=== PATIENT | female | born 1955 | race Caucasian/White ===

== ENCOUNTER 2017-12-22 08:39 | Observation (INO) | payer OTHER, SELFPAY ==
[2017-12-15 14:45] VITALS: BP 132/68; PULSE 57; RESP 16; TEMP 36.6; O2SAT 97; BMI 39.9
--- NOTE | 2017-12-15 14:55 | SDCEKG_ITS ---
Test Reason : Blood Pressure : / mmHG Vent. Rate : 052 BPM Atrial Rate : 052 BPM P-R Int : 160 ms QRS Dur : 070 ms QT Int : 424 ms P-R-T Axes : 047 023 046 degrees QTc Int : 394 ms Sinus bradycardia Low voltage QRS Borderline ECG Confirmed by MARK TAYLOR, MENDOZA ([id number]), science editor MILES ALLEN ([id number]) on 12/16/2017 1:52:14 PM Referred By: Haseeb De Los Santos Confirmed By:MENDOZA FLORES MD
[2017-12-15 15:58] LABS: Hematocrit 38.7 % (37-47); Hemoglobin 12.9 g/dl (12.0-15.0); Mean Corp Hgb Conc 33.3 g/gl (32-36); Mean Corpuscular Hgb 30.9 pg (27.0-32.0); Mean Corpuscular Volume 92.8 fL (81-99); Mean Platelet Vol. 10.2 fl (6.2-12.0); Platelet Count 209 K/mm3 (150-450); RBC Distribution Width CV 12.3 % (11.6-14.6); RBC Distribution Width SD 41.9 fl (35.1-43.9); Red Blood Count 4.17 M/mm3 (4.2-5.4); White Blood Count 7.8 K/mm3 (4.4-11.0)
[2017-12-15 16:08] LABS: Scan Indicated on CBC? Y/N NO
[2017-12-15 16:16] LABS: AST(SGOT) 15 U/L (15-37); Alanine Aminotransfer ALT/SGPT 20 U/L (13-56); Albumin, Serum 3.3 g/dL (3.2-5.0); Alkaline Phosphatase 81 U/L (45-117); Anion Gap 8 (5-15); BUN 17 mg/dL (7-18); BUN/Creat Ratio 15.6 RATIO (10-20); Bilirubin, Direct 0.09 mg/dL (0.00-0.30); Calcium,Total 8.4 mg/dL (8.5-10.1); Chloride 105 mmol/L (98-107); Creatinine, Serum 1.09 mg/dL (0.55-1.02); EST Glomerular Filtration Rate 54 mL/min (>60); Est Glom Filt Rate - Afr Amer 66 mL/min (>60); Estimated Creatinine Clearance 38.93 ml/min; Globulin 3.2 g/dL (2.2-4.2); Glucose 106 mg/dL (74-106); Protein, Total 6.5 g/dL (6.4-8.2); Sodium Level 139 mmol/L (136-145); Thyroid Stim Hormone (TSH) 4.33 uIU/mL (0.358-3.74)
[2017-12-15 16:21] LABS: Prothrombin Time (Protime)PT. 12.6 SECONDS (11.7-14.9)
[2017-12-15 16:22] LABS: Partial Thromboplast Time 29.1 Seconds (24.1-36.2)
[2017-12-15 16:52] LABS: Hemoglobin A1c 6.6 % (4.2-6.3)
[2017-12-22] VITALS (19 sets, daily range): BP systolic 89–129; BP diastolic 53–86; PULSE 57–73; RESP 16–18; TEMP 36.2–36.8; O2SAT 95–100; BMI 39.9
[2017-12-22] MEDS: Celecoxib 200 MG Capsule PO (09:27)
[2017-12-22] MEDS: oxyCODONE HCl Cr 10 MG Tablet PO (09:27)
[2017-12-22] MEDS: Dext 5%-0.45% NS 1,000 ML 100 ML IV (09:30)
[2017-12-22 09:36] LABS: Bedside Glucose 46 mg/dL (70-110)
[2017-12-22 10:06] LABS: Bedside Glucose 82 mg/dL (70-110)
--- NOTE | 2017-12-22 11:09 | RAD_ITS ---
STUDY: X-RAY - RIGHT KNEE REASON FOR EXAM: Female, 62 years old. Total knee replacement. TECHNIQUE: AP and lateral view(s) of the knee. COMPARISON: Comparison is made with prior study dated August 28, 2016. FINDINGS: Normal visualized distal femur. Normal visualized proximal tibia and fibula. Normal proximal tibiofibular articulation. The patient is status post total knee replacement. There is good alignment. Postoperative soft tissue changes. RAD/Knee 1 or 2 Views IMPRESSION: Status post total knee replacement. There is good alignment. Postoperative soft tissue changes. Electronically Signed: Sivakumar Johnson MD at 14:01 EST Tel [phone], Service support ,
--- NOTE | 2017-12-22 11:20 | KNEE_PTH ---
PATIENT: HOPE ENCINAS LOC: [facility]3 U#:[id number] AGE/SX: 62/F ROOM: MS316 RE12/22/[address]: Haseeb De Los Santos DO : 1955 BED: 1 DIS: 12/25/2017 SPEC #: [id number] RECD: 12/23/17 08:35 STATUS: SCOT ANGEL #: [id number] COMFORT: 12/22/17 11:[address]: Haseeb De Los Santos DEPT: SURGICAL PATHOLOGY RECD BY: Kayla Hickman ENTERED: 12/23/17 09:04 SP TYPE: TOTAL KNEE OTHR DR: Truman David Tissues: Knee, NOS Procedures: Decalcification bone/plaque Surgery Specimen Level IV HEADER OPERATION: Right, total knee replacement PRE-OP DIAGNOSIS: Osteoarthritis, right knee TISSUE SUBMITTED: Bone and tissue, right knee MICROSCOPIC DIAGNOSIS Bone and tissue of right knee, total knee resection: Consistent with severe degenerative joint disease. AM:georges 12/28/17 MICROSCOPIC DESCRIPTION Slides are reviewed. GROSS DESCRIPTION Received is one container designated bone and tissue right knee. The specimen consists of multiple fragments of heart-yellow bone measuring in aggregate 9 x 9 x 3 cm. No soft tissue is identified. A number of bony fragments contain articular surfaces consistent with tibial plateau and femoral condyle and displaying prominent osteophyte formation, eburnation, and bone erosion. Flexo Folder Gluer Operator section is submitted in one cassette after decalcification. / SJ:georges 12/23/17 TC:5 CPT: 98365, 18384
[2017-12-22] MEDS: Cefazolin 2 GM in 0.9% Normal Saline 100 ML IV (11:25)
--- NOTE | 2017-12-22 13:00 | PCM.IMDPSTOP ---
Immediate Post-Op Note Date of Procedure: 12/22/17 Primary Surgeon/Physician: Haseeb De Los Santos DO calendering supervisor: Anaya Mcclain Pre-Operative Diagnosis: Right knee osteoarthritis Post-Operative Diagnosis: Same as above Surgery/Procedure Performed:: Right total knee arthroplasty using the [employer] press-fit system Description of Surgical Findings:: See dictation Estimated Blood Loss: 50 Specimen's removed: Bone cuts Type of Anesthesia:: Spinal - Admit VTE Documentation VTE Present on Admission: No VTE Mechan Device Prophylaxis: SCD's, Knee High HUDSON Hose VTE Pharm Prophylaxis ordered?: Yes
--- NOTE | 2017-12-22 13:01 | PCM.OPRPT ---
Report of Operation Date of Procedure: 12/22/17 Pre-Operative Diagnosis: Right knee osteoarthritis Post-Operative Diagnosis: Same as above Surgery/Procedure Performed:: Right total knee arthroplasty using the [employer] press-fit system Description of Surgical Findings:: 62-year-old female with recalcitrant right knee pain that failed nonoperative management to include NSAIDs activity modifications physical therapy and injections. Patient plain from radiographs that showed her to have significant compartment changes across the medial side of the knee. Having failed conservative measures patient elected for total knee arthroplasty due to pain with moving up and down stairs and concerned about patellofemoral changes. Patient was counseled and consented for the aforementioned procedure. She is met in the holding area where the right upper right lower extremity was marked and identified by the with surgeon. Patient was taken the operating room in satisfactory condition a timeout took place to identify patient operative procedure and limb. She received 2 g Ancef and 1 g of TXA. Right lower extremity was elevated Esmarch used for exsanguination and tourniquet was increased to 250 mmHg for roughly 60 minutes. Patient had a standard incision made 2 fingerbreadths above the patella down to the tibial tubercle. Bovie cautery 20 bleeding. The patient underwent a standard medial patellar patellar approach. Patient had a large return effusion. Patient had significant osteoarthritic changes across the medial compartment of knee with eburnated bone on the femur and tibia. Her patellofemoral joint also showed high-grade chondromalacia. Lateral compartment was relatively preserved secondary to the varus nature of her knee. At that point time an anterior fat pad was resection was undertaken. We performed a standard posterior medial release. Intramedullary guide was then introduced just above the PS the PCL. We then performed our standard distal femoral cut using 6? of valgus and an 8 mm distal femoral section. We then trialed to a size 3 femur. 3 cutting guide was then placed under standard cutting was performed. We then turned our attention to the tibia. [place] was set selected accordingly to anticipated CR component procedure. We took 2 mm off the medial side which was the low side. With one additional turn. We then performed a standard tibial cut. Tibial tray measured size 3. The patient had very good bone quality so I elected to use a press-fit system. I placed additional drill holes into the femur into the tibia to allow for better soft tissue growth to the prosthesis. At that point time a 3 femur and a 3 tibial tray with a 9 mm Li replaced. We had no flexion extension gaps that could be appreciated again at 0 30 and 90?. At that point time trial components removed. Remnant menisci removed. Posterior medial and posterior lateral corners were cauterized to control any bleeding. Then turned our attention to the patella. The patella is overall thickness was roughly 21 mm. I took off 9 to leave 12. Patient sized to a size 32. Standard drill holes for a press-fit patella were then placed. We then copiously irrigated the wound using standard technique. We then introduced 50 cc of the Hammad cocktail around the soft tissues for postoperative pain control. At that point time the 3 femur was then press-fit into place using standard technique. We then press-fit a tibial tray and retrial with a 9 femur. I felt that a 9 had a little bit of hyperextension. An 11 Li was then introduced with excellent mechanical alignment in all planes. We then turned our attention to the patella. 32 press-fit patella was then seated using standard technique. The wound scopes irrigated one additional time remove the excess debris. We then placed a 11 mm CS Li using standard technique. The wound showed excellent balanced. Patella tracked accordingly. We then been her began our closure. The parapatellar approach was closed using #1 Vicryl using [id number] technique. Soft tissues reapproximated with 2-0 Vicryl running subicular Monocryl and Dermabond. Silverlon dressing was applied with the knee in 30? knee flexion. Tourniquet was down during final closure. We had no drains or complications. I was scrubbed and available time during our procedure. Implants included again [place] triathlon total knee system press-fit, 3 tibia 3 femur 11 CS Li and 32 patella button. Patient be admitted to floor for 24 hours of IV antibiotics appropriate IV and p.o. pain medication. DVT prophylaxis will include SCDs teds and 325 p.o. twice daily of aspirin. Any issues please contact me. stage builder: Anaya Mcclain Type of Anesthesia:: Spinal Specimen's removed: Bone cuts Estimated Blood Loss (mL): 50 Grafts/Implants Used: Striker triathlon press-fit, 3 femur, 3 tibia, 32 patella, 11 CS - Complications None - Admit VTE Documentation VTE Present on Admission: No VTE Mechan Device Prophylaxis: SCD's, Knee High HUDSON Hose VTE Pharm Prophylaxis ordered?: Yes
--- NOTE | 2017-12-22 13:08 | OP.PCM_ITS ---
Report of Operation Date of Procedure: 12/22/17 Pre-Operative Diagnosis: Right knee osteoarthritis Post-Operative Diagnosis: Same as above Surgery/Procedure Performed:: Right total knee arthroplasty using the [employer] press-fit system Description of Surgical Findings:: 62-year-old female with recalcitrant right knee pain that failed nonoperative management to include NSAIDs activity modifications physical therapy and injections. Patient plain from radiographs that showed her to have significant compartment changes across the medial side of the knee. Having failed conservative measures patient elected for total knee arthroplasty due to pain with moving up and down stairs and concerned about patellofemoral changes. Patient was counseled and consented for the aforementioned procedure. She is met in the holding area where the right upper right lower extremity was marked and identified by the with surgeon. Patient was taken the operating room in satisfactory condition a timeout took place to identify patient operative procedure and limb. She received 2 g Ancef and 1 g of TXA. Right lower extremity was elevated Esmarch used for exsanguination and tourniquet was increased to 250 mmHg for roughly 60 minutes. Patient had a standard incision made 2 fingerbreadths above the patella down to the tibial tubercle. Bovie cautery 20 bleeding. The patient underwent a standard medial patellar patellar approach. Patient had a large return effusion. Patient had significant osteoarthritic changes across the medial compartment of knee with eburnated bone on the femur and tibia. Her patellofemoral joint also showed high-grade chondromalacia. Lateral compartment was relatively preserved secondary to the varus nature of her knee. At that point time an anterior fat pad was resection was undertaken. We performed a standard posterior medial release. Intramedullary guide was then introduced just above the PS the PCL. We then performed our standard distal femoral cut using 6? of valgus and an 8 mm distal femoral section. We then trialed to a size 3 femur. 3 cutting guide was then placed under standard cutting was performed. We then turned our attention to the tibia. [place] was set selected accordingly to anticipated CR component procedure. We took 2 mm off the medial side which was the low side. With one additional turn. We then performed a standard tibial cut. Tibial tray measured size 3. The patient had very good bone quality so I elected to use a press-fit system. I placed additional drill holes into the femur into the tibia to allow for better soft tissue growth to the prosthesis. At that point time a 3 femur and a 3 tibial tray with a 9 mm Li replaced. We had no flexion extension gaps that could be appreciated again at 0 30 and 90?. At that point time trial components removed. Remnant menisci removed. Posterior medial and posterior lateral corners were cauterized to control any bleeding. Then turned our attention to the patella. The patella is overall thickness was roughly 21 mm. I took off 9 to leave 12. Patient sized to a size 32. Standard drill holes for a press-fit patella were then placed. We then copiously irrigated the wound using standard technique. We then introduced 50 cc of the Hammad cocktail around the soft tissues for postoperative pain control. At that point time the 3 femur was then press-fit into place using standard technique. We then press-fit a tibial tray and retrial with a 9 femur. I felt that a 9 had a little bit of hyperextension. An 11 Li was then introduced with excellent mechanical alignment in all planes. We then turned our attention to the patella. 32 press-fit patella was then seated using standard technique. The wound scopes irrigated one additional time remove the excess debris. We then placed a 11 mm CS Li using standard technique. The wound showed excellent balanced. Patella tracked accordingly. We then been her began our closure. The parapatellar approach was closed using #1 Vicryl using [id number] technique. Soft tissues reapproximated with 2- 0 Vicryl running subicular Monocryl and Dermabond. Silverlon dressing was applied with the knee in 30? knee flexion. Tourniquet was down during final closure. We had no drains or complications. I was scrubbed and available time during our procedure. Implants included again [place] triathlon total knee system press-fit, 3 tibia 3 femur 11 CS Li and 32 patella button. Patient be admitted to floor for 24 hours of IV antibiotics appropriate IV and p.o. pain medication. DVT prophylaxis will include SCDs teds and 325 p.o. twice daily of aspirin. Any issues please contact me. medical reviewer: Anaya Mcclain Type of Anesthesia:: Spinal Specimen's removed: Bone cuts Estimated Blood Loss (mL): 50 Grafts/Implants Used: Striker triathlon press-fit, 3 femur, 3 tibia, 32 patella , 11 CS - Complications None - Admit VTE Documentation VTE Present on Admission: No VTE Mechan Device Prophylaxis: SCD's, Knee High HUDSON Hose VTE Pharm Prophylaxis ordered?: Yes
[2017-12-22 13:46] LABS: Bedside Glucose 130 mg/dL (70-110)
--- NOTE | 2017-12-22 15:10 | SUR.PHASEI ---
Addendum entered by Toma Stanford 12/22/17 15:11: Original Note: AWAITING ANESTHESIA TO ADMINISTER BLOCK
[2017-12-22] MEDS: Lactated Ringers 1,000 ML 75 ML IV (17:07)
[2017-12-22] MEDS: Ketorolac 15 MG/ML Vial IV (17:20)
[2017-12-22] MEDS: metFORMIN HCl 1,000 MG Tablet 1000 MG PO (17:21)
[2017-12-22] MEDS: Cefazolin 1 GM/50 ML BAG IV (18:43)
[2017-12-22] MEDS: Atorvastatin Calcium 80 MG Tablet PO (21:00)
[2017-12-22] MEDS: Aspirin 325 MG Tablet PO (21:00)
[2017-12-22] MEDS: Acetaminophen 500 MG Tablet 1000 MG PO (21:00)
[2017-12-22] MEDS: Senna/Docusate Sodium 1 Tablet 2 TABLET PO (21:00)
[2017-12-22 22:20] LABS: Bedside Glucose 148 mg/dL (70-110)
[2017-12-23 03:15] VITALS: BP 110/62; PULSE 58; RESP 16; TEMP 36.7; O2SAT 98
[2017-12-23] MEDS: Cefazolin 1 GM/50 ML BAG IV (03:16)
[2017-12-23] MEDS: Levothyroxine 112 MCG Tablet PO (05:09)
[2017-12-23] MEDS: oxyCODONE 5 MG Tablet PO ×4 (05:09→21:16)
[2017-12-23] MEDS: Acetaminophen 500 MG Tablet 1000 MG PO ×3 (05:09→21:16)
[2017-12-23 06:45] LABS: Bedside Glucose 98 mg/dL (70-110)
[2017-12-23 06:49] LABS: Hematocrit 35.8 % (37-47); Mean Corp Hgb Conc 33.5 g/gl (32-36); Mean Corpuscular Hgb 31.1 pg (27.0-32.0); Mean Corpuscular Volume 92.7 fL (81-99); Mean Platelet Vol. 10.2 fl (6.2-12.0); Platelet Count 182 K/mm3 (150-450); RBC Distribution Width CV 11.8 % (11.6-14.6); RBC Distribution Width SD 39.4 fl (35.1-43.9); Red Blood Count 3.86 M/mm3 (4.2-5.4); White Blood Count 7.8 K/mm3 (4.4-11.0)
[2017-12-23 06:56] LABS: Scan Indicated on CBC? Y/N NO
[2017-12-23 07:17] LABS: Anion Gap 6 (5-15); BUN 18 mg/dL (7-18); BUN/Creat Ratio 15.9 RATIO (10-20); Calcium,Total 8.4 mg/dL (8.5-10.1); Chloride 103 mmol/L (98-107); Creatinine, Serum 1.13 mg/dL (0.55-1.02); EST Glomerular Filtration Rate 52 mL/min (>60); Est Glom Filt Rate - Afr Amer 63 mL/min (>60); Estimated Creatinine Clearance 37.55 ml/min; Glucose 110 mg/dL (74-106); Potassium 5.3 mmol/L (3.5-5.1); Sodium Level 136 mmol/L (136-145)
--- NOTE | 2017-12-23 07:51 | PCM.PN.ORT ---
Subjective: Postop day 1 status post right total knee arthroplasty. No issues overnight. Pain is controlled at this point time. Patient reports only mild thumping. But this is dull at this point. Patient probably still feeling the effects of the periarticular pain cocktail. No other fevers chills nausea vomiting chest pain or shortness of breath at this time. Vital signs remained stable. - Physical Exam General: Alert, Oriented x3, Cooperative, No apparent distress Musculoskeletal: - - Dressing in place. No calf pain negative Homans. SCDs teds in place. Range of motion 0-60. Hardware otherwise well seated well-placed. Vital signs and lab values reviewed and stable. Vital Signs Temp Pulse Resp BP Pulse Ox 98.0 F 58 L 16 110/62 98 12/23/17 03:15 12/23/17 03:15 12/23/17 03:15 12/23/17 03:15 12/23/17 03:15 Oxygen Delivery Method Room Air Weight: 204 lb 2.369 oz Body Mass Index (BMI) 39.9 Finger Stick Blood Glucose 130 Intake and Output for Last 24 Hours 12/21/17 12/22/17 12/23/17 23:59 23:59 23:59 Intake Total 3405 / 3405 468 / 468 Output Total 100 / 100 225 / 225 Balance 3305 / 3305 243 / 243 Laboratory Tests Past 24 Hrs 12/23/17 12/23/17 06:12 06:12 WBC 7.8 RBC 3.86 L Hgb 12.0 Hct 35.8 L MCV 92.7 MCH 31.1 MCHC 33.5 RDW 11.8 RDW Differential 39.4 Plt Count 182 MPV 10.2 Sodium 136 Potassium 5.3 H Chloride 103 Carbon Dioxide 27.0 Anion Gap 6 BUN 18 Creatinine 1.13 H Estim Creat Clear Calc 37.55 Est GFR (MDRD) Af Amer 63 Est GFR (MDRD) Non-Af 52 L BUN/Creatinine Ratio 15.9 Glucose 110 H Calcium 8.4 L POC Glucose 12/23/17 12/22/17 12/22/17 06:37 22:14 13:42 POC Glucose 98 148 H 130 H 12/22/17 12/22/17 09:59 09:13 POC Glucose 82 46 L Assessment/Plan Assessment: Postop day 1 status post right total knee arthroplasty. Doing well. Plan: At this point time the patient would like to be evaluated for skilled nurse facility due to the fact that she would be home alone most of the day and will be unable to drive secondary to a right total knee arthroplasty. I told the patient if she is approved for transitional care placement and I would be fine with me. Otherwise a skilled nurse facility around [facility] is also acceptable. Patient will need to be evaluated by case management and physical therapy. Continue with DVT prophylaxis. Will follow. Any issues please contact me.
[2017-12-23] MEDS: Ramipril 10 MG Capsule PO (08:23)
[2017-12-23] MEDS: Famotidine 20 MG Tablet PO (08:23)
[2017-12-23] MEDS: Aspirin 325 MG Tablet PO ×2 (08:23→18:10)
[2017-12-23] MEDS: metFORMIN HCl 1,000 MG Tablet 1000 MG PO ×2 (08:23→18:10)
[2017-12-23] MEDS: Glimepiride 4 MG Tablet PO (08:23)
[2017-12-23] MEDS: Senna/Docusate Sodium 1 Tablet 2 TABLET PO ×2 (08:23→21:16)
[2017-12-23] MEDS: LINAGLIPTIN 5 MG TABLET PO (08:23)
[2017-12-23 08:32] VITALS: BP 109/47; PULSE 56; RESP 18; TEMP 36.7; O2SAT 100
[2017-12-23 08:58] LABS: Anion Gap 6 (5-15); BUN 17 mg/dL (7-18); BUN/Creat Ratio 14.7 RATIO (10-20); Chloride 104 mmol/L (98-107); Creatinine, Serum 1.16 mg/dL (0.55-1.02); EST Glomerular Filtration Rate 50 mL/min (>60); Est Glom Filt Rate - Afr Amer 61 mL/min (>60); Estimated Creatinine Clearance 36.58 ml/min; Glucose 184 mg/dL (74-106); Sodium Level 137 mmol/L (136-145)
[2017-12-23] MEDS: Ascorbic Acid 500 MG Tablet 1000 MG PO (12:11)
[2017-12-23] MEDS: Multivitamins,Therapeutic Tablet 1 TABLET PO (12:11)
--- NOTE | 2017-12-23 13:45 | CASEMGMT ---
JACKIE STONE Face to Face with patient for initial transition planning/care coordination assessment. JACKIE STONE introduced self and role at [facility]. Patient sitting in chair, alert and oriented. Patient willing to participate in assessment and is able to answer all questions appropriately. Care providers, pharmacy, and demographics verified. Patient wishes to discharge to TCU and states that Dr. De Los Santos recommends. JACKIE STONE updated patient that not sure if TCU will have bed available and if she has a second choice. Patient is unsure at this time. JACKIE STONE discussed with patient that social work would be following up with her in regards for request for TCU at discharge. CAREY Day updated on request for TCU at discharge.
--- NOTE | 2017-12-23 13:57 | CASEMGMT ---
Social Work Note Updated by RN CHASE Mckeon - that pt is requesting placement at TCU and stating that the physician recommended this. Placed call to Alda and left vm inquiring about bed availability. Return phone call from Alda that she would have a bed and called the insurance. They would cover at 80% once the deductible was met, but did not disclose to Alda what the deductible was. Updated the pt to the above information and pt is in agreement and expresses understanding. Pre-cert initiated and pt may transfer to TCU once authorization is received. SW to continue to follow and assist with discharge planning. Plan: TCU pending pre-cert. JUVENAL LucianoW
[2017-12-23 14:21] VITALS: BP 112/57; PULSE 62; RESP 18; TEMP 36.8; O2SAT 100
[2017-12-23] MEDS: Atorvastatin Calcium 80 MG Tablet PO (21:16)
[2017-12-23 21:18] VITALS: BP 113/61; PULSE 69; RESP 19; TEMP 36.9; O2SAT 96
[2017-12-24] MEDS: Levothyroxine 112 MCG Tablet PO (05:42)
[2017-12-24] MEDS: Acetaminophen 500 MG Tablet 1000 MG PO ×3 (05:42→21:58)
[2017-12-24] MEDS: oxyCODONE 5 MG Tablet PO ×4 (05:42→21:56)
[2017-12-24 05:43] VITALS: BP 130/74; PULSE 64; RESP 19; TEMP 36.6; O2SAT 98
[2017-12-24] MEDS: Ondansetron 4 MG/2 ML Vial IV (06:33)
[2017-12-24] MEDS: 0.9% NaCl Peripheral Flush Adult/Peds IV ×2 (06:33→22:03)
[2017-12-24 06:34] LABS: Hematocrit 35.7 % (37-47); Hemoglobin 12.1 g/dl (12.0-15.0); Mean Corp Hgb Conc 33.9 g/gl (32-36); Mean Corpuscular Hgb 31.5 pg (27.0-32.0); Mean Platelet Vol. 10.2 fl (6.2-12.0); Platelet Count 196 K/mm3 (150-450); RBC Distribution Width SD 39.9 fl (35.1-43.9); Red Blood Count 3.84 M/mm3 (4.2-5.4); Scan Indicated on CBC? Y/N NO; White Blood Count 9.5 K/mm3 (4.4-11.0)
[2017-12-24 06:50] LABS: Anion Gap 6 (5-15); BUN 19 mg/dL (7-18); BUN/Creat Ratio 15.7 RATIO (10-20); Calcium,Total 8.6 mg/dL (8.5-10.1); Chloride 104 mmol/L (98-107); Creatinine, Serum 1.21 mg/dL (0.55-1.02); EST Glomerular Filtration Rate 48 mL/min (>60); Est Glom Filt Rate - Afr Amer 58 mL/min (>60); Estimated Creatinine Clearance 35.07 ml/min; Glucose 66 mg/dL (74-106); Potassium 4.6 mmol/L (3.5-5.1); Sodium Level 138 mmol/L (136-145)
--- NOTE | 2017-12-24 08:00 | PCM.PN.ORT ---
Subjective: Postop day 2 status post right total knee arthroplasty. No major issues overnight. Pain is controlled p.o. pain medication. Vital signs remained stable. H&H stable. No fevers chills nausea vomiting chest pain or shortness of breath. - Physical Exam General: Alert, Oriented x3, Cooperative, No apparent distress Musculoskeletal: - - Distally neurovascular intact. No calf pain negative Homans. Minimal knee effusion. Range of motion 0-90. H&H stable. Vital Signs Temp Pulse Resp BP Pulse Ox 97.8 F 64 19 H 130/74 H 98 12/24/17 05:43 12/24/17 05:43 12/24/17 05:43 12/24/17 05:43 12/24/17 05:43 Oxygen Delivery Method Room Air Weight: 204 lb 2.369 oz Body Mass Index (BMI) 39.9 Finger Stick Blood Glucose 130 Intake and Output for Last 24 Hours 12/22/17 12/23/17 12/24/17 23:59 23:59 23:59 Intake Total 3405 / 3405 1328 / 1328 900 / 900 Output Total 100 / 100 225 / 225 Balance 3305 / 3305 1103 / 1103 900 / 900 Laboratory Tests Past 24 Hrs 12/23/17 12/24/17 12/24/17 08:30 06:08 06:08 WBC 9.5 RBC 3.84 L Hgb 12.1 Hct 35.7 L MCV 93.0 MCH 31.5 MCHC 33.9 RDW 12.0 RDW Differential 39.9 Plt Count 196 MPV 10.2 Sodium 137 138 Potassium 5.0 4.6 Chloride 104 104 Carbon Dioxide 27.0 28.0 Anion Gap 6 6 BUN 17 19 H Creatinine 1.16 H 1.21 H Estim Creat Clear Calc 36.58 35.07 Est GFR (MDRD) Af Amer 61 58 L Est GFR (MDRD) Non-Af 50 L 48 L BUN/Creatinine Ratio 14.7 15.7 Glucose 184 H 66 L Calcium 8.0 L 8.6 Assessment/Plan Plan: Postop day 2 status post right total knee arthroplasty doing well. Plan: This point time we to placement to transitional care unit. Discharge medications have been printed. Await formal paperwork for transfer to the TCU. Just contact me when the patient meets criteria and/or approval for transfer. Any major issues please contact me.
[2017-12-24 08:25] VITALS: BP 97/53; PULSE 60; RESP 16; TEMP 36.5; O2SAT 98
[2017-12-24] MEDS: Glimepiride 4 MG Tablet PO (08:33)
[2017-12-24] MEDS: Aspirin 325 MG Tablet PO ×2 (08:33→16:50)
[2017-12-24] MEDS: Ramipril 10 MG Capsule PO (08:34)
[2017-12-24] MEDS: Ascorbic Acid 500 MG Tablet 1000 MG PO (08:34)
[2017-12-24] MEDS: Famotidine 20 MG Tablet PO (08:34)
[2017-12-24] MEDS: metFORMIN HCl 1,000 MG Tablet 1000 MG PO ×2 (08:34→16:50)
[2017-12-24] MEDS: Multivitamins,Therapeutic Tablet 1 TABLET PO (08:34)
[2017-12-24] MEDS: LINAGLIPTIN 5 MG TABLET PO (08:35)
[2017-12-24] MEDS: Senna/Docusate Sodium 1 Tablet 2 TABLET PO ×2 (08:35→21:59)
[2017-12-24 11:44] VITALS: BP 101/53; PULSE 62; RESP 16; TEMP 36.7; O2SAT 100
[2017-12-24 14:52] VITALS: BP 144/50; PULSE 71; RESP 16; TEMP 37; O2SAT 100
[2017-12-24] MEDS: Atorvastatin Calcium 80 MG Tablet PO (21:59)
[2017-12-24 22:01] VITALS: BP 107/67; PULSE 61; RESP 18; TEMP 36.7; O2SAT 99
[2017-12-25 03:00] VITALS: BP 117/67; PULSE 67; RESP 18; TEMP 36.8; O2SAT 96
[2017-12-25] MEDS: oxyCODONE 5 MG Tablet PO ×3 (03:07→17:22)
[2017-12-25] MEDS: Acetaminophen 500 MG Tablet 1000 MG PO ×2 (06:18→14:05)
[2017-12-25] MEDS: Levothyroxine 112 MCG Tablet PO (06:18)
[2017-12-25 06:20] LABS: Hematocrit 33.5 % (37-47); Hemoglobin 11.2 g/dl (12.0-15.0); Mean Corp Hgb Conc 33.4 g/gl (32-36); Mean Corpuscular Hgb 31.5 pg (27.0-32.0); Mean Corpuscular Volume 94.4 fL (81-99); Mean Platelet Vol. 10.4 fl (6.2-12.0); Platelet Count 193 K/mm3 (150-450); RBC Distribution Width CV 12.2 % (11.6-14.6); RBC Distribution Width SD 40.9 fl (35.1-43.9); Red Blood Count 3.55 M/mm3 (4.2-5.4); White Blood Count 9.3 K/mm3 (4.4-11.0)
[2017-12-25 06:23] LABS: Scan Indicated on CBC? Y/N NO
[2017-12-25 06:34] LABS: Anion Gap 6 (5-15); BUN 19 mg/dL (7-18); Calcium,Total 8.7 mg/dL (8.5-10.1); Chloride 103 mmol/L (98-107); Creatinine, Serum 1.12 mg/dL (0.55-1.02); EST Glomerular Filtration Rate 53 mL/min (>60); Est Glom Filt Rate - Afr Amer 64 mL/min (>60); Estimated Creatinine Clearance 37.89 ml/min; Glucose 52 mg/dL (74-106); Potassium 5.1 mmol/L (3.5-5.1); Sodium Level 137 mmol/L (136-145)
--- NOTE | 2017-12-25 06:53 | PCM.DC.TKR ---
Discharge Activity: Return to Normal Activity, May not drive while taking narcotic pain medications., May Shower, Use Walker May shower in (days): 1 May resume sexual activity in: No Restrictions Ice area for (Minutes): 20 Weight Bearing Status: Weight bearing as tolerated Call your doctor if your incision/area has: Continuous Slow Oozing, Sudden Increased Bleeding, Increased Pain/ Swelling, Increased Redness, Foul Smelling Discharge, Swelling at the incision site Call your doctor if you observe: Fever of 101 or Higher, Coldness, Increased Pain, Numbness or Tingling, Change in Color, Inability to urinate, Inability to have a bowel movement, Using more than one pad per hour, Shortness of breath, Dizziness, Fainting spells, Swelling in the ankles, Chest pain, Prolonged hiccoughing, Increased palpitations (irregular heartbeat), Calf discomfort, Uncontrolled pain Suture Line Care: Avoid Pulling/Pushing, Avoid Pinching/Bending Change Dressing in (Days):: 5 Remove Dressing in (days):: 5 Cleanse incision/area with: Soap & Water Allergies/Adverse Reactions: Allergies No Known Allergies Allergy (Verified 12/15/17 14:27) Medications to take at Discharge atorvastatin 80 mg tablet 80 mg PO QHS tab 12/09/17 glimepiride 4 mg tablet 4 mg PO QAM 12/09/17 lansoprazole 30 mg capsule,delayed release 30 mg PO DAILY 12/09/17 levothyroxine 112 mcg tablet 112 mcg PO DAILY tab 12/09/17 metformin 500 mg tablet 1,000 mg PO 4X/DAY 12/09/17 ramipril 10 mg capsule 10 mg PO DAILY cap 12/09/17 sitagliptin 100 mg tablet 100 mg PO DAILY tab 12/09/17 Aspirin E.C. [Ecotrin] 325 mg PO BID #30 tab 12/24/17 Docusate Sodium [Colace] 100 mg PO BID PRN PRN #10 cap 12/24/17 Famotidine [Pepcid] 20 mg PO BID #60 tab 12/24/17 Oxycodone HCl/Acetaminophen [Percocet 5/325] 1 - 2 tab PO Q4H PRN PRN #60 tab 12/24/17 ProMETHAzine [Phenergan] 25 mg PO Q4H PRN PRN #10 tab 12/24/17 The following prescriptions were given: Oxycodone HCl/Acetaminophen [Percocet 5/325] 1 - 2 tab PO Q4H PRN PRN #60 tab PRN Reason: Pain ProMETHAzine [Phenergan] 25 mg PO Q4H PRN PRN #10 tab PRN Reason: Nausea Docusate Sodium [Colace] 100 mg PO BID PRN PRN #10 cap PRN Reason: Constipation Aspirin E.C. [Ecotrin] 325 mg PO BID #30 tab Famotidine [Pepcid] 20 mg PO BID #60 tab Primary Care Physician: Truman David [Primary Care Provider] - Please Follow Up With: Haseeb De Los Santos DO When: call [facility] for appt for 2 weeks Proposed Discharge Date: 12/25/17
[2017-12-25 08:19] VITALS: BP 115/55; PULSE 62; RESP 16; TEMP 36.6; O2SAT 98
[2017-12-25] MEDS: Famotidine 20 MG Tablet PO (08:23)
[2017-12-25] MEDS: Senna/Docusate Sodium 1 Tablet 2 TABLET PO (08:23)
[2017-12-25] MEDS: Glimepiride 4 MG Tablet PO (08:23)
[2017-12-25] MEDS: Aspirin 325 MG Tablet PO ×2 (08:23→16:47)
[2017-12-25] MEDS: Multivitamins,Therapeutic Tablet 1 TABLET PO (08:23)
[2017-12-25] MEDS: LINAGLIPTIN 5 MG TABLET PO (08:24)
[2017-12-25] MEDS: metFORMIN HCl 1,000 MG Tablet 1000 MG PO ×2 (08:24→16:50)
[2017-12-25] MEDS: Ramipril 10 MG Capsule PO (08:24)
[2017-12-25] MEDS: Ascorbic Acid 500 MG Tablet 1000 MG PO (08:24)
--- NOTE | 2017-12-25 10:05 | CASEMGMT ---
Addendum entered by Pilar Ron 12/25/17 10:15: As per Mai, pt was denied care home as insurance states that pt was approved for an outpt elective surgery, and they will not approve an inpt care home stay. ISABEL Caro, PROCESS HELPER Original Note: SW spoke w/Mai in TCU, they do not yet have precert for pt to come to TCU, she will let this SW or CAREY Griffith know once the precert is attained. ISABEL Caro, PROCESS HELPER
[2017-12-25 11:13] VITALS: BP 96/52; PULSE 64; RESP 16; TEMP 36.4; O2SAT 94
--- NOTE | 2017-12-25 12:08 | CASEMGMT ---
Addendum entered by Gladis Wynne 12/25/17 13:27: Return call from Mai in TCU. She states after physician review, pt has been approved for 7 days in TCU. SW met with pt in room and informed her of the determination. Pt is pleased with decision and plans to inform her of d/c plan. Pt aware that d/c is set for today and she will transfer to TCU later today. RN notified and orders faxed to TCU. No further d/c needs. Plan: TCU SCOOBY Smith Original Note: Social Work SW spoke with Mai in TCU. She did speak with the insurance company a second time requesting pt precert for SNF. Additional information provided. Per Mai, pt precert review will be sent to physician review for final decision and will notify Mai of decision later today. CAREY met with pt in room and explained that request for SNF has been sent to physician review. Pt upset that insurance had initially denied TCU stay. CAREY attempted to explain reasoning to pt and insurance process. CAREY will continue to follow for d/c planning and support. SCOOBY Smith
[2017-12-25 14:10] VITALS: BP 134/47; PULSE 51; RESP 16; TEMP 36.7; O2SAT 96
== END 2017-12-25 17:00 | disposition skilled nursing facility (03) ==
LOC: ACINP 16:15 → MS3 16:15
PROVIDERS: Anesthesiology; Admitting Provider Orthopaedic Surgery; Visit Provider Orthopaedic Surgery
PROC: (CPT 27447; principal; 2017-12-22 10:55)
DX: M17.11 Unilateral primary osteoarthritis, right knee (principal); E11.9 Type 2 diabetes mellitus without complications; E78.00 Pure hypercholesterolemia, unspecified; K21.9 Gastro-esophageal reflux disease without esophagitis; Z79.899 Other long term (current) drug therapy; F17.200 Nicotine dependence, unspecified, uncomplicated; E03.9 Hypothyroidism, unspecified; Z79.84 Long term (current) use of oral hypoglycemic drugs; G89.29 Other chronic pain
CPT/HCPCS: 01402; 27447; 36415; 73560; 80048; 80076; 82962; 83036; 84443; 85027; 85610; 85730; 87081; 88305; 88311; 96361; 96365; 96366; 96375; 97110; 97116; 97162; 97166; 97530; 97535; 97802; 99218; J7120; A4216; G0378; G0379; J2405; J7799

== ENCOUNTER 2017-12-25 18:29 | Inpatient (IN) | payer OTHER, SELFPAY ==
[2017-12-25 19:05] VITALS: BP 131/73; PULSE 68; RESP 16; TEMP 36.8; O2SAT 97
--- NOTE | 2017-12-25 20:34 | NURSING ---
Discussed code status with patient. Patient wishes to be full code.
[2017-12-25 20:40] VITALS: BMI 41.4
--- NOTE | 2017-12-25 21:34 | HP.PCM_ITS ---
Problem List (1) Osteoarthritis of right knee Status: Chronic (2) Diabetes mellitus Status: Chronic (3) Hypertension Status: Chronic (4) Hyperlipidemia Status: Chronic (5) Hypothyroidism Status: Chronic (6) GERD (gastroesophageal reflux disease) Status: Chronic (7) Nausea Status: Chronic (8) Insomnia Status: Chronic History of Present Illness Date of Admission: 12/25/17 Chief Complaint: Here for rehabilitation, strengthening, prior to discharge home with spouse. The patient is a 62 year old Female with below past medical history hospitalized for right total knee arthroplasty with Dr. De Los Santos 12/22/2017. 12/25/2017 Admit to TCU for rehabilitation, strengthening, prior to discharge home with spouse. Past Medical History Past Medical History (Chronic Problems): Chronic Problems (Last Updated 12/09/17 @ 09:18 by Glenn Smith) Osteoarthritis of right knee (Chronic) Diabetes mellitus (Chronic) Hypertension (Chronic) Hyperlipidemia (Chronic) Hypothyroidism (Chronic) GERD (gastroesophageal reflux disease) (Chronic) Nausea (Chronic) Insomnia (Chronic) Allergies No Known Allergies Allergy (Verified 12/15/17 14:27) Home Medications: Ambulatory Orders Medication Instructions Recorded atorvastatin 80 mg tablet 80 mg PO QHS tab 12/09/17 glimepiride 4 mg tablet 4 mg PO QAM 12/09/17 lansoprazole 30 mg capsule,delayed 30 mg PO DAILY 12/09/17 release levothyroxine 112 mcg tablet 112 mcg PO DAILY tab 12/09/17 metformin 500 mg tablet 1,000 mg PO 4X/DAY 12/09/17 ramipril 10 mg capsule 10 mg PO DAILY cap 12/09/17 sitagliptin 100 mg tablet 100 mg PO DAILY tab 12/09/17 Docusate Sodium [Colace] 100 mg PO BID PRN PRN #10 cap 12/24/17 Oxycodone HCl/Acetaminophen 1 - 2 tab PO Q4H PRN PRN #60 tab 12/24/17 [Percocet 5/325] ProMETHAzine [Phenergan] 25 mg PO Q4H PRN PRN #10 tab 12/24/17 Aspirin E.C. [Ecotrin] 325 mg PO BID 12/25/17 Famotidine [Pepcid] 20 mg PO BID 12/25/17 Surgical History: total knee arthroplasty - Right. Psychiatric History: No pertinent psych hx STRIP CLEANER History: No pertinent STRIP CLEANER history Lives: Spouse/ Significant Other Smoking Status: Current every day smoker Tobacco Use: Cigarettes Alcohol: Occasional Drugs: None - *Family History Maternal History Items: No pertinent history Paternal History Items: No pertinent history Review of Systems Constitutional: Denies: Chills, Fever, Weight Change HEENT: Denies: Head Aches, Sinus Congestion, Sinus Drainage Cardiovascular: Denies: Chest Pain, Palpitations Respiratory: Denies: Cough, Shortness of breath at rest, Sputum production Gastrointestinal: Reports: Constipation. Denies: Abdominal Pain, Nausea, Vomiting Genitourinary: Denies: Dysuria Musculoskeletal: Denies: Joint Pain, Joint Tenderness Skin: Denies: Rash, Wounds Neurological: Denies: Numbness, Tingling, Focal weakness Psychiatric: Denies: Anxiety, Depression, Homicidal Ideations, Suicidal Ideations Hematologic/ Lymphatic: Denies: Easy Bruising, Easy Bleeding VTE Information - Inpt Only VTE Present on Admission: No VTE Mechan Device Prophylaxis: Knee High HUDSON Hose VTE Pharm Prophylaxis ordered?: Yes - Physical Exam General: Alert, Oriented x3, Cooperative HEENT: Atraumatic, PERRLA, EOMI, Normocephalic Neck: Supple, No JVD, Negative Carotid Bruits Lungs: Clear to auscultation, Normal air movement Cardiovascular: Regular rate, No murmurs Abdomen: Bowel Sounds Present, Soft, Non Tender Extremities: No edema, Capillary Refill Less than 3 Seconds Skin: No rashes, No breakdown, Incision - Right knee clean, dry, intact. Musculoskeletal: No Tenderness to Palpation of Joints or Extremities Neurological: Cranial nerves II-XII grossly intact Psych/Mental Status: Normal Affect, Appropriate Vital Signs Temp Pulse Resp BP Pulse Ox 98.3 F 68 16 131/73 H 97 12/25/17 19:05 12/25/17 19:05 12/25/17 19:05 12/25/17 19:05 12/25/17 19:05 Oxygen Delivery Method Room Air Weight: 96.27 kg Body Mass Index (BMI) 41.4 Finger Stick Blood Glucose 130 Assessment/Plan 62 year old male with below past medical history hospitalized for right total knee arthroplasty 12/22/[address] De Los Santos, admitted to TCU for rehabilitation, strengthening, prior to discharge home with spouse. * Debility - PT/OT. * Pain - Tylenol 1000MG Q8H PRN mild pain, Oxycodone 10MG Q4H PRN severe pain. * Bowel - Miralax 17GM daily, Senna/colace 2 tablets BID, Dulcolax 10MG MO PRN, Golytely 2 Liters PO x 1 dose. * Pneumonia vaccination - Administer Prevnar 13 and/or Pneumovax 23 as necessary. * DVT prophylaxis - Aspirin 325MG BID. * Hyperlipidemia - Atorvastatin 80MG QHS. * GERD - Pantoprazole 40MG daily, Famotidine 20MG BID, reflux severe. * Diabetes Mellitus II - Metformin 1000MG 4x/day, Glimepiride 4MG QAM, Tradjenta 5MG daily. * Hypothyroidism - Levothyroxine 112MCG daily. * Nausea - Phenergan 25MG Q4H PRN. * Hypertension/microalbuminuria - Ramipril 10G daily. * Insomnia - Trazodone 50MG QHS PRN.
[2017-12-25 21:47] VITALS: BMI 41.4
[2017-12-25 22:32] VITALS: RESP 17
--- NOTE | 2017-12-25 22:51 | NURSING ---
Addendum entered by Julienne Sierra 12/26/17 00:26: Patient given yogurt and cookies as well as glucagon IM given. Patient's blood sugar now 71. Patient given apple juice. Will continue to monitor and assess. Original Note: PT ACCUCHECK 30. PT DIAPHORTIC. BACK UP GLUCOSE ORDERED. PEANUT BUTTER , MILK AND KARLA CRACKERS GIVEN. PT ALERT ORIENTED AT THIS TIME. RYAN MEJIA NOTIFIED
[2017-12-25] MEDS: Atorvastatin Calcium 80 MG Tablet PO (23:00)
[2017-12-25 23:01] LABS: Bedside Glucose 30 mg/dL (70-110)
[2017-12-25 23:33] LABS: Glucose 37 mg/dL (74-106)
[2017-12-25 23:41] LABS: Bedside Glucose 35 mg/dL (70-110)
[2017-12-25] MEDS: Glucagon 1 MG/ML Syringe IM (23:42)
[2017-12-26 00:26] LABS: Bedside Glucose 71 mg/dL (70-110)
[2017-12-26 01:06] LABS: Bedside Glucose 141 mg/dL (70-110)
[2017-12-26] MEDS: Polyethylene Glycol 3350 17 GM PACKET PO (05:25)
[2017-12-26] MEDS: Ramipril 10 MG Capsule PO (05:25)
[2017-12-26] MEDS: Famotidine 20 MG Tablet PO ×2 (05:25→17:03)
[2017-12-26] MEDS: Pantoprazole Sodium 40 MG Tablet PO (05:26)
[2017-12-26] MEDS: Senna/Docusate Sodium 1 Tablet 2 TABLET PO ×2 (05:26→17:03)
[2017-12-26] MEDS: LINAGLIPTIN 5 MG TABLET PO (05:28)
[2017-12-26] MEDS: Levothyroxine 112 MCG Tablet PO (05:28)
--- NOTE | 2017-12-26 05:30 | NURSING ---
Patient refusing Magnesium Citrate. States I had a bowel movement last night. I don't go everyday. Patient has no complaints of discomfort.
[2017-12-26 06:55] LABS: Bedside Glucose 155 mg/dL (70-110)
[2017-12-26 07:59] LABS: Absolute Neutrophil Count 5.6 X10^3/uL (2.0-7.7); Basophil# 0.01 X10^3/uL; Basophil% 0.1 % (0-1); Eosinophil# 0.14 X10^3/uL; Eosinophils% 1.8 % (0-5); Hematocrit 36.3 % (37-47); Lymphocyte % 13.1 % (19-41); Mean Corp Hgb Conc 33.1 g/gl (32-36); Mean Corpuscular Hgb 30.6 pg (27.0-32.0); Mean Corpuscular Volume 92.6 fL (81-99); Monocyte# 0.88 X10^3/uL; Monocyte% 11.5 % (0-10); Neutrophil # 5.61 X10^3/uL (2.7-7.7); Neutrophil % 73.4 % (47-70); Platelet Count 225 K/mm3 (150-450); RBC Distribution Width CV 12.5 % (11.6-14.6); RBC Distribution Width SD 42.2 fl (35.1-43.9); Red Blood Count 3.92 M/mm3 (4.2-5.4); White Blood Count 7.7 K/mm3 (4.4-11.0)
[2017-12-26 08:01] LABS: POSITIVE COUNT NO; POSITIVE DIFFERENTIAL NO; POSITIVE MORPHOLOGY NO
[2017-12-26 08:18] LABS: Anion Gap 7 (5-15); BUN 19 mg/dL (7-18); BUN/Creat Ratio 18.8 RATIO (10-20); Calcium,Total 8.9 mg/dL (8.5-10.1); Chloride 102 mmol/L (98-107); Creatinine, Serum 1.01 mg/dL (0.55-1.02); EST Glomerular Filtration Rate 59 mL/min (>60); Est Glom Filt Rate - Afr Amer 72 mL/min (>60); Estimated Creatinine Clearance 42.01 ml/min; Glucose 128 mg/dL (74-106); Potassium 5.3 mmol/L (3.5-5.1); Sodium Level 137 mmol/L (136-145)
[2017-12-26] MEDS: Aspirin E.C. 325 MG Tablet PO ×2 (08:41→17:02)
[2017-12-26] MEDS: metFORMIN HCl 1,000 MG Tablet 1000 MG PO ×2 (08:42→17:04)
[2017-12-26] MEDS: oxyCODONE 5 MG Tablet 10 MG PO ×4 (08:47→21:33)
[2017-12-26 11:21] LABS: Bedside Glucose 124 mg/dL (70-110)
[2017-12-26] MEDS: Sodium Polystyrene Sulfonate 15 GM/60 ML UDC PO (12:15)
--- NOTE | 2017-12-26 12:16 | NURSING ---
Dr. Rogers reviewed labs, N.O. for x1 dose of Kayexalate, recheck BMP tomorrow. Pt updated.
[2017-12-26] MEDS: Tuberculin,Purif.prot.deriv. 50 TU/ML Vial 5 ML ID (12:17)
--- NOTE | 2017-12-26 13:23 | NURSING ---
WALKED WO BR THEN BACK TO CHAIR, HAD EMESIS, FOOD PARTICLES AND LIQUID. COOL WASHCLOTH GIVEN FOR FOREHEAD, JOHN KIT GIVEN.
[2017-12-26 15:03] VITALS: BP 121/74; PULSE 74; RESP 17; TEMP 36.3; O2SAT 94
[2017-12-26 17:05] LABS: Bedside Glucose 123 mg/dL (70-110)
[2017-12-26 20:51] LABS: Bedside Glucose 115 mg/dL (70-110)
[2017-12-26] MEDS: Atorvastatin Calcium 80 MG Tablet PO (21:33)
[2017-12-27 00:16] LABS: Bedside Glucose 117 mg/dL (70-110)
[2017-12-27] MEDS: oxyCODONE 5 MG Tablet 10 MG PO ×4 (01:40→21:12)
[2017-12-27] MEDS: Ramipril 10 MG Capsule PO (06:53)
[2017-12-27] MEDS: Famotidine 20 MG Tablet PO ×2 (06:53→16:16)
[2017-12-27] MEDS: LINAGLIPTIN 5 MG TABLET PO (06:53)
[2017-12-27] MEDS: Levothyroxine 112 MCG Tablet PO (06:53)
[2017-12-27] MEDS: Senna/Docusate Sodium 1 Tablet 2 TABLET PO ×2 (06:53→16:16)
[2017-12-27] MEDS: Pantoprazole Sodium 40 MG Tablet PO (06:53)
[2017-12-27 07:16] LABS: Bedside Glucose 157 mg/dL (70-110)
[2017-12-27] MEDS: metFORMIN HCl 1,000 MG Tablet 1000 MG PO ×2 (07:56→16:16)
[2017-12-27] MEDS: Aspirin E.C. 325 MG Tablet PO ×2 (07:56→16:16)
[2017-12-27 08:22] LABS: Anion Gap 9 (5-15); BUN 18 mg/dL (7-18); BUN/Creat Ratio 16.7 RATIO (10-20); Calcium,Total 8.5 mg/dL (8.5-10.1); Chloride 102 mmol/L (98-107); Creatinine, Serum 1.08 mg/dL (0.55-1.02); EST Glomerular Filtration Rate 55 mL/min (>60); Est Glom Filt Rate - Afr Amer 66 mL/min (>60); Estimated Creatinine Clearance 39.29 ml/min; Glucose 148 mg/dL (74-106); Potassium 4.5 mmol/L (3.5-5.1); Sodium Level 136 mmol/L (136-145)
[2017-12-27 10:00] VITALS: PULSE 74; RESP 16
[2017-12-27 11:56] LABS: Bedside Glucose 122 mg/dL (70-110)
[2017-12-27 15:38] VITALS: BP 81/54; PULSE 72; RESP 18; TEMP 37.6; O2SAT 95
[2017-12-27 17:05] LABS: Bedside Glucose 119 mg/dL (70-110)
[2017-12-27 21:06] LABS: Bedside Glucose 139 mg/dL (70-110)
[2017-12-27] MEDS: Atorvastatin Calcium 80 MG Tablet PO (21:12)
[2017-12-28 00:21] LABS: Bedside Glucose 153 mg/dL (70-110)
[2017-12-28] MEDS: oxyCODONE 5 MG Tablet 10 MG PO ×4 (03:45→19:57)
[2017-12-28] MEDS: Ramipril 10 MG Capsule PO (06:59)
[2017-12-28] MEDS: Levothyroxine 112 MCG Tablet PO (07:00)
[2017-12-28] MEDS: LINAGLIPTIN 5 MG TABLET PO (07:00)
[2017-12-28] MEDS: Senna/Docusate Sodium 1 Tablet 2 TABLET PO (07:00)
[2017-12-28] MEDS: Pantoprazole Sodium 40 MG Tablet PO (07:00)
[2017-12-28] MEDS: Famotidine 20 MG Tablet PO ×2 (07:00→17:24)
[2017-12-28 07:10] LABS: Bedside Glucose 100 mg/dL (70-110)
[2017-12-28] MEDS: metFORMIN HCl 1,000 MG Tablet 1000 MG PO ×2 (09:08→17:24)
[2017-12-28] MEDS: Aspirin E.C. 325 MG Tablet PO ×2 (09:08→17:24)
[2017-12-28 11:41] LABS: Bedside Glucose 167 mg/dL (70-110)
[2017-12-28 15:32] VITALS: BP 87/55; PULSE 75; RESP 20; TEMP 36.8; O2SAT 96
[2017-12-28 17:16] LABS: Bedside Glucose 132 mg/dL (70-110)
[2017-12-28] MEDS: Atorvastatin Calcium 80 MG Tablet PO (19:57)
[2017-12-28 21:21] LABS: Bedside Glucose 151 mg/dL (70-110)
[2017-12-29 00:11] LABS: Bedside Glucose 117 mg/dL (70-110)
[2017-12-29] MEDS: Levothyroxine 112 MCG Tablet PO (06:28)
[2017-12-29] MEDS: LINAGLIPTIN 5 MG TABLET PO (06:28)
[2017-12-29] MEDS: Senna/Docusate Sodium 1 Tablet 2 TABLET PO ×2 (06:28→16:58)
[2017-12-29] MEDS: Pantoprazole Sodium 40 MG Tablet PO (06:29)
[2017-12-29] MEDS: Famotidine 20 MG Tablet PO ×2 (06:29→16:58)
[2017-12-29] MEDS: Ramipril 10 MG Capsule PO (06:29)
[2017-12-29] MEDS: oxyCODONE 5 MG Tablet 10 MG PO ×4 (06:34→20:12)
[2017-12-29 06:46] LABS: Bedside Glucose 99 mg/dL (70-110)
[2017-12-29] MEDS: metFORMIN HCl 1,000 MG Tablet 1000 MG PO ×2 (07:12→16:58)
[2017-12-29] MEDS: Aspirin E.C. 325 MG Tablet PO ×2 (07:12→16:58)
[2017-12-29 12:06] LABS: Bedside Glucose 116 mg/dL (70-110)
--- NOTE | 2017-12-29 12:35 | PCM.PN.RX ---
<Patrick Casper D - Last Filed: 12/29/17 12:35> Progress Note - Pharmacy Subjective: TCU Admission Objective: Allergies No Known Allergies Allergy (Verified 12/15/17 14:27) Home Medications Medication Instructions Recorded atorvastatin 80 mg tablet 80 mg PO QHS tab 12/09/17 glimepiride 4 mg tablet 4 mg PO QAM 12/09/17 lansoprazole 30 mg capsule,delayed 30 mg PO DAILY 12/09/17 release levothyroxine 112 mcg tablet 112 mcg PO DAILY tab 12/09/17 metformin 500 mg tablet 1,000 mg PO 4X/DAY 12/09/17 ramipril 10 mg capsule 10 mg PO DAILY cap 12/09/17 sitagliptin 100 mg tablet 100 mg PO DAILY tab 12/09/17 Docusate Sodium [Colace] 100 mg PO BID PRN PRN #10 cap 12/24/17 Oxycodone HCl/Acetaminophen 1 - 2 tab PO Q4H PRN PRN #60 tab 12/24/17 [Percocet 5/325] ProMETHAzine [Phenergan] 25 mg PO Q4H PRN PRN #10 tab 12/24/17 Aspirin E.C. [Ecotrin] 325 mg PO BID 12/25/17 Famotidine [Pepcid] 20 mg PO BID 12/25/17 Current Medications Generic Name Dose Route Start Last Admin Trade Name Freq PRN Reason Stop Dose Admin Acetaminophen 1,000 mg 12/25/17 23:01 Tylenol PO Q8H PRN PRN MILD PAIN (1-3/10) Aspirin 325 mg 12/26/17 08:00 12/29/17 07:12 Ecotrin PO 325 mg BIDCM JUDY Administration Atorvastatin Calcium 80 mg 12/25/17 22:00 12/28/17 19:57 Lipitor PO 80 mg QHS JUDY Administration Bisacodyl 10 mg 12/25/17 23:02 Dulcolax RECTAL DAILY PRN Constipation Famotidine 20 mg 12/26/17 06:00 12/29/17 06:29 Pepcid PO 20 mg BID JUDY Administration Levothyroxine Sodium 112 mcg 12/26/17 06:00 12/29/17 06:28 Synthroid PO 112 mcg DAILY@0600 JUDY Administration Linagliptin 5 mg 12/26/17 06:00 12/29/17 06:28 Tradjenta PO 5 mg DAILY JUDY Administration Metformin HCl 1,000 mg 12/26/17 08:00 12/29/17 07:12 Glucophage PO 1,000 mg BIDCM JUDY Administration Oxycodone HCl 10 mg 12/25/17 23:02 12/29/17 10:43 Oxyir PO 10 mg Q4H PRN PRN Administration SEVERE PAIN (6-10/10) Pantoprazole Sodium 40 mg 12/26/17 06:00 12/29/17 06:29 Protonix PO 40 mg DAILY JUDY Administration Polyethylene Glycol 17 gm 12/26/17 06:00 12/29/17 06:29 Miralax PO Not Given DAILY JUDY Promethazine HCl 25 mg 12/25/17 20:03 Phenergan PO Q4H PRN PRN NAUSEA Ramipril 10 mg 12/26/17 06:00 12/29/17 06:29 Altace PO 10 mg DAILY JUDY Administration Senna/Docusate Sodium 2 tablet 12/26/17 06:00 12/29/17 06:28 Senokot-S, Radha-Colace PO 2 tablet BID JUDY Administration Trazodone HCl 50 mg 12/25/17 21:08 Desyrel PO QHS PRN PRN INSOMNIA Tuberculin PPD 5 tu 01/02/18 10:00 Tubersol, Aplisol, Ppd ID 01/02/18 10:01 X1 ONE Problem List (Last Updated 12/09/17 @ 09:18 by Glenn Smith) Osteoarthritis of right knee (Chronic) Diabetes mellitus (Chronic) Hypertension (Chronic) Hyperlipidemia (Chronic) Hypothyroidism (Chronic) GERD (gastroesophageal reflux disease) (Chronic) Nausea (Chronic) Insomnia (Chronic) Vital Signs Temp Pulse Resp BP Pulse Ox 98.3 F 75 20 H 87/55 L 96 12/28/17 15:32 12/28/17 15:32 12/28/17 15:32 12/28/17 15:32 12/28/17 15:32 Oxygen Delivery Method Room Air Weight: 96.27 kg Body Mass Index (BMI) 41.4 Finger Stick Blood Glucose 130 Sodium 136 mmol/L (136-145) 12/27/17 06:00 Potassium 4.5 mmol/L (3.5-5.1) 12/27/17 06:00 Chloride 102 mmol/L (98-107) 12/27/17 06:00 Carbon Dioxide 25.0 mmol/L (21.0-32.0) 12/27/17 06:00 Anion Gap 9 (5-15) 12/27/17 06:00 BUN 18 mg/dL (7-18) 12/27/17 06:00 Creatinine 1.08 mg/dL (0.55-1.02) H 12/27/17 06:00 Est GFR (MDRD) Af Amer 66 mL/min (>60) 12/27/17 06:00 Est GFR (MDRD) Non-Af 55 mL/min (>60) L 12/27/17 06:00 BUN/Creatinine Ratio 16.7 RATIO (10-20) 12/27/17 06:00 Glucose 148 mg/dL (74-106) H 12/27/17 06:00 Assessment/Plan: 1) Pain APAP for mild pain, oxycodone for severe pain. Continue to monitor prn medication use, daily pain scores. 2) HTN Ramipril daily. BP avg below normal range, K wnl, BUN/SCr at baseline. Continue to monitor BP, renal function, electrolytes. 3) HLD Atorvastatin at HS. Lipids at goal, hepatic enzymes wnl. Continue to monitor lipids, enzymes. 4) DVT PPx ASA twice daily. Continue to monitor s/s bleeding/clot. 5) Hypothyroidism Levothyroxine daily. Continue to monitor s/s hyper/hypothyroidism. 6) DM2 Metformin twice daily, linagliptin daily. BGT well-controlled < 180 mg/dL. Continue to monitor BGT, s/s hyper/hypoglycemia. * 7) GI Famotidine twice daily, pantoprazole daily, prn promethazine. Continue to monitor prn medication use, s/s GI distress. * Duplicate pantoprazole and famotidine. Please d/c one. Thank you. Psychotropic Medications: 8) Insomnia Trazodone at HS as needed for sleep. Continue to monitor for insomnia. Unnecessary Medications: * 9) Patient on duplicate pantoprazole and famotidine scheduled. Please d/c on medication. Bowel Regimen: 10) Senna/s, PEG, prn bisacodyl. Continue to monitor prn medication use, for constipation/diarrhea. Date of Note:: 12/29/17 - Provider Comments Provider responsibility: Provider responsible to enter orders to implement recommendations <Lasha Rogers Chi - Last Filed: 12/29/17 17:23> Progress Note - Pharmacy Subjective: [] Objective: Allergies No Known Allergies Allergy (Verified 12/15/17 14:27) Home Medications Medication Instructions Recorded atorvastatin 80 mg tablet 80 mg PO QHS tab 12/09/17 glimepiride 4 mg tablet 4 mg PO QAM 12/09/17 lansoprazole 30 mg capsule,delayed 30 mg PO DAILY 12/09/17 release levothyroxine 112 mcg tablet 112 mcg PO DAILY tab 12/09/17 metformin 500 mg tablet 1,000 mg PO 4X/DAY 12/09/17 ramipril 10 mg capsule 10 mg PO DAILY cap 12/09/17 sitagliptin 100 mg tablet 100 mg PO DAILY tab 12/09/17 Docusate Sodium [Colace] 100 mg PO BID PRN PRN #10 cap 12/24/17 Oxycodone HCl/Acetaminophen 1 - 2 tab PO Q4H PRN PRN #60 tab 12/24/17 [Percocet 5/325] ProMETHAzine [Phenergan] 25 mg PO Q4H PRN PRN #10 tab 12/24/17 Aspirin E.C. [Ecotrin] 325 mg PO BID 12/25/17 Famotidine [Pepcid] 20 mg PO BID 12/25/17 Current Medications Generic Name Dose Route Start Last Admin Trade Name Freq PRN Reason Stop Dose Admin Acetaminophen 1,000 mg 12/25/17 23:01 Tylenol PO Q8H PRN PRN MILD PAIN (1-3/10) Aspirin 325 mg 12/26/17 08:00 12/29/17 16:58 Ecotrin PO 325 mg BIDCM JUDY Administration Atorvastatin Calcium 80 mg 12/25/17 22:00 12/28/17 19:57 Lipitor PO 80 mg QHS JUDY Administration Bisacodyl 10 mg 12/25/17 23:02 Dulcolax RECTAL DAILY PRN Constipation Famotidine 20 mg 12/26/17 06:00 12/29/17 16:58 Pepcid PO 20 mg BID JUDY Administration Levothyroxine Sodium 112 mcg 12/26/17 06:00 12/29/17 06:28 Synthroid PO 112 mcg DAILY@0600 JUDY Administration Linagliptin 5 mg 12/26/17 06:00 12/29/17 06:28 Tradjenta PO 5 mg DAILY JUDY Administration Metformin HCl 1,000 mg 12/26/17 08:00 12/29/17 16:58 Glucophage PO 1,000 mg BIDCM JUDY Administration Oxycodone HCl 10 mg 12/25/17 23:02 12/29/17 14:53 Oxyir PO 10 mg Q4H PRN PRN Administration SEVERE PAIN (6-10/10) Pantoprazole Sodium 40 mg 12/26/17 06:00 12/29/17 06:29 Protonix PO 40 mg DAILY JUDY Administration Polyethylene Glycol 17 gm 12/26/17 06:00 12/29/17 06:29 Miralax PO Not Given DAILY JUDY Promethazine HCl 25 mg 12/25/17 20:03 Phenergan PO Q4H PRN PRN NAUSEA Ramipril 10 mg 12/26/17 06:00 12/29/17 06:29 Altace PO 10 mg DAILY JUDY Administration Senna/Docusate Sodium 2 tablet 12/26/17 06:00 12/29/17 16:58 Senokot-S, Radha-Colace PO 2 tablet BID JUDY Administration Trazodone HCl 50 mg 12/25/17 21:08 Desyrel PO QHS PRN PRN INSOMNIA Tuberculin PPD 5 tu 01/02/18 10:00 Tubersol, Aplisol, Ppd ID 01/02/18 10:01 X1 ONE Problem List (Last Updated 12/09/17 @ 09:18 by Glenn Smith) Osteoarthritis of right knee (Chronic) Diabetes mellitus (Chronic) Hypertension (Chronic) Hyperlipidemia (Chronic) Hypothyroidism (Chronic) GERD (gastroesophageal reflux disease) (Chronic) Nausea (Chronic) Insomnia (Chronic) Vital Signs Temp Pulse Resp BP Pulse Ox 98.1 F 73 18 102/61 96 12/29/17 15:09 12/29/17 15:09 12/29/17 15:09 12/29/17 15:09 12/29/17 15:09 Oxygen Delivery Method Room Air Weight: 96.27 kg Body Mass Index (BMI) 41.4 Finger Stick Blood Glucose 130 Sodium 136 mmol/L (136-145) 12/27/17 06:00 Potassium 4.5 mmol/L (3.5-5.1) 12/27/17 06:00 Chloride 102 mmol/L (98-107) 12/27/17 06:00 Carbon Dioxide 25.0 mmol/L (21.0-32.0) 12/27/17 06:00 Anion Gap 9 (5-15) 12/27/17 06:00 BUN 18 mg/dL (7-18) 12/27/17 06:00 Creatinine 1.08 mg/dL (0.55-1.02) H 12/27/17 06:00 Est GFR (MDRD) Af Amer 66 mL/min (>60) 12/27/17 06:00 Est GFR (MDRD) Non-Af 55 mL/min (>60) L 12/27/17 06:00 BUN/Creatinine Ratio 16.7 RATIO (10-20) 12/27/17 06:00 Glucose 148 mg/dL (74-106) H 12/27/17 06:00 Assessment/Plan: Psychotropic Medications: Unnecessary Medications: Bowel Regimen: - Provider Comments Provider responsibility: Provider responsible to enter orders to implement recommendations Provider Comments to Recommendations by Pharmacy: Agree
[2017-12-29 15:09] VITALS: BP 102/61; PULSE 73; RESP 18; TEMP 36.7; O2SAT 96
[2017-12-29 17:06] LABS: Bedside Glucose 139 mg/dL (70-110)
[2017-12-29] MEDS: Atorvastatin Calcium 80 MG Tablet PO (20:08)
[2017-12-29 21:16] LABS: Bedside Glucose 132 mg/dL (70-110)
[2017-12-30] MEDS: LINAGLIPTIN 5 MG TABLET PO (06:42)
[2017-12-30] MEDS: Pantoprazole Sodium 40 MG Tablet PO (06:42)
[2017-12-30] MEDS: oxyCODONE 5 MG Tablet 10 MG PO ×4 (06:42→20:01)
[2017-12-30] MEDS: Levothyroxine 112 MCG Tablet PO (06:42)
[2017-12-30] MEDS: Famotidine 20 MG Tablet PO ×2 (06:42→16:23)
[2017-12-30] MEDS: Senna/Docusate Sodium 1 Tablet 2 TABLET PO ×2 (06:42→16:23)
[2017-12-30] MEDS: Ramipril 10 MG Capsule PO (06:42)
[2017-12-30 07:01] LABS: Bedside Glucose 92 mg/dL (70-110)
[2017-12-30] MEDS: metFORMIN HCl 1,000 MG Tablet 1000 MG PO ×2 (07:53→16:22)
[2017-12-30] MEDS: Aspirin E.C. 325 MG Tablet PO ×2 (07:53→16:22)
--- NOTE | 2017-12-30 10:21 | CASEMGMT ---
Plan of care meeting held. Resident present as well as resident spouse. No discharge date set at this point. Resident plans to continue with further care and treatment on the Transitional Care Unit. Resident does have an insurance update due on 12/30/17, with current last cover day being 12/31/17. Resident aware that there is no guarantee of continued coverage/approval. Resident plans to discharge home with spouse and outpatient physical therapy through [facility] at time of discharge. Support given. Will continue to follow. Shawnee ALMODOVAR, DIRECTOR OF PULMONARY UNIT
[2017-12-30 11:31] LABS: Bedside Glucose 111 mg/dL (70-110)
--- NOTE | 2017-12-30 12:07 | CASEMGMT ---
Insurance Clinical information faxed. Pending continued stay approval at this time. Auth#[id number] Shawnee ALMODOVAR, FLASH DRIER OPERATOR
[2017-12-30 16:00] VITALS: BP 126/84; PULSE 75; RESP 22; TEMP 36.9; O2SAT 98
[2017-12-30 17:20] LABS: Bedside Glucose 150 mg/dL (70-110)
[2017-12-30 19:38] VITALS: PULSE 75; RESP 19; O2SAT 99
[2017-12-30] MEDS: Atorvastatin Calcium 80 MG Tablet PO (20:01)
[2017-12-30 21:05] LABS: Bedside Glucose 127 mg/dL (70-110)
[2017-12-31 00:17] LABS: Bedside Glucose 126 mg/dL (70-110)
[2017-12-31 06:41] LABS: Bedside Glucose 86 mg/dL (70-110)
[2017-12-31] MEDS: Famotidine 20 MG Tablet PO ×2 (06:42→08:28)
[2017-12-31] MEDS: Levothyroxine 112 MCG Tablet PO (06:42)
[2017-12-31] MEDS: Ramipril 10 MG Capsule PO (06:42)
[2017-12-31] MEDS: Pantoprazole Sodium 40 MG Tablet PO (06:42)
[2017-12-31] MEDS: Senna/Docusate Sodium 1 Tablet 2 TABLET PO ×2 (06:42→17:07)
[2017-12-31] MEDS: LINAGLIPTIN 5 MG TABLET PO (06:42)
[2017-12-31] MEDS: oxyCODONE 5 MG Tablet 10 MG PO ×4 (06:43→21:27)
[2017-12-31] MEDS: metFORMIN HCl 1,000 MG Tablet 1000 MG PO ×2 (08:28→17:06)
[2017-12-31] MEDS: Aspirin E.C. 325 MG Tablet PO ×2 (08:28→17:06)
[2017-12-31 11:41] LABS: Bedside Glucose 172 mg/dL (70-110)
[2017-12-31 15:56] VITALS: BP 119/74; PULSE 77; RESP 18; TEMP 36.6; O2SAT 98
[2017-12-31 17:01] LABS: Bedside Glucose 105 mg/dL (70-110)
--- NOTE | 2017-12-31 18:43 | VDLE_ITS ---
Reason For Study: Pain RIGHT LEFT GSV is normal. GSV is normal. CFV is compressible, spontaneous, phasic, CFV is compressible, spontaneous, phasic, competent and demonstrates normal competent, and demonstrates normal augmentation. augmentation. FV is compressible, spontaneous, phasic, FV is compressible, spontaneous, phasic, competent and demonstrates normal competent and demonstrates normal augmentation. augmentation. POP V is compressible, spontaneous, phasic, POP V is compressible, spontaneous, phasic, competent and demonstrates normal competent and demonstrates normal augmentation. augmentation. T/P Trunk is compressible. T/P Trunk is compressible. PTV is compressible. PTV is compressible. RT PerV is compressible. LT PerV is compressible. Chronic vein wall thickening Rt SSV. Chronic vein wall thickening Lt SSV. Procedure Exam performed portable in patient room. A preliminary report was called and/or faxed to Patients RN. Interpretation Summary Deep veins of the lower extremities are bilaterally patent and compressible segmentally. There is no evidence of deep vein thrombosis on either side. Valvular competence appears intact within the proximal deep venous systems bilaterally. The greater saphenous veins appear bilaterally patent and compressible segmentally. Chronic vein wall thickening is noted in the small saphenous veins bilaterally. Ordering Physician: Lasha Rogers Chi Referring Physician: Truman David Performed By: Gerri Gonzalez, KENNEDYCS, RVT
[2017-12-31 21:26] LABS: Bedside Glucose 138 mg/dL (70-110)
[2017-12-31] MEDS: Atorvastatin Calcium 80 MG Tablet PO (21:28)
[2018-01-01 00:05] LABS: Bedside Glucose 124 mg/dL (70-110)
[2018-01-01] MEDS: Pantoprazole Sodium 40 MG Tablet PO (06:42)
[2018-01-01] MEDS: Famotidine 20 MG Tablet PO ×2 (06:42→17:08)
[2018-01-01] MEDS: Ramipril 10 MG Capsule PO (06:42)
[2018-01-01] MEDS: Senna/Docusate Sodium 1 Tablet 2 TABLET PO ×2 (06:42→17:09)
[2018-01-01] MEDS: LINAGLIPTIN 5 MG TABLET PO (06:42)
[2018-01-01] MEDS: Levothyroxine 112 MCG Tablet PO (06:42)
[2018-01-01] MEDS: oxyCODONE 5 MG Tablet 10 MG PO ×3 (06:47→20:17)
[2018-01-01 06:56] LABS: Bedside Glucose 98 mg/dL (70-110)
[2018-01-01] MEDS: metFORMIN HCl 1,000 MG Tablet 1000 MG PO ×2 (07:57→17:08)
[2018-01-01] MEDS: Aspirin E.C. 325 MG Tablet PO ×2 (07:57→17:08)
--- NOTE | 2018-01-01 08:30 | DS.PCM_ITS ---
Discharge Date and Diagnosis Date of Admission: 12/25/17 Date of Discharge: 01/08/18 - Secondary Discharge Diagnosis Chronic Problems (Last Updated 12/09/17 @ 09:18 by Glenn Smith) Osteoarthritis of right knee (Chronic) Diabetes mellitus (Chronic) Hypertension (Chronic) Hyperlipidemia (Chronic) Hypothyroidism (Chronic) GERD (gastroesophageal reflux disease) (Chronic) Nausea (Chronic) Insomnia (Chronic) Hospital Course and Treatment Imaging Results: 12/25/17 20:43 Diet: Calorie Controlled Food consistency:: Regular Liquid Consistency:: Regular/Thin How many daily calories?: 1800 calorie Labs (Last 48 Hours) 12/30/17 12/30/17 12/30/17 11:20 17:08 21:01 POC Glucose 111 H 150 H 127 H 12/31/17 12/31/17 12/31/17 00:10 06:22 11:23 POC Glucose 126 H 86 172 H 12/31/17 12/31/17 01/01/18 16:54 21:16 00:02 POC Glucose 105 138 H 124 H 01/01/18 06:27 POC Glucose 98 Operations: total knee replacement Procedures: None Summary of Care Provided: The patient is a 62 year old Fale with below past medical history hospitalized for right total knee arthroplasty 12/22/[address] De Los Santos, admitted to TCU for rehabilitation, strengthening, prior to discharge home with spouse. [] Discharge home with spouse, will have outpatient physical therapy. Discharge Diet: No Restrictions Discharge Activity: Return to Normal Activity, May Shower, Use Walker Weight Bearing Status: Weight bearing as tolerated Call your doctor if you observe: Fever of 101 or Higher, Inability to urinate, Inability to have a bowel movement, Using more than one pad per hour, Chest pain , Uncontrolled pain Home Medications: Medications to take at Discharge atorvastatin 80 mg tablet 80 mg PO QHS tab 12/09/17 levothyroxine 112 mcg tablet 112 mcg PO DAILY tab 12/09/17 metformin 500 mg tablet 1,000 mg PO 4X/DAY 12/09/17 ramipril 10 mg capsule 10 mg PO DAILY cap 12/09/17 sitagliptin 100 mg tablet 100 mg PO DAILY tab 12/09/17 Acetaminophen [Tylenol] 1,000 mg PO Q8H PRN PRN tablet 01/01/18 Aspirin E.C. [Ecotrin] 325 mg PO BID #22 tab 01/01/18 Famotidine [Pepcid] 20 mg PO BID #60 tab 01/01/18 Lansoprazole 30 mg PO DAILY #30 capsule. 01/01/18 Oxycodone [Oxyir] 10 mg PO Q4H PRN PRN #60 tablet 01/01/18 Polyethylene Glycol 3350 [Miralax] 17 gm PO DAILY #30 packet 01/01/18 ProMETHAzine [Phenergan] 25 mg PO Q4H PRN PRN #30 tab 01/01/18 Senna/Docusate Sodium [Senokot-S] 2 tab PO BID #120 tab 01/01/18 Trazodone HCl [Desyrel] 50 mg PO QHS PRN PRN #30 tab 01/01/18 Following Prescrptions Were Given to Patient: Oxycodone [Oxyir] 10 mg PO Q4H PRN PRN #60 tablet PRN Reason: Severe Pain (-08/04) ProMETHAzine [Phenergan] 25 mg PO Q4H PRN PRN #30 tab PRN Reason: Nausea Lansoprazole 30 mg PO DAILY #30 capsule. Polyethylene Glycol 3350 [Miralax] 17 gm PO DAILY #30 packet Trazodone HCl [Desyrel] 50 mg PO QHS PRN PRN #30 tab PRN Reason: Insomnia Aspirin E.C. [Ecotrin] 325 mg PO BID #22 tab Famotidine [Pepcid] 20 mg PO BID #60 tab Senna/Docusate Sodium [Senokot-S] 2 tab PO BID #120 tab Primary Care Physician: Truman David [Primary Care Provider] - Please follow up with your Primary Care Physician in: 1 week. Please Follow Up With: Haseeb De Los Santos DO When: 2 weeks. Disposition: Home Minutes spent on discharge:: 30 Patient Condition:: Stable Meaningful Use Info Meaningful Use Diagnoses (Choose all that apply): None applicable
--- NOTE | 2018-01-01 09:47 | CASEMGMT ---
Insurance Continued stay approved until 01/08/18. Last cover day being 01/07/18 and anticipated discharge on 01/08/18. Auth#[id number] Shawnee ALMODOVAR, HEAT TREATER APPRENTICE
--- NOTE | 2018-01-01 09:48 | CASEMGMT ---
Social Work Spoke with resident in room. This social insurance adviser communicating to resident that continued stay has been approved by resident insurance until 01/08/18 with anticipated discharge or resident financial liability to begin on 01/08/18. Resident voicing understanding and planning to discharge home with spouse on 01/08/18 with outpatient physical therapy. Support given. Proposed discharge date: 01/08/18 PLAN: Discharge home with spouse and outpatient physical therapy. Shawnee ALMODOVAR, CHIEF CRNA
[2018-01-01 12:01] LABS: Bedside Glucose 122 mg/dL (70-110)
--- NOTE | 2018-01-01 12:24 | NURSING ---
Per [facility] tech, pt negative for DVT
[2018-01-01 16:00] VITALS: BP 94/51; PULSE 68; RESP 17; TEMP 36.8; O2SAT 92
--- NOTE | 2018-01-01 16:20 | CASEMGMT ---
Brief interview for mental status (BIMS) and resident mood interview (PHQ-9) completed on this day. BIMS score 1315. PHQ-9 score 12/22
[2018-01-01 17:26] LABS: Bedside Glucose 165 mg/dL (70-110)
[2018-01-01] MEDS: Atorvastatin Calcium 80 MG Tablet PO (20:17)
[2018-01-01 21:26] LABS: Bedside Glucose 143 mg/dL (70-110)
[2018-01-02] MEDS: Levothyroxine 112 MCG Tablet PO (06:06)
[2018-01-02] MEDS: LINAGLIPTIN 5 MG TABLET PO (06:06)
[2018-01-02] MEDS: Famotidine 20 MG Tablet PO ×2 (06:07→16:39)
[2018-01-02] MEDS: Pantoprazole Sodium 40 MG Tablet PO (06:07)
[2018-01-02] MEDS: Ramipril 10 MG Capsule PO (06:07)
[2018-01-02 06:41] LABS: Bedside Glucose 140 mg/dL (70-110)
[2018-01-02 07:03] LABS: Absolute Lymphocyte Count 2.33 X10^3/ul (0.83-4.51); Absolute Neutrophil Count 6.4 X10^3/uL (2.0-7.7); Basophil# 0.06 X10^3/uL; Basophil% 0.6 % (0-1); Eosinophils% 3.9 % (0-5); Hematocrit 34.3 % (37-47); Hemoglobin 11.4 g/dl (12.0-15.0); Lymphocyte # 2.33 X10^3/ul (4.0); Lymphocyte % 22.8 % (19-41); Mean Corp Hgb Conc 33.2 g/gl (32-36); Mean Corpuscular Hgb 30.6 pg (27.0-32.0); Mean Corpuscular Volume 92.2 fL (81-99); Mean Platelet Vol. 9.5 fl (6.2-12.0); Monocyte# 0.96 X10^3/uL; Monocyte% 9.4 % (0-10); Neutrophil # 6.43 X10^3/uL (2.7-7.7); Platelet Count 358 K/mm3 (150-450); RBC Distribution Width CV 12.1 % (11.6-14.6); Red Blood Count 3.72 M/mm3 (4.2-5.4); White Blood Count 10.2 K/mm3 (4.4-11.0)
[2018-01-02 07:05] LABS: POSITIVE COUNT NO; POSITIVE DIFFERENTIAL NO; POSITIVE MORPHOLOGY NO
[2018-01-02 07:17] LABS: Anion Gap 4 (5-15); BUN 20 mg/dL (7-18); BUN/Creat Ratio 20.1 RATIO (10-20); Calcium,Total 8.4 mg/dL (8.5-10.1); Chloride 102 mmol/L (98-107); EST Glomerular Filtration Rate 60 mL/min (>60); Est Glom Filt Rate - Afr Amer 73 mL/min (>60); Estimated Creatinine Clearance 42.44 ml/min; Glucose 119 mg/dL (74-106); Sodium Level 136 mmol/L (136-145)
[2018-01-02] MEDS: Aspirin E.C. 325 MG Tablet PO ×2 (08:00→16:39)
[2018-01-02] MEDS: metFORMIN HCl 1,000 MG Tablet 1000 MG PO ×2 (08:00→16:39)
[2018-01-02] MEDS: oxyCODONE 5 MG Tablet 10 MG PO ×4 (08:02→20:37)
[2018-01-02 10:00] VITALS: PULSE 68; RESP 16
[2018-01-02] MEDS: Tuberculin,Purif.prot.deriv. 50 TU/ML Vial 5 ML ID (10:19)
[2018-01-02 16:00] VITALS: BP 99/72; PULSE 63; RESP 18; TEMP 36.8; O2SAT 99
[2018-01-02 17:06] LABS: Bedside Glucose 165 mg/dL (70-110)
[2018-01-02] MEDS: Atorvastatin Calcium 80 MG Tablet PO (20:37)
[2018-01-03] MEDS: Famotidine 20 MG Tablet PO ×2 (05:21→17:15)
[2018-01-03] MEDS: Levothyroxine 112 MCG Tablet PO (05:21)
[2018-01-03] MEDS: Ramipril 10 MG Capsule PO (05:21)
[2018-01-03] MEDS: Pantoprazole Sodium 40 MG Tablet PO (05:21)
[2018-01-03] MEDS: LINAGLIPTIN 5 MG TABLET PO (05:21)
[2018-01-03 06:15] LABS: Bedside Glucose 106 mg/dL (70-110)
--- NOTE | 2018-01-03 06:23 | NURSING ---
Pt informed this nurse, a f/u is scheduled with Dr De Los Santos on 01/06/18. Please call Filiberto's office to see if he will come to TCU to see pt.
[2018-01-03] MEDS: oxyCODONE 5 MG Tablet 10 MG PO ×3 (08:34→19:28)
[2018-01-03] MEDS: Aspirin E.C. 325 MG Tablet PO ×2 (08:34→17:15)
[2018-01-03] MEDS: metFORMIN HCl 1,000 MG Tablet 1000 MG PO ×2 (08:34→17:15)
[2018-01-03 16:00] VITALS: BP 95/58; PULSE 70; RESP 20; TEMP 36.6; O2SAT 97
[2018-01-03 17:26] LABS: Bedside Glucose 123 mg/dL (70-110)
[2018-01-03] MEDS: Atorvastatin Calcium 80 MG Tablet PO (19:28)
[2018-01-04] MEDS: LINAGLIPTIN 5 MG TABLET PO (06:37)
[2018-01-04] MEDS: Ramipril 10 MG Capsule PO (06:37)
[2018-01-04] MEDS: Pantoprazole Sodium 40 MG Tablet PO (06:37)
[2018-01-04] MEDS: Famotidine 20 MG Tablet PO ×2 (06:37→17:12)
[2018-01-04] MEDS: Levothyroxine 112 MCG Tablet PO (06:37)
[2018-01-04] MEDS: Senna/Docusate Sodium 1 Tablet 2 TABLET PO ×2 (06:38→17:12)
[2018-01-04 06:51] LABS: Bedside Glucose 118 mg/dL (70-110)
[2018-01-04] MEDS: Aspirin E.C. 325 MG Tablet PO ×2 (08:15→17:12)
[2018-01-04] MEDS: metFORMIN HCl 1,000 MG Tablet 1000 MG PO ×2 (08:15→17:12)
[2018-01-04] MEDS: oxyCODONE 5 MG Tablet 10 MG PO ×2 (10:42→20:52)
[2018-01-04 16:00] VITALS: BP 97/46; PULSE 64; RESP 16; TEMP 36.3; O2SAT 99
[2018-01-04 16:51] LABS: Bedside Glucose 162 mg/dL (70-110)
[2018-01-04] MEDS: Atorvastatin Calcium 80 MG Tablet PO (20:00)
[2018-01-05] MEDS: Pantoprazole Sodium 40 MG Tablet PO (05:52)
[2018-01-05] MEDS: Ramipril 10 MG Capsule PO (05:52)
[2018-01-05] MEDS: Levothyroxine 112 MCG Tablet PO (05:52)
[2018-01-05] MEDS: Famotidine 20 MG Tablet PO ×2 (05:52→17:20)
[2018-01-05] MEDS: LINAGLIPTIN 5 MG TABLET PO (05:52)
[2018-01-05 06:51] LABS: Bedside Glucose 139 mg/dL (70-110)
[2018-01-05] MEDS: oxyCODONE 5 MG Tablet 10 MG PO ×2 (08:30→14:51)
[2018-01-05] MEDS: metFORMIN HCl 1,000 MG Tablet 1000 MG PO ×2 (08:31→17:19)
[2018-01-05] MEDS: Aspirin E.C. 325 MG Tablet PO ×2 (08:31→17:20)
--- NOTE | 2018-01-05 09:16 | PCM.PN.ORT ---
Subjective: 2 weeks status post right total knee arthroplasty. Patient in the transitional care unit this time is scheduled for discharge at the end of the week. No issues at this point. Patient is doing well. Physical therapy say she is doing well also. - Physical Exam General: Alert, Oriented x3, Cooperative, No apparent distress Musculoskeletal: - - Incision clean dry and intact. Range of motion 0-90. Patient able perform straight leg raise. No calf pain negative Homans. Vital Signs Temp Pulse Resp BP Pulse Ox 97.3 F L 64 16 97/46 L 99 01/04/18 16:00 01/04/18 16:00 01/04/18 16:00 01/04/18 16:00 01/04/18 16:00 Oxygen Delivery Method Room Air Weight: 199 lb 15.348 oz Body Mass Index (BMI) 41.4 Finger Stick Blood Glucose 130 Intake and Output for Last 24 Hours 01/03/18 01/04/18 01/05/18 23:59 23:59 23:59 Intake Total 690 / 690 Balance 690 / 690 POC Glucose 01/05/18 01/04/18 06:32 16:44 POC Glucose 139 H 162 H Assessment/Plan Assessment: 2 weeks status post right total knee arthroplasty doing well. Plan: Patient will follow-up with me in 4 weeks. Patient will start outpatient physical therapy at this time. Patient can use aspirin at this point one or twice daily. Patient may shower. Any issues please contact me. And well.
[2018-01-05 15:56] VITALS: BP 135/55; PULSE 61; RESP 17; TEMP 36.1; O2SAT 96
--- NOTE | 2018-01-05 16:29 | CASEMGMT ---
Social Work Spoke with resident and resident spouse in room. Resident reporting to have a walker already set up within the home. This aids social worker communicating that physical therapy is recommending for resident to continue with services through outpatient therapy. Resident is agreeable to recommendation and planning to continue with therapy through [facility]. Resident educated that an order for therapy will be faxed to [facility] and then [facility] will be contacting resident to set up appointment. Resident spouse plans to provide transportation home for resident at time of discharge. Resident voicing no further needs. Support given. Will fax order for outpatient physical therapy when obtained. Proposed discharge date: 01/08/18 PLAN: Discharge home with spouse and outpatient physical therapy. Shawnee ALMODOVAR, ECHOCARDIOGRAPHY RADIOLOGY TECHNOLOGIST
--- NOTE | 2018-01-05 16:47 | CASEMGMT ---
Social Work [facility] to contact resident to set up appointment. Proposed discharge date: 01/08/18 PLAN: Discharge home with spouse and outpatient physical therapy. [place]nee ALMODOVAR, TELEPHONE LINEMAN
[2018-01-05 17:06] LABS: Bedside Glucose 207 mg/dL (70-110)
[2018-01-05] MEDS: Atorvastatin Calcium 80 MG Tablet PO (19:53)
[2018-01-06] MEDS: oxyCODONE 5 MG Tablet 10 MG PO ×4 (02:21→20:00)
[2018-01-06] MEDS: Famotidine 20 MG Tablet PO ×2 (06:12→17:04)
[2018-01-06] MEDS: Pantoprazole Sodium 40 MG Tablet PO (06:12)
[2018-01-06] MEDS: Ramipril 10 MG Capsule PO (06:12)
[2018-01-06] MEDS: Levothyroxine 112 MCG Tablet PO (06:12)
[2018-01-06] MEDS: LINAGLIPTIN 5 MG TABLET PO (06:12)
[2018-01-06 07:01] LABS: Bedside Glucose 135 mg/dL (70-110)
[2018-01-06] MEDS: metFORMIN HCl 1,000 MG Tablet 1000 MG PO ×2 (07:53→17:04)
[2018-01-06] MEDS: Aspirin E.C. 325 MG Tablet PO ×2 (07:53→17:04)
--- NOTE | 2018-01-06 15:39 | CASEMGMT ---
Brief interview for mental status (BIMS) and resident mood interview (PHQ-9) completed on this day. BIMS score 14/15. PHQ-9 score 11/21
[2018-01-06 16:00] VITALS: BP 100/56; PULSE 64; RESP 20; TEMP 36.4; O2SAT 96
[2018-01-06 17:00] LABS: Bedside Glucose 164 mg/dL (70-110)
[2018-01-06] MEDS: Senna/Docusate Sodium 1 Tablet 2 TABLET PO (17:04)
[2018-01-06] MEDS: Atorvastatin Calcium 80 MG Tablet PO (20:01)
[2018-01-07] MEDS: LINAGLIPTIN 5 MG TABLET PO (05:32)
[2018-01-07] MEDS: Senna/Docusate Sodium 1 Tablet 2 TABLET PO ×2 (05:32→17:18)
[2018-01-07] MEDS: Levothyroxine 112 MCG Tablet PO (05:32)
[2018-01-07] MEDS: Pantoprazole Sodium 40 MG Tablet PO (05:32)
[2018-01-07] MEDS: Famotidine 20 MG Tablet PO ×2 (05:32→17:18)
[2018-01-07] MEDS: Ramipril 10 MG Capsule PO (05:32)
[2018-01-07 06:20] LABS: Bedside Glucose 116 mg/dL (70-110)
[2018-01-07] MEDS: metFORMIN HCl 1,000 MG Tablet 1000 MG PO ×2 (08:13→17:17)
[2018-01-07] MEDS: Aspirin E.C. 325 MG Tablet PO ×2 (08:13→17:17)
[2018-01-07] MEDS: oxyCODONE 5 MG Tablet 10 MG PO ×3 (08:15→22:49)
--- NOTE | 2018-01-07 13:53 | MDS.RN ---
Information for the mds was obtained from review of the clinical record, interview of resident, staff, and direct observation of resident's care.
[2018-01-07 15:49] VITALS: BP 106/64; PULSE 59; RESP 18; TEMP 36.4; O2SAT 97
[2018-01-07 17:05] LABS: Bedside Glucose 155 mg/dL (70-110)
[2018-01-07] MEDS: Atorvastatin Calcium 80 MG Tablet PO (19:57)
[2018-01-08] MEDS: LINAGLIPTIN 5 MG TABLET PO (04:52)
[2018-01-08] MEDS: Pantoprazole Sodium 40 MG Tablet PO (04:52)
[2018-01-08] MEDS: Levothyroxine 112 MCG Tablet PO (04:52)
[2018-01-08] MEDS: Famotidine 20 MG Tablet PO (04:52)
[2018-01-08] MEDS: Ramipril 10 MG Capsule PO (04:52)
[2018-01-08] MEDS: Senna/Docusate Sodium 1 Tablet 2 TABLET PO (04:52)
[2018-01-08 05:01] LABS: Bedside Glucose 102 mg/dL (70-110)
[2018-01-08 06:35] VITALS: PULSE 60; O2SAT 98
[2018-01-08] MEDS: Aspirin E.C. 325 MG Tablet PO (10:30)
[2018-01-08] MEDS: metFORMIN HCl 1,000 MG Tablet 1000 MG PO (10:30)
[2018-01-08 10:33] VITALS: BP 112/67; PULSE 64; RESP 18; TEMP 36.4; O2SAT 97
[2018-01-08] MEDS: Acetaminophen 500 MG Tablet 1000 MG PO (10:40)
--- NOTE | 2018-01-08 16:19 | CASEMGMT ---
Insurance Notified resident insurance of resident discharge on 01/08/18 to home with spouse. Auth#[id number] [place] ALMODOVAR, PROOF TESTER
== END 2018-01-08 11:00 | disposition home or self-care (01) | DRG 561 ==
PROVIDERS: Admitting Provider Family Medicine Geriatric Medicine; Visit Provider Family Medicine Geriatric Medicine
DX: Z47.1 Aftercare following joint replacement surgery (principal); E03.9 Hypothyroidism, unspecified; E11.9 Type 2 diabetes mellitus without complications; Z96.651 Presence of right artificial knee joint; I10 Essential (primary) hypertension; E78.5 Hyperlipidemia, unspecified; K21.9 Gastro-esophageal reflux disease without esophagitis; F17.210 Nicotine dependence, cigarettes, uncomplicated; Z79.899 Other long term (current) drug therapy; Z79.4 Long term (current) use of insulin; Z79.82 Long term (current) use of aspirin
CPT/HCPCS: 36415; 80048; 82947; 82962; 85025; 93970; 97110; 97116; 97162; 97166; 97530; 97535; 97802; 99406; 90670; J1610

== ENCOUNTER → 2018-02-03 09:53 | Outpatient (CLI) | payer OTHER, SELFPAY ==
--- NOTE | 2018-02-03 09:56 | RAD_ITS ---
STUDY: X-RAY - RIGHT KNEE REASON FOR EXAM: Female, 62 years old. Status post total knee replacement. TECHNIQUE: 4 view(s) of the knee. COMPARISON: Comparison is made with prior study of December 22, 2017. FINDINGS: Normal visualized distal femur. Normal visualized proximal tibia and fibula. Normal proximal tibiofibular articulation. The patient is status post total knee replacement. There is good alignment. The soft tissue structures are unremarkable. RAD/Knee 4 or More Views IMPRESSION: Status post total knee replacement. There is good alignment. Electronically Signed: Sivakumar Johnson MD at 15:16 EDT Tel [phone], Service support ,
== END ==
PROVIDERS: Visit Provider Orthopaedic Surgery
DX: M17.11 Unilateral primary osteoarthritis, right knee (principal)
CPT/HCPCS: 73564

== ENCOUNTER → 2018-02-13 08:36 | Outpatient (CLI) | payer OTHER, SELFPAY ==
[2018-02-13 10:27] LABS: Hemoglobin A1c 7.3 % (4.2-6.3)
[2018-02-13 10:31] LABS: AST(SGOT) 17 U/L (15-37); Alanine Aminotransfer ALT/SGPT 18 U/L (13-56); Albumin, Serum 3.5 g/dL (3.2-5.0); Alkaline Phosphatase 132 U/L (45-117); Bilirubin, Direct 0.09 mg/dL (0.00-0.30); Cholesterol 192 mg/dL (200); Globulin 3.7 g/dL (2.2-4.2); High Density Lipoprotein 29 mg/dL; Protein, Total 7.2 g/dL (6.4-8.2); Thyroid Stim Hormone (TSH) 6.01 uIU/mL (0.358-3.74); Triglycerides 95 mg/dL; Very Low Density Lipoprotein 19 mg/dL (5-40)
[2018-02-15 09:56] LABS: Vitamin B12 267 pg/mL (211-911); Vitamin D,25 Hydroxy 15.2 ng/mL (29.95-100.01)
== END ==
PROVIDERS: Visit Provider Family Medicine
DX: E78.00 Pure hypercholesterolemia, unspecified (principal); E55.9 Vitamin D deficiency, unspecified; E53.8 Deficiency of other specified B group vitamins; E11.9 Type 2 diabetes mellitus without complications; E03.9 Hypothyroidism, unspecified
CPT/HCPCS: 36415; 80061; 80076; 82306; 82607; 83036; 84443

== ENCOUNTER 2018-02-24 10:30 | Outpatient (RCR) | payer OTHER, SELFPAY ==
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
--- NOTE | 2018-02-24 15:34 | HP.PTDCSUM ---
HP - PT D/C Summary It has been my pleasure to treat HOPE ENCINAS under orders from Lasha Rogers, for the diagnosis of S/P TKR R for a total of 17 visit(s). Discharge Date: Please see the following information for a summary of their discharge status. - Subjective Subjective: PATIENT REPORTS SHE FEELS HER KNEE IS DOING GOOD. PLANNING TO GO BACK TO WORK IN A MONTH. HAS A LOT SHE WANTS TO GET DONE AT HOME BEFORE SHE GOES BACK TO WORK. WANTS TO STOP COMING TO PT. - Pain right knee Pain Intensity (Out of 10): 0 - Objective Objective/Function: ALL GOALS MET. PATIENT IS INDEP WITH A HEP. SHE IS WALKING REALLY WELL WITHOUT AD ON LEVEL SURFACES AND UP AND DOWN STEPS. ABLE TO GO UP AND DOWN STEPS RECIP. WITHOUT UE ASSIST WITH VERY MINIMAL DEVIATION. NOT DEVIATING ON LEVEL SURFACES AND IT IS PRETTY REMARKABLE HOW WELL SHE IS DOING. SHE HAS ALMOST NO RIGHT KNEE SWELLING, GOOD KNEE ROM AND FUNCTIONAL LE STRENGTH. RIGHT KNEE ROM = FULL EXTENSION TO 128 DEG FLEX IN SUPINE WITH A HEEL SLIDE. LEFS HAS IMPROVED FROM 34 TO 69. - Goals Goal 1:: DECREASE C/O RIGHT KNEE PAIN Goal Progress: Progressing Goal 2:: DECREASE RIGHT KNEE EDEMA Goal Progress: Progressing Goal 3:: IMPROVE FUNCTION ROM OF RIGHT LE Goal Progress: Progressing Goal 4:: IMPROVE FUNCTIONAL STRENGTH OF RIGHT LE Goal Progress: Progressing Goal 5:: INDEP HEP Goal Progress: Progressing - Plan Plan: D/C TO HEP AND FOLLOW UP WITH DR. BRAGA. - D/C Information If there are questions or concerns regarding this patient's physical therapy, please feel free to call me at [phone]. Thank you for the referral of this patient. Sincerely, Savanna Vergara
== END 2018-02-24 17:33 | disposition home or self-care (01) ==
LOC: PT 10:30
PROVIDERS: Visit Provider Family Medicine Geriatric Medicine
DX: M17.11 Unilateral primary osteoarthritis, right knee (principal); Z96.651 Presence of right artificial knee joint
CPT/HCPCS: 97110; 97161; 97530

== ENCOUNTER → 2018-06-22 08:49 | Outpatient (CLI) | payer OTHER, SELFPAY | PROVIDERS: Visit Provider Physician Assistant | DX: M25.561 Pain in right knee (principal) | CPT/HCPCS: 73564 ==

== ENCOUNTER → 2018-12-11 09:36 | Outpatient (CLI) | payer OTHER, SELFPAY ==
[2018-12-11 10:28] LABS: Absolute Lymphocyte Count 2.75 X10^3/ul (0.83-4.51); Absolute Neutrophil Count 4.8 X10^3/uL (2.0-7.7); Basophil# 0.04 X10^3/uL; Basophil% 0.5 % (0-1); Color, Urine Yellow (Yellow); Eosinophil# 0.13 X10^3/uL; Eosinophils% 1.5 % (0-5); Glucose, Dipstick Normal (Normal); Hematocrit 38.7 % (37-47); Hemoglobin 13.4 g/dl (12.0-15.0); Ketone-Dipstick Negative (Negative); Leukocyte Esterase-Dipstick Negative /ul (Negative); Lymphocyte # 2.75 X10^3/ul (4.0); Lymphocyte % 32.6 % (19-41); Mean Corp Hgb Conc 34.6 g/gl (32-36); Mean Corpuscular Hgb 32.9 pg (27.0-32.0); Mean Corpuscular Volume 95.1 fL (81-99); Mean Platelet Vol. 10.8 fl (6.2-12.0); Monocyte# 0.71 X10^3/uL; Monocyte% 8.4 % (0-10); Neutrophil % 56.9 % (47-70); Nitrite-Dipstick Negative (Negative); Occult Blood-Urine Negative /ul (Negative); Platelet Count 223 K/mm3 (150-450); Protein-Dipstick Negative (Negative); RBC Distribution Width CV 11.9 % (11.6-14.6); RBC Distribution Width SD 40.5 fl (35.1-43.9); Red Blood Count 4.07 M/mm3 (4.2-5.4); Specific Gravity, Urine 1.015 (1.002-1.030); Urine Bilirubin Dipstick Negative (Negative); Urine Clarity Sl. Cloudy (Clear); Urine Urobilinogen Normal (Normal); White Blood Count 8.4 K/mm3 (4.4-11.0)
[2018-12-11 10:32] LABS: POSITIVE COUNT NO; POSITIVE DIFFERENTIAL NO; POSITIVE MORPHOLOGY NO
[2018-12-11 10:45] LABS: Hemoglobin A1c 8.3 % (4.2-6.3)
[2018-12-11 11:00] LABS: AST(SGOT) 17 U/L (15-37); Alanine Aminotransfer ALT/SGPT 20 U/L (13-56); Albumin, Serum 3.7 g/dL (3.2-5.0); Alkaline Phosphatase 86 U/L (45-117); Anion Gap 5 (5-15); BUN 14 mg/dL (7-18); BUN/Creat Ratio 13.2 RATIO (10-20); Calcium,Total 8.6 mg/dL (8.5-10.1); Chloride 107 mmol/L (98-107); Cholesterol 149 mg/dL (200); Creatinine, Serum 1.06 mg/dL (0.55-1.02); EST Glomerular Filtration Rate 56 mL/min (>60); Est Glom Filt Rate - Afr Amer 67 mL/min (>60); Globulin 3.6 g/dL (2.2-4.2); Glucose 89 mg/dL (74-106); High Density Lipoprotein 30 mg/dL; Potassium 4.4 mmol/L (3.5-5.1); Protein, Total 7.3 g/dL (6.4-8.2); Sodium Level 139 mmol/L (136-145); Thyroid Stim Hormone (TSH) 3.12 uIU/mL (0.358-3.74); Triglycerides 144 mg/dL; Very Low Density Lipoprotein 29 mg/dL (5-40)
[2018-12-13 09:52] LABS: Vitamin B12 294 pg/mL (211-911); Vitamin D,25 Hydroxy 17.3 ng/mL (29.95-100.01)
== END ==
PROVIDERS: Referring Provider Family Medicine; Visit Provider Family Medicine
DX: Z00.00 Encounter for general adult medical examination without abnormal findings (principal); E03.9 Hypothyroidism, unspecified; E55.9 Vitamin D deficiency, unspecified; E53.8 Deficiency of other specified B group vitamins; I10 Essential (primary) hypertension; E78.00 Pure hypercholesterolemia, unspecified; E11.9 Type 2 diabetes mellitus without complications
CPT/HCPCS: 36415; 80053; 80061; 81002; 82306; 82607; 83036; 84443; 85025

== ENCOUNTER → 2019-01-03 07:47 | Outpatient (CLI) | payer OTHER, SELFPAY ==
--- NOTE | 2019-01-03 07:50 | ART_ITS ---
Reason For Study: Asymmetrical BP - Elevated BP Lt arm Procedure A bilateral upper extremity continuous wave Doppler with analog waveform analysis and segmental pressures. Left Segmental Pressures Left brachial= 173mmHg. Left forearm by way of the radial artery = 160mmHg. Left radial= 176mmHg. Left ulnar= 160mmHg. The left subclavian waveforms are triphasic. The left axillary waveforms are triphasic. The left brachial waveforms are triphasic. The left radial waveforms are triphasic. The left ulnar waveforms are triphasic. Right Segmental Pressures Right brachial= 160mmHg. Right forearm pressure by way of the radial artery = 150mmHg. Right radial= 160mmHg. Right ulnar= 170mmHg. The right subclavian waveforms are triphasic. The right axillary waveforms are triphasic. The right brachial waveforms are triphasic. The right radial waveforms are triphasic. The right ulnar waveforms are triphasic. Indices The right wrist-brachial index is .98. The left wrist-brachial index is 1.0. Interpretation Summary Triphasic Doppler waveforms are noted at all levels in the upper extremities bilaterally, including the subclavian, axillary, brachial, radial, and ulnar arteries. Arterial pressures appear to be consistent bilaterally and segmentally. Wrist-brachial indices are bilaterally normal. There is no evidence of an arterial occlusive process in either upper extremity. Ordering Physician: Truman David Referring Physician: Truman David Performed By: Rosetta Levy [facility]
== END ==
LOC: CVS 07:47
PROVIDERS: Referring Provider Family Medicine; Visit Provider Family Medicine
DX: Z01.31 Encounter for examination of blood pressure with abnormal findings (principal)
CPT/HCPCS: 93923

== ENCOUNTER 2019-02-28 02:40 | Emergency (ER) | payer OTHER, SELFPAY ==
[2019-02-28 02:42] VITALS: BP 155/63; PULSE 67; RESP 20; TEMP 36.6; O2SAT 100; BMI 42.3
[2019-02-28 02:46] VITALS: RESP 20
--- NOTE | 2019-02-28 03:14 | RAD_ITS ---
HISTORY: RIGHT PAIN UNDERNEATH BREAST SINCE THURSDAY/RADIATING PAIN TO SIDE AND BACK COMPARISON: None FINDINGS: XR Ribs Unilateral W/ PA Chest Min 3 Views: LINES/DEVICES: None. LUNGS: Radiographically clear. No consolidation, edema or effusion. No pneumothorax. MEDIASTINUM AND CARDIOVASCULAR STRUCTURES: Cardiac silhouette not enlarged. Central airways and mediastinal contour are unremarkable. RIBS AND OSSEOUS STRUCTURES: Unremarkable. No fractures. RAD/Ribs Uni Min 3V w/PA Chest IMPRESSION: Negative chest and ribs series. at 0404 Reported and signed by: Jesse Yoo MD Electronically Signed: Jesse Yoo, at 4:02 EDT Tel , Service support ,
[2019-02-28 03:37] LABS: Absolute Lymphocyte Count 2.73 X10^3/ul (0.83-4.51); Absolute Neutrophil Count 4.3 X10^3/uL (2.0-7.7); Basophil# 0.04 X10^3/uL; Basophil% 0.5 % (0-1); Eosinophil# 0.13 X10^3/uL; Eosinophils% 1.6 % (0-5); Hematocrit 38.9 % (37-47); Hemoglobin 13.6 g/dl (12.0-15.0); Lymphocyte # 2.73 X10^3/ul (4.0); Lymphocyte % 34.1 % (19-41); Mean Corpuscular Volume 91.5 fL (81-99); Monocyte# 0.77 X10^3/uL; Monocyte% 9.6 % (0-10); Neutrophil # 4.32 X10^3/uL (2.7-7.7); Neutrophil % 54.1 % (47-70); Platelet Count 214 K/mm3 (150-450); RBC Distribution Width CV 11.7 % (11.6-14.6); RBC Distribution Width SD 38.8 fl (35.1-43.9); Red Blood Count 4.25 M/mm3 (4.2-5.4)
[2019-02-28 03:39] LABS: POSITIVE COUNT NO; POSITIVE DIFFERENTIAL NO; POSITIVE MORPHOLOGY NO
[2019-02-28 03:43] LABS: D-Dimer Quantitative (DVT/PE) 0.44 FEU/ug/m (0.27-0.49)
[2019-02-28 03:44] LABS: Anion Gap 8 (5-15); BUN 14 mg/dL (7-18); BUN/Creat Ratio 13.5 RATIO (10-20); Calcium,Total 8.5 mg/dL (8.5-10.1); Chloride 105 mmol/L (98-107); Creatinine, Serum 1.04 mg/dL (0.55-1.02); EST Glomerular Filtration Rate 57 mL/min (>60); Est Glom Filt Rate - Afr Amer 69 mL/min (>60); Estimated Creatinine Clearance 40.29 ml/min; Glucose 171 mg/dL (74-106); Sodium Level 140 mmol/L (136-145)
--- NOTE | 2019-02-28 03:53 | ED.DCSUM_ITS ---
- ER Visit Summary Date of Service: 02/28/19 Chief Complaint: Right chest wall pain History of Present Illness: The patient is a 63 F who presents with pain over her right ribs and chest wall for the past 3 days. Patient describes the pain as sharp and spasms. Patient states the pain is worse with movement and taking a deep breath. Patient states nothing seems to help with the pain. Patient denies any trauma or injury. Patient denies any shortness of breath. Patient denies any nausea or vomiting. Patient states her daughter has a history of blood clots and she is concerned that this could be a pulmonary embolism. Physical Examination: Vital signs are stable. Patient is afebrile. Patient is in no acute distress. Oral mucosa is pink and moist. Neck is supple. Trachea is midline. There is no JVD noted. Heart was regular rate and rhythm. Lungs are clear and equal bilaterally. There is reproducible tenderness over the right chest wall over the fifth and sixth rib areas in the anterior axillary line. Abdomen is soft. Bowel sounds are normal. There is no tenderness. There is no guarding noted. Skin is warm dry. Cranial nerves II through XII are intact. There are no focal motor or sensory deficits noted. The remaining physical exam is within normal limits. Test Results: CBC basic metabolic profile and d-dimer were obtained overall essentially within normal limits. X-rays of the right ribs were obtained. There is no acute fracture. There is no pneumothorax noted. Emergency Department Course and Treatment: Patient was advised that this is most likely a muscular strain in her chest wall. Patient was instructed to use ice packs to the area. Patient was instructed to take Tylenol or ibuprofen as needed for the pain. Patient was instructed to follow-up with her primary care physician in 5 to 7 days. Patient understood and was agreeable with plan. All questions were answered. Disposition: Discharge home Impression: Right-sided chest pain This note was generated with [employer] dictation software. It may contain incorrect words, spelling, and punctuation that were not noted in review of the chart prior to signing ED Disposition - Plan for ED Patient: Disposition: Home or Assisted Living Diagnosis: Right-sided chest pain Instructions: ED Strain Chest Wall Referrals: Truman David [Primary Care Provider] - 5-7 Days
[2019-02-28 04:20] VITALS: BP 154/69; PULSE 60; RESP 18; O2SAT 100
== END 2019-02-28 04:25 | disposition home or self-care (01) ==
PROVIDERS: Emergency Provider Emergency Medicine
DX: R07.89 Other chest pain (principal); E66.9 Obesity, unspecified; E11.9 Type 2 diabetes mellitus without complications; E03.9 Hypothyroidism, unspecified; Z79.84 Long term (current) use of oral hypoglycemic drugs; Z79.899 Other long term (current) drug therapy; F17.200 Nicotine dependence, unspecified, uncomplicated
CPT/HCPCS: 71101; 80048; 85025; 85379; 99285; A4216

== ENCOUNTER → 2019-09-24 09:57 | Outpatient (CLI) | payer OTHER, SELFPAY ==
[2019-06-16 09:50] VITALS: BMI 42.3
[2019-09-24 11:15] LABS: Hemoglobin A1c 6.4 % (4.2-6.3)
== END ==
PROVIDERS: Visit Provider Family Medicine
DX: E11.9 Type 2 diabetes mellitus without complications (principal)
CPT/HCPCS: 36415; 83036

== ENCOUNTER 2019-09-28 22:18 | Emergency (ER) | payer OTHER, SELFPAY ==
[2019-06-16 09:50] VITALS: BMI 42.3
[2019-09-28 22:18] VITALS: BP 172/71
[2019-09-28 22:19] VITALS: BP 212/82; PULSE 63; RESP 15; TEMP 36.8; O2SAT 100; BMI 40.4
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
[2019-09-28 23:31] VITALS: BP 172/71
== END 2019-09-28 23:32 | disposition home or self-care (01) ==
LOC: ED 22:58
PROVIDERS: Emergency Provider Emergency Medicine
DX: S29.012A Strain of muscle and tendon of back wall of thorax, initial encounter (principal); S16.1XXA Strain of muscle, fascia and tendon at neck level, initial encounter; S39.012A Strain of muscle, fascia and tendon of lower back, initial encounter; V56.5XXA Driver of pick-up truck or van injured in collision with other nonmotor vehicle in traffic accident, initial encounter; Y93.9 Activity, unspecified; Y92.9 Unspecified place or not applicable; E66.9 Obesity, unspecified; K21.9 Gastro-esophageal reflux disease without esophagitis; E11.9 Type 2 diabetes mellitus without complications; I10 Essential (primary) hypertension; E78.00 Pure hypercholesterolemia, unspecified; E03.9 Hypothyroidism, unspecified; Z98.1 Arthrodesis status; Z79.84 Long term (current) use of oral hypoglycemic drugs; Z79.899 Other long term (current) drug therapy; Z72.0 Tobacco use
CPT/HCPCS: 99282

== ENCOUNTER 2020-02-03 19:33 | Emergency (ER) | payer OTHER, SELFPAY ==
[2020-02-03 19:33] VITALS: BP 165/85; PULSE 70; RESP 16; TEMP 36.3; O2SAT 98; BMI 39.7
--- NOTE | 2020-02-03 19:49 | ED.VIS.GEN ---
History of Present Illness Chief Complaint: Back Informant: Patient Onset: Days Context: Gradual Onset Current Severity: Moderate Maximum Severity: Moderate Narrative: Patient presents with left upper back pain that started a couple days ago. She states she woke up and had some mild tenderness in the left upper back. Pain is progressive the past 3 days. 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 She states has been doing this job for a year and a half never really had back problems before. Pain does not radiate down her arms. Pain is reproducible and worse with movement. She denies chest pain or shortness of breath. - Past Medical History (1) Diabetes mellitus Status: Chronic (2) GERD (gastroesophageal reflux disease) Status: Chronic (3) Hyperlipidemia Status: Chronic (4) Hypertension Status: Chronic (5) Hypothyroidism Status: Chronic Past Medical History - Allergies and Home Meds Allergies/Adverse Reactions: Allergies No Known Allergies Allergy (Verified 02/03/20 19:34) Primary Care Physician: Truman David [Primary Care Provider] - Prior records reviewed: Yes Surgical History: total knee arthroplasty - Right. Lives: Spouse/ Significant Other Smoking Status: Unknown if ever smoked - Family History Maternal Family History: Family History (Last Updated 12/09/17 @ 09:27 by Glenn Smith) Mother Heart disease Cancer Father Hypertension Heart disease Family History: Reports: No pertinent history Paternal Family History: Family History (Last Updated 12/09/17 @ 09:27 by Glenn Smith) Mother Heart disease Cancer Father Hypertension Heart disease Family History: Reports: No pertinent history Review of Systems General: Denies: Chills, Fever Eyes: Denies: Visual changes - bilaterally ENT: Denies: Bilateral ear pain Cardiovascular: Denies: Chest pain Respiratory: Denies: Dyspnea, Cough Gastrointestinal: Denies: Abdominal pain, Nausea, Vomiting, Diarrhea Musculoskeletal: Reports: Back pain. Denies: Swelling, Extremity Pain Skin: Denies: Rash Neurological: Denies: Headache, Weakness, Parasthesia Hematologic: Denies: Easy bruising Allergy: Denies: Uticaria Physical Exam Vital Signs/Narrative: Vital Signs Temp Pulse Resp BP Pulse Ox 02/03/20 19:33 97.3 F L 70 16 165/85 H 98 Inital Vital Signs reviewed: Yes General: Well nourished, Well developed Head: Normocephalic ENT: Moist mucous membranes Neck: Supple, - - Old healed surgical scar over the mid lower cervical spine. No tenderness. Cardiovascular: Regular rate, Regular rhythm Respiratory: No distress, CTA bilaterally Abdomen: Soft, Nontender Back: - - No midline thoracic or lumbar tenderness. Patient has reproducible tenderness in the left upper thoracic paraspinals with palpable spasm. No overlying skin changes. No right-sided tenderness. Extremities: Nontender, No edema Skin: Normal color, No rash Neurological: Alert, Oriented x3, Normal Strength, Normal Sensation Psychological: Normal affect Diagnostic/Tx/Re-eval - Medical Decision Making Patient is already on Mobic. There was no trauma to her back. I do not think x-rays would be beneficial. She is treated with dose of [place] and Valium here. Should be given prescriptions for the same. ED Disposition - Plan for ED Patient: Disposition: Home or Assisted Living Diagnosis: Muscle spasm Instructions: ED Spasm Back No Trauma Prescriptions: Hydrocodone Bitart/Apap 5-325 [[place] 5MG-325MG] 1 tablet PO Q4H PRN PRN 2 Days #10 tablet PRN Reason: Pain Transmission Status: [id number] Diazepam [Valium] 5 mg PO Q8 PRN #10 tablet PRN Reason: Muscle Spasm Transmission Status: Re[id number] Referrals: Truman David [Primary Care Provider] - 1 Week
[2020-02-03] MEDS: diazePAM 5 MG Tablet PO (19:59)
[2020-02-03] MEDS: HYDROcodone Bitartrate/Apap 5/325 Tablet PO (19:59)
== END 2020-02-03 20:41 | disposition home or self-care (01) ==
LOC: ED 20:00
PROVIDERS: Emergency Provider Emergency Medicine
DX: M62.830 Muscle spasm of back (principal); I10 Essential (primary) hypertension; E11.9 Type 2 diabetes mellitus without complications; K21.9 Gastro-esophageal reflux disease without esophagitis; E78.5 Hyperlipidemia, unspecified; E03.9 Hypothyroidism, unspecified; Z79.84 Long term (current) use of oral hypoglycemic drugs; Z79.899 Other long term (current) drug therapy
CPT/HCPCS: 99283

== ENCOUNTER 2020-03-14 07:14 | Emergency (ER) | payer OTHER, SELFPAY ==
[2020-03-14 07:15] VITALS: BP 158/130; PULSE 87; RESP 16; TEMP 36.9; O2SAT 99; BMI 40.3
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
[2020-03-14 09:55] VITALS: BP 135/69; PULSE 72; RESP 16; O2SAT 97
--- NOTE | 2020-03-14 09:55 | ED.RN ---
DISCHARGE INSTRUCTIONS GIVEN TO AND REVIEWED WITH PATIENT, PATIENT DENIES QUESTIONS OR CONCERNS AND VOICES UNDERSTANDING OF DISCHARGE INSTRUCTIONS. PT AMBULATES OUT OF ROOM WITHOUT DIFFICULTY.
== END 2020-03-14 09:57 | disposition home or self-care (01) ==
PROVIDERS: Emergency Provider Emergency Medicine
DX: S16.1XXA Strain of muscle, fascia and tendon at neck level, initial encounter (principal); S60.511A Abrasion of right hand, initial encounter; R07.89 Other chest pain; V89.2XXA Person injured in unspecified motor-vehicle accident, traffic, initial encounter; Y93.9 Activity, unspecified; Y92.9 Unspecified place or not applicable; I10 Essential (primary) hypertension; E11.9 Type 2 diabetes mellitus without complications; Z79.84 Long term (current) use of oral hypoglycemic drugs; Z79.899 Other long term (current) drug therapy; F17.200 Nicotine dependence, unspecified, uncomplicated
CPT/HCPCS: 70450; 71101; 72125; 73130; 99284

== ENCOUNTER → 2020-04-04 09:48 | Outpatient (CLI) | payer OTHER, SELFPAY ==
[2020-03-14 07:15] VITALS: BMI 40.3
[2020-04-04 12:32] LABS: Color, Urine Yellow (Yellow); Glucose, Dipstick Normal (Normal); Ketone-Dipstick Negative (Negative); Leukocyte Esterase-Dipstick Negative /ul (Negative); Nitrite-Dipstick Negative (Negative); Occult Blood-Urine Negative /ul (Negative); Protein-Dipstick Negative (Negative); Urine Bilirubin Dipstick Negative (Negative); Urine Clarity Clear (Clear); Urine Urobilinogen Normal (Normal)
[2020-04-04 12:35] LABS: Absolute Lymphocyte Count 2.35 X10^3/uL (0.83-4.51); Absolute Neutrophil Count 5.3 X10^3/uL (2.0-7.7); Basophil# 0.05 X10^3/uL; Basophil% 0.6 % (0-1); Eosinophil# 0.13 X10^3/uL; Eosinophils% 1.5 % (0-5); Hematocrit 39.7 % (37-47); Lymphocyte # 2.35 X10^3/ul (4.0); Lymphocyte % 26.9 % (19-41); Mean Corp Hgb Conc 32.7 g/dL (32-36); Mean Corpuscular Hgb 31.1 pg (27.0-32.0); Mean Platelet Vol. 10.5 fl (6.2-12.0); Monocyte# 0.84 X10^3/uL; Monocyte% 9.6 % (0-10); NRBC Flagged by Analyzer 0 % (0-5); Neutrophil # 5.33 X10^3/uL (2.7-7.7); Neutrophil % 60.9 % (47-70); Platelet Count 279 K/mm3 (150-450); RBC Distribution Width CV 11.9 % (11.6-14.6); RBC Distribution Width SD 40.9 fl (35.1-43.9); Red Blood Count 4.18 M/mm3 (4.2-5.4); White Blood Count 8.7 K/mm3 (4.4-11.0)
[2020-04-04 12:55] LABS: Vitamin B12 507 pg/mL (211-911)
[2020-04-04 13:06] LABS: ALB/GLOB Ratio 0.8 RATIO (0.9-2.4); AST(SGOT) 10 U/L (15-37); Alanine Aminotransfer ALT/SGPT 15 U/L (13-56); Albumin, Serum 3.4 g/dL (3.2-5.0); Alkaline Phosphatase 101 U/L (45-117); Anion Gap 7 (5-15); BUN 12 mg/dL (7-18); BUN/Creat Ratio 11.9 RATIO (10-20); Chloride 99 mmol/L (98-107); Cholesterol 215 mg/dL (200); Creatinine, Serum 1.01 mg/dL (0.55-1.02); EST Glomerular Filtration Rate 59 mL/min (>60); Est Glom Filt Rate - Afr Amer 71 mL/min (>60); Globulin 4.2 g/dL (2.2-4.2); Glucose 162 mg/dL (74-106); High Density Lipoprotein 27 mg/dL; Potassium 4.5 mmol/L (3.5-5.1); Protein, Total 7.6 g/dL (6.4-8.2); Sodium Level 135 mmol/L (136-145); Thyroid Stim Hormone (TSH) 2.17 uIU/mL (0.358-3.74); Triglycerides 262 mg/dL; Very Low Density Lipoprotein 52 mg/dL (5-40)
== END ==
PROVIDERS: Referring Provider Family Medicine; Visit Provider Family Medicine
DX: Z00.00 Encounter for general adult medical examination without abnormal findings (principal); I10 Essential (primary) hypertension; E78.00 Pure hypercholesterolemia, unspecified; E11.9 Type 2 diabetes mellitus without complications; E55.9 Vitamin D deficiency, unspecified; E53.8 Deficiency of other specified B group vitamins; E03.9 Hypothyroidism, unspecified
CPT/HCPCS: 36415; 80053; 80061; 81002; 82306; 82607; 84443; 85025

== ENCOUNTER 2020-05-31 09:00 | Outpatient (RCR) | payer OTHER, SELFPAY ==
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
--- NOTE | 2020-05-23 08:00 | HP.PTEVAL ---
Patient's Visit Information HOPE ENCINAS is a 65 year old F referred to Physical Therapy by Dr. Truman David MD with a diagnosis of L knee OA. Date of Evaluation: 05/23/20 Physical Therapist: Boone Jean, PT, ATC - Visit Plan Frequency: 2-3x /Week Duration: 4 Weeks Plan: L knee stretching and strengthening, balance and prioprio, core stab ex's, nustep, and HEP - Subjective Pt reports her L knee has been sore for 4 mos. Pt reports she had an MRI which revealed a torn meniscus, severe arthritis, and a ruptured bakers cyst. Pt reports her torn meniscus is not repairable secondary to the extensive OA she has present in her L knee. Pt deniestingling or numbness in L LE. Pt notes sleep difficulty secondary to pain. Pt reports she is unable to stand or ambulate for a long period of time secondary to pain. Pt notes she has to negotiate stairs one step at a time secondary to pain. Pt reports most of the pain is located on the medial aspect of her L knee. Pt had R TKA 3 years ago. L knee pain is 3/10 at rest, 8/10 by the end of the day - Pain L knee OA Pain Intensity (Out of 10): 3 Pain Intensity Range: 8 - Objective Neuro: B LE sensation is WNL to light touch. B achilles reflex= 1/3. Palpation: L knee is very tender to palpation of the medial joint line. Mild swelling noted. No obvious deformity. Girth at joint line: B knees 38.5 cm. ROM: R knee 0-5-120; L knee 0-10-92 degrees. MMT: R knee 5/5 throughout, L knee 4-/5 and painful. Special testing: Pt is positive with most testing secondary to pain. - Goals Goal 1:: Decrease L knee pain x 50% to aid with sleep Goal Time Frame: 4-6 Weeks Goal 2:: Increase L knee strength x 1 grade to aid with stair negotiation Goal Time Frame: 4-6 Weeks Goal 3:: Increase L knee ROM x 15-20 degrees to aid with IADL's Goal Time Frame: 4-6 Weeks Goal 4:: I wiith HEP Goal Time Frame: 4-6 Weeks - Rehabilitation Potential Physical Therapy Diagnosis: L knee pain, weakness, and limited ROM secondary to L knee OA Rehabilitation Potential: Good - Anticipated Interventions Patient/Client Instruction: Educate patient on: Condition, Plan of Care For the Purpose of:: To improve self management Therapeutic Exercise to Include: Strength training, Endurance training, Balance training, Flexibilty training, Gait and locomotor training, Active ROM, Dynamic Lumbar Stabilization For the Purpose of:: To decrease pain, To increase ROM, To improve muscle performance and motor function Cryotherapy (ice pack, ice massage): Yes For the Purpose of:: To decrease pain Thank you for the opportunity to evaluate your patient. For Medicare and Medicare HMO plans, please review the plan of care and approve it. It will need to be FAXED BACK to us at [phone] for Medicare purposes. For Medicare only, by signing this I certify the plan of care. Please let me know if there are questions or concerns regarding this plan of care. Physician Signature: Date:
--- NOTE | 2020-05-25 08:27 | HP.OTDCSUM_ITS ---
It has been my pleasure to treat HOPE ENCINAS under orders from Dr. Truman David MD, for the diagnosis of left wrist/hand pain for a total of 8 visit(s). Please see the following information for a summary of their discharge status. % Improvement: 80 Objective/Function: left progress developer strength at 24# a increase from 15# left lateral pinch 10# a increase 8# left tripod pinch 8# a increase from 6#. pt demo the ability to form coposite fist Patient Goals: Regain Strength, Decrease Pain, Improve Fine Motor Skills, Use Hand/Wrist/Arm Normally Again, Decrease Tingling/Numbness Goal:: pt will demo a increase in left progress developer strength by 15# to increase pts ind with ADls and IADls by d/c. pt will demo a increase in lateral and tripod pinch by 4# to increase pts ind with ADLs and IADLS. pt will demo the ability to lift 50# for work tasks from different level by d/c Goal:: pt will report pain no greater than 2/10 with use of left UE with ADLs and IADLs by d/c Goal:: pt will report a decrease in tingling/numb to less than 2 x a week with use of BUE for ADLs and IADls by d/c Plan: D/C Discharge Comments: Pt was seen for 8 OT visits for left hand pain. therapist ed. pt on use of heat/ice PRN , AROM and PROM ex. pt reports Ind with ADLS and IADLs but continues to struggle with stiffness and weakness of in left hand. Therapy rec'd cont with HEP and if she flet no improvement to return. Pt does feels when she gets back to work she will feel better. pt has met goals in OT and is D/C with HEP. If there are questions or concerns regarding this patient's occupational therapy, please fell free to call me at [phone]. Thank you for the referral of this patient. Sincerely, Bebe Phillips, OTR/L, CHT
--- NOTE | 2020-07-27 10:03 | HP.PT.NRP ---
HOPE ENCINAS was seen in my office for initial evaluation on 05/23/20. The following Plan of Care was established for this patient: Initial Frequency: 2-3x /Week Initial Duration: 4 Weeks Patient/Client Instruction: Educate patient on: Condition, Plan of Care For the Purpose of:: To improve self management Therapeutic Exercise to Include: Strength training, Endurance training, Balance training, Flexibilty training, Gait and locomotor training, Active ROM, Dynamic Lumbar Stabilization For the Purpose of:: To decrease pain, To increase ROM, To improve muscle performance and motor function Cryotherapy (ice pack, ice massage): Yes For the Purpose of:: To decrease pain This patient was last seen in our office . Pertinent comments regarding their Physical therapy will appear below: Pt was treated for 4 PT visits for L knee pain through the date of 05/31/20. Pt has not returned through todays date and is discontinued at this time. At this point I will be discontinuing this patient from physical therapy. I would be happy to see this patient again in the future if found appropriate by the physician. Thank you! Boone Jean, PT, ATC
== END 2020-05-31 19:00 | disposition home or self-care (01) ==
LOC: PT 09:00
PROVIDERS: Referring Provider Family Medicine; Visit Provider Family Medicine
DX: M25.532 Pain in left wrist (principal)
CPT/HCPCS: 97035; 97110; 97140; 97161; 97166; 97530

== ENCOUNTER → 2020-06-20 09:32 | Outpatient (CLI) | payer OTHER, SELFPAY ==
[2020-06-20 09:25] VITALS: BMI 40.3
--- NOTE | 2020-06-20 09:32 | RAD_ITS ---
STUDY: X-RAY - LEFT KNEE REASON FOR EXAM: Female, 65 years old. INCREASING LEFT KNEE PAIN TECHNIQUE: 4 view(s) of the knee. COMPARISON: Previous study of 12/04/2014 FINDINGS: Normal visualized distal femur. Normal visualized proximal tibia and fibula. Normal proximal tibiofibular articulation. There are moderate degenerative changes with joint space narrowing of the medial knee compartment. Normal lateral femorotibial compartment. There is mild degenerative arthrosis of the patellofemoral articulation. There may be a minimal suprapatellar effusion. The soft tissue structures are unremarkable. RAD/Knee 4 or More Views IMPRESSION: Moderate degenerative changes with joint space narrowing of the medial knee compartment. Mild degenerative changes of the patellofemoral compartment. There may be a minimal suprapatellar effusion. Degenerative changes have increased in severity from the previous study. Electronically Signed: Jesse Diaz MD at 17:17 EDT , Service support ,
== END ==
LOC: HPRAD 09:32
PROVIDERS: Referring Provider Orthopaedic Surgery; Visit Provider Orthopaedic Surgery
DX: M25.562 Pain in left knee (principal)
CPT/HCPCS: 73564

== ENCOUNTER → 2020-07-05 07:03 | Outpatient (CLI) | payer OTHER, SELFPAY ==
[2020-06-20 09:25] VITALS: BMI 40.3
--- NOTE | 2020-07-05 07:04 | CT_ITS ---
STUDY: CT SCAN LOWER EXTREMITY LEFT REASON FOR EXAM: Female, 65 years old. GRACIA LEFT KNEE, KNEE PAIN, PREV LT KNEE SURG FOR MENISCAL TEAR AND BAKERS CYST, HX-DB,HTN RADIATION DOSAGE (If Supplied By Facility): CTDIvol = ( 20.10 ) mGy, DLP = ( 1066.98 ) mGycm. Individualized dose optimization techniques were used for this CT.? TECHNIQUE: Multiple axial tomographic images were obtained of the left hip joint, knee joint and ankle joint. Sagittal and coronal reconstruction were obtained as well. COMPARISON: Comparison is made with prior radiograph of the left knee dated 06/20/2020. FINDINGS: The left hip joint is unremarkable. No significant joint space narrowing is seen. No bony abnormality is present. Moderate to severe degree of joint space narrowing involving the medial compartment of the knee joint with degenerative spur formation along the medial femoral condyle and medial tibial plateau. Tiny joint effusion. Mild degree of joint space narrowing involving the patellofemoral joint. Imaging of the ankle joint demonstrates a plantar spur. CT/Extremity Lower without Contra IMPRESSION: Moderate to marked degree of joint space narrowing involving the medial compartment of knee joint with degenerative spur formation involving the medial femoral condyle as well as the medial tibial plateau. Small joint effusion with mild degree of degenerative changes of the patellofemoral joint. Electronically Signed: Sivakumar Johnson, at 9:56 EDT , Service support ,
== END ==
LOC: CT 07:04
PROVIDERS: Referring Provider Orthopaedic Surgery; Visit Provider Orthopaedic Surgery
DX: M17.12 Unilateral primary osteoarthritis, left knee (principal)
CPT/HCPCS: 73700

== ENCOUNTER 2020-07-17 06:52 | Inpatient (IN) | payer OTHER, SELFPAY ==
[2020-06-20 09:25] VITALS: BMI 40.3
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
[2020-07-05 08:25] LABS: Hematocrit 35.8 % (37-47); Hemoglobin 11.6 g/dL (12.0-15.0); Mean Corp Hgb Conc 32.4 g/dL (32-36); Mean Corpuscular Hgb 30.9 pg (27.0-32.0); Mean Corpuscular Volume 95.2 fL (81-99); Mean Platelet Vol. 10.2 fl (6.2-12.0); Platelet Count 282 K/mm3 (150-450); RBC Distribution Width CV 12.1 % (11.6-14.6); RBC Distribution Width SD 41.5 fl (35.1-43.9); Red Blood Count 3.76 M/mm3 (4.2-5.4); White Blood Count 8.7 K/mm3 (4.4-11.0)
[2020-07-05 08:50] LABS: Hemoglobin A1c 7.5 % (3.8-5.6)
[2020-07-05 08:57] LABS: Magnesium 1.8 mg/dL (1.6-2.6); Thyroid Stim Hormone (TSH) 3.11 uIU/mL (0.358-3.74)
[2020-07-05 11:32] LABS: Absolute Lymphocyte Count 2.18 X10^3/uL (0.83-4.51); Absolute Neutrophil Count 5.4 X10^3/uL (2.0-7.7); Basophil# 0.05 X10^3/uL; Basophil% 0.6 % (0-1); Eosinophil# 0.16 X10^3/uL; Eosinophils% 1.8 % (0-5); Hematocrit 35.9 % (37-47); Hemoglobin 11.7 g/dL (12.0-15.0); Lymphocyte # 2.18 X10^3/ul (4.0); Lymphocyte % 25.2 % (19-41); Mean Corp Hgb Conc 32.6 g/dL (32-36); Mean Corpuscular Volume 95.2 fL (81-99); Mean Platelet Vol. 10.1 fl (6.2-12.0); Monocyte# 0.83 X10^3/uL; Monocyte% 9.6 % (0-10); NRBC Flagged by Analyzer 0 % (0-5); Neutrophil # 5.43 X10^3/uL (2.7-7.7); Neutrophil % 62.7 % (47-70); Platelet Count 282 K/mm3 (150-450); RBC Distribution Width SD 41.8 fl (35.1-43.9); Red Blood Count 3.77 M/mm3 (4.2-5.4); White Blood Count 8.7 K/mm3 (4.4-11.0)
[2020-07-05 12:05] LABS: Anion Gap 6 (5-15); BUN 12 mg/dL (7-18); BUN/Creat Ratio 11.1 RATIO (10-20); Calcium,Total 8.6 mg/dL (8.5-10.1); Chloride 104 mmol/L (98-107); Creatinine, Serum 1.08 mg/dL (0.55-1.02); EST Glomerular Filtration Rate 54 mL/min (>60); Est Glom Filt Rate - Afr Amer 66 mL/min (>60); Glucose 193 mg/dL (74-106); Potassium 4.4 mmol/L (3.5-5.1); Sodium Level 138 mmol/L (136-145)
[2020-07-06 15:02] VITALS: BMI 40.3
--- NOTE | 2020-07-10 10:07 | EKG12_ITS ---
Test Reason : PRE OP Blood Pressure : / mmHG Vent. Rate : 062 BPM Atrial Rate : 062 BPM P-R Int : 150 ms QRS Dur : 064 ms QT Int : 380 ms P-R-T Axes : 023 009 034 degrees QTc Int : 385 ms Normal sinus rhythm Normal ECG Confirmed by MARK TAYLOR, MENDOZA ([id number]), senior editor OUSMANE HOFFMAN ([id number]) on 07/11/2020 11:12:57 AM Referred By: ALEX Confirmed By:MENDOZA FLORES MD
[2020-07-17] VITALS (13 sets, daily range): BP systolic 114–157; BP diastolic 58–98; PULSE 59–86; RESP 16–20; TEMP 36.3–36.8; O2SAT 95–100; BMI 39.8
[2020-07-17 07:36] LABS: Prothrombin Time (Protime)PT. 12.5 SECONDS (11.7-14.9)
[2020-07-17 07:37] LABS: Partial Thromboplast Time 27.7 Seconds (24.1-36.2)
[2020-07-17] MEDS: Acetaminophen 500 MG Tablet 1000 MG PO ×3 (07:47→21:10)
[2020-07-17] MEDS: Gabapentin 600 MG Tablet PO (07:47)
[2020-07-17] MEDS: Scopolamine 1mg/72hr Patch 1 PATCH TRANSDERM. (07:48)
[2020-07-17] MEDS: Lactated Ringers 1,000 ML 125 ML IV ×3 (07:49→21:06)
[2020-07-17 08:05] LABS: Bedside Glucose 145 mg/dL (70-110)
[2020-07-17] MEDS: Cefazolin 2 GM in 0.9% Normal Saline 100 ML IV (10:12)
[2020-07-17] MEDS: Bupivacaine 0.5% PF 10 ML VIAL (12:13)
[2020-07-17] MEDS: Epinephrine (1 mg/ml) 1 MG/ML VIAL (12:13)
[2020-07-17] MEDS: 0.9% Normal Saline (Pres. free 10 ML Vial (12:14)
[2020-07-17] MEDS: Betamethasone/Betamethasone 30 MG/5 ML Vial (12:14)
--- NOTE | 2020-07-17 12:16 | OP.PCM_ITS ---
Report of Operation Date of Procedure: 07/17/20 Description of Surgical Findings:: Preoperative diagnosis: Left knee DJD Postoperative diagnosis: Same Procedure: Left total knee arthroplasty CT guided Robotic Assisted Implant: [place] triathlon press fit femoral component size2, press-fit tibial baseplate size 2, press fit asymmetric patella size 29, polyethylene X3 size 9 CS Anesthesia: Spinal with adductor canal block Tourniquet time: 20 minutes at 300 mmHg Complications: None Condition: Stable to PACU Estimated blood loss: 200 cc Indication for procedure: This is a 65-year-old female with long standing degenerative joint disease of the knee who has failed conservative treatment and wished to proceed with elective total knee arthroplasty. Risk benefits and alternatives were reviewed including; risk of bleeding, infection, nerve artery and tissue damage, continued pain, postoperative stiffness, venous thromboembolism, need for postoperative rehabilitation, mechanical feel to the knee, and expected postoperative course. The operative CT and templating was performed with component sizing Procedure: The patient was met in the preoperative holding area. The operative extremity was identified by both patient and physician and was marked. Patient was met by anesthesia. An adductor canal block was placed by anesthesia postoperatively the patient was brought back to the operating room on a wheeled cart and transferred to the operating table in the supine position. Anesthesia was started. A well-padded tourniquet was placed on the operative extremity. The patient was prepped and draped in the usual sterile fashion. A timeout was called to ensure the proper patient procedure and extremity were being contemplated. An Esmarch was used to exsanguinate the extremity. The tourniquet was inflated. A 10 blade scalpel was used to make a midline incision down through the skin and subcutaneous tissue. Skin retractors placed. Bovie was used to perform meticulous hemostasis. full-thickness flaps were elevated medial and lateral along the joint capsule. A deep blade scalpel was used to perform a medial parapatellar arthrotomy. The knee was brought to full extension. A Bovie was used to release the soft tissues off the most proximal aspect of the medial tibial plateau a three-quarter inch curved osteotome was also used for this process. The infrapatellar fat pad was excised. The fat pad was excised partially anterior lateral portion the anterior medial was elevated from the femur. At this point our intra-articular femoral array was placed of a 45 degree angle proximal and posterior to the medial epicondyle. Our tibial array was placed greater than 1 hands breath below the incision at a 20 degree angle stab incisions were used for this case were attached and checked with the robotic software. Tourniquet was let down. At this point registration hatch were taken throughout the knee as well as checkpoints placed in the femur and tibia once the knee was registered then tensioned the medial and lateral ligaments in extension and 90 degrees of flexion. We then used these numbers to adjust our components within parameters to balance the knee in both flexion and extension once this was done on our monitor we then proceeded with using the robotic arm to make our tibial plateau cut and anterior posterior and chamfer cuts on the femur we then trialed and achieved the desired plan with a well- balanced knee. Lug holes were drilled in the femur the tibia preparation was completed with a fin punch and the patella was prepared by first using a caliper to ensure sufficient bone stock and a patellar reamer to remove the desired amount of bone locals were drilled for an asymmetric poly-. We then brought the knee through range of motion with excellent patellar tracking. We thoroughly irrigated the knee with a trial components were removed a posterior capsular injection with her standard cocktail was performed the aqua Mantis was also used to aid in hemostasis. Betadine rinse was allowed to sit and washed out components were press-fit into place. Aricept rinse was then used followed by several more rate liters of irrigation after it was allowed to sit. Joint capsule was closed with #1 Ethibond [id number] followed by Vicryl in the subcutaneous tissues staple in the skin arrays and checkpoints were removed prior to closure all counts were correct stab incisions were closed with a stable standard dressing in the form of Mepilex for the main incision Xeroform 4 x 4 and Tegaderm over pin site holes. Thigh-high HUDSON hose applied over top of dressing. Patient tolerated the procedure well and was directed to PACU in stable condition no intraoperative complications
--- NOTE | 2020-07-17 12:58 | RAD_ITS ---
STUDY: X-RAY - LEFT KNEE REASON FOR EXAM: Female, 65 years old. POST OP KNEE TECHNIQUE: 2 view(s) of the knee. COMPARISON: Comparison is made with prior study dated 06/20/2020. FINDINGS: Normal visualized distal femur. Normal visualized proximal tibia and fibula. Normal proximal tibiofibular articulation. The patient is status post total knee replacement. There is good alignment. Postoperative soft tissue changes. RAD/Knee 1 or 2 Views IMPRESSION: Status post total knee replacement. There is good alignment. Postoperative soft tissue changes. Electronically Signed: Sivakumar Johnson, at 13:34 EDT , Service support ,
[2020-07-17] MEDS: Cefazolin 1 GM/50 ML BAG IV ×2 (13:52→21:05)
[2020-07-17 14:20] LABS: Bedside Glucose 151 mg/dL (70-110)
--- NOTE | 2020-07-17 16:32 | PN_ITS ---
<Aleksander Dumas - Last Filed: 07/17/20 16:32> Reason for Visit: Post op left total knee Subjective: This is a 65 year old female with pmhx of Dmt2, osteoarthritis, HTN, hypothyroidism, obesity, who today underwent a left total knee repair per Dr. Kapoor. She tolerated the procedure well and has just completed physical therapy. She ambulated with the walker. She currently has 6-7/10 pain. She has had no SOB, cough, nausea, vomiting, fevers, chills since waking up. She has no complaints aside from her knee pain. She has no numbness or tingling of the left leg or foot. Vitals/I&O's: Vital Signs Temp Pulse Resp BP Pulse Ox 97.5 F L 75 16 133/87 H 95 07/17/20 15:02 07/17/20 15:02 07/17/20 15:02 07/17/20 15:02 07/17/20 15:02 Oxygen Flow Rate (L/min) 6 Oxygen Delivery Method Room Air Weight: 203 lb 14.841 oz Body Mass Index (BMI) 39.8 Finger Stick Blood Glucose 130 Intake and Output for Last 24 Hours 07/15/20 07/16/20 07/17/20 23:59 23:59 23:59 Intake Total 1485.5 / 1485.5 Balance 1485.5 / 1485.5 General: Alert, Oriented x3, Cooperative HEENT: Atraumatic, PERRLA, EOMI, Normocephalic Neck: Supple, No JVD, Negative Carotid Bruits Lungs: Clear to auscultation, Normal air movement Cardiovascular: Regular rate, No murmurs Abdomen: Bowel Sounds Present, Soft, Non Tender, Obese Extremities: No edema, Capillary Refill Less than 3 Seconds Skin: No rashes, No breakdown Musculoskeletal: No Tenderness to Palpation of Joints or Extremities, - - left knee post op, distal PMS intact. Neurological: Cranial nerves II-XII grossly intact Psych/Mental Status: Normal Affect, Appropriate Laboratory Results 07/17/20 07:20: PT 12.5, INR 1.0, APTT 27.7 07/17/20 07:20: Blood Type O POSITIVE, Antibody Screen NEGATIVE 07/17/20 07:36: POC Glucose 145 H 07/17/20 13:56: POC Glucose 151 H Current Medications Acetaminophen (Tylenol) 1,000 mg PO Q8 [facility] Apixaban (Eliquis) 2.5 mg PO 0700,1900 [facility] Hydromorphone HCl (Dilaudid Inj) 0.5 mg IV Q2H PRN PRN PRN Reason: Pain Score 6-10/10 Lactated Ringer's () 1,000 mls @ 125 mls/hr IV .Q8H [facility] Stop: 07/17/20 17:59 Last Admin: 07/17/20 13:52 Dose: 125 mls/hr Documented by: Lactated Ringer's () 1,000 mls @ 125 mls/hr IV .Q8H [facility] Cefazolin Sodium () 1 gm in 50 mls @ 100 mls/hr IV Q8 [facility] Last Infusion: 07/17/20 14:22 Dose: Infused Documented by: Sodium Chloride () 250 mls @ 15 mls/hr IV .[id number] PRN PRN Reason: Saline Flush Sodium Chloride () 250 mls @ 15 mls/hr IV .[id number] PRN PRN Reason: Additional IVPB Infusion Influenza Virus Vaccine Quadrival (Flucelvax /Fluzone ) 0.5 ml IM .ONCE ONE Stop: 07/18/20 10:01 Insulin Human Lispro (Humalog Akashpen (Bkc)) 1 - 6 unit SC Q4H PRN PRN; Protocol PRN Reason: BG>/= 180, SEE PROTOCOL Ondansetron HCl (Zofran) 4 mg IV Q6H PRN PRN PRN Reason: NAUSEA Oxycodone HCl (Oxyir) 5 - 10 mg PO Q4H PRN PRN PRN Reason: Pain Score 4-10/10 Senna/Docusate Sodium (Senokot-S, Radha-Colace) 2 tablet PO BID [facility] Sodium Chloride () 10 - 40 ml IV UD PRN PRN Reason: SALINE FLUSH STROKE Vital Signs/Narrative: Vital Signs Temp Pulse Resp BP Pulse Ox 07/17/20 15:02 97.5 F L 75 16 133/87 H 95 07/17/20 14:00 97.9 F 83 16 121/78 H 95 07/17/20 13:58 97.9 F 83 16 95 07/17/20 13:45 84 16 114/90 H 100 07/17/20 13:30 82 16 130/67 H 100 07/17/20 13:15 83 16 143/73 H 100 07/17/20 13:00 81 16 129/69 H 98 07/17/20 12:45 86 16 117/81 H 98 07/17/20 12:40 97.4 F L 80 20 H 157/79 H 99 Medical Necessity - Tobacco Use Smoking Status: Current every day smoker Tobacco Use: Cigarettes Assessment/Plan All Active Problems (Last Updated 06/16/19 @ 08:40 by Ramonita Wesley) Conjunctivitis, left eye (Acute) 1. Osteoarthritis s/p Left total knee - Per Dr. Kapoor POD#0. Doing well with minimal issues.Pt has ambulted. Agree AM CBC/BMP. Received periop cefazolin and tranexamic acid. 2. Dmt2 with obesity - last a1c 7.5. Hold orals. SSI + accuchecks ordered. resume PO tomorrow if no issues. 3. HTN - stable resume home meds in AM 4. HLD - statin 5. Hypothyroidism - synthroid DVT ppx; per ortho - eliquis Thank you for the opportunity to participate in the care of this patient. This patient was seen by Aleksander Dumas PA-C under the supervision of Dr. Nelsno <Melissa Nelson - Last Filed: 07/17/20 18:03> Vitals/I&O's: Vital Signs Temp Pulse Resp BP Pulse Ox 97.5 F L 76 16 129/74 H 95 07/17/20 16:36 07/17/20 16:36 07/17/20 16:36 07/17/20 16:36 07/17/20 16:36 Oxygen Flow Rate (L/min) 6 Oxygen Delivery Method Room Air Weight: 203 lb 14.841 oz Body Mass Index (BMI) 39.8 Finger Stick Blood Glucose 130 Intake and Output for Last 24 Hours 07/15/20 07/16/20 07/17/20 23:59 23:59 23:59 Intake Total 1485.5 / 1485.5 Balance 1485.5 / 1485.5 Laboratory Results 07/17/20 07:20: PT 12.5, INR 1.0, APTT 27.7 07/17/20 07:20: Blood Type O POSITIVE, Antibody Screen NEGATIVE 07/17/20 07:36: POC Glucose 145 H 07/17/20 13:56: POC Glucose 151 H Current Medications Acetaminophen (Tylenol) 1,000 mg PO Q8 [facility] Last Admin: 07/17/20 16:34 Dose: 1,000 mg Documented by: Apixaban (Eliquis) 2.5 mg PO 0700,1900 [facility] Atorvastatin Calcium (Lipitor) 80 mg PO QHS [facility] Cyanocobalamin (Vitamin B12) 1,000 mcg IM QMONTH [facility] Dextrose (D50w Syringe) 0 gm IV X1 PRN; Protocol PRN Reason: Hypoglycemia Ergocalciferol (Vitamin D) 50,000 unit PO QWEEK [facility] Glucagon () 1 mg IM .X1 PRN PRN Reason: Hypoglycemia Hydromorphone HCl (Dilaudid Inj) 0.5 mg IV Q2H PRN PRN PRN Reason: Pain Score 6-10/10 Lactated Ringer's () 1,000 mls @ 125 mls/hr IV .Q8H [facility] Stop: 07/17/20 17:59 Last Admin: 07/17/20 13:52 Dose: 125 mls/hr Documented by: Lactated Ringer's () 1,000 mls @ 125 mls/hr IV .Q8H [facility] Cefazolin Sodium () 1 gm in 50 mls @ 100 mls/hr IV Q8 [facility] Last Infusion: 07/17/20 14:22 Dose: Infused Documented by: Sodium Chloride () 250 mls @ 15 mls/hr IV .[id number] PRN PRN Reason: Saline Flush Sodium Chloride () 250 mls @ 15 mls/hr IV .[id number] PRN PRN Reason: Additional IVPB Infusion Influenza Virus Vaccine Quadrival (Flucelvax /Fluzone ) 0.5 ml IM .ONCE ONE Stop: 07/18/20 10:01 Insulin Human Lispro (Humalog Kwikpen (Bkc)) 0 unit SC TIDAC [facility]; Protocol Levothyroxine Sodium (Synthroid) 125 mcg PO DAILY@0600 [facility] Ondansetron HCl (Zofran) 4 mg IV Q6H PRN PRN PRN Reason: NAUSEA Oxycodone HCl (Oxyir) 5 - 10 mg PO Q4H PRN PRN PRN Reason: Pain Score 4-10/10 Pantoprazole Sodium (Protonix) 40 mg PO DAILY [facility] Ramipril (Altace) 15 mg PO DAILY [facility] Senna/Docusate Sodium (Senokot-S, Radha-Colace) 2 tablet PO BID [facility] Sodium Chloride () 10 - 40 ml IV UD PRN PRN Reason: SALINE FLUSH STROKE Vital Signs/Narrative: Vital Signs Temp Pulse Resp BP Pulse Ox 07/17/20 16:36 97.5 F L 76 16 129/74 H 95 07/17/20 15:02 97.5 F L 75 16 133/87 H 95 07/17/20 14:00 97.9 F 83 16 121/78 H 95 07/17/20 13:58 97.9 F 83 16 95 07/17/20 13:45 84 16 114/90 H 100 Assessment/Plan Patient seen by Aleksander Dumas PA-C under my supervision Patient is a 65-year-old with a past medical history of type 2 diabetes mellitus, hypothyroidism, hypertension osteoarthritis was admitted to the orthopedic surgery service for left total knee replacement. She had procedure done today. Hospitalist service was consulted for medical management. Patient seen and examined. She had some pain in her left knee as she had just had physical therapy. Review of systems otherwise negative. O/E: Vital Signs Temp Pulse Resp BP Pulse Ox 07/17/20 16:36 97.5 F L 76 16 129/74 H 95 07/17/20 15:02 97.5 F L 75 16 133/87 H 95 07/17/20 14:00 97.9 F 83 16 121/78 H 95 07/17/20 13:58 97.9 F 83 16 95 07/17/20 13:45 84 16 114/90 H 100 07/17/20 13:30 82 16 130/67 H 100 07/17/20 13:15 83 16 143/73 H 100 07/17/20 13:00 81 16 129/69 H 98 07/17/20 12:45 86 16 117/81 H 98 07/17/20 12:40 97.4 F L 80 20 H 157/79 H 99 07/17/20 07:26 97.5 F L 59 L 16 136/58 H 100 General: Alert, Oriented x3, Cooperative HEENT: Atraumatic, PERRLA, EOMI, Normocephalic Neck: Supple, No JVD, Negative Carotid Bruits Lungs: Clear to auscultation, Normal air movement Cardiovascular: Regular rate, No murmurs Abdomen: Bowel Sounds Present, Soft, Non Tender, Obese Extremities: No edema, Capillary Refill Less than 3 Seconds Skin: No rashes, No breakdown Musculoskeletal: No Tenderness to Palpation of Joints or Extremities, - - left knee dressing in place Neurological: Cranial nerves II-XII grossly intact Psych/Mental Status: Normal Affect, Appropriate Today's postop day 0 for left total knee replacement. PT OT on board. Management as per orthopedic surgery. For her diabetes, last A1c was 7.5. Currently on insulin sliding scale. Accu-Cheks AC at bedtime. To resume oral diabetes medications, namely glimepiride and metformin as well as sitagliptin. On ramipril for hypertension. Continue Synthroid for hypothyroidism. On Eliquis for DVT prophylaxis as per orthopedic surgery. Rest as per Aleksander Dumas PA-C's notes which I reviewed and endorsed. Thank you for the courtesy of the consult. Please do not hesitate to contact hospitalist service if you have any questions. Inpatient E&M: [id number] Subs Hosp L2
[2020-07-17] MEDS: Senna/Docusate Sodium 1 Tablet 2 TABLET PO (21:10)
[2020-07-17] MEDS: Atorvastatin Calcium 80 MG Tablet PO (21:10)
[2020-07-17] MEDS: oxyCODONE 5 MG Tablet PO (22:53)
[2020-07-18 01:04] VITALS: BP 124/94; PULSE 62; RESP 16; TEMP 36.2; O2SAT 98; BMI 39.8
[2020-07-18 05:30] VITALS: BP 112/63; PULSE 63; RESP 18; TEMP 36.6; O2SAT 98; BMI 39.8
[2020-07-18] MEDS: Cefazolin 1 GM/50 ML BAG IV (05:35)
[2020-07-18] MEDS: APIXABAN 2.5 MG TABLET PO ×2 (05:35→18:37)
[2020-07-18] MEDS: Acetaminophen 500 MG Tablet 1000 MG PO ×3 (05:35→20:49)
[2020-07-18] MEDS: Levothyroxine 125 MCG Tablet PO (05:36)
[2020-07-18 06:17] LABS: Hematocrit 29.2 % (37-47); Hemoglobin 9.7 g/dL (12.0-15.0); Mean Corp Hgb Conc 33.2 g/dL (32-36); Mean Corpuscular Volume 93.3 fL (81-99); Mean Platelet Vol. 9.7 fl (6.2-12.0); Platelet Count 277 K/mm3 (150-450); RBC Distribution Width CV 12.1 % (11.6-14.6); Red Blood Count 3.13 M/mm3 (4.2-5.4); White Blood Count 10.1 K/mm3 (4.4-11.0)
[2020-07-18 06:34] LABS: Anion Gap 5 (5-15); BUN 15 mg/dL (7-18); BUN/Creat Ratio 14.2 RATIO (10-20); Calcium,Total 8.4 mg/dL (8.5-10.1); Chloride 102 mmol/L (98-107); Creatinine, Serum 1.06 mg/dL (0.55-1.02); EST Glomerular Filtration Rate 55 mL/min (>60); Est Glom Filt Rate - Afr Amer 67 mL/min (>60); Estimated Creatinine Clearance 38.51 ml/min; Glucose 158 mg/dL (74-106); Potassium 5.5 mmol/L (3.5-5.1); Sodium Level 134 mmol/L (136-145)
[2020-07-18] MEDS: Insulin Lispro 100 UNIT/ML INSULN.PEN SC ×2 (06:46→11:00)
[2020-07-18 06:55] LABS: Bedside Glucose 160 mg/dL (70-110)
[2020-07-18 07:24] VITALS: BP 125/86; PULSE 53; RESP 16; TEMP 36.6; O2SAT 100
[2020-07-18] MEDS: Sodium Polystyrene Sulfonate 15 GM/60 ML UDC PO (09:13)
[2020-07-18] MEDS: oxyCODONE 5 MG Tablet PO ×3 (09:31→20:50)
--- NOTE | 2020-07-18 10:30 | CASEMGMT ---
JACKIE STONE Face to Face with patient for initial transition planning/care coordination assessment. JACKIE STONE introduced self and role at [facility]. Patient sitting in chair, alert and oriented. Patient willing to participate in assessment and is able to answer all questions appropriately. Care providers, pharmacy, and demographics verified. Patient wishes to discharge to TCU. JACKIE STONE updated that insurance determines if patient is appropriate for TCU and may get denied. Patient would like TCU as patient is alone during the day and has large dog that bumps into her often. SW updated regarding requests for TCU. Patient states she has no further needs or concerns at this time. CM to follow for discharge planning needs that may arise. PCP: Frankie Specialists: Antwon Vu Pharmacy: [facility] ([employer] Insurance: [employer] Prescription Benefit: yes Living Will/HPOA: none LNOK: Living Arrangements: Patient lives with in a 2 story home with bed and bath on the main level. 4 step to enter the home, no railing. Patient states she is independent at home. Transportation: DME/HHC: Patient states she has shower chair, cane, and walker at home. Disposition Plan: TCU pending acceptance and precert. Shiloh MARQUEZ, RN, CM
[2020-07-18] MEDS: Senna/Docusate Sodium 1 Tablet 2 TABLET PO ×2 (10:59→20:49)
[2020-07-18] MEDS: Pantoprazole Sodium 40 MG Tablet PO (10:59)
[2020-07-18] MEDS: Ramipril 5 MG Capsule 15 MG PO (10:59)
[2020-07-18 11:02] VITALS: BMI 39.8
[2020-07-18 11:16] LABS: Bedside Glucose 223 mg/dL (70-110)
--- NOTE | 2020-07-18 12:13 | PCM.PN.HOSP ---
Reason for Visit: post of knee Subjective: knee pain is well controlled. Pt is ambulating around the unit with some pain but otherwise tolerating activity well. She is hesitant to go home as she feels that she is not safe to be responsible for her care when she is alone. No LH/dizziness. No CP. No nausea/vomiting. No fever/chills. No SOB/cough. Vitals/I&O's: Vital Signs Temp Pulse Resp BP Pulse Ox 97.8 F 53 L 16 125/86 H 100 07/18/20 07:24 07/18/20 07:24 07/18/20 07:24 07/18/20 07:24 07/18/20 07:24 Oxygen Flow Rate (L/min) 6 Oxygen Delivery Method Room Air Weight: 203 lb 14.841 oz Body Mass Index (BMI) 39.8 Finger Stick Blood Glucose 130 Intake and Output for Last 24 Hours 07/16/20 07/17/20 07/18/20 23:59 23:59 23:59 Intake Total 2785.5 / 2785.5 1050 / 1050 Balance 2785.5 / 2785.5 1050 / 1050 General: Alert, Oriented x3, Cooperative HEENT: Atraumatic, PERRLA, EOMI, Normocephalic Neck: Supple, No JVD, Negative Carotid Bruits Lungs: Clear to auscultation, Normal air movement Cardiovascular: Regular rate, No murmurs Abdomen: Bowel Sounds Present, Soft, Non Tender Extremities: No edema, Capillary Refill Less than 3 Seconds Skin: No rashes, No breakdown Musculoskeletal: No Tenderness to Palpation of Joints or Extremities Neurological: Cranial nerves II-XII grossly intact Psych/Mental Status: Normal Affect, Appropriate, Alert and oriented to time, place, person, mood and affect Laboratory Results 07/17/20 13:56: POC Glucose 151 H 07/18/20 06:06: WBC 10.1, RBC 3.13 L, Hgb 9.7 L, Hct 29.2 L, MCV 93.3, MCH 31.0, MCHC 33.2, RDW Std Deviation 42.0, RDW Coeff of Lisa 12.1, Plt Count 277, MPV 9.7 07/18/20 06:06: Sodium 134 L, Potassium 5.5 H, Chloride 102, Carbon Dioxide 27.0, Anion Gap 5, BUN 15, Creatinine 1.06 H, Estim Creat Clear Calc 38.51, Est GFR (MDRD) Af Amer 67, Est GFR (MDRD) Non-Af 55 L, BUN/Creatinine Ratio 14.2, Glucose 158 H, Calcium 8.4 L 07/18/20 06:39: POC Glucose 160 H 07/18/20 10:57: POC Glucose 223 H Current Medications Acetaminophen (Tylenol) 1,000 mg PO Q8 [facility] Last Admin: 07/18/20 05:35 Dose: 1,000 mg Documented by: Apixaban (Eliquis) 2.5 mg PO 0700,1900 [facility] Last Admin: 07/18/20 05:35 Dose: 2.5 mg Documented by: Atorvastatin Calcium (Lipitor) 80 mg PO QHS [facility] Last Admin: 07/17/20 21:10 Dose: 80 mg Documented by: Cyanocobalamin (Vitamin B12) 1,000 mcg IM QMONTH [facility] Dextrose (D50w Syringe) 0 gm IV X1 PRN; Protocol PRN Reason: Hypoglycemia Ergocalciferol (Vitamin D) 50,000 unit PO Clark@0800 [facility] Glucagon () 1 mg IM .X1 PRN PRN Reason: Hypoglycemia Hydromorphone HCl (Dilaudid Inj) 0.5 mg IV Q2H PRN PRN PRN Reason: Pain Score 6-10/10 Sodium Chloride () 250 mls @ 15 mls/hr IV .[id number] PRN PRN Reason: Saline Flush Sodium Chloride () 250 mls @ 15 mls/hr IV .[id number] PRN PRN Reason: Additional IVPB Infusion Insulin Human Lispro (Humalog Kwikpen (Bkc)) 0 unit SC TIDAC [facility]; Protocol Last Admin: 07/18/20 11:00 Dose: 2 u Documented by: Levothyroxine Sodium (Synthroid) 125 mcg PO DAILY@0600 [facility] Last Admin: 07/18/20 05:36 Dose: 125 mcg Documented by: Ondansetron HCl (Zofran) 4 mg IV Q6H PRN PRN PRN Reason: NAUSEA Oxycodone HCl (Oxyir) 5 - 10 mg PO Q4H PRN PRN PRN Reason: Pain Score 4-10/10 Last Admin: 07/18/20 09:31 Dose: 5 mg Documented by: Pantoprazole Sodium (Protonix) 40 mg PO DAILY [facility] Last Admin: 07/18/20 10:59 Dose: 40 mg Documented by: Ramipril (Altace) 15 mg PO DAILY [facility] Last Admin: 07/18/20 10:59 Dose: 15 mg Documented by: Senna/Docusate Sodium (Senokot-S, Radha-Colace) 2 tablet PO BID [facility] Last Admin: 07/18/20 10:59 Dose: 2 tablet Documented by: Sodium Chloride () 10 - 40 ml IV UD PRN PRN Reason: SALINE FLUSH Medical Necessity - Tobacco Use Smoking Status: Current every day smoker Tobacco Use: Cigarettes Assessment/Plan All Active Problems (Last Updated 06/16/19 @ 08:40 by Ramonita Wesley) Conjunctivitis, left eye (Acute) 1. Osteoarthritis s/p Left total knee - Per Dr. Kapoor POD#0. Doing well with minimal issues.Pt has ambulted. Agree AM CBC/BMP. Received periop cefazolin and tranexamic acid. 2. Dmt2 with obesity - last a1c 7.5. Hold orals. SSI + accuchecks ordered. PO meds resumed 3. HTN - stable. continue home meds. 4. HLD - statin 5. Hypothyroidism - Synthroid 6. Hyperkalemia - kayex x1, check BMP later today. mild bradycardia. DVT ppx; per ortho - eliquis Thank you for the opportunity to participate in the care of this patient. This patient was seen by Aleksander Dumas PA-C under the supervision of Dr. Monsivais
--- NOTE | 2020-07-18 12:19 | PCM.DC.SUM ---
Discharge Date and Diagnosis Date of Admission: 07/18/20 Date of Discharge: 07/19/20 - Secondary Discharge Diagnosis Chronic Problems: Chronic Problems (Last Updated 06/16/19 @ 08:40 by Ramonita Wesley) Osteoarthritis of right knee (Chronic) Diabetes mellitus (Chronic) Hypertension (Chronic) Hyperlipidemia (Chronic) Hypothyroidism (Chronic) GERD (gastroesophageal reflux disease) (Chronic) Nausea (Chronic) Insomnia (Chronic) Hospital Course and Treatment Operations: total hip replacement, total knee replacement Summary of Care Provided: The patient is a 65 year old F the patient has with long-standing history of knee DJD and has failed conservative treatment. Patient wished to undergo elective [robotic assisted] total knee arthroplasty and underwent the aforementioned procedure on the admission date without complications. patient did receive pre-and postoperative antibiotics which were discontinued within 23 hours postoperatively. patient did receive [a spinal anesthesia and a adductor canal block ]and the pain was controlled postoperatively with p.o. and IV pain medication. There was minimal intraoperative blood loss he did [receive 2 g of tranexamic acid ]and his vital signs and labs were stable postoperatively and patient [did not require a blood transfusion]. patient was seen by physical therapy and did progress with his ambulation. Postoperatively was started on both mechanical and chemical DVT prophylaxis for which patient will continue [ Eliquis 2.5 mg twice daily] for 2 additional weeks post hospital discharge. Mepilex AG dressing will stay on for 72 hours postoperatively at which time patient will begin showering on postop day #3 with daily dressing changes. Encouraged patient to achieve full range of motion as soon as possible, Patient will physical therapy and rehabilitation in a transitional care unit and will follow-up in the office in 2 weeks for wound check. There is no intrahospital complications . Of note patient has a large dog at home that is always rubbing on her knees and is a significant trip hazard. She does not feel safe going home with the dog being there also significant concern for infection with a dog rubbing around her incision. Therefore I do recommend patient go to the transitional care unit for period of time to improve strengthening and safety prior to returning home - Physical Exam Vitals/I&O's: Vital Signs Temp Pulse Resp BP Pulse Ox 97.8 F 53 L 16 125/86 H 100 07/18/20 07:24 07/18/20 07:24 07/18/20 07:24 07/18/20 07:24 07/18/20 07:24 Oxygen Flow Rate (L/min) 6 Oxygen Delivery Method Room Air Weight: 203 lb 14.841 oz Body Mass Index (BMI) 39.8 Finger Stick Blood Glucose 130 Intake and Output for Last 24 Hours 07/16/20 07/17/20 07/18/20 23:59 23:59 23:59 Intake Total 2785.5 / 2785.5 1050 / 1050 Balance 2785.5 / 2785.5 1050 / 1050 Laboratory Results 07/17/20 13:56: POC Glucose 151 H 07/18/20 06:06: WBC 10.1, RBC 3.13 L, Hgb 9.7 L, Hct 29.2 L, MCV 93.3, MCH 31.0, MCHC 33.2, RDW Std Deviation 42.0, RDW Coeff of Lisa 12.1, Plt Count 277, MPV 9.7 07/18/20 06:06: Sodium 134 L, Potassium 5.5 H, Chloride 102, Carbon Dioxide 27.0, Anion Gap 5, BUN 15, Creatinine 1.06 H, Estim Creat Clear Calc 38.51, Est GFR (MDRD) Af Amer 67, Est GFR (MDRD) Non-Af 55 L, BUN/Creatinine Ratio 14.2, Glucose 158 H, Calcium 8.4 L 07/18/20 06:39: POC Glucose 160 H 07/18/20 10:57: POC Glucose 223 H Current Medications Acetaminophen (Tylenol) 1,000 mg PO Q8 REPLACED BY [facility] Last Admin: 07/18/20 05:35 Dose: 1,000 mg Documented by: Apixaban (Eliquis) 2.5 mg PO 0700,1900 REPLAC[facility] BY [facility] Last Admin: 07/18/20 05:35 Dose: 2.5 mg Documented by: Atorvastatin Calcium (Lipitor) 80 mg PO QHS REPLACED BY [facility] Last Admin: 07/17/20 21:10 Dose: 80 mg Documented by: Cyanocobalamin (Vitamin B12) 1,000 mcg IM QMONTH REPLACED BY [facility] Dextrose (D50w Syringe) 0 gm IV X1 PRN; Protocol PRN Reason: Hypoglycemia Ergocalciferol (Vitamin D) 50,000 unit PO Clark@0800 [facility]PLACED BY [facility] Glimepiride (Amaryl) 2 mg PO DAILY@0800 REPLACED BY [facility] Glucagon () 1 mg IM .X1 PRN PRN Reason: Hypoglycemia Hydromorphone HCl (Dilaudid Inj) 0.5 mg IV Q2H PRN PRN PRN Reason: Pain Score 6-10/10 Sodium Chloride () 250 mls @ 15 mls/hr IV .[id number] PRN PRN Reason: Saline Flush Sodium Chloride () 250 mls @ 15 mls/hr IV .[id number] PRN PRN Reason: Additional IVPB Infusion Insulin Human Lispro (Humalog Kwikpen (Bkc)) 0 unit SC TIDAC REPLACED BY [facility]; Protocol Last Admin: 07/18/20 11:00 Dose: 2 u Documented by: Levothyroxine Sodium (Synthroid) 125 mcg PO DAILY@0600 REPLACED BY [facility] Last Admin: 07/18/20 05:36 Dose: 125 mcg Documented by: Metformin HCl (Glucophage) 2,000 mg PO DAILY REPLACED BY [facility] Ondansetron HCl (Zofran) 4 mg IV Q6H PRN PRN PRN Reason: NAUSEA Oxycodone HCl (Oxyir) 5 - 10 mg PO Q4H PRN PRN PRN Reason: Pain Score 4-10/10 Last Admin: 07/18/20 09:31 Dose: 5 mg Documented by: Pantoprazole Sodium (Protonix) 40 mg PO DAILY [facility]PL[facility]ED BY [facility] Last Admin: 07/18/20 10:59 Dose: 40 mg Documented by: Ramipril (Altace) 15 mg PO DAILY REPLACED BY [facility] Last Admin: 07/18/20 10:59 Dose: 15 mg Documented by: Senna/Docusate Sodium (Senokot-S, Radha-Colace) 2 tablet PO BID REPLACED BY [facility] Last Admin: 07/18/20 10:59 Dose: 2 tablet Documented by: Sitagliptin Phosphate (Januvia) 100 mg PO DAILY REPLACED BY [facility] Sodium Chloride () 10 - 40 ml IV UD PRN PRN Reason: SALINE FLUSH Discharge Diet: 2000 Calorie Control Diet Weight Bearing Status: Weight bearing as tolerated Keep extremity elevated above heart level: Operative Extremity Call your doctor if you observe: Shortness of breath, Chest pain Home Medications: Medications to take at Discharge atorvastatin 80 mg tablet 80 mg PO QHS tab 12/09/17 levothyroxine 112 mcg tablet 125 mcg PO DAILY tab 12/09/17 metformin 500 mg tablet 2,000 mg PO DAILY 02/14/18 sitagliptin 100 mg tablet 100 mg PO DAILY tab 12/09/17 Cyanocobalamin [Vitamin B12] 1,000 mcg IM QMONTH 02/28/19 Ergocalciferol (Vitamin D2) [Vitamin D2] 50,000 units PO QWEEK 02/28/19 Glimepiride 2 mg PO DAILY 02/28/19 Lansoprazole [Prevacid] 30 mg PO DAILY 07/03/20 Ramipril [Altace] 15 mg PO DAILY 07/03/20 Acetaminophen [Tylenol] 1,000 mg PO Q8 #100 tab 07/18/20 Apixaban [Eliquis] 2.5 mg PO 0700,1900 #28 tab 07/18/20 Oxycodone [Oxyir] 5 - 10 mg PO Q4H PRN PRN #60 tab 07/18/20 Following Prescriptions Were Given to Patient: Apixaban [Eliquis] 2.5 mg PO 0700,1900 #28 tab Prescription Printed Oxycodone [Oxyir] 5 - 10 mg PO Q4H PRN PRN #60 tab PRN Reason: Pain Score 4-10/10 Prescription Printed Acetaminophen [Tylenol] 1,000 mg PO Q8 #100 tab Prescription Printed Primary Care Physician: Truman David [Primary Care Provider] - Please Follow Up With: Chi Kapoor DO - 2 weeks Additional Instructions: Ice and elevate one week while not ambulating. Ambulation is encouraged. Weightbearing as tolerated. Use assistive devise for stability. Encourage FULL knee extension and flexion 1 time EVERY time you get up and down and MULTIPLE times per day. No showering 72 hours after surgery. Begin showering postop day #3. Remove the dressing prior to shower and gently wash with warm water and antibacterial soap then pat dry and place abdominal pad (or plain gauze) and HUDSON hose over top. This is to be done daily. Do not submerge for 3 weeks. If not showering daily after the initial 72 hours then you must clean incision and change dressing daily. Do not allow animals near the incision area. Keep clean. Follow anticoagulation recommendations as prescribed. Do not take any NSAIDs while on blood thinner. Do not take any additional narcotic pain medication other than what was prescribed on you surgery day without discussing with physician. Start physical therapy. If you are not currently scheduled for physical therapy or you are unsure of appointment time please call office [facility] to arrange. Call Dr. Kapoor with any concerns. Medical Necessity - Tobacco Use Smoking Status: Current every day smoker Tobacco Use: Cigarettes Meaningful Use Info Meaningful Use Diagnoses (Choose all that apply): None applicable
--- NOTE | 2020-07-18 12:22 | PN.ORTHO_ITS ---
Subjective: Examined. Complain of pain in left knee. She has been up with physical therapy. Significant concern of safety of returning homeas she has a large dog at home that is always rubbing on her knees and is a significant trip hazard. She does not feel safe going home with the dog being there also significant concern for infection with a dog rubbing around her incision. Therefore I do recommend patient go to the transitional care unit for period of time to improve strengthening and safety prior to returning home - Physical Exam Vitals/I&O's: Vital Signs Temp Pulse Resp BP Pulse Ox 97.8 F 53 L 16 125/86 H 100 07/18/20 07:24 07/18/20 07:24 07/18/20 07:24 07/18/20 07:24 07/18/20 07:24 Oxygen Flow Rate (L/min) 6 Oxygen Delivery Method Room Air Weight: 203 lb 14.841 oz Body Mass Index (BMI) 39.8 Finger Stick Blood Glucose 130 Intake and Output for Last 24 Hours 07/16/20 07/17/20 07/18/20 23:59 23:59 23:59 Intake Total 2785.5 / 2785.5 1050 / 1050 Balance 2785.5 / 2785.5 1050 / 1050 General: Alert, Oriented x3, Cooperative, No apparent distress Extremities: - - And dry and intact neurovascular intact left lower extremity Laboratory Results 07/17/20 13:56: POC Glucose 151 H 07/18/20 06:06: WBC 10.1, RBC 3.13 L, Hgb 9.7 L, Hct 29.2 L, MCV 93.3, MCH 31.0, MCHC 33.2, RDW Std Deviation 42.0, RDW Coeff of Lisa 12.1, Plt Count 277, MPV 9.7 07/18/20 06:06: Sodium 134 L, Potassium 5.5 H, Chloride 102, Carbon Dioxide 27.0, Anion Gap 5, BUN 15, Creatinine 1.06 H, Estim Creat Clear Calc 38.51, Est GFR (MDRD) Af Amer 67, Est GFR (MDRD) Non-Af 55 L, BUN/Creatinine Ratio 14.2, Glucose 158 H, Calcium 8.4 L 07/18/20 06:39: POC Glucose 160 H 07/18/20 10:57: POC Glucose 223 H Current Medications Acetaminophen (Tylenol) 1,000 mg PO Q8 [facility] Last Admin: 07/18/20 05:35 Dose: 1,000 mg Documented by: Apixaban (Eliquis) 2.5 mg PO 0700,1900 [facility] Last Admin: 07/18/20 05:35 Dose: 2.5 mg Documented by: Atorvastatin Calcium (Lipitor) 80 mg PO QHS [facility] Last Admin: 07/17/20 21:10 Dose: 80 mg Documented by: Cyanocobalamin (Vitamin B12) 1,000 mcg IM QMONTH [facility] Dextrose (D50w Syringe) 0 gm IV X1 PRN; Protocol PRN Reason: Hypoglycemia Ergocalciferol (Vitamin D) 50,000 unit PO Clark@0800 [facility] Glimepiride (Amaryl) 2 mg PO DAILY@0800 [facility] Glucagon () 1 mg IM .X1 PRN PRN Reason: Hypoglycemia Hydromorphone HCl (Dilaudid Inj) 0.5 mg IV Q2H PRN PRN PRN Reason: Pain Score 6-10/10 Sodium Chloride () 250 mls @ 15 mls/hr IV .[id number] PRN PRN Reason: Saline Flush Sodium Chloride () 250 mls @ 15 mls/hr IV .[id number] PRN PRN Reason: Additional IVPB Infusion Insulin Human Lispro (Humalog Kwikpen (Bkc)) 0 unit SC TIDAC [facility]; Protocol Last Admin: 07/18/20 11:00 Dose: 2 u Documented by: Levothyroxine Sodium (Synthroid) 125 mcg PO DAILY@0600 [facility] Last Admin: 07/18/20 05:36 Dose: 125 mcg Documented by: Linagliptin (Tradjenta) 5 mg PO DAILY [facility] Metformin HCl (Glucophage) 2,000 mg PO DAILY [facility] Ondansetron HCl (Zofran) 4 mg IV Q6H PRN PRN PRN Reason: NAUSEA Oxycodone HCl (Oxyir) 5 - 10 mg PO Q4H PRN PRN PRN Reason: Pain Score 4-10/10 Last Admin: 07/18/20 09:31 Dose: 5 mg Documented by: Pantoprazole Sodium (Protonix) 40 mg PO DAILY [facility] Last Admin: 07/18/20 10:59 Dose: 40 mg Documented by: Ramipril (Altace) 15 mg PO DAILY [facility] Last Admin: 07/18/20 10:59 Dose: 15 mg Documented by: Senna/Docusate Sodium (Senokot-S, Radha-Colace) 2 tablet PO BID [facility] Last Admin: 07/18/20 10:59 Dose: 2 tablet Documented by: Sodium Chloride () 10 - 40 ml IV UD PRN PRN Reason: SALINE FLUSH Medical Necessity - Tobacco Use Smoking Status: Current every day smoker Tobacco Use: Cigarettes Assessment/Plan All Active Problems (Last Updated 06/16/19 @ 08:40 by Ramonita Wesley) Conjunctivitis, left eye (Acute) #1 left total knee arthroplasty OT weightbearing as tolerated encourage knee range of motion as many times a day as possible DVT prophylaxis is HUDSON Pryor 2 wk postop DC to transitional care tomorrow Of note patient has a large dog at home that is always rubbing on her knees and is a significant trip hazard. She does not feel safe going home with the dog being there also significant concern for infection with a dog rubbing around her incision. Therefore I do recommend patient go to the transitional care unit for period of time to improve strengthening and safety prior to returning home
[2020-07-18 13:43] VITALS: BP 153/64; PULSE 79; RESP 16; TEMP 37.2; O2SAT 93
--- NOTE | 2020-07-18 15:40 | CASEMGMT ---
Social Work Note CAREY received consult for TCU placement. CAREY placed a call to Alda in TCU. Alda states she would need to check with pt's insurance to see if she has skilled benefits but if pt does have skilled benefits TCU is able to accept pt. CAREY received message from Alda in TCU stating pt does have skilled benefits but benefits only pay at 80% and pt would need to pay 20% until deductible is met. CAREY updated pt on this information. Pt agreeable to paying. Plan: TCU pending pre-cert [employer] [place] [employer], [employer]
[2020-07-18] MEDS: metFORMIN HCl 500 MG Tablet 1000 MG PO (16:20)
[2020-07-18 16:26] LABS: Anion Gap 2 (5-15); BUN 15 mg/dL (7-18); Calcium,Total 8.5 mg/dL (8.5-10.1); Chloride 102 mmol/L (98-107); Creatinine, Serum 1.07 mg/dL (0.55-1.02); EST Glomerular Filtration Rate 55 mL/min (>60); Est Glom Filt Rate - Afr Amer 66 mL/min (>60); Estimated Creatinine Clearance 38.15 ml/min; Glucose 129 mg/dL (74-106); Potassium 5.2 mmol/L (3.5-5.1); Sodium Level 135 mmol/L (136-145)
[2020-07-18 16:49] LABS: Ferritin 211 ng/mL (8-252); Iron 35 ug/dL (50-170); Iron Binding Capacity,Total 259 ug/dL (250-450); PERCENT IRON SATURATION 13.5 % (15.0-55.0)
[2020-07-18 17:15] LABS: Bedside Glucose 142 mg/dL (70-110)
[2020-07-18 18:35] LABS: Vitamin B12 413 pg/mL (211-911)
[2020-07-18 19:25] VITALS: BMI 39.8
[2020-07-18 20:10] LABS: Bedside Glucose 357 mg/dL (70-110)
[2020-07-18 20:10] LABS: Bedside Glucose 298 mg/dL (70-110)
[2020-07-18 20:40] VITALS: BP 150/61; PULSE 63; RESP 17; TEMP 37.1; O2SAT 94
[2020-07-18] MEDS: Atorvastatin Calcium 80 MG Tablet PO (20:49)
[2020-07-18 20:56] LABS: Bedside Glucose 174 mg/dL (70-110)
[2020-07-19] MEDS: oxyCODONE 5 MG Tablet PO ×2 (01:18→09:29)
[2020-07-19 02:39] VITALS: BP 134/68; PULSE 60; RESP 17; TEMP 36.9; O2SAT 97
[2020-07-19 05:10] LABS: Hematocrit 27.2 % (37-47); Hemoglobin 8.9 g/dL (12.0-15.0); Mean Corp Hgb Conc 32.7 g/dL (32-36); Mean Corpuscular Hgb 30.9 pg (27.0-32.0); Mean Corpuscular Volume 94.4 fL (81-99); Mean Platelet Vol. 9.5 fl (6.2-12.0); Platelet Count 254 K/mm3 (150-450); RBC Distribution Width CV 12.3 % (11.6-14.6); RBC Distribution Width SD 42.8 fl (35.1-43.9); Red Blood Count 2.88 M/mm3 (4.2-5.4); White Blood Count 9.2 K/mm3 (4.4-11.0)
[2020-07-19] MEDS: Levothyroxine 125 MCG Tablet PO (05:27)
[2020-07-19] MEDS: Acetaminophen 500 MG Tablet 1000 MG PO ×2 (05:27→16:46)
[2020-07-19] MEDS: APIXABAN 2.5 MG TABLET PO (06:27)
[2020-07-19 06:45] LABS: Bedside Glucose 129 mg/dL (70-110)
[2020-07-19 08:57] LABS: Anion Gap 3 (5-15); BUN 15 mg/dL (7-18); BUN/Creat Ratio 16.4 RATIO (10-20); Calcium,Total 8.2 mg/dL (8.5-10.1); Chloride 103 mmol/L (98-107); Creatinine, Serum 0.92 mg/dL (0.55-1.02); EST Glomerular Filtration Rate 66 mL/min (>60); Est Glom Filt Rate - Afr Amer 79 mL/min (>60); Estimated Creatinine Clearance 44.37 ml/min; Glucose 133 mg/dL (74-106); Potassium 5.1 mmol/L (3.5-5.1); Sodium Level 137 mmol/L (136-145)
[2020-07-19] MEDS: Glimepiride 2 MG Tablet PO (09:27)
[2020-07-19] MEDS: LINAGLIPTIN 5 MG TABLET PO (09:27)
[2020-07-19] MEDS: metFORMIN HCl 500 MG Tablet 1000 MG PO (09:28)
[2020-07-19] MEDS: Pantoprazole Sodium 40 MG Tablet PO (09:28)
[2020-07-19] MEDS: Ramipril 5 MG Capsule 15 MG PO (09:28)
[2020-07-19] MEDS: Senna/Docusate Sodium 1 Tablet 2 TABLET PO (09:28)
[2020-07-19 09:36] VITALS: BP 115/59; PULSE 63; RESP 16; TEMP 37; O2SAT 94
--- NOTE | 2020-07-19 10:21 | PN_ITS ---
Subjective: Patient seen and examined. Ambulating in [place] with therapy. Reports increased left knee pain today. Denies other symptoms or complaints. Awaiting pre-CERT to TCU. - Physical Exam Vitals/I&O's: Vital Signs Temp Pulse Resp BP Pulse Ox 98.6 F 63 16 115/59 L 94 07/19/20 09:36 07/19/20 09:36 07/19/20 09:36 07/19/20 09:36 07/19/20 09:36 Oxygen Flow Rate (L/min) 6 Oxygen Delivery Method Room Air Weight: 203 lb 14.841 oz Body Mass Index (BMI) 39.8 Finger Stick Blood Glucose 130 Intake and Output for Last 24 Hours 07/17/20 07/18/20 07/19/20 23:59 23:59 23:59 Intake Total 2785.5 / 2785.5 1050 / 1050 950 / 950 Balance 2785.5 / 2785.5 1050 / 1050 950 / 950 General: Alert, Oriented x3, Cooperative HEENT: Atraumatic, PERRLA, EOMI, Normocephalic Neck: Supple, No JVD, Negative Carotid Bruits Lungs: Clear to auscultation, Normal air movement Cardiovascular: Regular rate, No murmurs Abdomen: Bowel Sounds Present, Soft, Non Tender, Non-Distended Extremities: No clubbing, No cyanosis, No edema, Capillary Refill Less than 3 Seconds Skin: No rashes, No breakdown, - - Left knee postop dressing intact Musculoskeletal: No Tenderness to Palpation of Joints or Extremities, Tenderness - Left knee Neurological: Cranial nerves II-XII grossly intact, Neuro grossly intact Psych/Mental Status: Normal Affect, Appropriate Laboratory Results 07/17/20 21:02: POC Glucose 357 H 07/17/20 21:04: POC Glucose 298 H 07/18/20 10:57: POC Glucose 223 H 07/18/20 15:32: Sodium 135 L, Potassium 5.2 H, Chloride 102, Carbon Dioxide 31.0, Anion Gap 2 L, BUN 15, Creatinine 1.07 H, Estim Creat Clear Calc 38.15, Est GFR (MDRD) Af Amer 66, Est GFR (MDRD) Non-Af 55 L, BUN/Creatinine Ratio 14.0, Glucose 129 H, Calcium 8.5 09/23/20 15:32: Iron 35 L, TIBC 259, Iron Saturation 13.5 L, Ferritin 211, Folate 4.90 07/18/20 16:13: POC Glucose 142 H 07/18/20 17:40: Vitamin B12 413 07/18/20 20:44: POC Glucose 174 H 07/19/20 05:00: WBC 9.2, RBC 2.88 L, Hgb 8.9 L, Hct 27.2 L, MCV 94.4, MCH 30.9, MCHC 32.7, RDW Std Deviation 42.8, RDW Coeff of Lisa 12.3, Plt Count 254, MPV 9.5 07/19/20 05:00: Sodium 137, Potassium 5.1, Chloride 103, Carbon Dioxide 31.0, Anion Gap 3 L, BUN 15, Creatinine 0.92, Estim Creat Clear Calc 44.37, Est GFR (MDRD) Af Amer 79, Est GFR (MDRD) Non-Af 66, BUN/Creatinine Ratio 16.4, Glucose 133 H, Calcium 8.2 L 07/19/20 06:26: POC Glucose 129 H Current Medications Acetaminophen (Tylenol) 1,000 mg PO Q8 [facility] Last Admin: 07/19/20 05:27 Dose: 1,000 mg Documented by: Apixaban (Eliquis) 2.5 mg PO 0700,1900 [facility] Last Admin: 07/19/20 06:27 Dose: 2.5 mg Documented by: Atorvastatin Calcium (Lipitor) 80 mg PO QHS [facility] Last Admin: 07/18/20 20:49 Dose: 80 mg Documented by: Cyanocobalamin (Vitamin B12) 1,000 mcg IM QMONTH [facility] Dextrose (D50w Syringe) 0 gm IV X1 PRN; Protocol PRN Reason: Hypoglycemia Ergocalciferol (Vitamin D) 50,000 unit PO Clark@0800 [facility] Glimepiride (Amaryl) 2 mg PO DAILY@0800 [facility] Last Admin: 07/19/20 09:27 Dose: 2 mg Documented by: Glucagon () 1 mg IM .X1 PRN PRN Reason: Hypoglycemia Hydromorphone HCl (Dilaudid Inj) 0.5 mg IV Q2H PRN PRN PRN Reason: Pain Score 6-10/10 Sodium Chloride () 250 mls @ 15 mls/hr IV .[id number] PRN PRN Reason: Saline Flush Sodium Chloride () 250 mls @ 15 mls/hr IV .[id number] PRN PRN Reason: Additional IVPB Infusion Insulin Human Lispro (Humalog Kwikpen (Bkc)) 0 unit SC TIDAC [facility]; Protocol Last Admin: 07/19/20 06:27 Dose: Not Given Documented by: Levothyroxine Sodium (Synthroid) 125 mcg PO DAILY@0600 [facility] Last Admin: 07/19/20 05:27 Dose: 125 mcg Documented by: Linagliptin (Tradjenta) 5 mg PO DAILY [facility] Last Admin: 07/19/20 09:27 Dose: 5 mg Documented by: [facility]) [facility] Last Admin: 07/19/20 09:28 Dose: 1,000 mg Documented by: Ondansetron HCl (Zofran) 4 mg IV Q6H PRN PRN PRN Reason: NAUSEA Oxycodone HCl (Oxyir) 5 - 10 mg PO Q4H PRN PRN PRN Reason: Pain Score 4-10/10 Last Admin: 07/19/20 09:29 Dose: 10 mg Documented by: Pantoprazole Sodium (Protonix) 40 mg PO DAILY [facility] Last Admin: 07/19/20 09:28 Dose: 40 mg Documented by: Ramipril (Altace) 15 mg PO DAILY [facility] Last Admin: 07/19/20 09:28 Dose: 15 mg Documented by: Senna/Docusate Sodium (Senokot-S, Radha-Colace) 2 tablet PO BID [facility] Last Admin: 07/19/20 09:28 Dose: 2 tablet Documented by: Sodium Chloride () 10 - 40 ml IV UD PRN PRN Reason: SALINE FLUSH Medical Necessity - Tobacco Use Smoking Status: Current every day smoker Tobacco Use: Cigarettes Assessment/Plan All Active Problems (Last Updated 06/16/19 @ 08:40 by Ramonita Wesley) Conjunctivitis, left eye (Acute) 1. Type 2 diabetes mellitus-hemoglobin A1c 07/05/2020 7.5%. Accu-Cheks with sliding scale insulin. Resume oral regimen. 2. Status post left total knee replacement 07/17/2020 secondary to osteoarthritis- Dr. Kapoor, ortho following. PT/OT. PRN pain regimen. Plan for TCU pending acceptance. 3. Hypertension-stable, continue Ramipril regimen. 4. Hyperlipidemia-continue statin. 5. Hypothyroidism-continue Synthroid regimen. 6. Hyperkalemia-resolved following Kayexalate x1. Trend BMP. 7. Chronic normocytic anemia-reduced secondary to acute blood loss, expected outcome related to #2. Trend CBC. DVT prophylaxis-Eliquaj This patient was seen by ALICIA Montilla under the supervision of Dr. Monsivais.
--- NOTE | 2020-07-19 12:04 | PHA.DC.MR ---
Pharmacy Service has performed discharge medication reconciliation for this patient. The patient's discharge medication list was reviewed for discrepancies and discrepancies were resolved. Home Medications atorvastatin 80 mg tablet 80 mg PO QHS tab 12/09/17 levothyroxine 112 mcg tablet 125 mcg PO DAILY tab 12/09/17 metformin 500 mg tablet 500 mg PO 4X/DAY 12/09/17 sitagliptin 100 mg tablet 100 mg PO DAILY tab 12/09/17 Cyanocobalamin [Vitamin B12] 1,000 mcg IM QMONTH 02/28/19 Ergocalciferol (Vitamin D2) [Vitamin D2] 50,000 units PO QWEEK 02/28/19 Glimepiride 2 mg PO DAILY 02/28/19 Lansoprazole [Prevacid] 30 mg PO DAILY 07/03/20 Ramipril [Altace] 15 mg PO DAILY 07/03/20 Acetaminophen [Tylenol] 1,000 mg PO Q8 #100 tab 07/18/20 Apixaban [Eliquis] 2.5 mg PO 0700,1900 #28 tab 07/18/20 Oxycodone [Oxyir] 5 - 10 mg PO Q4H PRN PRN #60 tab 07/18/20
[2020-07-19 12:30] LABS: Bedside Glucose 148 mg/dL (70-110)
--- NOTE | 2020-07-19 13:34 | CASEMGMT ---
Social Work Note CAREY received message from Alda in TCU stating pre-cert has been obtained and pt is able to discharge to TCU today. CAREY updated pt. CAREY updated physician. Plan: TCU today Shiloh Murrieta MSW, SUBSTANCE ABUSE PREVENTION COORDINATOR
--- NOTE | 2020-07-19 15:28 | PCM.EXTCARCO ---
- Diet 07/17/20 15:19 Diet: carb control - Routine Orders/Code Status Enema Type: Fleetz Enema Frequency: Daily PRN Suppository Type: Dulcolax 10mg Suppository Frequency: Daily PRN Routine Lab Work: CBC, BMP, - - Repeat in 3 days - Wound(s) LEFT KNEE Wound Type: Surgical Incision LEFT LOWER LEG Wound Type: Surgical Incision - Suggestions for Active Care Change Position every (hours): 2 Times a day to sit in chair: 3 - Therapies Weight Bearing: Weight bearing as tolerated Extremity Affected:: Left Lower Physical Therapy: Eval and Treat Occupational Therapy: Eval and Treat - Problem/Diagnosis (1) S/P left knee arthroscopy Status: Acute Current Visit: Yes (2) Diabetes mellitus Status: Chronic Current Visit: No (3) Hypertension Status: Chronic Current Visit: No (4) Hyperlipidemia Status: Chronic Current Visit: No (5) Hypothyroidism Status: Chronic Current Visit: No (6) GERD (gastroesophageal reflux disease) Status: Chronic Current Visit: No - Allergies/Procedures Done in Hospital Allergies/Adverse Reactions: Allergies No Known Allergies Allergy (Verified 07/03/20 13:07) Procedures: - - Left knee arthroscopy 07/17/2020 - Type of Care/Length of Stay Estimated LOS: Convalescent Care Less Than 30 days Type of Care Needed: Skilled Rehab Potential: Fair Prognosis: Fair - Additional Orders/Day of Discharge Additional Orders: Continue Eliquis for 2 weeks postoperatively. H&P will serve as current which was dated: 06/20/20 Day of Discharge: 07/19/20 - Follow Up Care Primary Care Physician: Truman David [Primary Care Provider] - Please follow up with your Primary Care Physician in: 1 Week Please Follow Up With: Chi Kapoor DO When: 2 Weeks
[2020-07-19 16:44] VITALS: BP 117/60; PULSE 76; RESP 16; TEMP 37.2; O2SAT 100
[2020-07-19] MEDS: metFORMIN HCl 500 MG Tablet PO (16:46)
[2020-07-19 17:46] LABS: Bedside Glucose 140 mg/dL (70-110)
== END 2020-07-19 18:40 | disposition skilled nursing facility (03) | DRG 470 ==
LOC: ACINP 06:53 → MS3 07-18 06:58 → ACINP 07-18 07:44 → MS3 07-18 07:44
PROVIDERS: Anesthesiology; Nurse Practitioner Family; Admitting Provider Orthopaedic Surgery; Referring Provider Orthopaedic Surgery; Visit Provider Family Medicine
PROC: 0SRD0JZ Replacement of Left Knee Joint with Synthetic Substitute, Open Approach (ICD-10-PCS; CPT 27447; principal; 2020-07-17 09:00)
DX: M17.12 Unilateral primary osteoarthritis, left knee (principal); D62 Acute posthemorrhagic anemia; Z11.59 Encounter for screening for other viral diseases; E11.9 Type 2 diabetes mellitus without complications; I10 Essential (primary) hypertension; E03.9 Hypothyroidism, unspecified; E66.9 Obesity, unspecified; Z68.39 Body mass index [BMI] 39.0-39.9, adult; E78.5 Hyperlipidemia, unspecified; E87.5 Hyperkalemia; K21.9 Gastro-esophageal reflux disease without esophagitis; Z79.899 Other long term (current) drug therapy; Z79.84 Long term (current) use of oral hypoglycemic drugs; F17.210 Nicotine dependence, cigarettes, uncomplicated
CPT/HCPCS: 36415; 73560; 80048; 82607; 82728; 82746; 82962; 83036; 83540; 83550; 83735; 84443; 85025; 85027; 85610; 85730; 86850; 86900; 86901; 87081; 87635; 93005; 97110; 97116; 97162; 97166; 97530; 97535; 99251; 99406; C1776; J7120; 90686; G0463; J0702; J2405; J3490; U0003

== ENCOUNTER 2020-07-19 19:17 | Inpatient (IN) | payer OTHER, SELFPAY ==
[2020-07-17 15:02] VITALS: BMI 39.8
[2020-07-19] MEDS: Acetaminophen 500 MG Tablet 1000 MG PO (20:37)
[2020-07-19] MEDS: oxyCODONE 5 MG Tablet PO (20:37)
[2020-07-19] MEDS: Atorvastatin Calcium 80 MG Tablet PO (20:38)
[2020-07-19 22:00] VITALS: BP 143/53; PULSE 68; RESP 16; TEMP 36.8; O2SAT 94; BMI 37.0; BMI 37.1
[2020-07-19 22:06] LABS: Bedside Glucose 132 mg/dL (70-110)
--- NOTE | 2020-07-19 22:06 | PCM.HP.STD ---
Problem List (1) Debility Status: Acute (2) Osteoarthritis of left knee Status: Chronic (3) Vitamin B12 deficiency Status: Chronic (4) Vitamin D deficiency Status: Chronic (5) Osteoarthritis Status: Chronic (6) Diabetes mellitus Status: Chronic (7) Hyperlipidemia Status: Chronic (8) Hypothyroidism Status: Chronic (9) GERD (gastroesophageal reflux disease) Status: Chronic History of Present Illness Date of Admission: 07/19/20 Chief Complaint: Here for rehabilitation, strengthening, prior to discharge home with . The patient is a 65 year old Female with below past medical history significant for severe osteoarthritis left knee failed conservative therapy. 07/17/[address] performed [address] guided robotic assisted left total knee arthroplasty. Hyperkalemia resolved with Kayexalate. Eliquis for DVT prophylaxis. 07/19/20 Admit to TCU with debility, here for rehabilitation, strengthening, prior to discharge home with . Past Medical History Past Medical History (Chronic Problems): Chronic Problems (Last Updated 06/16/19 @ 08:40 by Ramonita Wesley) Osteoarthritis of left knee (Chronic) Vitamin B12 deficiency (Chronic) Vitamin D deficiency (Chronic) Osteoarthritis (Chronic) Osteoarthritis of right knee (Chronic) Diabetes mellitus (Chronic) Hypertension (Chronic) Hyperlipidemia (Chronic) Hypothyroidism (Chronic) GERD (gastroesophageal reflux disease) (Chronic) Nausea (Chronic) Insomnia (Chronic) Medical History: Medical History (Last Updated 06/16/19 @ 08:40 by Ramonita Wesley) Anemia D64.9 Arthritis M19.90 Thyroid disease E07.9 Diabetes E11.9 Allergies No Known Allergies Allergy (Verified 07/03/20 13:07) Home Medications: Ambulatory Orders Medication Instructions Recorded atorvastatin 80 mg tablet 80 mg PO QHS tab 12/09/17 levothyroxine 112 mcg tablet 125 mcg PO DAILY tab 12/09/17 sitagliptin 100 mg tablet 100 mg PO DAILY tab 12/09/17 Cyanocobalamin [Vitamin B12] 1,000 mcg IM QMONTH 02/28/19 Ergocalciferol (Vitamin D2) 50,000 units PO QWEEK 02/28/19 [Vitamin D2] Glimepiride 2 mg PO DAILY 02/28/19 Lansoprazole [Prevacid] 30 mg PO DAILY 07/03/20 Ramipril [Altace] 15 mg PO DAILY 09/08/20 Oxycodone [Oxyir] 5 - 10 mg PO Q4H PRN PRN #60 tab 07/18/20 Acetaminophen [Tylenol] 1,000 mg PO Q8 07/19/20 Apixaban [Eliquis] 2.5 mg PO 0700,1900 07/19/20 metFORMIN HCl [Glucophage] 2,000 mg PO DAILY 07/19/20 Surgical History: Surgical History (Last Updated 02/03/18 @ 10:12 by Glenn Smith) History of bilateral carpal tunnel release Z98.890 History of cholecystectomy Z98.890, Z90.49 History of repair of right rotator cuff Z98.890 History of tonsillectomy Z98.890, Z90.89 S/P right knee arthroscopy Z98.890 h/o right total knee Surgical History: cholecystectomy, total knee arthroplasty - Bilateral., tonsillectomy, - - Bilateral carpal tunnel release, right rotator cuff repair, right knee arthroscopy. Psychiatric History: No pertinent psych hx RRTS History: No pertinent RRTS history Lives: Spouse/ Significant Other Smoking Status: Current every day smoker Tobacco Use: Cigarettes Alcohol: None Drugs: None - *Family History Maternal Family History: Family History (Last Updated 12/09/17 @ 09:27 by Glenn Smith) Mother Heart disease Cancer Father Hypertension Heart disease History Items: No pertinent history Paternal Family History: Family History (Last Updated 12/09/17 @ 09:27 by Glenn Smith) Mother Heart disease Cancer Father Hypertension Heart disease History Items: No pertinent history Review of Systems Constitutional: Denies: Chills, Fever, Weight Change HEENT: Denies: Head Aches, Sinus Congestion, Sinus Drainage Cardiovascular: Denies: Chest Pain, Palpitations Respiratory: Denies: Cough, Shortness of breath at rest, Sputum production Gastrointestinal: Denies: Abdominal Pain, Nausea, Vomiting Genitourinary: Denies: Dysuria Musculoskeletal: Denies: Joint Pain, Joint Tenderness Skin: Denies: Rash, Wounds Neurological: Denies: Numbness, Tingling, Focal weakness Psychiatric: Denies: Anxiety, Depression, Homicidal Ideations, Suicidal Ideations Hematologic/ Lymphatic: Denies: Easy Bruising, Easy Bleeding VTE Information - Inpt Only VTE Present on Admission: No VTE Mechan Device Prophylaxis: Knee High HUDSON Hose VTE Pharm Prophylaxis ordered?: Yes Patient Problems: Active and Suspected Problems (Last Updated 06/16/19 @ 08:40 by Ramonita Wesley) Debility (Acute) - Physical Exam Vitals/I&O's: Body Mass Index (BMI) 39.8 Finger Stick Blood Glucose 130 General: Alert, Oriented x3, Cooperative HEENT: Atraumatic, PERRLA, EOMI, Normocephalic Neck: Supple, No JVD, Negative Carotid Bruits Lungs: Clear to auscultation, Normal air movement Cardiovascular: Regular rate, No murmurs Abdomen: Bowel Sounds Present, Soft, Non Tender Extremities: No edema, Capillary Refill Less than 3 Seconds Skin: No rashes, No breakdown Musculoskeletal: No Tenderness to Palpation of Joints or Extremities Neurological: Cranial nerves II-XII grossly intact Psych/Mental Status: Normal Affect, Appropriate Laboratory Results 07/19/20 22:03: POC Glucose Pending Current Medications Acetaminophen (Tylenol) 1,000 mg PO Q8 [facility] Last Admin: 07/19/20 20:37 Dose: 1,000 mg Documented by: Apixaban (Eliquis) 2.5 mg PO 0700,1900 [facility] [place] Atorvastatin Calcium (Lipitor) 80 mg PO QHS [facility] [place] Last Admin: 07/19/20 20:38 Dose: 80 mg Documented by: Cyanocobalamin (Vitamin B12) 1,000 mcg IM QMONTH [facility] [place] Ergocalciferol (Vitamin D) 50,000 unit PO QWEEK [facility] [place] Glimepiride (Amaryl) 2 mg PO DAILYCM [facility] [place] Levothyroxine Sodium (Synthroid) 125 mcg PO DAILY@0600 [facility] [place] Linagliptin (Tradjenta) 5 mg PO DAILY [facility] [place] Metformin HCl (Glucophage) 2,000 mg PO DAILYCM [facility] [place] Oxycodone HCl (Oxyir) 5 - 10 mg PO Q4H PRN PRN PRN Reason: Pain Score 4-10/10 Last Admin: 07/19/20 20:37 Dose: 5 mg Documented by: Pantoprazole Sodium (Protonix) 40 mg PO DAILY [facility] [place] Ramipril (Altace) 15 mg PO DAILY [facility] [place] Tuberculin PPD (Tubersol, Aplisol, Ppd) 5 tu ID X1 ONE Stop: 07/20/20 10:01 Tuberculin PPD (Tubersol, Aplisol, Ppd) 5 tu ID X1 ONE Stop: 07/27/20 10:01 Assessment/Plan All Active Problems (Last Updated 06/16/19 @ 08:40 by Ramonita Wesley) S/P left knee arthroscopy (Acute) Debility (Acute) Conjunctivitis, left eye (Acute) 65 year old female with below past medical history hospitalized for CT guided robotic assisted left total knee arthroplasty 07/17/[address] Kapoor, admitted to TCU with debility, here for rehabilitation, strengthening, prior to discharge home with . Debility - PT/OT. Pain - Tylenol 1000MG Q8H, Oxycodone 5-10MG Q4H PRN pain (4-10). Bowel - Miralax 17GM daily, Senna/colace 2 tablets BID, Dulcolax 10MG [place] daily PRN. Adult immunization - Administer Prevnar 13, Pneumovax 23, Fluzone as appropriate. DVT prophylaxis - Eliquis 2.5MG BID thru 07/31/20. Hyperlipidemia - Atorvastatin 80MG QHS. Vitamin B12 deficiency - B12 1000MCG IM Qmonth. Vitamin D deficiency - D2 50,000 units per week. Diabetes Mellitus II - Metformin 2000MG daily, Tradjenta 5MG daily, Glimepiride 2MG daily, monitor blood sugar. Hypothyroidism - Levothyroxine 125MCG daily. GERD - Pantoprazole 40MG daily. Hypertension - Ramipril 15MG daily. Postoperative anemia - Ferrex 150MG daily. Hyperkalemia - K 5.2, Kayexalate 30GM PO x 1 dose, repeat BMP in 1 day.
[2020-07-20 04:00] VITALS: BP 162/74; PULSE 75; RESP 16; TEMP 36.6; O2SAT 98
[2020-07-20] MEDS: Polyethylene Glycol 3350 17 GM PACKET PO (05:09)
[2020-07-20] MEDS: APIXABAN 2.5 MG TABLET PO ×2 (05:10→20:24)
[2020-07-20] MEDS: Acetaminophen 500 MG Tablet 1000 MG PO ×3 (05:10→20:25)
[2020-07-20] MEDS: Ramipril 5 MG Capsule 15 MG PO (05:10)
[2020-07-20] MEDS: Levothyroxine 125 MCG Tablet PO (05:11)
[2020-07-20] MEDS: LINAGLIPTIN 5 MG TABLET PO (05:11)
[2020-07-20] MEDS: Pantoprazole Sodium 40 MG Tablet PO (05:11)
[2020-07-20] MEDS: Senna/Docusate Sodium 1 Tablet 2 TABLET PO (05:11)
[2020-07-20 05:46] LABS: Absolute Lymphocyte Count 1.76 X10^3/uL (0.83-4.51); Absolute Neutrophil Count 4.8 X10^3/uL (2.0-7.7); Basophil# 0.02 X10^3/uL; Basophil% 0.3 % (0-1); Eosinophil# 0.26 X10^3/uL; Eosinophils% 3.3 % (0-5); Hematocrit 27.3 % (37-47); Hemoglobin 8.8 g/dL (12.0-15.0); Lymphocyte # 1.76 X10^3/ul (4.0); Lymphocyte % 22.4 % (19-41); Mean Corp Hgb Conc 32.2 g/dL (32-36); Mean Corpuscular Hgb 30.7 pg (27.0-32.0); Mean Corpuscular Volume 95.1 fL (81-99); Mean Platelet Vol. 9.7 fl (6.2-12.0); Monocyte# 0.96 X10^3/uL; Monocyte% 12.2 % (0-10); NRBC Flagged by Analyzer 0 % (0-5); Neutrophil # 4.83 X10^3/uL (2.7-7.7); Neutrophil % 61.4 % (47-70); Platelet Count 263 K/mm3 (150-450); RBC Distribution Width CV 12.3 % (11.6-14.6); RBC Distribution Width SD 42.5 fl (35.1-43.9); Red Blood Count 2.87 M/mm3 (4.2-5.4); White Blood Count 7.9 K/mm3 (4.4-11.0)
[2020-07-20 06:06] LABS: Anion Gap 2 (5-15); BUN 17 mg/dL (7-18); BUN/Creat Ratio 17.7 RATIO (10-20); Calcium,Total 8.4 mg/dL (8.5-10.1); Chloride 104 mmol/L (98-107); Creatinine, Serum 0.96 mg/dL (0.55-1.02); EST Glomerular Filtration Rate 62 mL/min (>60); Est Glom Filt Rate - Afr Amer 75 mL/min (>60); Estimated Creatinine Clearance 46.82 ml/min; Glucose 69 mg/dL (74-106); Potassium 5.2 mmol/L (3.5-5.1); Sodium Level 137 mmol/L (136-145)
[2020-07-20 06:31] LABS: Bedside Glucose 74 mg/dL (70-110)
--- NOTE | 2020-07-20 07:01 | NURSING ---
BLOOD SUGAR THIS AM 75, PT GIVEN CRACKERS AND PEANUT BUTTER, STATES SLEPT WELL, DENIES PAIN,
[2020-07-20] MEDS: Sodium Polystyrene Sulfonate 15 GM/60 ML UDC 30 GM PO (08:37)
[2020-07-20] MEDS: metFORMIN HCl 500 MG Tablet 2000 MG PO (08:38)
[2020-07-20] MEDS: Glimepiride 2 MG Tablet PO (08:38)
[2020-07-20 11:06] LABS: Bedside Glucose 142 mg/dL (70-110)
[2020-07-20] MEDS: oxyCODONE 5 MG Tablet PO ×2 (13:30→22:20)
[2020-07-20] MEDS: Tuberculin,Purif.prot.deriv. 50 TU/ML Vial 5 ML ID (13:35)
--- NOTE | 2020-07-20 14:50 | PCM.PN.RX ---
<Brandi Renner - Last Filed: 07/20/20 14:50> Progress Note - Pharmacy Subjective: TCU Admission Objective: Allergies No Known Allergies Allergy (Verified 07/03/20 13:07) Current Medications Generic Name Dose Route Start Last Admin Trade Name Freq PRN Reason Stop Dose Admin Acetaminophen 1,000 mg 07/19/20 22:00 07/20/20 13:31 Tylenol PO 1,000 mg Q8 JUDY Administration Apixaban 2.5 mg 07/20/20 07:00 07/20/20 05:10 Eliquis PO 07/31/20 23:59 2.5 mg 0700,1900 JUDY Administration Atorvastatin Calcium 80 mg 07/19/20 22:00 07/19/20 20:38 Lipitor PO 80 mg QHS [facility] Administration Bisacodyl 10 mg 07/19/20 22:18 Dulcolax RECTAL DAILY PRN PRN Constipation Cyanocobalamin 1,000 mcg 07/26/20 10:00 Vitamin B12 IM QMONTH [facility] Ergocalciferol 50,000 unit 07/22/20 08:00 Vitamin D PO QWEEK [facility] Glimepiride 2 mg 07/20/20 08:00 07/20/20 08:38 Amaryl PO 2 mg DAILYCM [facility] Administration Levothyroxine Sodium 125 mcg 07/20/20 06:00 07/20/20 05:11 Synthroid PO 125 mcg DAILY@0600 [facility] Administration Linagliptin 5 mg 07/20/20 06:00 07/20/20 05:11 Tradjenta PO 5 mg DAILY [facility] Administration Metformin HCl 1,000 mg 07/21/20 08:00 Glucophage PO BIDCM [facility] Oxycodone HCl 5 - 10 mg 07/19/20 19:40 07/20/20 13:30 Oxyir PO 5 mg Q4H PRN PRN Administration Pain Score 4-10/10 Pantoprazole Sodium 40 mg 07/20/20 06:00 07/20/20 05:11 Protonix PO 40 mg DAILY [facility] Administration Polyethylene Glycol 17 gm 07/20/20 06:00 07/20/20 05:09 Miralax PO 17 gm DAILY [facility] Administration Polysaccharide Iron Complex 150 mg 07/21/20 08:00 Ferrex 150 PO DAILYCM [facility] Ramipril 15 mg 07/20/20 06:00 07/20/20 05:10 Altace PO 15 mg DAILY JUDY Administration Senna/Docusate Sodium 2 tablet 07/20/20 06:00 07/20/20 05:11 Senokot-S, Radha-Colace PO 2 tablet BID JUDY Administration Tuberculin PPD 5 tu 07/27/20 10:00 Tubersol, Aplisol, Ppd ID 07/27/20 10:01 X1 ONE Problem List (Last Updated 06/16/19 @ 08:40 by Ramonita Wesley) Debility (Acute) Osteoarthritis of left knee (Chronic) Vitamin B12 deficiency (Chronic) Vitamin D deficiency (Chronic) Osteoarthritis (Chronic) Vital Signs Temp Pulse Resp BP Pulse Ox 98 F 75 16 162/74 H 98 07/20/20 04:00 07/20/20 04:00 07/20/20 04:00 07/20/20 04:00 07/20/20 04:00 Oxygen Delivery Method Room Air Weight: 92.079 kg Body Mass Index (BMI) 37.1 Finger Stick Blood Glucose 130 Sodium 137 mmol/L (136-145) 07/20/20 05:37 Potassium 5.2 mmol/L (3.5-5.1) H 07/20/20 05:37 Chloride 104 mmol/L (98-107) 07/20/20 05:37 Carbon Dioxide 31.0 mmol/L (21.0-32.0) 07/20/20 05:37 Anion Gap 2 (5-15) L 07/20/20 05:37 BUN 17 mg/dL (7-18) 07/20/20 05:37 Creatinine 0.96 mg/dL (0.55-1.02) 07/20/20 05:37 Est GFR (MDRD) Af Amer 75 mL/min (>60) 07/20/20 05:37 Est GFR (MDRD) Non-Af 62 mL/min (>60) 07/20/20 05:37 BUN/Creatinine Ratio 17.7 RATIO (-20) 07/20/20 05:37 Glucose 69 mg/dL (74-106) L 07/20/20 05:37 Assessment/Plan: 1. Pain: acetaminophen 1000mg PO Q8H and oxycodone 5-10mg PO Q4H PRN pain (4-08/04). Please continue to monitor for increased pain, PRN usage, constipation and respiratory depression. 2. DVT prophylaxis: apixaban 2.5mg PO BID thru 07/31/20. Please continue to monitor for S/S of bleeding/DVT, hemoglobin (last 8.8 g/dL), and platelets (last 263). 3. Postoperative anemia: Ferrex 150mg PO DAILYCM. Please continue to monitor hemoglobin (last 8.8 g/dL) and for dark stools. 4. Hyperlipidemia: atorvastatin 80mg PO QHS. Please continue to monitor for muscle pain and annual lipid panel (recent panel on file). 5. Diabetes mellitus type II: metformin 1000mg PO BIDCM, linagliptin 5mg PO daily and glimepiride 2mg PO DAILYCM. Please continue to monitor hemoglobin A1c (last 7.5% 07/05/20), blood glucose (last 142mg/dL), renal function and for S/S of hypo/hyperglycemia. 6. Hypothyroidism: levothyroxine 125mcg PO daily. Recent TSH WNL. Please continue to monitor TSH and for S/S of hypo/hyperthyroidism. 7. GERD: pantoprazole 40mg PO daily. Please continue to monitor for S/S of GERD and diarrhea. *8. Hypertension: ramipril 15mg PO daily. Please continue to monitor BP (last 162/74), potassium (last 5.2mmol/L), and renal function. Patient with hyperkalemia (s/p Kayexalate 30gm x1 dose this morning). If hyperkalemia does not resolve, please consider switching to a different class for control of hypertension since ramipril is known to cause hyperkalemia. Thanks. 9. Vitamin deficiencies: cyanocobalamin 1000mcg IM monthly and ergocalciferol 50,000units PO weekly (Sundays). Please continue to monitor vitamin B12 and vitamin D levels. Both drawn recently and WNL. Psychotropic Medications: None Unnecessary Medications: None Bowel Regimen: Miralax 17gm PO daily, senna/docusate 2T PO BID and bisacodyl 10mg [place] daily PRN constipation. Please continue to monitor for constipation, diarrhea and PRN usage. Date of Note:: 07/20/20 - Provider Comments Provider responsibility: Provider responsible to enter orders to implement recommendations <Lasha Rogers Chi - Last Filed: 07/20/20 15:49> Progress Note - Pharmacy Subjective: [] Objective: Allergies No Known Allergies Allergy (Verified 07/03/20 13:07) Current Medications Generic Name Dose Route Start Last Admin Trade Name Vern PRN Reason Stop Dose Admin Acetaminophen 1,000 mg 07/19/20 22:00 07/20/20 13:31 Tylenol PO 1,000 mg Q8 JUDY Administration Apixaban 2.5 mg 07/20/20 07:00 07/20/20 05:10 Eliquis PO 07/31/20 23:59 2.5 mg 0700,1900 JUDY Administration Atorvastatin Calcium 80 mg 07/19/20 22:00 07/19/20 20:38 Lipitor PO 80 mg QHS JUDY Administration Bisacodyl 10 mg 07/19/20 22:18 Dulcolax RECTAL DAILY PRN PRN Constipation Cyanocobalamin 1,000 mcg 07/26/20 10:00 Vitamin B12 IM QMONTH [facility] Ergocalciferol 50,000 unit 07/22/20 08:00 Vitamin D PO QWEEK [facility] Glimepiride 2 mg 07/20/20 08:00 07/20/20 08:38 Amaryl PO 2 mg DAILYCM [facility] Administration Levothyroxine Sodium 125 mcg 07/20/20 06:00 07/20/20 05:11 Synthroid PO 125 mcg DAILY@0600 [facility] Administration Linagliptin 5 mg 07/20/20 06:00 07/20/20 05:11 Tradjenta PO 5 mg DAILY [facility] Administration Metformin HCl 1,000 mg 07/21/20 08:00 Glucophage PO BIDCM [facility] Oxycodone HCl 5 - 10 mg 07/19/20 19:40 07/20/20 13:30 Oxyir PO 5 mg Q4H PRN PRN Administration Pain Score 4-10/10 Pantoprazole Sodium 40 mg 07/20/20 06:00 07/20/20 05:11 Protonix PO 40 mg DAILY [facility] Administration Polyethylene Glycol 17 gm 07/20/20 06:00 07/20/20 05:09 Miralax PO 17 gm DAILY [facility] Administration Polysaccharide Iron Complex 150 mg 07/21/20 08:00 Ferrex 150 PO DAILYCM [facility] Ramipril 15 mg 07/20/20 06:00 07/20/20 05:10 Altace PO 15 mg DAILY [facility] Administration Senna/Docusate Sodium 2 tablet 07/20/20 06:00 07/20/20 05:11 Senokot-S, Radha-Colace PO 2 tablet BID JUDY Administration Tuberculin PPD 5 tu 07/27/20 10:00 Tubersol, Aplisol, Ppd ID 07/27/20 10:01 X1 ONE Problem List (Last Updated 06/16/19 @ 08:40 by Ramonita Wesley) Debility (Acute) Osteoarthritis of left knee (Chronic) Vitamin B12 deficiency (Chronic) Vitamin D deficiency (Chronic) Osteoarthritis (Chronic) Vital Signs Temp Pulse Resp BP Pulse Ox 98 F 75 16 162/74 H 98 07/20/20 04:00 07/20/20 04:00 07/20/20 04:00 07/20/20 04:00 07/20/20 04:00 Oxygen Delivery Method Room Air Weight: 92.079 kg Body Mass Index (BMI) 37.1 Finger Stick Blood Glucose 130 Sodium 137 mmol/L (136-145) 07/20/20 05:37 Potassium 5.2 mmol/L (3.5-5.1) H 07/20/20 05:37 Chloride 104 mmol/L (98-107) 07/20/20 05:37 Carbon Dioxide 31.0 mmol/L (21.0-32.0) 07/20/20 05:37 Anion Gap 2 (5-15) L 07/20/20 05:37 BUN 17 mg/dL (7-18) 07/20/20 05:37 Creatinine 0.96 mg/dL (0.55-1.02) 07/20/20 05:37 Est GFR (MDRD) Af Amer 75 mL/min (>60) 07/20/20 05:37 Est GFR (MDRD) Non-Af 62 mL/min (>60) 07/20/20 05:37 BUN/Creatinine Ratio 17.7 RATIO (10-20) 07/20/20 05:37 Glucose 69 mg/dL (74-106) L 07/20/20 05:37 Assessment/Plan: Psychotropic Medications: Unnecessary Medications: Bowel Regimen: - Provider Comments Provider responsibility: Provider responsible to enter orders to implement recommendations Provider Comments to Recommendations by Pharmacy: Agree
[2020-07-20 16:00] VITALS: BP 138/60; PULSE 75; RESP 18; TEMP 36.8; O2SAT 95
[2020-07-20 16:36] LABS: Bedside Glucose 194 mg/dL (70-110)
[2020-07-20] MEDS: Atorvastatin Calcium 80 MG Tablet PO (20:26)
[2020-07-20 21:25] LABS: Bedside Glucose 245 mg/dL (70-110)
[2020-07-21 05:38] VITALS: BP 120/50; PULSE 78; RESP 16; TEMP 36.4; O2SAT 97
[2020-07-21] MEDS: Acetaminophen 500 MG Tablet 1000 MG PO ×3 (05:38→21:35)
[2020-07-21] MEDS: Pantoprazole Sodium 40 MG Tablet PO (05:39)
[2020-07-21] MEDS: LINAGLIPTIN 5 MG TABLET PO (05:39)
[2020-07-21] MEDS: Levothyroxine 125 MCG Tablet PO (05:39)
[2020-07-21] MEDS: Ramipril 5 MG Capsule 15 MG PO (05:39)
[2020-07-21] MEDS: APIXABAN 2.5 MG TABLET PO ×2 (05:40→16:36)
[2020-07-21 06:26] LABS: Bedside Glucose 107 mg/dL (70-110)
[2020-07-21 07:02] LABS: Anion Gap 3 (5-15); BUN 14 mg/dL (7-18); BUN/Creat Ratio 16.8 RATIO (10-20); Calcium,Total 8.4 mg/dL (8.5-10.1); Chloride 106 mmol/L (98-107); Creatinine, Serum 0.83 mg/dL (0.55-1.02); EST Glomerular Filtration Rate 73 mL/min (>60); Est Glom Filt Rate - Afr Amer 89 mL/min (>60); Estimated Creatinine Clearance 54.16 ml/min; Glucose 82 mg/dL (74-106); Potassium 4.5 mmol/L (3.5-5.1); Sodium Level 138 mmol/L (136-145)
[2020-07-21] MEDS: metFORMIN HCl 1,000 MG Tablet 1000 MG PO ×2 (10:29→16:36)
[2020-07-21] MEDS: Iron Polysaccharide Complex 150 MG CAPSULE PO (10:29)
[2020-07-21] MEDS: Glimepiride 2 MG Tablet PO (10:31)
[2020-07-21 10:46] LABS: Bedside Glucose 167 mg/dL (70-110)
[2020-07-21 13:37] VITALS: BP 149/59; PULSE 77; RESP 16; TEMP 37.2; O2SAT 92
[2020-07-21 16:46] LABS: Bedside Glucose 159 mg/dL (70-110)
[2020-07-21 21:30] LABS: Bedside Glucose 188 mg/dL (70-110)
[2020-07-21] MEDS: Atorvastatin Calcium 80 MG Tablet PO (21:34)
[2020-07-22 04:00] VITALS: BP 175/60; PULSE 70; RESP 16; TEMP 36.4; O2SAT 96
[2020-07-22] MEDS: oxyCODONE 5 MG Tablet PO (06:17)
[2020-07-22] MEDS: Pantoprazole Sodium 40 MG Tablet PO (06:18)
[2020-07-22] MEDS: Acetaminophen 500 MG Tablet 1000 MG PO ×3 (06:18→20:39)
[2020-07-22] MEDS: Ramipril 5 MG Capsule 15 MG PO (06:18)
[2020-07-22] MEDS: Levothyroxine 125 MCG Tablet PO (06:18)
[2020-07-22] MEDS: LINAGLIPTIN 5 MG TABLET PO (06:18)
[2020-07-22 06:21] LABS: Bedside Glucose 85 mg/dL (70-110)
[2020-07-22] MEDS: APIXABAN 2.5 MG TABLET PO ×2 (06:21→16:16)
[2020-07-22] MEDS: Iron Polysaccharide Complex 150 MG CAPSULE PO (09:07)
[2020-07-22] MEDS: metFORMIN HCl 1,000 MG Tablet 1000 MG PO ×2 (09:07→16:17)
[2020-07-22] MEDS: Glimepiride 2 MG Tablet PO (09:08)
[2020-07-22 11:01] LABS: Bedside Glucose 165 mg/dL (70-110)
[2020-07-22 14:05] VITALS: BP 155/69; PULSE 66; RESP 16; TEMP 36.6; O2SAT 97
[2020-07-22] MEDS: Senna/Docusate Sodium 1 Tablet 2 TABLET PO (16:18)
[2020-07-22 16:41] LABS: Bedside Glucose 123 mg/dL (70-110)
[2020-07-22] MEDS: Atorvastatin Calcium 80 MG Tablet PO (20:38)
[2020-07-22 22:10] LABS: Bedside Glucose 127 mg/dL (70-110)
[2020-07-23 05:33] VITALS: BP 159/74; PULSE 69; RESP 16; TEMP 36.4; O2SAT 96
[2020-07-23] MEDS: Acetaminophen 500 MG Tablet 1000 MG PO ×3 (05:36→21:07)
[2020-07-23] MEDS: Ramipril 5 MG Capsule 15 MG PO (05:36)
[2020-07-23] MEDS: APIXABAN 2.5 MG TABLET PO ×2 (05:36→18:24)
[2020-07-23] MEDS: Pantoprazole Sodium 40 MG Tablet PO (05:38)
[2020-07-23] MEDS: Levothyroxine 125 MCG Tablet PO (05:38)
[2020-07-23] MEDS: LINAGLIPTIN 5 MG TABLET PO (05:38)
[2020-07-23 06:35] LABS: Bedside Glucose 79 mg/dL (70-110)
[2020-07-23] MEDS: Iron Polysaccharide Complex 150 MG CAPSULE PO (08:07)
[2020-07-23] MEDS: Glimepiride 2 MG Tablet PO (08:07)
--- NOTE | 2020-07-23 09:15 | NURSING ---
pt in room transferring self, educated on the importance of using the call light for assistance and not transferring self. PA applied.
[2020-07-23] MEDS: metFORMIN HCl 1,000 MG Tablet 1000 MG PO ×2 (09:52→17:32)
[2020-07-23 11:00] LABS: Bedside Glucose 184 mg/dL (70-110)
[2020-07-23] MEDS: oxyCODONE 5 MG Tablet PO ×2 (11:46→21:07)
[2020-07-23 13:45] VITALS: BP 132/60; PULSE 72; RESP 14; TEMP 36.7; O2SAT 99
[2020-07-23 16:41] LABS: Bedside Glucose 72 mg/dL (70-110)
[2020-07-23] MEDS: Senna/Docusate Sodium 1 Tablet 2 TABLET PO (17:32)
[2020-07-23] MEDS: Atorvastatin Calcium 80 MG Tablet PO (21:07)
[2020-07-23 21:11] LABS: Bedside Glucose 88 mg/dL (70-110)
[2020-07-23 22:24] VITALS: O2SAT 97
[2020-07-24 06:10] VITALS: BP 131/63; PULSE 69; RESP 16; TEMP 36.4; O2SAT 98
[2020-07-24] MEDS: Levothyroxine 125 MCG Tablet PO (06:12)
[2020-07-24] MEDS: Pantoprazole Sodium 40 MG Tablet PO (06:12)
[2020-07-24] MEDS: Ramipril 5 MG Capsule 15 MG PO (06:12)
[2020-07-24] MEDS: Sertraline 50 MG Tablet 25 MG PO (06:12)
[2020-07-24] MEDS: APIXABAN 2.5 MG TABLET PO ×2 (06:12→17:03)
[2020-07-24] MEDS: LINAGLIPTIN 5 MG TABLET PO (06:12)
[2020-07-24] MEDS: Acetaminophen 500 MG Tablet 1000 MG PO ×3 (06:12→20:33)
[2020-07-24 06:26] LABS: Bedside Glucose 143 mg/dL (70-110)
[2020-07-24] MEDS: Glimepiride 2 MG Tablet PO (07:49)
[2020-07-24] MEDS: metFORMIN HCl 1,000 MG Tablet 1000 MG PO ×2 (07:49→17:03)
[2020-07-24] MEDS: Iron Polysaccharide Complex 150 MG CAPSULE PO (07:49)
[2020-07-24 10:00] VITALS: PULSE 80; RESP 16
[2020-07-24 11:05] LABS: Bedside Glucose 189 mg/dL (70-110)
[2020-07-24 13:18] VITALS: BP 161/72; PULSE 73; RESP 17; TEMP 36.5; O2SAT 98
[2020-07-24] MEDS: oxyCODONE 5 MG Tablet PO ×2 (13:20→20:33)
[2020-07-24 16:35] LABS: Bedside Glucose 119 mg/dL (70-110)
[2020-07-24] MEDS: Atorvastatin Calcium 80 MG Tablet PO (20:33)
[2020-07-24 21:21] LABS: Bedside Glucose 167 mg/dL (70-110)
[2020-07-25] MEDS: Levothyroxine 125 MCG Tablet PO (06:01)
[2020-07-25] MEDS: Pantoprazole Sodium 40 MG Tablet PO (06:01)
[2020-07-25] MEDS: LINAGLIPTIN 5 MG TABLET PO (06:01)
[2020-07-25] MEDS: APIXABAN 2.5 MG TABLET PO ×2 (06:01→16:36)
[2020-07-25] MEDS: Acetaminophen 500 MG Tablet 1000 MG PO ×3 (06:01→20:51)
[2020-07-25] MEDS: Ramipril 5 MG Capsule 15 MG PO (06:01)
[2020-07-25] MEDS: Sertraline 50 MG Tablet 25 MG PO (06:01)
[2020-07-25 06:02] VITALS: BP 142/79; PULSE 72; RESP 18; TEMP 36.6; O2SAT 98
[2020-07-25 06:26] LABS: Bedside Glucose 77 mg/dL (70-110)
[2020-07-25] MEDS: Iron Polysaccharide Complex 150 MG CAPSULE PO (08:02)
[2020-07-25] MEDS: metFORMIN HCl 1,000 MG Tablet 1000 MG PO ×2 (08:03→16:36)
[2020-07-25] MEDS: Glimepiride 2 MG Tablet PO (08:03)
--- NOTE | 2020-07-25 10:30 | CASEMGMT ---
BIMS and PHQ9 interviews completed on this date for MDS assessment. SCOOBY Smith
--- NOTE | 2020-07-25 11:53 | CASEMGMT ---
Social Work IDT met with patient for care plan meeting. Discussed patient's progress in therapy. Pt is Zackery for all ADLs, ambulating over 300ft with FWW ,adlib in room. Pt is on a 2000 calorie diet, but has gained weight, so reducing t 1800 calorei, intake 75-100%. Pt is out of isolation 08/02. Explained pt's commercial insurance with [employer] 07/26 and continued stay is not guaranteed. IDT agreeable to DC 07/28 - pt agreeable. to transport. Pt requesting [facility] outpatient PT/OT. Referral made. No DME needs. Plan: DC home with 07/28, [facility] PT/OT, no DME . Lisa Dunlap, JUVENAL AUDIO VISUAL COLLECTIONS COORDINATOR
[2020-07-25 14:53] VITALS: BP 162/76; PULSE 69; RESP 16; TEMP 37.2; O2SAT 97
--- NOTE | 2020-07-25 19:46 | DCINST_ITS ---
- Discharge Diagnoses Current Active Problems: Current Active and Chronic Problems (Last Updated 06/16/19 @ 08:40 by Ramonita Wesley) Debility (Acute) Osteoarthritis of left knee (Chronic) Vitamin B12 deficiency (Chronic) Vitamin D deficiency (Chronic) Osteoarthritis (Chronic) You will use the following diet at home:: No restrictions, Regular Your food should be the consistency of: Regular Your liquids should be the consistency of: Regular/Thin Discharge Activity: Return to Normal Activity, May Shower, Use Walker Weight Bearing Status: Weight bearing as tolerated Call your doctor if you observe: Fever of 101 or Higher, Inability to urinate, Inability to have a bowel movement, Shortness of breath, Chest pain, Uncontrolled pain Allergies/Adverse Reactions: Allergies No Known Allergies Allergy (Verified 07/03/20 13:07) Medications to take at Discharge atorvastatin 80 mg tablet 80 mg PO QHS tab 12/09/17 levothyroxine 112 mcg tablet 125 mcg PO DAILY tab 12/09/17 sitagliptin 100 mg tablet 100 mg PO DAILY tab 12/09/17 Cyanocobalamin [Vitamin B12] 1,000 mcg IM QMONTH 02/28/19 Ergocalciferol (Vitamin D2) [Vitamin D2] 50,000 units PO QWEEK 02/28/19 Glimepiride 2 mg PO DAILY 02/28/19 Lansoprazole [Prevacid] 30 mg PO DAILY 07/03/20 Ramipril [Altace] 15 mg PO DAILY 07/03/20 Acetaminophen [Tylenol] 1,000 mg PO Q8 07/19/20 metFORMIN HCl [Glucophage] 2,000 mg PO DAILY 07/19/20 Apixaban [Eliquis] 2.5 mg PO 0700,1900 #6 tab 07/25/20 Iron Polysaccharide Complex [Ferrex 150] 150 mg PO DAILYCM #30 cap 07/25/20 Oxycodone [Oxyir] 5 - 10 mg PO Q4H PRN PRN 7 Days #60 tab 07/25/20 Polyethylene Glycol 3350 [Miralax] 17 gm PO DAILY #30 packet 07/25/20 Senna/Docusate Sodium [Senokot-S] 2 tab PO BID #120 tab 07/25/20 Sertraline HCl [Zoloft] 25 mg PO DAILY tablet 07/25/20 The following prescriptions were given: Apixaban [Eliquis] 2.5 mg PO 0700,1900 #6 tab Transmission Status: Pending to [id number] Iron Polysaccharide Complex [Ferrex 150] 150 mg PO DAILYCM #30 cap Transmission Status: Pending to [id number] Polyethylene Glycol 3350 [Miralax] 17 gm PO DAILY #30 packet Transmission Status: Pending to [id number] Oxycodone [Oxyir] 5 - 10 mg PO Q4H PRN PRN 7 Days #60 tab PRN Reason: Pain Score 4-10/10 Transmission Status: Received by [id number] Senna/Docusate Sodium [Senokot-S] 2 tab PO BID #120 tab Transmission Status: [facility]ending [id number] Primary Care Physician: Truman David [Primary Care Provider] - Please follow up with your Primary Care Physician in: 1 week. Test Results: Test results from this visit will be discussed in further detail at your follow- up appointment, if applicable. Please Follow Up With: Chi Kapoor DO When: 2 weeks post op Proposed Discharge Date: 07/28/20
--- NOTE | 2020-07-25 19:47 | DS.PCM_ITS ---
Discharge Date and Diagnosis - Problem List Patient Problems: Active and Suspected Problems (Last Updated 06/16/19 @ 08:40 by Ramonita Wesley) Debility (Acute) Date of Admission: 07/19/20 Date of Discharge: 07/28/20 - Primary Discharge Diagnosis Acute Problems: Active Problems (Last Updated 06/16/19 @ 08:40 by Ramonita Wesley) Debility (Acute) - Secondary Discharge Diagnosis Chronic Problems: Chronic Problems (Last Updated 06/16/19 @ 08:40 by Ramonita Wesley) Osteoarthritis of left knee (Chronic) Vitamin B12 deficiency (Chronic) Vitamin D deficiency (Chronic) Osteoarthritis (Chronic) Osteoarthritis of right knee (Chronic) Diabetes mellitus (Chronic) Hypertension (Chronic) Hyperlipidemia (Chronic) Hypothyroidism (Chronic) GERD (gastroesophageal reflux disease) (Chronic) Nausea (Chronic) Insomnia (Chronic) Hospital Course and Treatment Imaging Results: 07/25/20 08:15 Diet: Consistent Carb - Calorie Controlled Food consistency:: Regular Liquid Consistency:: Regular/Thin Is pt able to select menu?: Yes How many daily calories?: 1800 calorie Labs (Last 48 Hours) 07/23/20 07/24/20 07/24/20 21:01 06:11 11:01 POC Glucose 88 143 H 189 H 07/24/20 07/24/20 07/25/20 16:28 21:07 06:18 POC Glucose 119 H 167 H 77 Operations: total hip replacement, total knee replacement Procedures: None Summary of Care Provided: The patient is a 65 year old Female with below past medical history hospitalized for CT guided robotic assisted left total knee arthroplasty 07/17/[address] Kapoor, admitted to TCU with debility, here for rehabilitation, strengthening, prior to discharge home with . Discharge home with , [facility] PT/OT, No durable medical equipment needs. Patient Problems: Active and Suspected Problems (Last Updated 06/16/19 @ 08:40 by Ramonita Wesley) Debility (Acute) - Physical Exam Vitals/I&O's: Vital Signs Temp Pulse Resp BP Pulse Ox 99.0 F 69 16 162/76 H 97 07/25/20 14:53 07/25/20 14:53 07/25/20 14:53 07/25/20 14:53 07/25/20 14:53 Oxygen Delivery Method Room Air Weight: 93.485 kg Body Mass Index (BMI) 37.1 Finger Stick Blood Glucose 130 Intake and Output for Last 24 Hours 07/23/20 07/24/20 07/25/20 23:59 23:59 23:59 Intake Total 600 / 600 960 / 960 600 / 600 Balance 600 / 600 960 / 960 600 / 600 Laboratory Results 07/24/20 21:07: POC Glucose 167 H 07/25/20 06:18: POC Glucose 77 Current Medications Acetaminophen (Tylenol) 1,000 mg PO Q8 [facility] Last Admin: 07/25/20 13:12 Dose: 1,000 mg Documented by: Apixaban (Eliquis) 2.5 mg PO 0600,1800 [facility] Stop: 07/31/20 18:01 Last Admin: 07/25/20 16:36 Dose: 2.5 mg Documented by: Atorvastatin Calcium (Lipitor) 80 mg PO QHS [facility] Last Admin: 07/24/20 20:33 Dose: 80 mg Documented by: Bisacodyl (Dulcolax) 10 mg RECTAL DAILY PRN PRN PRN Reason: Constipation Cyanocobalamin (Vitamin B12) 1,000 mcg IM QMONTH [facility] Ergocalciferol (Vitamin D) 50,000 unit PO QWEEK [facility] Last Admin: 07/22/20 09:10 Dose: 50,000 unit Documented by: Glimepiride (Amaryl) 2 mg PO DAILYCM [facility] Last Admin: 07/25/20 08:03 Dose: 2 mg Documented by: Levothyroxine Sodium (Synthroid) 125 mcg PO DAILY@0600 [facility] Last Admin: 07/25/20 06:01 Dose: 125 mcg Documented by: Linagliptin (Tradjenta) 5 mg PO DAILY [facility] Last Admin: 07/25/20 06:01 Dose: 5 mg Documented by: Metformin HCl (Glucophage) 1,000 mg PO BIDCM [facility] Last Admin: 07/25/20 16:36 Dose: 1,000 mg Documented by: Oxycodone HCl (Oxyir) 5 - 10 mg PO Q4H PRN PRN PRN Reason: Pain Score 4-10/10 Last Admin: 07/24/20 20:33 Dose: 5 mg Documented by: Pantoprazole Sodium (Protonix) 40 mg PO DAILY [facility] Last Admin: 07/25/20 06:01 Dose: 40 mg Documented by: Polyethylene Glycol (Miralax) 17 gm PO DAILY [facility] Last Admin: 07/25/20 06:02 Dose: Not Given Documented by: Pol[facility]accharide [facility] ([facility]rex 150) [facility] Last Admin: 07/25/20 08:02 Dose: 150 mg Documented by: Ramipril (Altace) 15 mg PO DAILY [facility] Last Admin: 07/25/20 06:01 Dose: 15 mg Documented by: Senna/Docusate Sodium (Senokot-S, Radha-Colace) 2 tablet PO BID [facility] Last Admin: 07/25/20 16:36 Dose: Not Given Documented by: Sertraline HCl (Zoloft) 25 mg PO DAILY [facility] Last Admin: 07/25/20 06:01 Dose: 25 mg Documented by: Tuberculin PPD (Tubersol, Aplisol, Ppd) 5 tu ID [id number] ONE Stop: 07/27/20 10:01 Discharge Diet: No Restrictions Discharge Activity: Return to Normal Activity, May Shower, Use Walker Weight Bearing Status: Weight bearing as tolerated Call your doctor if you observe: Fever of 101 or Higher, Inability to urinate, Inability to have a bowel movement, Shortness of breath, Chest pain, Uncontrolled pain Home Medications: Medications to take at Discharge atorvastatin 80 mg tablet 80 mg PO QHS tab 12/09/17 levothyroxine 112 mcg tablet 125 mcg PO DAILY tab 12/09/17 sitagliptin 100 mg tablet 100 mg PO DAILY tab 12/09/17 Cyanocobalamin [Vitamin B12] 1,000 mcg IM QMONTH 02/28/19 Ergocalciferol (Vitamin D2) [Vitamin D2] 50,000 units PO QWEEK 02/28/19 Glimepiride 2 mg PO DAILY 02/28/19 Lansoprazole [Prevacid] 30 mg PO DAILY 07/03/20 Ramipril [Altace] 15 mg PO DAILY 07/03/20 Acetaminophen [Tylenol] 1,000 mg PO Q8 07/19/20 metFORMIN HCl [Glucophage] 2,000 mg PO DAILY 07/19/20 Apixaban [Eliquis] 2.5 mg PO 0700,1900 #6 tab 07/25/20 Iron Polysaccharide Complex [Ferrex 150] 150 mg PO DAILY #30 cap 07/25/20 Oxycodone [Oxyir] 5 - 10 mg PO Q4H PRN PRN 7 Days #60 tab 07/25/20 Polyethylene Glycol 3350 [Miralax] 17 gm PO DAILY #30 packet 07/25/20 Senna/Docusate Sodium [Senokot-S] 2 tab PO BID #120 tab 07/25/20 Sertraline HCl [Zoloft] 25 mg PO DAILY tablet 07/25/20 Following Prescriptions Were Given to Patient: Apixaban [Eliquis] 2.5 mg PO 0700,1900 #6 tab Transmission Status: [id number] Iron Polysaccharide Complex [Ferrex 150] 150 mg PO DAILYCM #30 cap Transmission Status: [id number] Polyethylene Glycol 3350 [Miralax] 17 gm PO DAILY #30 packet Transmission Status: [id number] Oxycodone [Oxyir] 5 - 10 mg PO Q4H PRN PRN 7 Days #60 tab PRN Reason: Pain Score 4-10/10 Transmission Status: [id number] Senna/Docusate Sodium [Senokot-S] 2 tab PO BID #120 tab Transmission Status: [id number] Primary Care Physician: Truman David [Primary Care Provider] - Please follow up with your Primary Care Physician in: 1 week. Please Follow Up With: Chi Kapoor DO When: 2 weeks post op Disposition: Home Minutes spent on discharge:: 30 Patient Condition:: Good Medical Necessity - Tobacco Use Smoking Status: Current every day smoker Tobacco Use: Cigarettes Meaningful Use Info Meaningful Use Diagnoses (Choose all that apply): None applicable
[2020-07-25] MEDS: Atorvastatin Calcium 80 MG Tablet PO (20:51)
[2020-07-25] MEDS: oxyCODONE 5 MG Tablet PO (20:51)
[2020-07-26 05:38] VITALS: BP 124/67; PULSE 69; RESP 16; TEMP 36.5; O2SAT 95
[2020-07-26] MEDS: Senna/Docusate Sodium 1 Tablet 2 TABLET PO (05:43)
[2020-07-26] MEDS: Pantoprazole Sodium 40 MG Tablet PO (05:44)
[2020-07-26] MEDS: Sertraline 50 MG Tablet 25 MG PO (05:44)
[2020-07-26] MEDS: Acetaminophen 500 MG Tablet 1000 MG PO ×3 (05:44→20:20)
[2020-07-26] MEDS: LINAGLIPTIN 5 MG TABLET PO (05:44)
[2020-07-26] MEDS: Levothyroxine 125 MCG Tablet PO (05:44)
[2020-07-26] MEDS: APIXABAN 2.5 MG TABLET PO ×2 (05:45→18:16)
[2020-07-26] MEDS: Ramipril 5 MG Capsule 15 MG PO (05:46)
[2020-07-26 06:26] LABS: Bedside Glucose 73 mg/dL (70-110)
[2020-07-26] MEDS: Iron Polysaccharide Complex 150 MG CAPSULE PO (08:20)
[2020-07-26] MEDS: Glimepiride 2 MG Tablet PO (08:20)
[2020-07-26] MEDS: metFORMIN HCl 1,000 MG Tablet 1000 MG PO ×2 (08:21→18:16)
[2020-07-26] MEDS: oxyCODONE 5 MG Tablet PO ×2 (09:38→21:39)
[2020-07-26] MEDS: Cyanocobalamin (B12) 1,000 MCG/ML Vial 1000 MCG IM (09:40)
[2020-07-26 09:48] VITALS: PULSE 92; RESP 16; O2SAT 95
[2020-07-26 14:26] VITALS: BP 129/69; PULSE 70; RESP 16; TEMP 36.4; O2SAT 97
--- NOTE | 2020-07-26 18:17 | PCA ---
Patient is scheduled for a shower in the morning. 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 Stated they are going home on Thursday and might just wait until she goes home.
[2020-07-26] MEDS: Atorvastatin Calcium 80 MG Tablet PO (20:20)
[2020-07-27 05:44] LABS: Absolute Lymphocyte Count 1.92 X10^3/uL (0.83-4.51); Absolute Neutrophil Count 6.1 X10^3/uL (2.0-7.7); Basophil# 0.05 X10^3/uL; Basophil% 0.5 % (0-1); Eosinophil# 0.33 X10^3/uL; Eosinophils% 3.6 % (0-5); Hemoglobin 9.9 g/dL (12.0-15.0); Lymphocyte # 1.92 X10^3/ul (4.0); Lymphocyte % 20.8 % (19-41); Mean Corp Hgb Conc 31.9 g/dL (32-36); Mean Corpuscular Hgb 30.6 pg (27.0-32.0); Mean Corpuscular Volume 95.7 fL (81-99); Mean Platelet Vol. 9.3 fl (6.2-12.0); Monocyte% 8.7 % (0-10); NRBC Flagged by Analyzer 0 % (0-5); Neutrophil # 6.06 X10^3/uL (2.7-7.7); Neutrophil % 65.9 % (47-70); Platelet Count 366 K/mm3 (150-450); RBC Distribution Width SD 41.8 fl (35.1-43.9); Red Blood Count 3.24 M/mm3 (4.2-5.4); White Blood Count 9.2 K/mm3 (4.4-11.0)
[2020-07-27 05:50] VITALS: BP 135/56; PULSE 16; RESP 17; TEMP 36.7; O2SAT 98
[2020-07-27] MEDS: Acetaminophen 500 MG Tablet 1000 MG PO ×3 (05:52→21:06)
[2020-07-27] MEDS: LINAGLIPTIN 5 MG TABLET PO (05:52)
[2020-07-27] MEDS: Ramipril 5 MG Capsule 15 MG PO (05:52)
[2020-07-27] MEDS: Sertraline 50 MG Tablet 25 MG PO (05:52)
[2020-07-27] MEDS: Levothyroxine 125 MCG Tablet PO (05:53)
[2020-07-27] MEDS: Pantoprazole Sodium 40 MG Tablet PO (05:53)
[2020-07-27] MEDS: APIXABAN 2.5 MG TABLET PO ×2 (05:53→17:24)
[2020-07-27 06:06] LABS: Anion Gap 5 (5-15); BUN 15 mg/dL (7-18); Calcium,Total 8.7 mg/dL (8.5-10.1); Chloride 102 mmol/L (98-107); EST Glomerular Filtration Rate 59 mL/min (>60); Est Glom Filt Rate - Afr Amer 72 mL/min (>60); Estimated Creatinine Clearance 44.95 ml/min; Glucose 128 mg/dL (74-106); Potassium 4.9 mmol/L (3.5-5.1); Sodium Level 136 mmol/L (136-145)
[2020-07-27 06:16] LABS: Bedside Glucose 123 mg/dL (70-110)
[2020-07-27] MEDS: Iron Polysaccharide Complex 150 MG CAPSULE PO (08:09)
[2020-07-27] MEDS: metFORMIN HCl 1,000 MG Tablet 1000 MG PO ×2 (08:09→17:25)
[2020-07-27] MEDS: Glimepiride 2 MG Tablet PO (08:09)
[2020-07-27 15:56] VITALS: BP 148/54; PULSE 65; RESP 16; TEMP 36.2; O2SAT 97
[2020-07-27] MEDS: Atorvastatin Calcium 80 MG Tablet PO (21:07)
[2020-07-27] MEDS: oxyCODONE 5 MG Tablet PO (21:09)
[2020-07-28 05:53] VITALS: BP 133/61; PULSE 70; RESP 16; TEMP 36.8; O2SAT 98
[2020-07-28] MEDS: Acetaminophen 500 MG Tablet 1000 MG PO (05:55)
[2020-07-28] MEDS: APIXABAN 2.5 MG TABLET PO (05:56)
[2020-07-28] MEDS: Pantoprazole Sodium 40 MG Tablet PO (05:56)
[2020-07-28] MEDS: Sertraline 50 MG Tablet 25 MG PO (05:56)
[2020-07-28] MEDS: Levothyroxine 125 MCG Tablet PO (05:56)
[2020-07-28] MEDS: LINAGLIPTIN 5 MG TABLET PO (05:56)
[2020-07-28] MEDS: Ramipril 5 MG Capsule 15 MG PO (05:56)
[2020-07-28 06:11] LABS: Bedside Glucose 64 mg/dL (70-110)
--- NOTE | 2020-07-28 06:52 | NURSING ---
Blood sugar low this am, pt given peanut butter and crackers, receheck blood sugar 117
[2020-07-28 06:55] LABS: Bedside Glucose 117 mg/dL (70-110)
[2020-07-28] MEDS: metFORMIN HCl 1,000 MG Tablet 1000 MG PO (08:06)
[2020-07-28] MEDS: Iron Polysaccharide Complex 150 MG CAPSULE PO (08:06)
[2020-07-28] MEDS: Glimepiride 2 MG Tablet PO (08:06)
[2020-07-28] MEDS: oxyCODONE 5 MG Tablet PO (09:01)
[2020-07-28 09:20] VITALS: PULSE 74; RESP 18; O2SAT 96
[2020-07-28 10:09] VITALS: BP 111/52; PULSE 70; RESP 18; TEMP 36.7; O2SAT 95
--- NOTE | 2020-08-01 11:34 | MDS.RN ---
Information for the mds was obtained from review of the clinical record, interview of resident, staff, and direct observation of resident's care.
== END 2020-07-28 10:15 | disposition home or self-care (01) | DRG 561 ==
PROVIDERS: Admitting Provider Family Medicine Geriatric Medicine; Visit Provider Family Medicine Geriatric Medicine
DX: Z47.1 Aftercare following joint replacement surgery (principal); Z96.652 Presence of left artificial knee joint; E03.9 Hypothyroidism, unspecified; E11.9 Type 2 diabetes mellitus without complications; E55.9 Vitamin D deficiency, unspecified; E78.5 Hyperlipidemia, unspecified; K21.9 Gastro-esophageal reflux disease without esophagitis; I10 Essential (primary) hypertension; F17.210 Nicotine dependence, cigarettes, uncomplicated; E53.8 Deficiency of other specified B group vitamins; D64.9 Anemia, unspecified; E87.5 Hyperkalemia; F32.9 Major depressive disorder, single episode, unspecified
CPT/HCPCS: 36415; 80048; 82962; 85025; 87635; 97110; 97116; 97162; 97166; 97530; 97535; 99406; J3420; U0003

== ENCOUNTER 2020-09-17 09:00 | Outpatient (RCR) | payer OTHER, SELFPAY ==
[2020-06-20 09:25] VITALS: BMI 40.3
--- NOTE | 2020-06-26 07:44 | HP.PTEVAL_ITS ---
Patient's Visit Information HOPE ENCINAS is a 65 year old F referred to Physical Therapy by Dr. Chi Kapoor DO with a diagnosis of L knee osteo arthritis. Date of Evaluation: 06/25/20 Physical Therapist: Sunny Milton DPT - Visit Plan Frequency: 1x/Week Duration: 3 Weeks Plan: Start with HS stretching, quad activation, HS strengthening. Educate in post op exercises as well. Add in general knee flexion/extension ROM. All completed to allow for best post op outcomes. - Subjective Pt. is here today for her initial evaluation with diagnosis of L knee osteo arthritis. Pt. is scheduled for a L TKA on Jul 17. Pt. reports having rehad previously, but was having a lot of pain. Pt. saw her new physician who would like her to work on some light strength and ROM. Pt. is is now retired. Pt. reports having pain at lateral medial knee pain. Pt reports having a medial meniscus tear, bone brusing, sever osteo arthritis. Pt. reports having difficulty with getting up/down, stairs, walking and bending her knee. Pt. is hopeful to reduce symptoms in order to get back to all recreational activities without limitaitons. - Pain L knee Pain Intensity (Out of 10): 3 Pain Intensity Range: 0, 6 - Objective POSTURE: Pt. has incrased R lateral wt. shift, lacks TKE on LLE in stance. PALAPTION: P. has tenderness along medial and lateral joint line of L knee. Girth measurements: RLE: 6 below patella 13, mid patella 22, 6 above patella 32. LLE- 6 below patella 13.5, mid patella 24.75, 6 above patella 34. NEURO: Pt. has normal sensation and normal DTR of BLEs. ROM: R knee: 0-0-125deg. L knee 0-8-92deg. Pt. has tight HS as well. MMT: Dynamometer: RLE: knee ext- 39.5#, flexion 40.4#; hip- flexion 32#, abd 28.8#. LLE: knee- ext 8.1#, flexion 9.8#; hip- flexion 28.3#, abd 27.1#. GAIT: Pt. ambulates without AD, but does lack TKE on LLE. Pt. has normal swing pahse. Antalgic pattern. STAIRS: Pt. completes with 2HR with step to pattern, only loading RLE. WOMAC score of 73, 76% disability. - Goals Goal 1:: LTG: pt. to be I with HEP. Goal Time Frame: 4-6 Weeks Goal 2:: STG: pt. to have increased knee ROM to 0-5-100deg. Goal Time Frame: 2-4 Weeks Goal 3:: LTG: pt. to be educated in LLE strengthening exercises for both pre surgical and post. Goal Time Frame: 4-6 Weeks Goal 4:: LTG: Pt. to be educated in proper gait patterns including stairs alliowing for good functional mobility for post surgery. - Rehabilitation Potential Physical Therapy Diagnosis: Pt. has signs and symptoms consistent with L knee OA with subsequent hypombolity, weakness, pain, and difficulty with gait. Pt. would benift from prehab PT work on gentle ROM and strengthening allowing for good post surgical out come. Rehabilitation Potential: Excellent - Anticipated Interventions Patient/Client Instruction: Educate patient on: Condition, Plan of Care, Risk Factors, Benefits of Fitness Program For the Purpose of:: To improve decision making, To facilitate caregiver knowledge, To improve self management, To prevent re-injury, To improve ability to perform tasks related to life management, To improve tolerance to ADL's Therapeutic Exercise to Include: Strength training, Power training, Body mechanics, Postural training, Flexibilty training, Gait and locomotor training, Passive ROM, Active ROM For the Purpose of:: To decrease pain, To decrease swelling/inflammation, To increase ROM, To improve nutrient delivery to tissue, To increase oxygenation perfusion, To improve muscle performance and motor function, To improve ability to perform ADL's, To increase tolerance to activity/condition/position, To improve performance and independence with ADL's, To improve gait and locomotor functions, To improve health of tissue, To decrease soft tissue restriction Thank you for the opportunity to evaluate your patient. For Medicare and Medicare HMO plans, please review the plan of care and approve it. It will need to be FAXED BACK to us at [phone] for Medicare purposes. For Medicare only, by signing this I certify the plan of care. Please let me know if there are questions or concerns regarding this plan of care. Physician Si gnature: Date:
--- NOTE | 2020-07-11 11:28 | HP.PTREVAL ---
Dr. Chi Kapoor, DO, It has been my pleasure to treat HOPE ENCINAS over the last 3 visits for L knee osteo arthritis. Please see the progress note below for an update on the physical therapy plan of care! Subjective: Pt. reports no new issues. I just have a migraine today. Pt. reprots being HEP compliant. Pt. to have surgery next thursday. 07/17/20 Objective/Function: Pt. is doing okay. She reports I am ready for the surgery.' Pt. has been educated in all exercises to complete post surgical and what to expected. I work with her on walker training as well. Pt. able to complete without issues. Pt. to have surgery next week. Plan Plan: Case will be on hold until after surgery. Re assessment to be completed once ready to resume outpatient PT. Goals Goal 1:: LTG: pt. to be I with HEP. Goal Time Frame: 4-6 Weeks Goal 2:: STG: pt. to have increased knee ROM to 0-5-100deg. Goal Time Frame: 2-4 Weeks Goal 3:: LTG: pt. to be educated in LLE strengthening exercises for both pre surgical and post. Goal Time Frame: 4-6 Weeks Goal 4:: LTG: Pt. to be educated in proper gait patterns including stairs alliowing for good functional mobility for post surgery. Anticipated Interventions Patient/Client Instruction: Educate patient on: Condition, Plan of Care, Risk Factors, Benefits of Fitness Program For the Purpose of:: To improve decision making, To facilitate caregiver knowledge, To improve self management, To prevent re-injury, To improve ability to perform tasks related to life management, To improve tolerance to ADL's Therapeutic Exercise to Include: Strength training, Power training, Body mechanics, Postural training, Flexibilty training, Gait and locomotor training, Passive ROM, Active ROM For the Purpose of:: To decrease pain, To decrease swelling/inflammation, To increase ROM, To improve nutrient delivery to tissue, To increase oxygenation perfusion, To improve muscle performance and motor function, To improve ability to perform ADL's, To increase tolerance to activity/condition/position, To improve performance and independence with ADL's, To improve gait and locomotor functions, To improve health of tissue, To decrease soft tissue restriction Please do not hesitate to contact me at [phone] by phone or if you have questions or concerns regarding this new plan of care! Sincerely, BALBIR JosephT
--- NOTE | 2020-08-09 08:05 | HP.PTREVAL ---
Dr. Chi Kapoor, DO, It has been my pleasure to treat HOPE ENCINAS over the last 4 visits for L knee osteo arthritis. Please see the progress note below for an update on the physical therapy plan of care! Subjective: Pt. re assessed this date after having her TKA. Pt. did have a 1 week lag getting in here after having to attend to her father who was sick and had to be taken to the hospital for 3 days. Pt. reports having a constant ache in her knee, but is already better than it was pre OP. Pt. was very thank ful for the Iovera freezing, which really helped her pain in comparison to her R knee replacement. She has been to the grocery store. Objective/Function: MMT: 4-/5 through LLE. gait: PT. has good ambulation with FWW, lacks slight TKE, but has good knee flexion during swing phase. ROM: 0-1-109deg. PROM. AROM: 0-3-101deg. Pt. had empty end feel, but did progress with stretching. STAIRS: Pt. completed with step to pattern with 2 HR without issues. WOMAC: 51/96, 53%. TU sec with FWW Plan Plan: POC 2x3 per week for 4 weeks. Focus on progress ROM initially, progressing to functional strength as able. I would like her to be 0-0-120deg by nov. Goals Goal 1:: LTG: pt. to be I with HEP. Goal Time Frame: 4-6 Weeks Goal Progress: Progressing Goal 2:: STG: pt. to have increased knee ROM to 0-5-100deg. NEW GOAL 08/09/20: Pt to have increased L knee ROM to 0-0-120deg. Goal Time Frame: 2-4 Weeks Goal Progress: Progressing Goal 3:: LTG: pt. to be educated in LLE strengthening exercises for both pre surgical and post. Goal Time Frame: 4-6 Weeks Goal Progress: Goal Met Goal 4:: LTG: Pt. to be educated in proper gait patterns including stairs alliowing for good functional mobility for post surgery. Goal Progress: Goal Met Goal 5:: LTG: Pt. to have increased L LE strength by 1/2 grade throughout. Goal Time Frame: 4-6 Weeks Goal 6:: LTG: Pt. to walk without AD with normalized gait pattern unlimited distances with 0-1/10 pain in LLE. Goal Time Frame: 4-6 Weeks Anticipated Interventions Patient/Client Instruction: Educate patient on: Condition, Plan of Care, Risk Factors, Benefits of Fitness Program For the Purpose of:: To improve decision making, To facilitate caregiver knowledge, To improve self management, To prevent re-injury, To improve ability to perform tasks related to life management, To improve tolerance to ADL's Therapeutic Exercise to Include: Strength training, Power training, Body mechanics, Postural training, Flexibilty training, Gait and locomotor training, Passive ROM, Active ROM For the Purpose of:: To decrease pain, To decrease swelling/inflammation, To increase ROM, To improve nutrient delivery to tissue, To increase oxygenation perfusion, To improve muscle performance and motor function, To improve ability to perform ADL's, To increase tolerance to activity/condition/position, To improve performance and independence with ADL's, To improve gait and locomotor functions, To improve health of tissue, To decrease soft tissue restriction Please do not hesitate to contact me at [phone] by phone or if you have questions or concerns regarding this new plan of care! Sincerely, Sunny Milton DPT
--- NOTE | 2020-08-27 10:15 | HP.PTREVAL ---
Dr. Chi Kapoor, DO, It has been my pleasure to treat HOPE ENCINAS over the last 11 visits for L knee osteo arthritis. Please see the progress note below for an update on the physical therapy plan of care! Subjective: Pt. reports overall doing well. She reports she is still not confident with descending steps. Pt. reprots 2/10 pain pre treatment. Arrived using SPC. Objective/Function: MMT: 4+/5 throughout. AROM: L knee 0-1-121, PROM 0-0-124deg. Pt. walks with cane and is doing well. Pt. is negotiating steps with reciprocal pattern with use of 2 HR with some mild pain with decending. Pt. is progressing very well. I would recommend to keep seeing her a bit longer working on stairs and activity tolerance. Overall I am pleased with where she is at. Plan Plan: Pt. to follow up with physician. I elbert recommend continued PT work on stair negotiation and continue with ROM. Goals Goal 1:: LTG: pt. to be I with HEP. Goal Time Frame: 4-6 Weeks Goal Progress: Goal Met Goal 2:: STG: pt. to have increased knee ROM to 0-5-100deg. NEW GOAL 08/09/20: Pt to have increased L knee ROM to 0-0-120deg. Goal Time Frame: 2-4 Weeks Goal Progress: Goal Met Goal 3:: LTG: pt. to be educated in LLE strengthening exercises for both pre surgical and post. Goal Time Frame: 4-6 Weeks Goal Progress: Goal Met Goal 4:: LTG: Pt. to be educated in proper gait patterns including stairs alliowing for good functional mobility for post surgery. NEW GOAL: Pt. to negotiate 1 flight of steps with 2 HR with reciprocal pattern with 0-2/10 pain in L knee. Goal Progress: Progressing Goal 5:: LTG: Pt. to have increased L LE strength by 1/2 grade throughout. Goal Time Frame: 4-6 Weeks Goal Progress: Progressing Goal 6:: LTG: Pt. to walk without AD with normalized gait pattern unlimited distances with 0-1/10 pain in LLE. Goal Time Frame: 4-6 Weeks Goal Progress: Progressing Anticipated Interventions Patient/Client Instruction: Educate patient on: Condition, Plan of Care, Risk Factors, Benefits of Fitness Program For the Purpose of:: To improve decision making, To facilitate caregiver knowledge, To improve self management, To prevent re-injury, To improve ability to perform tasks related to life management, To improve tolerance to ADL's Therapeutic Exercise to Include: Strength training, Power training, Body mechanics, Postural training, Flexibilty training, Gait and locomotor training, Passive ROM, Active ROM For the Purpose of:: To decrease pain, To decrease swelling/inflammation, To increase ROM, To improve nutrient delivery to tissue, To increase oxygenation perfusion, To improve muscle performance and motor function, To improve ability to perform ADL's, To increase tolerance to activity/condition/position, To improve performance and independence with ADL's, To improve gait and locomotor functions, To improve health of tissue, To decrease soft tissue restriction Please do not hesitate to contact me at [phone] by phone or if you have questions or concerns regarding this new plan of care! Sincerely, Sunny Milton DPT
--- NOTE | 2020-09-18 08:39 | HP.PTDCSUM ---
It has been my pleasure to treat HOPE ENCINAS referred by Dr. Chi Kapoor DO, with the diagnosis of L knee osteo arthritis for a total of 20 visit(s). Discharge Date: 09/17/20 Please see the following information for a summary of their discharge status. Subjective: Pt. reports being 90% better overall. She reports no pain today. She does have occassional pain with stairs and prolonged walking. Pt. is HEP compliant. She is pleased with her progression. L knee Pain Intensity (Out of 10): 0 % Improvement: 90 Objective/Function: ROM: L Knee 0-0-122deg. TU.03sec. MMT: L knee ext: 32.1#, flexion 35.8#; hip- flexion 25#, ext 22.4#. WOMAC 19. Pt. ambulating without AD. Pt. has good TKE during stance phase, good knee flexion during swing and has minimal antalgic pattern. Pt. reports no pain today with walking. STAIRS: Pt. is able to complete with 1 HR with reciprocal pattern, no sigsn of functional weakness noted. Goal 1:: LTG: pt. to be I with HEP. Goal Progress: Goal Met Goal 2:: STG: pt. to have increased knee ROM to 0-5-100deg. NEW GOAL 08/09/20: Pt to have increased L knee ROM to 0-0-120deg. Goal Progress: Goal Met Goal 3:: LTG: pt. to be educated in LLE strengthening exercises for both pre surgical and post. Goal Progress: Goal Met Goal 4:: LTG: Pt. to be educated in proper gait patterns including stairs alliowing for good functional mobility for post surgery. NEW GOAL: Pt. to negotiate 1 flight of steps with 2 HR with reciprocal pattern with 0-2/10 pain in L knee. Goal Progress: Goal Met Goal 5:: LTG: Pt. to have increased L LE strength by 1/2 grade throughout. Goal Progress: Goal Met Goal 6:: LTG: Pt. to walk without AD with normalized gait pattern unlimited distances with 0-1/10 pain in LLE. Goal Progress: Goal Met Plan: Pt. to be DC to HEP at this point in time. Discharge Comments: Pt. was seen for her L TKA. Pt. did very well with initial ROM progressing into strengthening. Pt. has progressed from her walker to no AD and is maintaining her good ROM. Pt. is pleased with her progress and will be DC to HEP with focus on ROM and progression of functional strengthening and back to all recreational activities as tolerated. If there are questions or concerns regarding this patient's physical therapy, please feel free to call me at [phone]. Thank you for the referral of this patient. Sincerely, BALBIR JosephT
== END 2020-09-17 19:00 | disposition home or self-care (01) ==
LOC: PT 09:00
PROVIDERS: Visit Provider Orthopaedic Surgery
DX: M17.12 Unilateral primary osteoarthritis, left knee (principal)
CPT/HCPCS: 97110; 97116; 97161; 97164

== ENCOUNTER → 2021-01-25 07:52 | Outpatient (CLI) | payer BC, SELFPAY ==
[2020-08-01 11:47] VITALS: BMI 37.1
--- NOTE | 2021-01-25 07:55 | BI_ITS ---
MAMMOGRAPHY - BILATERAL SCREENING REASON FOR EXAM: Female, 65 years old. Routine annual screening examination. PERTINENT HISTORY: Non-contributory. TECHNIQUE: Digital bilateral breast debo (3D mammographic acquisition) in the CC and MLO projections. 2-D mediolateral oblique (MLO) and craniocaudad (CC) views of both breasts were obtained. CAD: Full Field Digital Mammography with Computer Added Detection was performed. COMPARISON: Comparison is made with prior study dated 11/10/2014. FINDINGS: Breast Composition: There are scattered areas of fibroglandular density. There are no dominant masses or suspicious calcifications. Stable small benign-appearing bilateral axillary lymph nodes. No other significant abnormalities are identified. There has been no significant change since the prior study. BI/SCRN MAMM (CAD)W/DEBO BILAT IMPRESSION: Stable bilateral screening mammogram. Yearly follow-up mammogram recommended. (A) ASSESSMENT CATEGORY: BIRADS Category 2: Benign. A letter regarding these results will be sent to the patient by the facility within 30 days. Approximately 10% of breast cancers are not detected by mammography. A normal mammogram should not delay biopsy of a clinically suspicious abnormality. [id number] Electronically Signed: Sivakumar Johnson MD at 9:08 EDT , Service support ,
== END ==
PROVIDERS: Referring Provider Family Medicine; Visit Provider Family Medicine
DX: Z12.31 Encounter for screening mammogram for malignant neoplasm of breast (principal)
CPT/HCPCS: 77063; 77067

== ENCOUNTER → 2021-08-07 08:00 | Outpatient (CLI) | payer BC, SELFPAY ==
--- NOTE | 2021-08-07 08:04 | CT_ITS ---
HISTORY: Lung cancer screening EXAMINATION: CT Low Dose CT Chest for Lung Cancer Screening TECHNIQUE: Helically acquired images were obtained of the chest. Sagittal and coronal reformats reviewed. A radiation dose optimization technique was used for this scan. IV Contrast dosage and agent: None. COMPARISON: None FINDINGS: LUNGS, PLEURA AND LARGE AIRWAYS: Faint, punctate 2.5 mm nodular opacity within posterior apex of left upper lobe (series 2 axial image 43). No pulmonary edema, mass or consolidation. Airways are patent. No pleural effusion or thickening. No pneumothorax. THYROID: Unremarkable as visualized. HEART AND PERICARDIUM: Normal size heart with coronary arterial calcifications. No significant pericardial effusion. VESSELS: Scattered calcified plaque with no thoracic aortic aneurysm. MEDIASTINUM AND NIKO: No mediastinal or hilar adenopathy. Esophagus is unremarkable. No hiatal hernia. UPPER ABDOMEN: Status post cholecystectomy. BONES: Posterior cerclage wiring lower cervical spine. No acute osseous abnormality. CT/Low Dose CT Lung Screening IMPRESSION: Punctate left upper lobe pulmonary nodule measuring less than 3 mm. Lung RADS category 2. Continued annual screening with low dose CT. Atherosclerotic coronary arterial disease. Individualized dose optimization techniques were used for this CT. at 0637 Reported and signed by: Sage Valdes MD Electronically Signed: Sage Valdes MD at 6:35 EDT Tel , Service support ,
== END ==
PROVIDERS: PCP Family Medicine; Referring Provider Family Medicine; Visit Provider Family Medicine
DX: F17.200 Nicotine dependence, unspecified, uncomplicated (principal); Z12.2 Encounter for screening for malignant neoplasm of respiratory organs
CPT/HCPCS: 71271

== ENCOUNTER → 2021-09-16 14:32 | Outpatient (CLI) | payer BC, SELFPAY ==
--- NOTE | 2021-09-16 14:34 | RAD_ITS ---
STUDY: X-RAY - LEFT HAND REASON FOR EXAM: Female, 66 years old. INFLAMMATORY POLYARTHROPATHY TECHNIQUE: 3 view(s) of the hand. COMPARISON: None. FINDINGS: Normal radiocarpal articulation. Normal distal radioulnar joint. There is widening of the scaphoid-lunate articulation. There is degenerative joint disease of the scaphotrapezium / trapezoid articulation. The remainder of the carpal articulations are normal. There is degenerative arthrosis of the carpometacarpal (CMC) articulation of the thumb. Normal second through fifth carpometacarpal joints. Normal metacarpi. Normal metacarpophalangeal joint of the thumb. Normal interphalangeal joint of the thumb. Normal proximal and distal phalanges of the thumb. Normal metacarpophalangeal joints of the second through fifth fingers. There is diffuse articular joint space narrowing of the proximal and distal interphalangeal joints of the second through fifth fingers, but without erosive changes or periarticular soft tissue swelling. Normal phalanges of the second through fifth fingers. The soft tissue structures are unremarkable. RAD/Hand Min 3 Views IMPRESSION: 1. Multifocal osteoarthrosis. 2. 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 Electronically Signed: Stef Eller MD (Brooks) at 17:01 EST , Service support ,
--- NOTE | 2021-09-16 14:34 | RAD_ITS ---
STUDY: X-RAY - RIGHT HAND REASON FOR EXAM: Female, 66 years old. INFLAMMATORY POLYARTHROPATHY TECHNIQUE: Thick 1 view(s) of the hand. COMPARISON: None. FINDINGS: Normal radiocarpal articulation. Normal distal radioulnar joint. Normal visualized carpal bones. There is degenerative joint disease of the scaphotrapezium / trapezoid articulation. The remainder of the carpal articulations are normal. There is degenerative arthrosis of the carpometacarpal (CMC) articulation of the thumb. Normal second through fifth carpometacarpal joints. Normal metacarpi. Normal metacarpophalangeal joint of the thumb. Normal interphalangeal joint of the thumb. Normal proximal and distal phalanges of the thumb. Normal metacarpophalangeal joints of the second through fifth fingers. There is diffuse articular joint space narrowing of the proximal and distal interphalangeal joints of the second through fifth fingers, but without erosive changes or periarticular soft tissue swelling. Normal phalanges of the second through fifth fingers. The soft tissue structures are unremarkable. RAD/Hand Min 3 Views IMPRESSION: 1. Multifocal osteoarthrosis without erosive arthropathy. Electronically Signed: Stef Eller MD (Brooks) at 17:00 EST , Service support ,
[2021-09-16 18:16] LABS: Absolute Lymphocyte Count 1.92 X10^3/uL (0.83-4.51); Absolute Neutrophil Count 6.4 X10^3/uL (2.0-7.7); Basophil# 0.05 X10^3/uL; Basophil% 0.5 % (0-1); Eosinophil# 0.14 X10^3/uL; Eosinophils% 1.5 % (0-5); Hematocrit 37.1 % (37-47); Hemoglobin 12.3 g/dL (12.0-15.0); Lymphocyte # 1.92 X10^3/ul (0.83-4.51); Lymphocyte % 20.7 % (19-41); Mean Corp Hgb Conc 33.2 g/dL (32-36); Mean Corpuscular Hgb 30.8 pg (27.0-32.0); Mean Platelet Vol. 10.4 fl (6.2-12.0); Monocyte% 8.6 % (0-10); NRBC Flagged by Analyzer 0 % (0-5); Neutrophil # 6.36 X10^3/uL (2.7-7.7); Neutrophil % 68.5 % (47-70); Platelet Count 317 K/mm3 (150-450); RBC Distribution Width SD 41.1 fl (35.1-43.9); Red Blood Count 3.99 M/mm3 (4.2-5.4); White Blood Count 9.3 K/mm3 (4.4-11.0)
[2021-09-16 18:32] LABS: ALB/GLOB Ratio 0.9 RATIO (0.9-2.4); AST(SGOT) 12 U/L (15-37); Alanine Aminotransfer ALT/SGPT 18 U/L (13-56); Albumin, Serum 3.5 g/dL (3.2-5.0); Alkaline Phosphatase 95 U/L (45-117); Anion Gap 7 (5-15); BUN 17 mg/dL (7-18); BUN/Creat Ratio 11.3 RATIO (10-20); Chloride 101 mmol/L (98-107); Creatinine, Serum 1.51 mg/dL (0.55-1.02); EST Glomerular Filtration Rate 37 mL/min (>60); Est Glom Filt Rate - Afr Amer 44 mL/min (>60); Glucose 127 mg/dL (74-106); Potassium 4.3 mmol/L (3.5-5.1); Protein, Total 7.5 g/dL (6.4-8.2); Rheumatoid Factor < 10.0 IU/mL (<15); Sodium Level 136 mmol/L (136-145)
[2021-09-16 19:09] LABS: Erythrocyte Sedimentation Rate 35 mm/hr (0-30)
[2021-09-17 09:10] LABS: Hepatitis B Surface Antibody Non-Reactive; Hepatitis B Surface Antigen Non-Reactive (Nonreactive); Hepatitis C Antibody Non-Reactive (Nonreactive)
[2021-09-18 13:57] LABS: ANTINUCLEAR ANTIBODIES DIRECT Negative (Negative)
[2021-09-19 08:41] LABS: CCP IgG Antibodies 18 units (0-19)
== END ==
PROVIDERS: PCP Family Medicine; Referring Provider Internal Medicine Rheumatology; Visit Provider Internal Medicine Rheumatology
DX: M06.4 Inflammatory polyarthropathy (principal); M17.0 Bilateral primary osteoarthritis of knee; M47.892 Other spondylosis, cervical region; M18.0 Bilateral primary osteoarthritis of first carpometacarpal joints; Q66.70 Congenital pes cavus, unspecified foot; E11.9 Type 2 diabetes mellitus without complications; E03.9 Hypothyroidism, unspecified; E78.5 Hyperlipidemia, unspecified; K21.9 Gastro-esophageal reflux disease without esophagitis
CPT/HCPCS: 36415; 73130; 80053; 85025; 85652; 86038; 86140; 86200; 86431; 86706; 86803; 87340

== ENCOUNTER → 2021-10-25 11:58 | Outpatient (CLI) | payer BC, SELFPAY ==
[2021-10-25 12:21] LABS: Absolute Lymphocyte Count 1.65 X10^3/uL (0.83-4.51); Absolute Neutrophil Count 12.6 X10^3/uL (2.0-7.7); Basophil# 0.06 X10^3/uL; Basophil% 0.4 % (0-1); Eosinophil# 0.52 X10^3/uL; Eosinophils% 3.2 % (0-5); Hematocrit 38.8 % (37-47); Hemoglobin 12.8 g/dL (12.0-15.0); Lymphocyte # 1.65 X10^3/ul (0.83-4.51); Lymphocyte % 10.2 % (19-41); Mean Corpuscular Hgb 30.2 pg (27.0-32.0); Mean Corpuscular Volume 91.5 fL (81-99); Mean Platelet Vol. 9.6 fl (6.2-12.0); Monocyte# 1.21 X10^3/uL; Monocyte% 7.5 % (0-10); NRBC Flagged by Analyzer 0 % (0-5); Neutrophil # 12.61 X10^3/uL (2.7-7.7); Neutrophil % 78.2 % (47-70); Platelet Count 313 K/mm3 (150-450); RBC Distribution Width CV 12.1 % (11.6-14.6); RBC Distribution Width SD 40.5 fl (35.1-43.9); Red Blood Count 4.24 M/mm3 (4.2-5.4); White Blood Count 16.1 K/mm3 (4.4-11.0)
[2021-10-25 12:42] LABS: ALB/GLOB Ratio 0.8 RATIO (0.9-2.4); AST(SGOT) 10 U/L (15-37); Alanine Aminotransfer ALT/SGPT 14 U/L (13-56); Albumin, Serum 3.2 g/dL (3.2-5.0); Alkaline Phosphatase 98 U/L (45-117); Anion Gap 7 (5-15); BUN 17 mg/dL (7-18); BUN/Creat Ratio 9.9 RATIO (10-20); Calcium,Total 8.9 mg/dL (8.5-10.1); Chloride 102 mmol/L (98-107); Creatinine, Serum 1.71 mg/dL (0.55-1.02); EST Glomerular Filtration Rate 32 mL/min (>60); Est Glom Filt Rate - Afr Amer 39 mL/min (>60); Globulin 3.9 g/dL (2.2-4.2); Glucose 255 mg/dL (74-106); Potassium 4.2 mmol/L (3.5-5.1); Protein, Total 7.1 g/dL (6.4-8.2); Sodium Level 136 mmol/L (136-145)
== END ==
PROVIDERS: PCP Family Medicine; Visit Provider Internal Medicine Rheumatology
DX: M06.4 Inflammatory polyarthropathy (principal); Z79.899 Other long term (current) drug therapy; M17.0 Bilateral primary osteoarthritis of knee; M47.892 Other spondylosis, cervical region; M18.0 Bilateral primary osteoarthritis of first carpometacarpal joints; Q66.70 Congenital pes cavus, unspecified foot; E11.9 Type 2 diabetes mellitus without complications; E03.9 Hypothyroidism, unspecified; E78.5 Hyperlipidemia, unspecified; K21.9 Gastro-esophageal reflux disease without esophagitis
CPT/HCPCS: 36415; 80053; 85025

== ENCOUNTER 2021-12-13 12:35 | Outpatient (CLI) | payer BC, SELFPAY ==
[2021-12-13 14:57] LABS: Absolute Lymphocyte Count 2.38 X10^3/uL (0.83-4.51); Absolute Neutrophil Count 9.6 X10^3/uL (2.0-7.7); Basophil# 0.04 X10^3/uL; Basophil% 0.3 % (0-1); Eosinophil# 0.13 X10^3/uL; Hematocrit 39.5 % (37-47); Lymphocyte # 2.38 X10^3/ul (0.83-4.51); Lymphocyte % 18.2 % (19-41); Mean Corp Hgb Conc 32.9 g/dL (32-36); Mean Corpuscular Hgb 30.4 pg (27.0-32.0); Mean Corpuscular Volume 92.3 fL (81-99); Monocyte# 0.94 X10^3/uL; Monocyte% 7.2 % (0-10); NRBC Flagged by Analyzer 0 % (0-5); Neutrophil # 9.55 X10^3/uL (2.7-7.7); Neutrophil % 72.8 % (47-70); Platelet Count 345 K/mm3 (150-450); RBC Distribution Width CV 13.2 % (11.6-14.6); RBC Distribution Width SD 44.1 fl (35.1-43.9); Red Blood Count 4.28 M/mm3 (4.2-5.4); White Blood Count 13.1 K/mm3 (4.4-11.0)
[2021-12-13 15:15] LABS: ALB/GLOB Ratio 0.9 RATIO (0.9-2.4); AST(SGOT) 9 U/L (15-37); Alanine Aminotransfer ALT/SGPT 16 U/L (13-56); Albumin, Serum 3.5 g/dL (3.2-5.0); Alkaline Phosphatase 103 U/L (45-117); Anion Gap 8 (5-15); BUN 17 mg/dL (7-18); BUN/Creat Ratio 10.4 RATIO (10-20); Calcium,Total 9.2 mg/dL (8.5-10.1); Chloride 100 mmol/L (98-107); Creatinine, Serum 1.63 mg/dL (0.55-1.02); EST Glomerular Filtration Rate 34 mL/min (>60); Est Glom Filt Rate - Afr Amer 41 mL/min (>60); Globulin 4.1 g/dL (2.2-4.2); Glucose 177 mg/dL (74-106); Potassium 4.1 mmol/L (3.5-5.1); Protein, Total 7.6 g/dL (6.4-8.2); Sodium Level 136 mmol/L (136-145)
== END 2021-12-13 23:59 | disposition home or self-care (01) ==
LOC: MTLAB 12:37
PROVIDERS: PCP Family Medicine; Visit Provider Internal Medicine Rheumatology
DX: M06.4 Inflammatory polyarthropathy (principal); E11.9 Type 2 diabetes mellitus without complications; M17.0 Bilateral primary osteoarthritis of knee; M47.892 Other spondylosis, cervical region; M18.0 Bilateral primary osteoarthritis of first carpometacarpal joints; Q66.70 Congenital pes cavus, unspecified foot; E03.9 Hypothyroidism, unspecified; E78.5 Hyperlipidemia, unspecified; K21.9 Gastro-esophageal reflux disease without esophagitis; Z79.899 Other long term (current) drug therapy
CPT/HCPCS: 36415; 80053; 85025

== ENCOUNTER 2022-01-07 10:29 | Outpatient (CLI) | payer BC, SELFPAY ==
[2022-01-07 12:14] LABS: Absolute Lymphocyte Count 1.65 X10^3/uL (0.83-4.51); Absolute Neutrophil Count 8.9 X10^3/uL (2.0-7.7); Basophil# 0.07 X10^3/uL; Basophil% 0.6 % (0-1); Eosinophil# 0.15 X10^3/uL; Eosinophils% 1.3 % (0-5); Hematocrit 41.5 % (37-47); Hemoglobin 14.9 g/dL (12.0-15.0); Lymphocyte # 1.65 X10^3/ul (0.83-4.51); Lymphocyte % 14.1 % (19-41); Mean Corp Hgb Conc 35.9 g/dL (32-36); Mean Corpuscular Hgb 32.2 pg (27.0-32.0); Mean Corpuscular Volume 89.6 fL (81-99); Mean Platelet Vol. 10.2 fl (6.2-12.0); Monocyte% 7.7 % (0-10); NRBC Flagged by Analyzer 0 % (0-5); Neutrophil # 8.91 X10^3/uL (2.7-7.7); Neutrophil % 75.9 % (47-70); Platelet Count 320 K/mm3 (150-450); RBC Distribution Width CV 12.9 % (11.6-14.6); RBC Distribution Width SD 42.1 fl (35.1-43.9); Red Blood Count 4.63 M/mm3 (4.2-5.4); White Blood Count 11.7 K/mm3 (4.4-11.0)
[2022-01-07 12:33] LABS: Vitamin B12 494 pg/mL (211-911); Vitamin D,25 Hydroxy 59.6 ng/mL
[2022-01-07 12:42] LABS: ALB/GLOB Ratio 0.8 RATIO (0.9-2.4); AST(SGOT) 10 U/L (15-37); Alanine Aminotransfer ALT/SGPT 17 U/L (13-56); Albumin, Serum 3.4 g/dL (3.2-5.0); Alkaline Phosphatase 115 U/L (45-117); Anion Gap 7 (5-15); BUN 18 mg/dL (7-18); Calcium,Total 8.7 mg/dL (8.5-10.1); Chloride 96 mmol/L (98-107); Cholesterol 175 mg/dL (200); EST Glomerular Filtration Rate 37 mL/min (>60); Est Glom Filt Rate - Afr Amer 45 mL/min (>60); Globulin 4.1 g/dL (2.2-4.2); Glucose 292 mg/dL (74-106); High Density Lipoprotein 37 mg/dL; Potassium 4.2 mmol/L (3.5-5.1); Protein, Total 7.5 g/dL (6.4-8.2); Sodium Level 131 mmol/L (136-145); Thyroid Stim Hormone (TSH) 4.35 uIU/mL (0.358-3.74); Triglycerides 139 mg/dL; Very Low Density Lipoprotein 28 mg/dL (5-40)
[2022-01-07 13:07] LABS: Microalbumin:Creatinine Ratio 640.4 mg/g CRE (<30 mg/g CRE)
== END 2022-01-07 23:59 | disposition home or self-care (01) ==
LOC: MTLAB 10:31
PROVIDERS: PCP Family Medicine; Referring Provider Family Medicine; Visit Provider Family Medicine
DX: E11.9 Type 2 diabetes mellitus without complications (principal); E03.9 Hypothyroidism, unspecified; E53.8 Deficiency of other specified B group vitamins; E55.9 Vitamin D deficiency, unspecified
CPT/HCPCS: 36415; 80053; 80061; 82043; 82306; 82570; 82607; 84443; 85025

== ENCOUNTER 2022-02-10 14:45 | Outpatient (CLI) | payer BC, SELFPAY ==
[2022-02-10 15:32] LABS: Absolute Lymphocyte Count 1.94 X10^3/uL (0.83-4.51); Absolute Neutrophil Count 5.9 X10^3/uL (2.0-7.7); Basophil# 0.06 X10^3/uL; Basophil% 0.7 % (0-1); Eosinophil# 0.14 X10^3/uL; Eosinophils% 1.6 % (0-5); Hemoglobin 13.4 g/dL (12.0-15.0); Lymphocyte # 1.94 X10^3/ul (0.83-4.51); Lymphocyte % 21.8 % (19-41); Mean Corp Hgb Conc 34.4 g/dL (32-36); Mean Corpuscular Hgb 31.1 pg (27.0-32.0); Mean Corpuscular Volume 90.5 fL (81-99); Mean Platelet Vol. 9.8 fl (6.2-12.0); NRBC Flagged by Analyzer 0 % (0-5); Neutrophil # 5.92 X10^3/uL (2.7-7.7); Neutrophil % 66.6 % (47-70); Platelet Count 270 K/mm3 (150-450); RBC Distribution Width CV 12.8 % (11.6-14.6); RBC Distribution Width SD 42.3 fl (35.1-43.9); Red Blood Count 4.31 M/mm3 (4.2-5.4); White Blood Count 8.9 K/mm3 (4.4-11.0)
[2022-02-10 16:04] LABS: ALB/GLOB Ratio 0.8 RATIO (0.9-2.4); AST(SGOT) 13 U/L (15-37); Alanine Aminotransfer ALT/SGPT 17 U/L (13-56); Albumin, Serum 3.2 g/dL (3.2-5.0); Alkaline Phosphatase 113 U/L (45-117); Anion Gap 8 (5-15); BUN 15 mg/dL (7-18); BUN/Creat Ratio 10.4 RATIO (10-20); Calcium,Total 8.7 mg/dL (8.5-10.1); Chloride 101 mmol/L (98-107); Creatinine, Serum 1.44 mg/dL (0.55-1.02); EST Glomerular Filtration Rate 39 mL/min (>60); Est Glom Filt Rate - Afr Amer 47 mL/min (>60); Globulin 3.9 g/dL (2.2-4.2); Glucose 132 mg/dL (74-106); Potassium 4.1 mmol/L (3.5-5.1); Protein, Total 7.1 g/dL (6.4-8.2); Sodium Level 135 mmol/L (136-145)
== END 2022-02-10 23:59 | disposition home or self-care (01) ==
LOC: LAB 14:46
PROVIDERS: PCP Family Medicine; Visit Provider Internal Medicine Rheumatology
DX: M06.4 Inflammatory polyarthropathy (principal); Z79.899 Other long term (current) drug therapy; M17.0 Bilateral primary osteoarthritis of knee; M47.892 Other spondylosis, cervical region; M18.0 Bilateral primary osteoarthritis of first carpometacarpal joints; Q66.70 Congenital pes cavus, unspecified foot
CPT/HCPCS: 36415; 80053; 85025

== ENCOUNTER → 2022-04-09 | Outpatient (CLI) | payer BC, SELFPAY ==
--- NOTE | 2022-04-09 15:23 | NEURO ---
NCS and/or EMG Patient Report Ordering Doctor: Nereida Cabrera DATE OF SERVICE: 04/09/22 Rossy presents for electrodiagnostic testing of the right upper limb. She reports numbness and tingling in the right hand. She has a history of carpal tunnel release several years ago. Electrodiagnostic findings: Right median motor nerve demonstrates prolonged distal latency with reduced amplitude and reduced conduction velocity. Normal right ulnar motor response. Prolonged right median F wave. Absent right median sensory latency at the wrist. Prolonged right median palmar latency. On needle EMG, all muscles tested in the right upper limb showed no evidence of denervation with normal motor unit action potentials. Electrodiagnostic impression: This is an abnormal study in the right upper limb 1. Electrodiagnostic findings suggestive of right-sided median mononeuropathy. This is consistent with a moderate to advanced right carpal tunnel syndrome
== END | disposition home or self-care (01) ==
LOC: PSN 13:54
PROVIDERS: PCP Family Medicine; Referring Provider Internal Medicine Rheumatology; Visit Provider Internal Medicine Rheumatology
DX: M06.4 Inflammatory polyarthropathy (principal); E11.9 Type 2 diabetes mellitus without complications; Z79.899 Other long term (current) drug therapy; M17.0 Bilateral primary osteoarthritis of knee; M47.892 Other spondylosis, cervical region; M18.0 Bilateral primary osteoarthritis of first carpometacarpal joints; Q66.70 Congenital pes cavus, unspecified foot; E03.9 Hypothyroidism, unspecified; E78.5 Hyperlipidemia, unspecified; K21.9 Gastro-esophageal reflux disease without esophagitis; R20.2 Paresthesia of skin
CPT/HCPCS: 95886; 95910

== ENCOUNTER → 2022-04-17 | Outpatient (CLI) | payer BC, SELFPAY ==
[2022-04-17 15:20] LABS: Absolute Lymphocyte Count 1.21 X10^3/uL (0.83-4.51); Absolute Neutrophil Count 8.5 X10^3/uL (2.0-7.7); Basophil# 0.09 X10^3/uL; Basophil% 0.8 % (0-1); Eosinophil# 0.17 X10^3/uL; Eosinophils% 1.6 % (0-5); Hematocrit 37.1 % (37-47); Hemoglobin 12.5 g/dL (12.0-15.0); Lymphocyte # 1.21 X10^3/ul (0.83-4.51); Lymphocyte % 11.2 % (19-41); Mean Corp Hgb Conc 33.7 g/dL (32-36); Mean Corpuscular Hgb 30.9 pg (27.0-32.0); Mean Corpuscular Volume 91.8 fL (81-99); Mean Platelet Vol. 10.6 fl (6.2-12.0); Monocyte# 0.78 X10^3/uL; Monocyte% 7.2 % (0-10); NRBC Flagged by Analyzer 0 % (0-5); Neutrophil # 8.48 X10^3/uL (2.7-7.7); Neutrophil % 78.8 % (47-70); Platelet Count 300 K/mm3 (150-450); RBC Distribution Width CV 12.7 % (11.6-14.6); Red Blood Count 4.04 M/mm3 (4.2-5.4); White Blood Count 10.8 K/mm3 (4.4-11.0)
[2022-04-17 15:48] LABS: ALB/GLOB Ratio 0.9 RATIO (0.9-2.4); AST(SGOT) 10 U/L (15-37); Alanine Aminotransfer ALT/SGPT 16 U/L (13-56); Albumin, Serum 3.2 g/dL (3.2-5.0); Alkaline Phosphatase 105 U/L (45-117); Anion Gap 8 (5-15); BUN 13 mg/dL (7-18); BUN/Creat Ratio 7.6 RATIO (10-20); Chloride 103 mmol/L (98-107); Creatinine, Serum 1.71 mg/dL (0.55-1.02); EST Glomerular Filtration Rate 32 mL/min (>60); Est Glom Filt Rate - Afr Amer 38 mL/min (>60); Globulin 3.7 g/dL (2.2-4.2); Glucose 264 mg/dL (74-106); Potassium 4.4 mmol/L (3.5-5.1); Protein, Total 6.9 g/dL (6.4-8.2); Sodium Level 135 mmol/L (136-145); T4 Free Direct 1.27 ng/dL (0.76-1.46); Thyroid Stim Hormone (TSH) 1.77 uIU/mL (0.358-3.74)
== END | disposition home or self-care (01) ==
LOC: MTLAB 12:52
PROVIDERS: PCP Family Medicine; Referring Provider Internal Medicine Rheumatology; Visit Provider Internal Medicine Rheumatology
DX: M06.4 Inflammatory polyarthropathy (principal); E11.9 Type 2 diabetes mellitus without complications; Z79.899 Other long term (current) drug therapy; M17.0 Bilateral primary osteoarthritis of knee; M47.892 Other spondylosis, cervical region; M18.0 Bilateral primary osteoarthritis of first carpometacarpal joints; Q66.70 Congenital pes cavus, unspecified foot; E03.9 Hypothyroidism, unspecified; E78.5 Hyperlipidemia, unspecified; K21.9 Gastro-esophageal reflux disease without esophagitis
CPT/HCPCS: 36415; 80053; 84439; 84443; 85025

== ENCOUNTER → 2022-07-07 | Outpatient (CLI) | payer BC, SELFPAY ==
[2022-07-07 15:22] LABS: Absolute Lymphocyte Count 1.38 X10^3/uL (0.83-4.51); Absolute Neutrophil Count 6.5 X10^3/uL (2.0-7.7); Basophil# 0.06 X10^3/uL; Basophil% 0.7 % (0-1); Eosinophil# 0.13 X10^3/uL; Eosinophils% 1.5 % (0-5); Hematocrit 38.6 % (37-47); Hemoglobin 12.6 g/dL (12.0-15.0); Lymphocyte # 1.38 X10^3/ul (0.83-4.51); Lymphocyte % 15.4 % (19-41); Mean Corp Hgb Conc 32.6 g/dL (32-36); Mean Corpuscular Hgb 31.1 pg (27.0-32.0); Mean Corpuscular Volume 95.3 fL (81-99); Mean Platelet Vol. 10.6 fl (6.2-12.0); Monocyte# 0.86 X10^3/uL; Monocyte% 9.6 % (0-10); NRBC Flagged by Analyzer 0 % (0-5); Neutrophil % 72.5 % (47-70); Platelet Count 314 K/mm3 (150-450); RBC Distribution Width CV 12.8 % (11.6-14.6); RBC Distribution Width SD 44.6 fl (35.1-43.9); Red Blood Count 4.05 M/mm3 (4.2-5.4)
[2022-07-07 15:42] LABS: ALB/GLOB Ratio 0.8 RATIO (0.9-2.4); AST(SGOT) 14 U/L (15-37); Alanine Aminotransfer ALT/SGPT 19 U/L (13-56); Albumin, Serum 3.2 g/dL (3.2-5.0); Alkaline Phosphatase 92 U/L (45-117); Anion Gap 10 (5-15); BUN 17 mg/dL (7-18); BUN/Creat Ratio 11.3 RATIO (10-20); Calcium,Total 9.1 mg/dL (8.5-10.1); Chloride 103 mmol/L (98-107); EST Glomerular Filtration Rate 37 mL/min (>60); Est Glom Filt Rate - Afr Amer 45 mL/min (>60); Globulin 3.9 g/dL (2.2-4.2); Glucose 105 mg/dL (74-106); Potassium 4.5 mmol/L (3.5-5.1); Protein, Total 7.1 g/dL (6.4-8.2); Sodium Level 138 mmol/L (136-145)
== END | disposition home or self-care (01) ==
PROVIDERS: PCP Family Medicine; Referring Provider Internal Medicine Rheumatology; Visit Provider Internal Medicine Rheumatology
DX: M06.4 Inflammatory polyarthropathy (principal); Z79.899 Other long term (current) drug therapy; M17.0 Bilateral primary osteoarthritis of knee; M47.892 Other spondylosis, cervical region; M18.0 Bilateral primary osteoarthritis of first carpometacarpal joints; Q66.70 Congenital pes cavus, unspecified foot
CPT/HCPCS: 36415; 80053; 85025

== ENCOUNTER 2022-07-14 11:30 | Outpatient (RCR) | payer BC, SELFPAY ==
--- NOTE | 2022-06-10 16:04 | HP.OTEVAL_ITS ---
Patient's Visit Information HOPE ENCINAS is a 67 year old F, referred to Occupational Therapy by Dr. Dahiana Silva MD, with a diagnosis of CTS right hand. 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 Pt states prior to sx she was unable to use her right hand- pt is right hand dominate-. pt states she had a CTR about 25 years ago. - ADLs Fasteners: Buttons, Zippers, Snaps Eating: Cut food Kitchen: Chop with knife, Peel fruits & vegetables, Open jars, Lift gallon of milk, Pour from pitcher Miscellaneous: Use remote control, Use cell phone, Open medication bottle, Triplett dle money (change), Hold change, Take things out of wallet, Write - Pain right hand 3 Pain Intensity Range: 3, 4 - ROM Wrist: right 45/45 left 40/45 Opposition: Kapandji opposition scale right 4 left 10 ROM Comments: pt demo 1 away from composite fist - Strength Spinning Lathe Operator Hydraulic: right 10# left 15# Lateral Pinch: right 6# left 4# Tripod Pinch: right unable left 2# Strength Comments: pt demo with weakness in bilateral hands- - Sensation Thumb: right 3.22 left 2.83 Index: right 3.22 left 2.83 Middle: right 3.22 left 2.83 Ring: right 3.22 left 2.83 Little: right 3.22 left 2.83 - Quick DASH-Disab of Arm,Shoulder& Hand Quick DASH Score: 47.7250 - Goals Goal:100% adherence to protocol: Yes Comment: CTS Goal:Daily scar massage when approriate: Yes Goal:ROM equal to unaffected hand: Yes Goal:Spinning Lathe Operator Hydraulic/Pinch strength at least 75% of unaffected hand: Yes Goal:No pain with affected hand use: Yes Goal:Full use of affected hand in daily activities including: Yes - Rehabilitation General Assessment: pt arrives to OT 2 weeks and 6 days s/p from CTR sx. pt demo with limited ROM and weakness limiting her IND with ADLS and IADLS. pt would benefit from OT services 1-2x week for 2-4 weeks to return pt to her PLOF. Pt demo understanding and agrees to POC. Rehabilitation Potential: Excellent - Anticipated Interventions A/AAROM/PROM, Strengthening, Scar Care, Triggerpoint Release, Sensory Retraining, Wound Care, Modalities, Joint Protection/Energy Conservation, Ergonomic Education, Education re assistive Equipment, Education re Diagnosis, Home Program - Visit Plan Frequency: 1-2x /Week Duration: 2-4 Weeks TEXT: Thank you for the opportunity to evaluate your patient. For Medicare and Medicare HMO plans, please review the plan of care and approve it. It will need to be FAXED BACK to us at [phone] for Medicare purposes. Please let me know if there are questions or concerns regarding this plan of care. Physician Signature: Date:
--- NOTE | 2022-07-14 11:41 | HP.OTDCSUM_ITS ---
It has been my pleasure to treat HOPE ENCINAS under orders from Dr. Dahiana Silva MD, for the diagnosis of CTS right hand for a total of 11 visit(s). Please see the following information for a summary of their discharge status. % Improvement: 85 Objective/Function: pt demo right wrist ROM at 35/45. right television receiver analyzer strength 15# left 15#. pt has met OT goals and agrees to D/C- pt is making accommodations with adaptive eq. for cooking and cleaning tasks- pt reports she is functioning well. Patient Goals: Regain Strength, Use Hand/Wrist/Arm Normally Again, Be More Independent in ADLS Goal:100% adherence to protocol: Yes Goal:Daily scar massage when approriate: Yes Goal:ROM equal to unaffected hand: Yes Goal:Radio Electronics Officer/Pinch strength at least 75% of unaffected hand: Yes Goal:No pain with affected hand use: Yes Goal:Full use of affected hand in daily activities including: Yes Plan: initiate BTE to increase pts functional strength Discharge Comments: Pt was seen for 11 OT visits and has demo good gains in ROM and strength- pt has returned to performing all ADLs and IADls- pt is using ad. eq. for OA pain/swelling. pt agrees to D/C and continue with strengthen If there are questions or concerns regarding this patient's occupational therapy, please fell free to call me at [phone]. Thank you for the referral of this patient. Sincerely, Bebe Phillips, OTR/L, CHT
== END 2022-07-14 19:00 | disposition home or self-care (01) ==
LOC: OT 11:30
PROVIDERS: PCP Family Medicine; Referring Provider Orthopaedic Surgery Hand Surgery; Visit Provider Orthopaedic Surgery Hand Surgery
DX: G56.01 Carpal tunnel syndrome, right upper limb (principal); E11.9 Type 2 diabetes mellitus without complications; Z79.4 Long term (current) use of insulin
CPT/HCPCS: 97035; 97110; 97140; 97166; 97530

== ENCOUNTER 2022-12-26 17:17 | Inpatient (IN) | payer BC, MEDICARE, SELFPAY ==
[2022-12-26] VITALS (10 sets, daily range): BP systolic 131–181; BP diastolic 76–101; PULSE 75–102; RESP 15–38; TEMP 36.5–37.8; O2SAT 90–96; BMI 43.8
--- NOTE | 2022-12-26 18:15 | EKG12_ITS ---
Test Reason : SOB Blood Pressure : / mmHG Vent. Rate : 097 BPM Atrial Rate : 097 BPM P-R Int : 140 ms QRS Dur : 066 ms QT Int : 334 ms P-R-T Axes : 064 022 035 degrees QTc Int : 424 ms Normal sinus rhythm Low voltage QRS (Limb Leads) Poor R wave progression Confirmed by MARK TAYLOR, MENDOZA ([id number]), purchase request editor OUSMANE HOFFMAN ([id number]) on 12/29/2022 1:49:33 PM Referred By: SHIELA Confirmed By:MENDOZA FLORES MD
[2022-12-26 19:06] LABS: Absolute Lymphocyte Count 0.97 X10^3/uL (0.83-4.51); Absolute Neutrophil Count 5.6 X10^3/uL (2.0-7.7); Basophil# 0.04 X10^3/uL; Basophil% 0.5 % (0-1); Eosinophil# 0.01 X10^3/uL; Eosinophils% 0.1 % (0-5); Hematocrit 36.7 % (37-47); Hemoglobin 11.5 g/dL (12.0-15.0); Lymphocyte # 0.97 X10^3/ul (0.83-4.51); Lymphocyte % 12.9 % (19-41); Mean Corp Hgb Conc 31.3 g/dL (32-36); Mean Corpuscular Hgb 30.1 pg (27.0-32.0); Mean Corpuscular Volume 96.1 fL (81-99); Mean Platelet Vol. 9.4 fl (6.2-12.0); Monocyte# 0.92 X10^3/uL; Monocyte% 12.2 % (0-10); NRBC Flagged by Analyzer 0 % (0-5); Neutrophil # 5.56 X10^3/uL (2.7-7.7); Platelet Count 276 K/mm3 (150-450); RBC Distribution Width CV 15.2 % (11.6-14.6); RBC Distribution Width SD 53.8 fl (35.1-43.9); Red Blood Count 3.82 M/mm3 (4.2-5.4); White Blood Count 7.5 K/mm3 (4.4-11.0)
--- NOTE | 2022-12-26 19:10 | RAD_ITS ---
EXAM: XR CHEST, 2 VIEWS CLINICAL INDICATION: SOB TECHNIQUE: Frontal and lateral views of the chest. This report was created using [employer] report generation technology. COMPARISON: 02.17.13 FINDINGS: LUNGS AND PLEURAL SPACES: Unremarkable. No consolidation or edema. No pneumothorax. No effusion. HEART: Unremarkable. Cardiac silhouette not enlarged. MEDIASTINUM: Central airways and mediastinal contour are unremarkable. BONES/JOINTS: Cervical spine wires noted. SOFT TISSUES: Unremarkable. RAD/Chest PA and Lateral IMPRESSION: No acute findings in the chest. Electronically Signed: Boone Paulino MD at 19:35 EST ,
[2022-12-26] MEDS: Acetaminophen 325 MG Tablet 650 MG PO (19:17)
[2022-12-26] MEDS: Ipratropium/Albuterol Sulfate 3 ML AMPUL.NEB INHALATION ×2 (19:17→22:43)
--- NOTE | 2022-12-26 19:34 | EDS_ITS ---
HPI <DAWIT Hernandez - Last Filed: 12/26/22 21:35> History of Present Illness Chief Complaint: Shortness of Breath Narrative Narrative: Patient was to today with shortness of breath that she has had for the past few days that acutely worsened today. She states that she had COVID in September and has had a cough ever since. She reports she has had a fever and chills for the past 2 days, a productive cough, and that her is also sick with a cough. She denies having any chronic lung conditions, chest pain, abdominal pain, nausea, vomiting, and diarrhea. She states her PMH includes diabetes mellitus. She does not use any oxygen at home. PFSH <DAWIT Hernandez - Last Filed: 12/26/22 21:35> [facility] Medical History Acute bronchitis, unspecified Anemia Arthritis Diabetes Right carpal tunnel syndrome Thyroid disease Home Medications levothyroxine 112 mcg tablet (Synthroid) 125 mcg PO DAILY THYROID 12/09/17 [History Last Taken 07/17/20 04:45 125 MCG] cyanocobalamin (vitamin B-12) 1,000 mcg/mL injection solution 1,000 mcg IM QMONTH SUPPLEMENT 02/28/19 [History Last Taken Unknown] ergocalciferol (vitamin D2) 1,250 mcg (50,000 unit) capsule 50,000 units PO QWEEK SUPPLEMENT 02/28/19 [History Last Taken Unknown] glimepiride 2 mg tablet 2 mg PO DAILY DIABETES 02/28/19 [History Last Taken Unknown] ramipril 10 mg capsule 15 mg PO DAILY HEART 07/03/20 [History Last Taken 07/17/20 04:45 15 MG] metformin 500 mg tablet 2,000 mg PO DAILY diabetes 07/19/20 [History Last Taken Unknown] omeprazole 20 mg capsule,delayed release 20 mg PO DAILY 04/30/22 [History Last Taken Unknown] ipratropium 20 mcg-albuterol 100 mcg/actuation mist for inhalation (Combivent Respimat) 1 puff inhalation Q4H 12/26/22 [History Last Taken Unknown] meloxicam 15 mg tablet 15 mg PO DAILY 12/26/22 [History Last Taken Unknown] Allergy/AdvReac Type Severity Reaction Status Date / Time hydroxychloroquine Allergy Rash Verified 12/26/22 17:21 [From Plaquenil] Family History Mother Heart disease Cancer Father Hypertension Heart disease Surgical History h/o right total knee History of arthroplasty of left knee History of bilateral carpal tunnel release History of cholecystectomy History of repair of right rotator cuff History of tonsillectomy History of total left knee replacement Hx of cataract extraction S/P right knee arthroscopy Social History Smoking Status: Current every day smoker tobacco type: cigarettes alcohol intake: never ROS <DAWIT Hernandez - Last Filed: 12/26/22 21:35> ROS ED Constitutional Constitutional ED: Denies chills, fever(s) or sweats Eyes Eyes: Denies blurry vision or diplopia Cardiovascular Cardiovascular: Denies chest pain or palpitations Respiratory/Chest Respiratory/Chest: Reports cough and dyspnea Gastrointestinal Gastrointestinal: Denies abdominal pain, diarrhea, nausea or vomiting Musculoskeletal Musculoskeletal: Denies arthralgias, back pain, myalgias or neck pain Integumentary Denies abscess, Abrasions or rash Neurologic Neurologic: Denies confusion, dizziness or paresthesias Psychiatric Psychiatric: Denies anxiety or depression EXAM <DAWIT Hernandez - Last Filed: 12/26/22 21:35> Physical Exam Const Vital Signs: 12/26/22 17:18 12/26/22 18:17 12/26/22 18:20 Temperature 99.7 F H 100.0 F H Temperature Source Temporal Temporal Pulse Rate 102 H 97 Respiratory Rate 28 H 38 H Respiratory Effort Short of Breath Labored Respiratory Depth Deep Respiratory Pattern Tachypnea Blood Pressure 159/95 H 181/85 H Blood Pressure Mean 116 117 Pulse Ox 96 90 Oxygen Delivery Method Room Air Room Air Nasal Cannula Oxygen Flow Rate (L/min) 2 12/26/22 18:26 12/26/22 18:57 12/26/22 19:18 Temperature 100.0 F H Temperature Source Temporal Pulse Rate 95 Respiratory Rate 30 H Respiratory Effort Respiratory Depth Respiratory Pattern Blood Pressure 166/101 H Blood Pressure Mean 122 Pulse Ox 91 93 Oxygen Delivery Method Nasal Cannula Nasal Cannula Nasal Cannula Oxygen Flow Rate (L/min) 2 2 2 12/26/22 19:18 12/26/22 19:17 12/26/22 19:17 Temperature Temperature Source Pulse Rate 91 92 Respiratory Rate 19 H 24 H 24 H Respiratory Effort Normal Non-Labored Short of Breath Respiratory Depth Normal Respiratory Pattern Tachypnea Normal Blood Pressure 162/89 H Blood Pressure Mean 113 Pulse Ox 93 95 Oxygen Delivery Method Nasal Cannula Nasal Cannula Oxygen Flow Rate (L/min) 2 12/26/22 21:22 12/26/22 21:30 Temperature 97.7 F L Temperature Source Temporal Pulse Rate 75 Respiratory Rate 15 Respiratory Effort Respiratory Depth Respiratory Pattern Blood Pressure 131/76 H Blood Pressure Mean 94 Pulse Ox 93 95 Oxygen Delivery Method Room Air Nasal Cannula Oxygen Flow Rate (L/min) 2 Positive well nourished, well developed and no apparent distress General Appearance ED: well developed HEENT Reports normocephalic and head/scalp atraumatic Mouth ED: Yes moist mucous membranes normal Eyes PERRL and EOMs intact bilaterally Neck full ROM and supple Chest Wall inspection of chest normal Resp normal respiratory effort Resp Narrative: Inspiratory and expiratory wheezes noted in all lung fontanez bilaterally. Cardio regular rate and regular rhythm GI soft to palpation, non-tender, non-distended and no masses Back/Spine normal ROM and normal to inspection Extremity normal to inspection and full ROM Neuro oriented x3, CN's II-XII intact bilaterally, moves all extremities, no focal motor deficits and no sensory deficits noted Sensorium / Orientation: awake and alert Psych mental status grossly normal and thought process normal Skin no rashes or lesions noted and no wounds <Dr. Barrett Dominique, DO - Last Filed: 12/26/22 23:26> Physical Exam Const Vital Signs: 12/26/22 17:18 12/26/22 18:17 12/26/22 18:20 Temperature 99.7 F H 100.0 F H Temperature Source Temporal Temporal Pulse Rate 102 H 97 Respiratory Rate 28 H 38 H Respiratory Effort Short of Breath Labored Respiratory Depth Deep Respiratory Pattern Tachypnea Blood Pressure 159/95 H 181/85 H Blood Pressure Mean 116 117 Pulse Ox 96 90 Oxygen Delivery Method Room Air Room Air Nasal Cannula Oxygen Flow Rate (L/min) 2 12/26/22 18:26 12/26/22 18:57 12/26/22 19:18 Temperature 100.0 F H Temperature Source Temporal Pulse Rate 95 Respiratory Rate 30 H Respiratory Effort Respiratory Depth Respiratory Pattern Blood Pressure 166/101 H Blood Pressure Mean 122 Pulse Ox 91 93 Oxygen Delivery Method Nasal Cannula Nasal Cannula Nasal Cannula Oxygen Flow Rate (L/min) 2 2 2 12/26/22 19:18 12/26/22 19:17 12/26/22 19:17 Temperature Temperature Source Pulse Rate 91 92 Respiratory Rate 19 H 24 H 24 H Respiratory Effort Normal Non-Labored Short of Breath Respiratory Depth Normal Respiratory Pattern Tachypnea Normal Blood Pressure 162/89 H Blood Pressure Mean 113 Pulse Ox 93 95 Oxygen Delivery Method Nasal Cannula Nasal Cannula Oxygen Flow Rate (L/min) 2 12/26/22 21:22 12/26/22 21:30 Temperature 97.7 F L Temperature Source Temporal Pulse Rate 75 Respiratory Rate 15 Respiratory Effort Respiratory Depth Respiratory Pattern Blood Pressure 131/76 H Blood Pressure Mean 94 Pulse Ox 93 95 Oxygen Delivery Method Room Air Nasal Cannula Oxygen Flow Rate (L/min) 2 [facility] <DAWIT Hernandez - Last Filed: 12/26/22 21:35> [facility] Narrative Medical decision making narrative: Patient presenting with shortness of breath that she has had for the past few days that acutely worsened today. She states that ever since she had COVID in September she has had a lingering cough. Her cough has worsened in the past few days and her is also sick with a cough. She has had a fever in the last 2 days and chills. She has been given Tylenol for her elevated temperature as well as a DuoNeb due to wheezes on auscultation. CBC does not show any leukocytosis but does show mild anemia, BMP shows sodium of 135 with creatinine of 1.63 and GFR of 34, glucose 56. She has been given rosario olivia and luna cr ackers. Chest x-ray does not show any infiltrate, pleural effusion, pneumothorax, or any other abnormality. Patient does not use oxygen at home and is currently 93% on 2 L. She will be ambulated to assess her pulse ox. Pulse ox did drop to 85% on room air during ambulation. She has been discussed with the hospitalist for admission. Lab Data Attestation: I reviewed the patient's lab results. Labs: Laboratory Results - last 24 hr 12/26/22 12/26/22 12/26/22 18:50 18:50 20:25 WBC 7.5 RBC 3.82 L Hgb 11.5 L Hct 36.7 L MCV 96.1 MCH 30.1 MCHC 31.3 L RDW Std Deviation 53.8 H RDW Coeff of Lisa 15.2 H Plt Count 276 MPV 9.4 Immature Gran % (Auto) 0.300 Neut % (Auto) 74.0 H Lymph % (Auto) 12.9 L [place] % (Auto) 12.2 H Eos % (Auto) 0.1 Baso % (Auto) 0.5 Absolute Neuts (auto) 5.6 Absolute Lymphs (auto) 0.97 Nucleated RBC % 0 Sodium 135 L Potassium 4.8 Chloride 100 Carbon Dioxide 27.0 Anion Gap 8 BUN 16 Creatinine 1.63 H Estim Creat Clear Calc 24.39 Est GFR (MDRD) Af Amer 41 L Est GFR (MDRD) Non-Af 34 L BUN/Creatinine Ratio 9.8 L Glucose 56 L Calcium 8.8 Troponin I High Sens 57 H 63 H Radiography Diagnostic Testing: Clinical Impression(s) from Imaging Studies Chest X-Ray 12/26/22 19:10 IMPRESSION: No acute findings in the chest. Electronically Signed: Boone Paulino MD at 19:35 EST , EKG Initial EKG: Comments: 97 bpm, normal sinus rhythm, no ST elevation. EKG reviewed and interpreted by attending ED physician. <Dr. Barrett Dominique, DO - Last Filed: 12/26/22 23:26> [facility] Narrative Medical decision making narrative: Patient presenting with shortness of breath that she has had for the past few days that acutely worsened today. She states that ever since she had COVID in September she has had a lingering cough. Her cough has worsened in the past few days and her is also sick with a cough. She has had a fever in the last 2 days and chills. She has been given Tylenol for her elevated temperature as well as a DuoNeb due to wheezes on auscultation. CBC does not show any leukocytosis but does show mild anemia, BMP shows sodium of 135 with creatinine of 1.63 and GFR of 34, glucose 56. She has been given rosario olivia and luna crackers. Chest x-ray does not show any infiltrate, pleural effusion, pneumothorax, or any other abnormality. Patient does not use oxygen at home and is currently 93% on 2 L. She will be ambulated to assess her pulse ox. Pulse ox did drop to 85% on room air during ambulation. She has been discussed with the hospitalist for admission. This patient was seen with a PA/NON DESTRUCTIVE TESTING SPECIALIST Individually assessed they patient including history and physical. I have reviewed everything on the chart that is available and agree with the documentation provided by the PA/NON DESTRUCTIVE TESTING SPECIALIST including discussion about the assessment, treatment plan, discussion, and return precautions. Patient with 2 to 3 days of fever, chills, cough. She had COVID in September. Reports a chronic cough since then. Patient is an everyday smoker presents with wheezing. She is given breathing treatments. Blood work is obtained. CBC shows no leukocytosis. Hemoglobin seems stable at 11.5. Creatinine at baseline 1.63. Electrolytes unremarkable. Initial high-sensitivity troponin is 57 and delta troponin is 63. Unsure etiology. This may be from hypoxia and heart strain is not reporting any chest pain. EKG sinus rhythm at 97 bpm without sign of ischemic change or dysrhythmia. Patient ambulated and dropped to 85% on room air. She stable on 2 L. On reevaluation patient still wheezing. She is given a second round of breathing treatments. Solu-Medrol was provided. She will be admitted for further treatment. Impression: 1. Acute bronchitis 2. Hypoxia 3. Elevated troponin Lab Data Labs: Laboratory Results - last 24 hr 12/26/22 12/26/22 12/26/22 18:50 18:50 20:25 WBC 7.5 RBC 3.82 L Hgb 11.5 L Hct 36.7 L MCV 96.1 MCH 30.1 MCHC 31.3 L RDW Std Deviation 53.8 H RDW Coeff of Lisa 15.2 H Plt Count 276 MPV 9.4 Immature Gran % (Auto) 0.300 Neut % (Auto) 74.0 H Lymph % (Auto) 12.9 L [place] % (Auto) 12.2 H Eos % (Auto) 0.1 Baso % (Auto) 0.5 Absolute Neuts (auto) 5.6 Absolute Lymphs (auto) 0.97 Nucleated RBC % 0 Sodium 135 L Potassium 4.8 Chloride 100 Carbon Dioxide 27.0 Anion Gap 8 BUN 16 Creatinine 1.63 H Estim Creat Clear Calc 24.39 Est GFR (MDRD) Af Amer 41 L Est GFR (MDRD) Non-Af 34 L BUN/Creatinine Ratio 9.8 L Glucose 56 L Calcium 8.8 Troponin I High Sens 57 H 63 H Radiography Diagnostic Testing: Clinical Impression(s) from Imaging Studies Chest X-Ray 12/26/22 19:10 IMPRESSION: No acute findings in the chest. Electronically Signed: Boone Paulino MD at 19:35 EST , Discharge Plan Triage Chief Complaint: Shortness of Breath ED Midlevel Provider: Maryann Cowart ED Provider: Barrett Dominique Dx/Rx/DC Orders Clinical Impression: Acute bronchitis, Hypoxia Prescriptions: No Action levothyroxine [Synthroid] 112 mcg tablet 125 mcg PO DAILY omeprazole 20 mg capsule,delayed release(DR/EC) 20 mg PO DAILY glimepiride 2 MG tablet 2 mg PO DAILY cyanocobalamin (vitamin B-12) 1,000 MCG/ML solution 1,000 mcg IM QMONTH ergocalciferol (vitamin D2) 50,000 UNIT capsule 50,000 units PO QWEEK Label Comments: TAKE ONE CAPSULE BY MOUTH ONCE A WEEK ramipril 10 MG capsule 15 mg PO DAILY metformin 500 MG tablet 2,000 mg PO DAILY meloxicam [Mobic] 15 mg Tablet 15 mg PO DAILY Combivent Respimat 20-100 mcg/actuation Mist 1 puff INHALATION Q4H Primary Care Provider: Marie Landers Referrals: Marie Landers MD [Primary Care Provider] -
[2022-12-26 19:45] LABS: Anion Gap 8 (5-15); BUN 16 mg/dL (7-18); BUN/Creat Ratio 9.8 RATIO (10-20); Calcium,Total 8.8 mg/dL (8.5-10.1); Chloride 100 mmol/L (98-107); Creatinine, Serum 1.63 mg/dL (0.55-1.02); EST Glomerular Filtration Rate 34 mL/min (>60); Est Glom Filt Rate - Afr Amer 41 mL/min (>60); Estimated Creatinine Clearance 24.39 ml/min; Glucose 56 mg/dL (74-106); Potassium 4.8 mmol/L (3.5-5.1); Sodium Level 135 mmol/L (136-145); Troponin-I HS 57 pg/mL (3.0-54.0)
[2022-12-26 20:56] LABS: Troponin-I HS (w/2H Reflex) 63 pg/mL (3.0-54.0)
[2022-12-26] MEDS: Albuterol 2.5 MG/3 ML VIAL.NEB. INHALATION (22:43)
--- NOTE | 2022-12-26 23:08 | CPS ---
[2243] x1 Duoneb & x1 Albuterol given additionally to pt. in ER. Pt. still has inspiratory and expiratory wheezes through out. Post-tx, pt.'s lungs did clear up, but there are still inspiratory and expiratory wheezes through out.
--- NOTE | 2022-12-26 23:34 | PCM.HP.STD ---
[facility] - General General Date of Admission: 12/26/22 Date of Service: 12/26/22 Chief Complaint: Shortness of breath HPI Narrative HOPE ENCINAS, is a 67 F with a significant history of diabetes who presents emergency department with a 2-day history of progressively worsening shortness of breath. Reportedly she has had shortness of breath for a couple of weeks but it has worsened. Associated with her symptoms is fever of 100.9 Fahrenheit. Further she reports chills. She has chronic cough since she had COVID in September 2022. Her cough is typically dry but productive in the mornings. She does not know the color of his sputum. Her coughing has worsened with her present symptoms. Further, patient reports bilateral swelling of her legs from her feet to the knees. At the emergency department with ambulation patient's saturation dropped to 85%; and she require supplemental oxygen. Patient blood glucose was in the 50s at the emergency department and patient ate some tacos. Emergency department doctor reported wheezing on examination. Also she reported that her has had a cough for about 1 week [facility] Medical History Acute bronchitis, unspecified Anemia Arthritis Diabetes Right carpal tunnel syndrome Thyroid disease Home Medications levothyroxine 112 mcg tablet (Synthroid) 125 mcg PO DAILY THYROID 12/09/17 [History Last Taken 07/17/20 04:45 125 MCG] cyanocobalamin (vitamin B-12) 1,000 mcg/mL injection solution 1,000 mcg IM QMONTH SUPPLEMENT 02/28/19 [History Last Taken Unknown] ergocalciferol (vitamin D2) 1,250 mcg (50,000 unit) capsule 50,000 units PO QWEEK SUPPLEMENT 02/28/19 [History Last Taken Unknown] glimepiride 2 mg tablet 2 mg PO DAILY DIABETES 02/28/19 [History Last Taken Unknown] ramipril 10 mg capsule 15 mg PO DAILY HEART 07/03/20 [History Last Taken 07/17/20 04:45 15 MG] metformin 500 mg tablet 2,000 mg PO DAILY diabetes 07/19/20 [History Last Taken Unknown] omeprazole 20 mg capsule,delayed release 20 mg PO DAILY 04/30/22 [History Last Taken Unknown] ipratropium 20 mcg-albuterol 100 mcg/actuation mist for inhalation (Combivent Respimat) 1 puff inhalation Q4H 12/26/22 [History Last Taken Unknown] meloxicam 15 mg tablet 15 mg PO DAILY 12/26/22 [History Last Taken Unknown] Allergy/AdvReac Type Severity Reaction Status Date / Time hydroxychloroquine Allergy Rash Verified 12/26/22 17:21 [From Plaquenil] Family History Mother Heart disease Cancer Father Hypertension Heart disease Surgical History h/o right total knee History of arthroplasty of left knee History of bilateral carpal tunnel release History of cholecystectomy History of repair of right rotator cuff History of tonsillectomy History of total left knee replacement Hx of cataract extraction S/P right knee arthroscopy Social History Smoking Status: Current every day smoker tobacco type: cigarettes alcohol intake: never ROS ROS Narrative Pertinent positives and pertinent negatives as noted in HPI. All other systems were reviewed and are negative Vital Signs Vital Signs Vital Signs: 12/26/22 17:18 12/26/22 18:17 12/26/22 18:20 Temperature 99.7 F H 100.0 F H Temperature Source Temporal Temporal Pulse Rate 102 H 97 Respiratory Rate 28 H 38 H Respiratory Effort Short of Breath Labored Respiratory Depth Deep Respiratory Pattern Tachypnea Blood Pressure 159/95 H 181/85 H Blood Pressure Mean 116 117 Pulse Ox 96 90 Oxygen Delivery Method Room Air Room Air Nasal Cannula Oxygen Flow Rate (L/min) 2 12/26/22 18:26 12/26/22 18:57 12/26/22 19:18 Temperature 100.0 F H Temperature Source Temporal Pulse Rate 95 Respiratory Rate 30 H Respiratory Effort Respiratory Depth Respiratory Pattern Blood Pressure 166/101 H Blood Pressure Mean 122 Pulse Ox 91 93 Oxygen Delivery Method Nasal Cannula Nasal Cannula Nasal Cannula Oxygen Flow Rate (L/min) 2 2 2 12/26/22 19:18 12/26/22 19:17 12/26/22 19:17 Temperature Temperature Source Pulse Rate 91 92 Respiratory Rate 19 H 24 H 24 H Respiratory Effort Normal Non-Labored Short of Breath Respiratory Depth Normal Respiratory Pattern Tachypnea Normal Blood Pressure 162/89 H Blood Pressure Mean 113 Pulse Ox 93 95 Oxygen Delivery Method Nasal Cannula Nasal Cannula Oxygen Flow Rate (L/min) 2 12/26/22 21:22 12/26/22 21:30 Temperature 97.7 F L Temperature Source Temporal Pulse Rate 75 Respiratory Rate 15 Respiratory Effort Respiratory Depth Respiratory Pattern Blood Pressure 131/76 H Blood Pressure Mean 94 Pulse Ox 93 95 Oxygen Delivery Method Room Air Nasal Cannula Oxygen Flow Rate (L/min) 2 Weight Weight: 101.2 kg Body Mass Index (BMI) 43.8 Physical Exam Narrative IPhysical exam: General: Well-nourished, well-developed. Head: Normocephalic, atraumatic, no tenderness Eyes: Vision is grossly intact. EOMI ENT, no trauma, moist mucous membranes, no rhinorrhea Neck: Nontender, No thyromegaly. CVS: Regular rate and rhythm. S1-S2 present. No murmur, gallop or rub. Respiratory : Diminished with faint wheezes., chest wall nontender. Abdomen: Soft, nontender, nondistended, normal bowel sounds, no masses : Deferred Back: Nontender, no CVA tenderness, no midline spinal tenderness, deformities, step-offs Extremities: Nontender full range of motion, no trauma Skin: Normal color, no trauma, abrasions Neuro: Alert, oriented, cranial nerves II through XII grossly intact. Psychiatry: Normal mood. Normal affect. Not depressed. Not anxious. Results Lab / Micro Data Result Diagrams: 12/26/22 18:50 12/26/22 18:50 Labs: Laboratory Results - last 24 hr 12/26/22 18:50: WBC 7.5, RBC 3.82 L, Hgb 11.5 L, Hct 36.7 L, MCV 96.1, MCH 30.1, MCHC 31.3 L, RDW Std Deviation 53.8 H, RDW Coeff of Lisa 15.2 H, Plt Count 276, MPV 9.4, Immature Gran % (Auto) 0.300, Neut % (Auto) 74.0 H, Lymph % (Auto) 12.9 L, [place] % (Auto) 12.2 H, Eos % (Auto) 0.1, Baso % (Auto) 0.5, Absolute Neuts (auto) 5.6, Absolute Lymphs (auto) 0.97, Nucleated RBC % 0 12/26/22 18:50: Sodium 135 L, Potassium 4.8, Chloride 100, Carbon Dioxide 27.0, Anion Gap 8, BUN 16, Creatinine 1.63 H, Estim Creat Clear Calc 24.39, Est GFR (MDRD) Af Amer 41 L, Est GFR (MDRD) Non-Af 34 L, BUN/Creatinine Ratio 9.8 L, Glucose 56 L, Calcium 8.8, Troponin I High Sens 57 H 12/26/22 20:25: Troponin I High Sens 63 H Micro: Microbiology 12/26/22 19:28 Nasal Secretion SARS-CoV-2 Antigen (Rapid) - Final 12/26/22 19:02 Mucosa - Nasopharyngeal Influenza Types A,B Direct FA (JOSUE) - Final Radiology Impression Chest X-Ray 12/26/22 19:10 IMPRESSION: No acute findings in the chest. Electronically Signed: Boone Paulino MD at 19:35 EST Reading Location ID and State: [facility] / [place] , Service support , Assessment & Plan Assessment/Plan (1) Acute bronchitis: (2) Hypoxia: (3) Viral syndrome: PLAN: Plan Acute bronchitis/viral syndrome/hypoxia Impression of chest x-ray by cardiac cath technologist: No acute findings in the chest. Actual chest x-ray image was independently interpreted and I agree with radiology interpretation. Rapid COVID antigen and rapid influenza negative at the ED Check respiratory pathogen panel. Solu-Medrol [id number] ordered CBC showed a normal white count of 7.5. Trend. Bilateral leg edema We will check echocardiogram and bilateral Dopplers Acute hypoglycemia/diabetes mellitus Blood glucose in the 50s in the emergency department. Reportedly at something close. Hold home hypoglycemic regimen. Serial Accu-Cheks ordered. Elevated troponin Initial high sensitive point was 57 and repeat was 63. Likely secondary to demand ischemia from hypoxia. Hypertension Blood pressure is not within goal Home blood pressure medication continued. As needed hydralazine ordered. Trend blood pressure and adjust blood pressure medications. CKD stage IIIb Likely secondary to diabetic nephropathy. Stable. DVT prophylaxis Subcutaneous Heparin ordered. Charges/Coding Visit Charges Inpatient E&M: 65435 Init Hosp L3
--- NOTE | 2022-12-26 23:44 | VDLE_ITS ---
Reason For Study: SWELLING RIGHT LEFT CFV is compressible, spontaneous, competent CFV is compressible, spontaneous, competent, and demonstrates pulsatile venous flow. and demonstrates pulsatile venous flow. FV is compressible, spontaneous, competent FV is compressible, spontaneous, competent and demonstrates pulsatile venous flow. and demonstrates pulsatile venous flow. POP V is compressible, spontaneous, competent POP V is compressible, spontaneous, competent and demonstrates pulsatile venous flow. and demonstrates pulsatile venous flow. T/P Trunk is compressible. T/P Trunk is compressible. PTV is compressible. PTV is compressible. RT PerV is compressible. LT PerV is compressible. GSV is normal. GSV is normal. Procedure This is a venous duplex using B-mode, color flow and spectral Doppler. Exam performed portable in patient room. The study was technically difficult. A preliminary report was called and/or faxed to [facility]. VL/Venous Duplex US, Unilateral Interpretation Summary Deep veins of the bilateral lower extremities are patent and compressible segme ntally. There is no evidence of bilatral lower extremity deep vein thrombosis. The bilateral great saphenous veins appear patent and compressible segmentally. Ordering Physician: Chi Lucas Referring Physician: Marie Landers Performed By: Rossy Farnsworth, JIMENEZ, RVT
[2022-12-27] VITALS (11 sets, daily range): BP systolic 131–155; BP diastolic 74–104; PULSE 82–111; RESP 17–20; TEMP 36.3–37.1; O2SAT 92–97; BMI 42.7
[2022-12-27] MEDS: MethylPREDNISolone 125 MG/2 ML Vial IV (00:18)
[2022-12-27] MEDS: Aspirin 325 MG Tablet PO (00:18)
--- NOTE | 2022-12-27 01:01 | ECHOD_ITS ---
Reason For Study: SOB Procedure This was a 2D Doppler, Color Flow transthoracic echocardiogram. The study was technically difficult. Exam performed portable in patient room. Left Ventricle Normal LV size. Left ventricular systolic function is normal. The estimated ejection fraction is 65 %. Stage 2 diastolic dysfunction. No regional wall motion abnormalities noted. Right Ventricle Normal RV size. Normal systolic function. Atria The left atrium is mildly enlarged. Normal right atrium. No doppler evidence for ASD. Mitral Valve There is mild to moderate mitral annular calcification. Extension of the mitral annular calcification ontothe base of the posterior mitral valve leaflet. Anterior leaflet diffuse mitral valve thickening. Moderate (2+) eccentric mitral valve insufficiency. Tricuspid Valve Normal tricuspid valve. Mild tricuspid valve insufficiency. Right ventricular systolic pressure estimated to be 70 mmHg. Severe pulmonary hypertension. Aortic Valve Trisinus/trileaflet aortic valve. Normal aortic valve. Pulmonic Valve The pulmonic valve is not well visualized. Mild (1+) pulmonic valve insufficiency. Great Vessels Normal sized aortic root. Pericardium/Pleural No pericardial effusion. MMode/2D Measurements & Calculations LVIDd: 4.9 cm IVSd: 1.1 cm Ao root diam: 3.2 cm LVIDs: 4.0 cm LVPWd: 1.1 cm RVDd: 3.0 cm FS: 18.3 % LAV(MOD-bp): 69.2 ml LA A4 area: 21.2 cm2 LA dimension(2D): 4.1 cm LAV(MOD-bp) Indexed: 35.4 ml/m2 LAV(MOD-sp2): 67.1 ml LAV(MOD-sp4): 66.7 ml RA A4 area: 10.6 cm2 Time Measurements MV dec time: 0.14 sec Doppler Measurements & Calculations MV E max tylor: 165.0 cm/sec Lat Peak E' Tylor: 5.7 cm/sec Med Peak E' Tylor: 4.7 cm/sec MV A max tylor: 144.9 cm/sec E/E' lat: 28.8 E/E' med: 34.9 MV E/A: 1.1 MV dec slope: 926.3 cm/sec2 Ao V2 max: 111.5 cm/sec LV V1 max: 105.4 cm/sec Ao max P.0 mmHg LV V1 max P.5 mmHg Ao V2 mean: 83.4 cm/sec LV V1 mean P.3 mmHg Ao mean P.1 mmHg LV V1 mean: 70.9 cm/sec Ao V2 VTI: 22.5 cm LV V1 VTI: 21.7 cm AV (velocity ratio): 0.96 MR max tylor: 597.9 cm/sec PA V2 max: 79.5 cm/sec TR max tylor: 369.3 cm/sec MR max P.0 mmHg TR max P.6 mmHg MR mean tylor: 528.6 cm/sec MR mean P.9 mmHg MR VTI: 193.1 cm ECHO/Echo Complete Interpretation Summary The study was technically difficult. Left ventricular systolic function is normal. The estimated ejection fraction is 65 %. The left atrium is mildly enlarged. There is mild to moderate mitral annular calcification. Extension of the mitral annular calcification ontothe base of the posterior chris ral valve leaflet. Anterior leaflet diffuse mitral valve thickening. Moderate (2+) eccentric mitral valve insufficiency. Mild tricuspid valve insufficiency. Mild (1+) pulmonic valve insufficiency. Right ventricular systolic pressure estimated to be 70 mmHg. Stage 2 diastolic dysfunction. Ordering Physician: Chi Lucas Referring Physician: Marie Landers Performed By: Rossy Farnsworth, JIMENEZ, RVT
[2022-12-27] MEDS: guaiFENesin 1,200 MG Tablet 1200 MG PO ×3 (01:38→22:53)
[2022-12-27 01:40] LABS: Bedside Glucose 156 mg/dL (74-106)
[2022-12-27] MEDS: Levothyroxine 125 MCG Tablet PO (05:35)
[2022-12-27] MEDS: Heparin Injection (Vial) 5,000 UNIT/ML VIAL 5000 UNIT SC ×3 (05:35→22:48)
[2022-12-27] MEDS: 0.9% Saline Lock 10 ML Syringe IV ×3 (05:37→22:52)
[2022-12-27 07:14] LABS: Absolute Lymphocyte Count 0.41 X10^3/uL (0.83-4.51); Absolute Neutrophil Count 5.3 X10^3/uL (2.0-7.7); Basophil# 0.02 X10^3/uL; Basophil% 0.3 % (0-1); Hematocrit 36.9 % (37-47); Hemoglobin 11.7 g/dL (12.0-15.0); Lymphocyte # 0.41 X10^3/ul (0.83-4.51); Mean Corp Hgb Conc 31.7 g/dL (32-36); Mean Corpuscular Hgb 29.9 pg (27.0-32.0); Mean Corpuscular Volume 94.4 fL (81-99); Mean Platelet Vol. 9.4 fl (6.2-12.0); Monocyte# 0.14 X10^3/uL; Monocyte% 2.4 % (0-10); NRBC Flagged by Analyzer 0 % (0-5); Neutrophil # 5.27 X10^3/uL (2.7-7.7); Neutrophil % 90.1 % (47-70); POSITIVE DIFFERENTIAL YES; Platelet Count 255 K/mm3 (150-450); RBC Distribution Width CV 15.2 % (11.6-14.6); Red Blood Count 3.91 M/mm3 (4.2-5.4); White Blood Count 5.9 K/mm3 (4.4-11.0)
[2022-12-27 07:18] LABS: Differential Indicated SCAN CRITERIA MET
[2022-12-27] MEDS: Ipratropium/Albuterol Sulfate 3 ML AMPUL.NEB INHALATION ×4 (07:42→19:28)
[2022-12-27] MEDS: Pantoprazole Sodium 20 MG Tablet PO (07:52)
[2022-12-27] MEDS: Meloxicam 15 MG Tablet PO (07:52)
[2022-12-27] MEDS: Ramipril 5 MG Capsule 15 MG PO (07:52)
[2022-12-27 07:53] LABS: Anion Gap 10 (5-15); BUN 18 mg/dL (7-18); BUN/Creat Ratio 9.9 RATIO (10-20); Calcium,Total 8.8 mg/dL (8.5-10.1); Chloride 101 mmol/L (98-107); Creatinine, Serum 1.82 mg/dL (0.55-1.02); EST Glomerular Filtration Rate 30 mL/min (>60); Est Glom Filt Rate - Afr Amer 36 mL/min (>60); Estimated Creatinine Clearance 47.38 ml/min; Glucose 266 mg/dL (74-106); Potassium 4.8 mmol/L (3.5-5.1); Sodium Level 133 mmol/L (136-145)
[2022-12-27 09:36] LABS: Differential Comment SCANNED
--- NOTE | 2022-12-27 11:30 | CASEMGMT ---
JACKIE STONE Assessment: Face to Face with pt for initial transition planning/care coordination assessment. RN CHASE introduced self and role at [facility], pt voices understanding and consents to assessment. Pt is A/O x4 and answers all questions appropriately at this time. Pt sitting up in chair receiving a breathing tx. Care providers, pharmacy, and demographics verified/updated. Admitting Dx: acute bronchitis PCP:Anshul Specialists:Pt denies. [facility]erred [facility]acy: [facility] Insurance: [facility] AMarycarmen Prescription Benefit: yes LNOK: Benjamín Moore, Living Arrangements: Pt lives with in a two story home with 3 steps to enter. Pt uses main level only. Pt reports she is I in ADL's and denies concerns at home. Transportation: Pt drives self and denies concerns with transportation. DME/HHC/SNF: Pt has a BGM at home with sufficient supplies and has insulin with supplies. Pt also has a cane and walker but does not use. Pt denies hx of HHC or SNF stays. Pt states no concerns with going home at time of dc. Spoke with hospitalist, pt will not be dc'd on oxygen. Pt states no further concerns/needs. CM to follow. Advised pt to ask CM if any further question/concerns/needs arise, voices understanding. Pt Goal: Home Plan: Home
[2022-12-27 13:05] LABS: Bedside Glucose 406 mg/dL (74-106)
[2022-12-27] MEDS: Insulin Lispro 100 UNIT/ML INSULN.PEN SC ×3 (13:21→22:49)
--- NOTE | 2022-12-27 16:18 | PCM.PN.HOSP ---
Reason for Visit Reason for Visit: Diagnoses Viral infection, unspecified (12/26/22) Acute bronchitis, unspecified (12/26/22) Hypoxemia (12/26/22) Subjective Subjective Was seen and examined today, she had an echocardiogram completed today which showed a normal EF but severe pulmonary hypertension. Patient has significant lower extremity edema. Patient's respiratory panel was positive for human metapneumovirus. Patient is currently on nasal cannula oxygen. Objective Data Objective Data Vital Signs: Vital Signs Temp Pulse Resp BP Pulse Ox O2 Del Method O2 Flow Rate 98.5 F 110 H 20 H 154/93 H 97 Nasal Cannula 2 12/27/22 07:51 12/27/22 15:48 12/27/22 15:48 12/27/22 07:51 12/27/22 07:51 12/27/22 08:13 12/27/22 08:13 Oxygen Flow Rate (L/min) 2 Oxygen Delivery Method Nasal Cannula Weight: 98.7 kg Body Mass Index (BMI) 42.7 Lab / Micro Data Result Diagrams: 12/27/22 06:40 12/27/22 06:40 Labs: Laboratory Results - last 24 hr 12/26/22 18:50: WBC 7.5, RBC 3.82 L, Hgb 11.5 L, Hct 36.7 L, MCV 96.1, MCH 30.1, MCHC 31.3 L, RDW Std Deviation 53.8 H, RDW Coeff of Lisa 15.2 H, Plt Count 276, MPV 9.4, Immature Gran % (Auto) 0.300, Neut % (Auto) 74.0 H, Lymph % (Auto) 12.9 L, Florence % (Auto) 12.2 H, Eos % (Auto) 0.1, Baso % (Auto) 0.5, Absolute Neuts (auto) 5.6, Absolute Lymphs (auto) 0.97, Nucleated RBC % 0 12/26/22 18:50: Sodium 135 L, Potassium 4.8, Chloride 100, Carbon Dioxide 27.0, Anion Gap 8, BUN 16, Creatinine 1.63 H, Estim Creat Clear Calc 24.39, Est GFR (MDRD) Af Amer 41 L, Est GFR (MDRD) Non-Af 34 L, BUN/Creatinine Ratio 9.8 L, Glucose 56 L, Calcium 8.8, Troponin I High Sens 57 H 12/26/22 20:25: Troponin I High Sens 63 H 12/27/22 01:18: POC Glucose 156 H 12/27/22 06:40: WBC 5.9, RBC 3.91 L, Hgb 11.7 L, Hct 36.9 L, MCV 94.4, MCH 29.9, MCHC 31.7 L, RDW Std Deviation 52.0 H, RDW Coeff of Lisa 15.2 H, Plt Count 255, MPV 9.4, Immature Gran % (Auto) 0.200, Neut % (Auto) 90.1 H, Lymph % (Auto) 7.0 L, Florence % (Auto) 2.4, Eos % (Auto) 0.0, Baso % (Auto) 0.3, Absolute Neuts (auto) 5.3, Absolute Lymphs (auto) 0.41 L, Nucleated RBC % 0, Differential Comment SCANNED 12/27/22 06:40: Sodium 133 L, Potassium 4.8, Chloride 101, Carbon Dioxide 22.0, Anion Gap 10, BUN 18, Creatinine 1.82 H, Estim Creat Clear Calc 47.38, Est GFR (MDRD) Af Amer 36 L, Est GFR (MDRD) Non-Af 30 L, BUN/Creatinine Ratio 9.9 L, Glucose 266 H, Calcium 8.8 12/27/22 12:39: POC Glucose 406 H Micro: Microbiology 12/27/22 01:45 Mucosa - Nasopharyngeal Respiratory Panel (PCR) - Final Human [place] 12/26/22 19:28 Nasal Secretion SARS-CoV-2 Antigen (Rapid) - Final 12/26/22 19:02 Mucosa - Nasopharyngeal Influenza Types A,B Direct FA (JOSUE) - Final Radiography Diagnostic Testing: Radiology Impression Chest X-Ray 12/26/22 19:10 IMPRESSION: No acute findings in the chest. Electronically Signed: Boone Paulino MD at 19:35 EST , Echocardiogram 12/27/22 01:01 Interpretation Summary The study was technically difficult. Left ventricular systolic function is normal. The estimated ejection fraction is 65 %. The left atrium is mildly enlarged. There is mild to moderate mitral annular calcification. Extension of the mitral annular calcification ontothe base of the posterior mitral valve leaflet. Anterior leaflet diffuse mitral valve thickening. Moderate (2+) eccentric mitral valve insufficiency. Mild tricuspid valve insufficiency. Mild (1+) pulmonic valve insufficiency. Right ventricular systolic pressure estimated to be 70 mmHg. Stage 2 diastolic dysfunction. Ordering Physician: Chi Lucas Referring Physician: Marie Landers Performed By: Rossy Farnsworth, JIMENEZ, RVT Physical Exam Const alert, oriented x3, no apparent distress and healthy appearing General Appearance: cooperative, well kempt and well developed Orientation / Consciousness: awake, oriented to person, oriented to place and oriented to time HEENT normocephalic, head/scalp atraumatic and moist oral mucous membranes Eyes PERRL, EOMs intact bilaterally and conjunctivae normal Neck supple, no JVD and thyroid normal General: trachea midline Resp normal respiratory effort, no retractions and no use of accessory muscles Resp Narrative: Scattered expiratory wheezes are noted bilaterally Auscultation: wheezes expiratory wheezes and throughout; Negative for rales or rhonchi Cardio regular rate, regular rhythm, S1 normal heart sound, S2 normal heart sound, no murmurs, no rub and no gallops GI normal to inspection, nondistended, normoactive bowel sounds, soft to palpation, non-tender and non-distended Extremity Extremity Narrative: Lower leg edema is noted bilaterally which is moderate Skin no rashes or lesions noted General Skin Exam: no breakdown Neuro oriented x3, CN's II-XII intact bilaterally, moves all extremities, no focal motor deficits and no sensory deficits noted Sensorium / Orientation: awake, alert, oriented to person, oriented to place and oriented to time Speech: speech normal Psych affect normal Assessment & Plan Assessment/Plan (1) Acute bronchitis: PLAN: Plan 1. Acute tracheobronchitis with human metapneumovirus-continue IV Solu-Medrol, I have elected to decrease the dose of Solu-Medrol due to elevated blood sugars, continue aerosol treatments #2 severe pulmonary hypertension-patient will be placed on IV Lasix 40 mg every 12 hours, supplemental potassium will be given to the patient #3 elevated troponin-etiology unclear, I do not think the patient has had a non-STEMI #4 essential hypertension-patient will remain on her present medications #5 type 2 diabetes-blood sugars will be monitored, sliding scale insulin will be administered per scale #6 chronic kidney disease stage IIIb secondary to type 2 diabetes-complicates care, medical course, recovery, and prognosis #7 hypoxia secondary to #1-pulse ox will be monitored, supplemental oxygen will be adjusted. Total clinical time spent by myself addressing the patient's medical issues, reviewing all of her data, and collaborating with patient's care team: 35 minutes Charges/Coding Visit Charges Inpatient E&M: 71129 Subs Hosp L2
[2022-12-27 16:46] LABS: Bedside Glucose 426 mg/dL (74-106)
[2022-12-27] MEDS: Furosemide 40 MG/4 ML Vial IV (17:27)
[2022-12-27 23:15] LABS: Bedside Glucose 384 mg/dL (74-106)
[2022-12-28 06:20] VITALS: BP 139/85; PULSE 94; RESP 20; TEMP 36.4; O2SAT 93
[2022-12-28] MEDS: Heparin Injection (Vial) 5,000 UNIT/ML VIAL 5000 UNIT SC (06:28)
[2022-12-28] MEDS: 0.9% Saline Lock 10 ML Syringe IV ×2 (06:29→10:31)
[2022-12-28] MEDS: Levothyroxine 125 MCG Tablet PO (06:30)
[2022-12-28] MEDS: Insulin Lispro 100 UNIT/ML INSULN.PEN SC ×2 (06:30→11:43)
[2022-12-28 07:01] LABS: Bedside Glucose 164 mg/dL (74-106)
[2022-12-28 07:30] VITALS: PULSE 89; RESP 19; O2SAT 96
[2022-12-28] MEDS: Ipratropium/Albuterol Sulfate 3 ML AMPUL.NEB INHALATION ×2 (07:30→14:15)
[2022-12-28] MEDS: Potassium Chloride Oral Tablet 20 MEQ PO (08:41)
[2022-12-28] MEDS: Pantoprazole Sodium 20 MG Tablet PO (08:43)
[2022-12-28] MEDS: guaiFENesin 1,200 MG Tablet 1200 MG PO (08:43)
[2022-12-28] MEDS: Meloxicam 15 MG Tablet PO (08:43)
[2022-12-28] MEDS: Ramipril 5 MG Capsule 15 MG PO (08:47)
--- NOTE | 2022-12-28 09:11 | PN.HOSP_ITS ---
Reason for Visit Reason for Visit: Diagnoses Viral infection, unspecified (12/26/22) Acute bronchitis, unspecified (12/26/22) Hypoxemia (12/26/22) Subjective Subjective Patient was seen and examined today, she is currently on room air, she still has significant swelling in her legs although not as bad as yesterday. Patient's echocardiogram showed severe pulmonary hypertension with a normal EF. I explained this to her and told her she would need follow-up for the pulmonary hypertension, patient is also continuing to smoke at home, I told her that she needs to quit. Patient has a Combivent inhaler in her purse and she says she uses it as needed-I told her she would need to use it 4 times a day for the next few days till she follows up with her family doctor this week. Patient is due to have a venous duplex of her legs done today, I doubt she has a VTE but it is possible. Objective Data Objective Data Vital Signs: Vital Signs Temp Pulse Resp BP Pulse Ox O2 Del Method O2 Flow Rate 97.6 F L 94 20 H 139/85 H 93 Room Air 2 12/28/22 06:20 12/28/22 06:20 12/28/22 06:20 12/28/22 06:20 12/28/22 06:20 12/28/22 06:55 12/27/22 16:21 Oxygen Flow Rate (L/min) 2 Oxygen Delivery Method Room Air Weight: 98.7 kg Body Mass Index (BMI) 42.7 Intake & Output: Intake and Output for Last 24 Hours 12/26/22 12/27/22 12/28/22 23:59 23:59 23:59 Intake Total 650 / 650 Balance 650 / 650 Lab / Micro Data Result Diagrams: 12/27/22 06:40 12/27/22 06:40 Labs: Laboratory Results - last 24 hr 12/27/22 06:40: Differential Comment SCANNED 12/27/22 12:39: POC Glucose 406 H 12/27/22 16:17: POC Glucose 426 H 12/27/22 22:43: POC Glucose 384 H 12/28/22 06:25: POC Glucose 164 H Micro: Microbiology 12/27/22 01:45 Mucosa - Nasopharyngeal Respiratory Panel (PCR) - Final Human [place] 12/26/22 19:28 Nasal Secretion SARS-CoV-2 Antigen (Rapid) - Final 12/26/22 19:02 Mucosa - Nasopharyngeal Influenza Types A,B Direct FA (JOSUE) - Final Radiography Diagnostic Testing: Radiology Impression Echocardiogram 12/27/22 01:01 Interpretation Summary The study was technically difficult. Left ventricular systolic function is normal. The estimated ejection fraction is 65 %. The left atrium is mildly enlarged. There is mild to moderate mitral annular calcification. Extension of the mitral annular calcification ontothe base of the posterior mitral valve leaflet. Anterior leaflet diffuse mitral valve thickening. Moderate (2+) eccentric mitral valve insufficiency. Mild tricuspid valve insufficiency. Mild (1+) pulmonic valve insufficiency. Right ventricular systolic pressure estimated to be 70 mmHg. Stage 2 diastolic dysfunction. Ordering Physician: Chi Lucas Referring Physician: Marie Landers Performed By: Rossy Farnsworth, KENNEDYCS, RVT Physical Exam Const alert, oriented x3 and no apparent distress Constitutional Narrative: Patient is morbidly obese General Appearance: cooperative, well kempt and well developed Orientation / Consciousness: awake, oriented to person, oriented to place and oriented to time HEENT normocephalic and moist oral mucous membranes Eyes PERRL, EOMs intact bilaterally and conjunctivae normal Neck supple, no JVD, thyroid normal and no carotid bruits General: trachea midline Resp normal respiratory effort, no retractions and no use of accessory muscles Resp Narrative: Scattered expiratory wheezes are noted bilaterally Auscultation: wheezes expiratory wheezes and throughout; Negative for rales or rhonchi Cardio regular rate, regular rhythm, S1 normal heart sound, S2 normal heart sound, no murmurs, no rub and no gallops GI normal to inspection, nondistended, normoactive bowel sounds, soft to palpation, non-tender and non-distended Extremity Extremity Narrative: Generalized edema is noted over the lower legs bilaterally Skin no rashes or lesions noted General Skin Exam: no breakdown Neuro oriented x3, CN's II-XII intact bilaterally, moves all extremities, no focal motor deficits and no sensory deficits noted Sensorium / Orientation: awake and alert Speech: speech normal Psych affect normal Assessment & Plan Assessment/Plan (1) Acute bronchitis: PLAN: Plan 1. Acute tracheobronchitis with human metapneumovirus-continue IV Solu-Medrol, I have elected to decrease the dose of Solu-Medrol due to elevated blood sugars, continue aerosol treatments #2 severe pulmonary hypertension-patient will remain on IV Lasix 40 mg every 12 hours, supplemental potassium will be given to the patient, I will reevaluate the patient after she has her duplex studies of her legs, if these are negative and the patient remains on room air, she may be discharged today. Again I discussed this with the patient today-the fact she has pulmonary hypertension, she will need to stop smoking and follow-up with her family physician regarding this. #3 elevated troponin-etiology unclear, I do not think the patient has had a non- STEMI #4 essential hypertension-patient will remain on her present medications #5 type 2 diabetes-blood sugars will be monitored, sliding scale insulin will be administered per scale #6 chronic kidney disease stage IIIb secondary to type 2 diabetes-complicates care, medical course, recovery, and prognosis #7 hypoxia secondary to #1-pulse ox will be monitored, supplemental oxygen will be adjusted. #8 morbid obesity-complicates care, medical course, management, and recovery Total clinical time spent by myself addressing the patient's medical issues, reviewing all of her data, and collaborating with patient's care team: 35 minutes Charges/Coding Visit Charges Inpatient E&M: 47456 Subs Hosp L2
[2022-12-28 10:00] VITALS: BP 137/87; PULSE 95; RESP 18; TEMP 36.3; O2SAT 92
[2022-12-28] MEDS: Furosemide 40 MG/4 ML Vial IV (10:31)
[2022-12-28 12:16] LABS: Bedside Glucose 314 mg/dL (74-106)
--- NOTE | 2022-12-28 13:49 | DCINST_ITS ---
Discharge Instructions Diet Discharge Diet: 1800 Calorie Control Diet Activity Discharge Activity: Return to Normal Activity Weight Bearing Status: Full weight bearing Follow Up Care Test Results: Test results from this visit will be discussed in further detail at your follow- up appointment, if applicable. Discharge Plan Admission Admit Date/Time: 12/26/22 23:19 Primary Reason for Your Visit: bronchitis Attending Provider: Sgae Restrepo Primary Care Provider: Marie Landers Consulting Providers: Chi Lucas Instructions Additional Instructions / Restrictions: Do not smoke Use your Combivent 4 times a day for the next 5 days, then resume it as before Discharge Orders/Prescriptions Prescriptions: New potassium chloride [Klor-Con M20] 20 mEq Tablet,Er Particles/Crystals 20 meq PO DAILYCM Qty: 60 0RF prednisone 20 mg tablet 20 mg PO BID Qty: 9 0RF Rx Instructions: one twice a day for 3 days, then one daily for 3 days, then stop furosemide [Lasix] 40 mg tablet 40 mg PO BID Qty: 60 0RF Rx Instructions: take second dose daily at 5 pm Continued levothyroxine [Synthroid] 112 mcg tablet 125 mcg PO DAILY omeprazole 20 mg capsule,delayed release(DR/EC) 20 mg PO DAILY glimepiride 2 MG tablet 2 mg PO DAILY cyanocobalamin (vitamin B-12) 1,000 MCG/ML solution 1,000 mcg IM QMONTH ergocalciferol (vitamin D2) 50,000 UNIT capsule 50,000 units PO QWEEK Label Comments: TAKE ONE CAPSULE BY MOUTH ONCE A WEEK ramipril 10 MG capsule 15 mg PO DAILY metformin 500 MG tablet 2,000 mg PO DAILY meloxicam 15 mg Tablet 15 mg PO DAILY Combivent Respimat 20-100 mcg/actuation Mist 1 puff INHALATION Q4H Combivent Respimat 20-100 mcg/actuation Mist 1 puff INHALATION Q4H PRN (Reason: Shortness Of Breath) Referrals / Follow Up: Marie Landers MD [Primary Care Provider] - Within 1 Week (regarding your pulmonary hypertension and kidney function-you will need repeat kidney lab tests) Disposition Disposition (needs filled in before D/C Order can be placed): Home, Self Care
--- NOTE | 2022-12-28 13:59 | DS.PCM_ITS ---
Providers Date of Admission: 12/26/22 Date of Discharge: 12/28/22 Primary Care Physician: Dr. Marie Landers MD Reason For Visit: ACUTE BRONCHITIS Diagnosis Discharge Diagnosis (1) Acute bronchitis: Status: Acute Code(s): J20.9 - Acute bronchitis, unspecified Plan 1. Acute tracheobronchitis with human metapneumovirus-continue IV Solu-Medrol, I have elected to decrease the dose of Solu-Medrol due to elevated blood sugars, continue aerosol treatments #2 severe pulmonary hypertension-patient will remain on IV Lasix 40 mg every 12 hours, supplemental potassium will be given to the patient, I will reevaluate the patient after she has her duplex studies of her legs, if these are negative and the patient remains on room air, she may be discharged today. Again I discussed this with the patient today-the fact she has pulmonary hypertension, she will need to stop smoking and follow-up with her family physician regarding this. #3 elevated troponin-etiology unclear, I do not think the patient has had a non- STEMI #4 essential hypertension-patient will remain on her present medications #5 type 2 diabetes-blood sugars will be monitored, sliding scale insulin will be administered per scale #6 chronic kidney disease stage IIIb secondary to type 2 diabetes-complicates care, medical course, recovery, and prognosis #7 hypoxia secondary to #1-pulse ox will be monitored, supplemental oxygen will be adjusted. #8 morbid obesity-complicates care, medical course, management, and recovery Total clinical time spent by myself addressing the patient's medical issues, reviewing all of her data, and collaborating with patient's care team: 35 minutes Medications at Discharge Home Medications levothyroxine 112 mcg tablet (Synthroid) 125 mcg PO DAILY THYROID 12/09/17 cyanocobalamin (vitamin B-12) 1,000 mcg/mL injection solution 1,000 mcg IM QMONTH SUPPLEMENT 02/28/19 ergocalciferol (vitamin D2) 1,250 mcg (50,000 unit) capsule 50,000 units PO QWEEK SUPPLEMENT 02/28/19 glimepiride 2 mg tablet 2 mg PO DAILY DIABETES 02/28/19 ramipril 10 mg capsule 10 mg PO DAILY HEART 07/03/20 metformin 500 mg tablet 1,000 mg PO BID diabetes 07/19/20 omeprazole 20 mg capsule,delayed release 20 mg PO DAILY GERD 04/30/22 ipratropium 20 mcg-albuterol 100 mcg/actuation mist for inhalation (Combivent Respimat) 1 puff inhalation Q4H SOB 12/26/22 meloxicam 15 mg tablet 15 mg PO DAILY pain 12/26/22 ipratropium 20 mcg-albuterol 100 mcg/actuation mist for inhalation (Combivent Respimat) 1 puff inhalation Q4H PRN Shortness Of Breath 12/28/22 furosemide 40 mg tablet (Lasix) 40 mg PO BID water pill 12/29/22 insulin detemir U-100 100 unit/mL (3 mL) subcutaneous pen (Levemir FlexPen) 12 unit subcut QHS DM 12/29/22 potassium chloride 20 mEq tablet,extended release(part/cryst) (Klor-Con M) 20 meq PO DAILYCM supplement 12/29/22 prednisone 20 mg tablet 20 mg PO BID SOB 12/29/22 Hospital Course Operations None Procedures None Summary of Care Provided Minutes Spent on Discharge: 32 Hospital Course: Patient [id number] white female was seen in the emergency room at [facility] with chief complaint of shortness of breath, he she has a history of chronic asthma. Chest x-ray was obtained which showed no active infiltrates, patient required supplemental oxygen via nasal cannula to maintain her pulse ox however, on examination, patient had coarse expiratory wheezes bilaterally. Patient was initially admitted for COPD and given IV corticosteroids and aerosol treatments, I obtained a respiratory panel on the patient however and it grew out human metapneumovirus. Patient continued on IV corticosteroids and aerosol treatments, her blood pressure was not very well controlled and her blood pressure medications were adjusted. Patient was finally weaned off oxygen, on 12/28/2022, patient was seen and examined: On examination she appeared in good health and spirits, she does not appear to be in any distress. Vital signs as documented. Skin warm and dry and without overt rashes. Neck without JVD, thyroid appears normal, trachea is midline, neck is supple. Lungs clear, normal air movement was noted. Heart exam notable for regular rhythm, normal sounds and absence of murmurs, rubs or gallops. Abdomen unremarkable and without evidence of organomegaly, masses, or abdominal aortic enlargement, bowel sounds are present in all 4 quadrants, no abdominal tenderness was noted. Extremities nonedematous, no cyanosis was noted, no clubbing was noted. Neuro: Cranial nerves II through XII are grossly intact, no focal motor deficits were noted, sensation to light touch and pinprick is intact, motor exam 5/5 throughout. Psych: Patient is alert and oriented x3, she does not appear anxious or depressed, she does not appear agitated. Patient appears stable for discharge on 12/28/2022. Weight / BMI Weight Weight: 98.7 kg Body Mass Index (BMI) 42.7 ABG / Lab / Microbiology Data Result Diagrams: 12/27/22 06:40 12/27/22 06:40 Laboratory: Laboratory Results - last 24 hr 12/27/22 16:17: POC Glucose 426 H 12/27/22 22:43: POC Glucose 384 H 12/28/22 06:25: POC Glucose 164 H 12/28/22 11:42: POC Glucose 314 H Microbiology: Microbiology 12/27/22 01:45 Mucosa - Nasopharyngeal Respiratory Panel (PCR) - Final Human [place] 12/26/22 19:28 Nasal Secretion SARS-CoV-2 Antigen (Rapid) - Final 12/26/22 19:02 Mucosa - Nasopharyngeal Influenza Types A,B Direct FA (JOSUE) - Final Radiography Diagnostic Testing: Radiology Impression Echocardiogram 12/27/22 01:01 Interpretation Summary The study was technically difficult. Left ventricular systolic function is normal. The estimated ejection fraction is 65 %. The left atrium is mildly enlarged. There is mild to moderate mitral annular calcification. Extension of the mitral annular calcification ontothe base of the posterior mitral valve leaflet. Anterior leaflet diffuse mitral valve thickening. Moderate (2+) eccentric mitral valve insufficiency. Mild tricuspid valve insufficiency. Mild (1+) pulmonic valve insufficiency. Right ventricular systolic pressure estimated to be 70 mmHg. Stage 2 diastolic dysfunction. Ordering Physician: Chi Lucas Referring Physician: Marie Landers Performed By: Rossy Farnsworth, KENNEDYCS, RVT D/C Instructions Discharge Diet: 1800 Calorie Control Diet Weight Bearing Status: Full weight bearing Meaningful Use Info Meaningful Use Diagnoses (Choose all that apply): None applicable Discharge Plan Admission Admit Date/Time: 12/26/22 23:19 Primary Reason for Your Visit: bronchitis Attending Provider: Sage Restrepo Primary Care Provider: Marie Landers Consulting Providers: Chi Lucas Instructions Additional Instructions / Restrictions: Do not smoke Use your Combivent 4 times a day for the next 5 days, then resume it as before Discharge Orders/Prescriptions Prescriptions: Continued levothyroxine [Synthroid] 112 mcg tablet 125 mcg PO DAILY omeprazole 20 mg capsule,delayed release(DR/EC) 20 mg PO DAILY glimepiride 2 MG tablet 2 mg PO DAILY cyanocobalamin (vitamin B-12) 1,000 MCG/ML solution 1,000 mcg IM QMONTH ergocalciferol (vitamin D2) 50,000 UNIT capsule 50,000 units PO QWEEK Label Comments: TAKE ONE CAPSULE BY MOUTH ONCE A WEEK ramipril 10 MG capsule 10 mg PO DAILY metformin 500 MG tablet 1,000 mg PO BID meloxicam 15 mg Tablet 15 mg PO DAILY Combivent Respimat 20-100 mcg/actuation Mist 1 puff INHALATION Q4H Combivent Respimat 20-100 mcg/actuation Mist 1 puff INHALATION Q4H PRN (Reason: Shortness Of Breath) No Action Levemir FlexPen 100 unit/mL (3 mL) Insulin Pen 12 unit SUBCUT QHS furosemide [Lasix] 40 mg tablet 40 mg PO BID Rx Instructions: take second dose daily at 5 pm prednisone 20 mg tablet 20 mg PO BID Rx Instructions: one twice a day for 3 days, then one daily for 3 days, then stop potassium chloride [Klor-Con M20] 20 mEq tablet,ER particles/crystals 20 meq PO DAILYCM Referrals / Follow Up: Marie Landers MD [Primary Care Provider] - Within 1 Week (regarding your pulmonary hypertension and kidney function-you will need repeat kidney lab tests) Disposition Disposition (needs filled in before D/C Order can be placed): Home, Self Care Charges/Coding Visit Charges Inpatient E&M: 80703 Disch Hosp >30min
[2022-12-28 14:15] VITALS: PULSE 105; RESP 22
== END 2022-12-28 14:52 | disposition home or self-care (01) | DRG 202 ==
LOC: ED 23:29 → MS3 12-27 00:13
PROVIDERS: Physician Assistant; Admitting Provider Hospitalist; Emergency Provider Student in an Organized Health Care Education/Training Program; PCP Family Medicine; Visit Provider Internal Medicine
DX: J20.8 Acute bronchitis due to other specified organisms (principal); Z68.41 Body mass index [BMI] 40.0-44.9, adult; I27.20 Pulmonary hypertension, unspecified; E11.649 Type 2 diabetes mellitus with hypoglycemia without coma; E11.21 Type 2 diabetes mellitus with diabetic nephropathy; D64.9 Anemia, unspecified; B97.81 Human metapneumovirus as the cause of diseases classified elsewhere; E11.65 Type 2 diabetes mellitus with hyperglycemia; N18.32 Chronic kidney disease, stage 3b; E11.22 Type 2 diabetes mellitus with diabetic chronic kidney disease; E66.01 Morbid (severe) obesity due to excess calories; E07.9 Disorder of thyroid, unspecified; I12.9 Hypertensive chronic kidney disease with stage 1 through stage 4 chronic kidney disease, or unspecified chronic kidney disease; R09.02 Hypoxemia; Z79.84 Long term (current) use of oral hypoglycemic drugs; R77.8 Other specified abnormalities of plasma proteins; Z20.822 Contact with and (suspected) exposure to COVID-19
CPT/HCPCS: 36415; 71046; 80048; 82962; 84484; 85025; 87633; 87804; 87811; 93005; 93306; 93971; 94640; 94668; 94760; 99252; 99285; 99406; Q9957; A4216; G0463; J1940

== ENCOUNTER 2022-12-29 12:15 | Inpatient (IN) | payer BC, MEDICARE, SELFPAY ==
[2022-12-29] VITALS (12 sets, daily range): BP systolic 127–165; BP diastolic 74–98; PULSE 80–100; RESP 16–26; TEMP 36.1–36.4; O2SAT 87–100; BMI 43.5; BMI 40.6
--- NOTE | 2022-12-29 12:42 | EKG12_ITS ---
Test Reason : Blood Pressure : / mmHG Vent. Rate : 094 BPM Atrial Rate : 094 BPM P-R Int : 138 ms QRS Dur : 070 ms QT Int : 348 ms P-R-T Axes : 058 002 032 degrees QTc Int : 435 ms Normal sinus rhythm Low voltage QRS (Limb Leads) Poor R wave progression Confirmed by MARK TAYLOR, MENDOZA ([id number]), editor farm journal OUSMANE HOFFMAN ([id number]) on 12/31/2022 10:07:21 AM Referred By: AHSAN Confirmed By:MENDOZA FLORES MD
--- NOTE | 2022-12-29 12:43 | EDS_ITS ---
HPI History of Present Illness Chief Complaint: Shortness of Breath Narrative Narrative: 67-year-old female past medical history of diabetes, hypertension, hyperlipidemia, hypothyroidism, was released from the hospital yesterday afternoon. She states that she has been having shortness of breath since last month. She was put on a Combivent MDI by her primary care provider. She states that she began having worsening shortness of breath last Thursday, approximately 7 days ago. She was admitted to the hospital the following Thursday, 4 days ago, and diagnosed with pulmonary hypertension along with human metapneumovirus. She does not wear oxygen at home. She states after she was released from the hospital yesterday, she began having increasing shortness of breath. This morning, her states that while she was able to take the prednisone and Lasix that she was prescribed, they were not able to take the potassium, and they noticed that her pulse ox was in the 80s at home. She is having increasing shortness of breath and difficulty breathing even at rest. Upon arrival to the emergency department, her pulse ox was in the 80s on room air. [facility] Medical History Acute bronchitis, unspecified Anemia Arthritis Diabetes Right carpal tunnel syndrome Thyroid disease Home Medications levothyroxine 112 mcg tablet (Synthroid) 125 mcg PO DAILY THYROID 12/09/17 [History Last Taken 07/17/20 04:45 125 MCG] cyanocobalamin (vitamin B-12) 1,000 mcg/mL injection solution 1,000 mcg IM QMONTH SUPPLEMENT 02/28/19 [History Last Taken Unknown] ergocalciferol (vitamin D2) 1,250 mcg (50,000 unit) capsule 50,000 units PO QWEEK SUPPLEMENT 02/28/19 [History Last Taken Unknown] glimepiride 2 mg tablet 2 mg PO DAILY DIABETES 02/28/19 [History Last Taken Unknown] ramipril 10 mg capsule 15 mg PO DAILY HEART 07/03/20 [History Last Taken 07/17/20 04:45 15 MG] metformin 500 mg tablet 2,000 mg PO DAILY diabetes 07/19/20 [History Last Taken Unknown] omeprazole 20 mg capsule,delayed release 20 mg PO DAILY 04/30/22 [History Last Taken Unknown] ipratropium 20 mcg-albuterol 100 mcg/actuation mist for inhalation (Combivent Respimat) 1 puff inhalation Q4H 12/26/22 [History Last Taken Unknown] meloxicam 15 mg tablet 15 mg PO DAILY 12/26/22 [History Last Taken Unknown] furosemide 40 mg tablet (Lasix) 40 mg PO BID #60 tabs 12/28/22 [Rx Last Taken Unknown] ipratropium 20 mcg-albuterol 100 mcg/actuation mist for inhalation (Combivent Respimat) 1 puff inhalation Q4H PRN Shortness Of Breath 12/28/22 [History Last Taken Unknown] potassium chloride 20 mEq tablet,extended release(part/cryst) (Klor-Con M) 20 meq PO DAILYCM #60 tabs 12/28/22 [Rx Last Taken Unknown] prednisone 20 mg tablet 20 mg PO BID #9 tabs 12/28/22 [Rx Last Taken Unknown] insulin detemir U-100 100 unit/mL (3 mL) subcutaneous pen (Levemir FlexPen) 12 unit subcut QHS 12/29/22 [History Last Taken Unknown] Allergy/AdvReac Type Severity Reaction Status Date / Time hydroxychloroquine Allergy Rash Verified 12/29/22 12:18 [From Plaquenil] Family History Mother Heart disease Cancer Father Hypertension Heart disease Surgical History h/o right total knee History of arthroplasty of left knee History of bilateral carpal tunnel release History of cholecystectomy History of repair of right rotator cuff History of tonsillectomy History of total left knee replacement Hx of cataract extraction S/P right knee arthroscopy Social History Smoking Status: Current every day smoker tobacco type: cigarettes alcohol intake: never ROS ROS ED ROS Narrative Constitutional: No fever, no chills. HEENT: No sore throat. No neck pain. No loss of vision. No rhinorrhea. Cardiovascular: No chest pain. No palpitations. Positive pedal edema. Respiratory: Positive cough, positive shortness of breath. Positive dyspnea on exertion. Abdominal: No abdominal pain. No nausea. No vomiting. Genitourinary: No dysuria. No hematuria. Musculoskeletal: No myalgias. No arthralgias. Neurologic: No headaches. No dizziness. No lightheadedness. Skin: No rash. No change in color. Psychiatric: No depression. No anxiety. EXAM Physical Exam Narrative Exam Narrative: Afebrile. Vital signs noted. HEENT: Normocephalic. Atraumatic. PERRL, EOMI. Neck soft and supple. No point tenderness or step off. Cardiovascular: Regular rate and rhythm. No murmurs, rubs, or gallops appreciated. Respiratory: Positive tachypnea. Positive accessory muscle use. Speaking 3-4 word sentences. Decreased breath sounds bilateral bases. Gastrointestinal: Abdomen soft, nontender, with normoactive bowel sounds. No rebound or guarding. Neurological: Awake. Alert. Nonfocal, nonlateralizing. Skin: No rash. Normal color. No pallor. Musculoskeletal: Bilateral symmetric pedal edema. Full range of motion extremities. Const Vital Signs: 12/29/22 12:16 12/29/22 12:42 12/29/22 12:42 Temperature 97.3 F L Temperature Source Temporal Pulse Rate 100 97 Respiratory Rate 26 H 22 H Respiratory Effort Respiratory Pattern Blood Pressure 127/74 H 143/98 H Blood Pressure Mean 91 113 Pulse Ox 90 95 Oxygen Delivery Method Room Air Nasal Cannula Nasal Cannula Oxygen Flow Rate (L/min) 3 3 12/29/22 12:44 12/29/22 12:40 12/29/22 13:03 Temperature Temperature Source Pulse Rate 95 Respiratory Rate 20 H Respiratory Effort Short of Breath Labored Respiratory Pattern Tachypnea Normal Blood Pressure Blood Pressure Mean Pulse Ox 87 Oxygen Delivery Method Nasal Cannula Room Air Oxygen Flow Rate (L/min) 3 12/29/22 13:50 12/29/22 14:13 Temperature 97.5 F L Temperature Source Temporal Pulse Rate 95 97 Respiratory Rate 18 18 Respiratory Effort Respiratory Pattern Blood Pressure 161/98 H 161/98 H Blood Pressure Mean 119 119 Pulse Ox 95 99 Oxygen Delivery Method Nasal Cannula Nasal Cannula Oxygen Flow Rate (L/min) 3 3 MDM MDM MDM Narrative Medical decision making narrative: Concern is for COPD versus CHF exacerbation. She states that she has not smoked cigarettes since last Thursday. I will review her EMR and her inpatient record. She will be given a DuoNeb aerosolized treatment, and she has already taken steroids this morning. Her EKG was obtained and interpreted by myself which demonstrates normal sinus rhythm at 94 bpm without ectopy or acute ST changes. No STEMI. I reviewed her laboratory work, she has a normal white count of 9.5, hemoglobin normal at 12.4, hematocrit 39.6. Platelet count normal at 299. Sodium shows it to be slightly lower at 134 with a normal chloride of 98 normal potassium of 4.5. She does have a renal insufficiency with a BUN of 28 and a creatinine of 1.9. It was elevated slightly yesterday. Additionally, I did review her troponins which were in the 50s and 60s yesterday. In review of her laboratory work today, her troponin is 4005 with a BNP elevated above 600. I reviewed her chest x-ray and see that on my interpretation there is no evidence of pneumothorax or pneumonia. I reviewed her chest x-ray radiology report which confirms my interpretation. Given her elevated troponin and non-STEMI, I discussed the patient with the tire maintenance technician, Dr. Corona, who agrees with giving the patient aspirin and starting her on a heparin drip after bolus. I then discussed patient with Dr. Nelson for admission to the progressive care unit. Disposition is admit in stable condition. Critical care time 31 minutes. History & Record Review Discussion w/independent historian: Patient and Significant other Additional record(s) reviewed:: Prior ED visit and Prior labs Lab Data Attestation: I reviewed the patient's lab results. Labs: Laboratory Results - last 24 hr 12/29/22 12/29/22 12/29/22 12:50 12:50 12:50 WBC 9.5 RBC 4.16 L Hgb 12.4 Hct 39.6 MCV 95.2 MCH 29.8 MCHC 31.3 L RDW Std Deviation 53.1 H RDW Coeff of Lisa 15.2 H Plt Count 299 MPV 9.6 Immature Gran % (Auto) 0.400 Neut % (Auto) 82.1 H Lymph % (Auto) 10.5 L [place] % (Auto) 6.6 Eos % (Auto) 0.1 Baso % (Auto) 0.3 Absolute Neuts (auto) 7.8 H Absolute Lymphs (auto) 1.00 Nucleated RBC % 0 PT INR APTT Sodium 134 L Potassium 4.5 Chloride 98 Carbon Dioxide 28.0 Anion Gap 8 BUN 28 H Creatinine 1.90 H Estim Creat Clear Calc 20.92 Est GFR (MDRD) Af Amer 34 L Est GFR (MDRD) Non-Af 28 L BUN/Creatinine Ratio 14.7 Glucose 127 H Calcium 8.8 Troponin I High Sens 4005 H* B-Natriuretic Peptide 621.3 H 12/29/22 12:50 WBC RBC Hgb Hct MCV MCH MCHC RDW Std Deviation RDW Coeff of Lisa Plt Count MPV Immature Gran % (Auto) Neut % (Auto) Lymph % (Auto) [place] % (Auto) Eos % (Auto) Baso % (Auto) Absolute Neuts (auto) Absolute Lymphs (auto) Nucleated RBC % PT 13.8 INR 1.1 APTT 27.5 Sodium Potassium Chloride Carbon Dioxide Anion Gap BUN Creatinine Estim Creat Clear Calc Est GFR (MDRD) Af Amer Est GFR (MDRD) Non-Af BUN/Creatinine Ratio Glucose Calcium Troponin I High Sens B-Natriuretic Peptide Radiography Diagnostic Testing: Clinical Impression(s) from Imaging Studies Chest X-Ray 12/29/22 12:55 IMPRESSION: No acute abnormality is seen. Electronically Signed: Sivakumar Johnson MD at 13:35 EST , Critical Care Time Critical Care Time: Yes Critical care time (excluding procedures): 30-74 minutes (31), Including time spent:, Discussing w/Patient &/or Family/Indoor Landscape Architect, Discussing w/Consultants, Arranging Admission or Transfer and Performing Direct Patient Care at Bedside Discharge Plan Dx/Rx/DC Orders Clinical Impression: Non-ST elevation DC (NSTEMI), CHF (congestive heart failure), SOB (shortness of breath), Renal insufficiency Disposition Disposition: Acute Care [facility]
--- NOTE | 2022-12-29 12:55 | RAD_ITS ---
STUDY: X-RAY CHEST REASON FOR EXAM: Female, 67 years old. Shortness of Breath TECHNIQUE: Single AP portable view of the chest. COMPARISON: Comparison is made with prior study dated December 26, 2022. FINDINGS: EKG electrodes are seen. The lungs are clear and expanded. There is no demonstrated pleural abnormality. Normal size heart. Normal mediastinum and loi. Normal visualized pulmonary arteries. There is atherosclerotic tortuosity of the aortic arch and descending thoracic aorta. Normal visualized thoracic spine. Prior fusion in the lower cervical spine. There is no demonstrated abnormality of the visualized soft tissue structures of the upper abdomen. RAD/Chest 1 View (Portable) IMPRESSION: No acute abnormality is seen. Electronically Signed: Sivakumar Johnson MD at 13:35 EST ,
[2022-12-29 13:03] LABS: Absolute Neutrophil Count 7.8 X10^3/uL (2.0-7.7); Basophil# 0.03 X10^3/uL; Basophil% 0.3 % (0-1); Eosinophil# 0.01 X10^3/uL; Eosinophils% 0.1 % (0-5); Hematocrit 39.6 % (37-47); Hemoglobin 12.4 g/dL (12.0-15.0); Lymphocyte % 10.5 % (19-41); Mean Corp Hgb Conc 31.3 g/dL (32-36); Mean Corpuscular Hgb 29.8 pg (27.0-32.0); Mean Corpuscular Volume 95.2 fL (81-99); Mean Platelet Vol. 9.6 fl (6.2-12.0); Monocyte# 0.63 X10^3/uL; Monocyte% 6.6 % (0-10); NRBC Flagged by Analyzer 0 % (0-5); Neutrophil # 7.77 X10^3/uL (2.7-7.7); Neutrophil % 82.1 % (47-70); Platelet Count 299 K/mm3 (150-450); RBC Distribution Width CV 15.2 % (11.6-14.6); RBC Distribution Width SD 53.1 fl (35.1-43.9); Red Blood Count 4.16 M/mm3 (4.2-5.4); White Blood Count 9.5 K/mm3 (4.4-11.0)
[2022-12-29] MEDS: Ipratropium/Albuterol Sulfate 3 ML AMPUL.NEB INHALATION (13:04)
[2022-12-29 13:35] LABS: BNP,B-Type NATRIURETIC PEPTIDE 621.3 pg/mL (0-100)
[2022-12-29 13:41] LABS: Anion Gap 8 (5-15); BUN 28 mg/dL (7-18); BUN/Creat Ratio 14.7 RATIO (10-20); Calcium,Total 8.8 mg/dL (8.5-10.1); Chloride 98 mmol/L (98-107); EST Glomerular Filtration Rate 28 mL/min (>60); Est Glom Filt Rate - Afr Amer 34 mL/min (>60); Estimated Creatinine Clearance 20.92 ml/min; Glucose 127 mg/dL (74-106); Potassium 4.5 mmol/L (3.5-5.1); Sodium Level 134 mmol/L (136-145); Troponin-I HS 4005 pg/mL (3.0-54.0)
[2022-12-29] MEDS: HEPARIN/D5w 25,000 UNITS 25,000 UNITS/250 ML IV.SOLN. 10 UNITS CONT INF (14:06)
[2022-12-29] MEDS: Aspirin 81 MG TAB.CHEW 324 MG PO (14:06)
[2022-12-29] MEDS: Heparin Injection (Vial) 5,000 UNIT/ML VIAL 4000 UNIT IV (14:07)
--- NOTE | 2022-12-29 14:07 | HP.PCM.HOS_ITS ---
HPI - General General Date of Admission: 12/29/22 Date of Service: 12/29/22 Chief Complaint: shortness of breath HPI Narrative HOPE ENCINAS, is a 67 F with an extensive PMH as outlined who presents via the ED on 12/29/2022 with a complaint of shortness of breath which had been going on for ~ 1 month. She was put on an inhaler by her PCP, but it wasnt helping. Her shortness of breath worsened so she came back to the ED. She was admitted and just discharged one day ago after being managed for URTI due to human metapneumovirus. She went home but her shortness of breath persisted so she came back to the ED. She denied any chest pain, palpitations, dizziness, nausea vomiting or any other symptoms. Review of systems otherwise negative. Vitals in the ED were blood pressure 161/98, pulse rate of 95, respiratory rate of 18 and oxygen saturation of 95% on 3 L of oxygen. CBC was unremarkable. Chemistry shows sodium of 134 with bicarb of 28 and potassium of 4.5. Creatinine was 1.9. Troponin was 4005 and BNP was 61.3. Chest x-ray showed no acute cardiopulmonary process and EKG showed no acute ST changes. Of note during her previous recent admission, her initial troponin was 67 and the delta troponin was 63. 2D echo done then showed severe pulmonary hypertension with RVSP of 70 mmHg but showed normal left ventricular systolic function and no regional wall motion abnormalities and normal EF. She has been admitted to be managed for non-STEMI. [facility] Medical History Acute bronchitis, unspecified Anemia Arthritis Diabetes Right carpal tunnel syndrome Thyroid disease Home Medications levothyroxine 112 mcg tablet (Synthroid) 125 mcg PO DAILY THYROID 12/09/17 [H istory Last Taken 12/29/22] cyanocobalamin (vitamin B-12) 1,000 mcg/mL injection solution 1,000 mcg IM QMONTH SUPPLEMENT 02/28/19 [History Last Taken Unknown] ergocalciferol (vitamin D2) 1,250 mcg (50,000 unit) capsule 50,000 units PO QWEEK SUPPLEMENT 02/28/19 [History Last Taken Unknown] glimepiride 2 mg tablet 2 mg PO DAILY DIABETES 02/28/19 [History Last Taken 12/29/22] ramipril 10 mg capsule 10 mg PO DAILY HEART 07/03/20 [History Last Taken 12/29/22] metformin 500 mg tablet 1,000 mg PO BID diabetes 07/19/20 [History Last Taken 12/29/22] omeprazole 20 mg capsule,delayed release 20 mg PO DAILY GERD 04/30/22 [History Last Taken 12/29/22] ipratropium 20 mcg-albuterol 100 mcg/actuation mist for inhalation (Combivent Respimat) 1 puff inhalation Q4H SOB 12/26/22 [History Last Taken 12/29/22] meloxicam 15 mg tablet 15 mg PO DAILY pain 12/26/22 [History Last Taken 12/29/22] ipratropium 20 mcg-albuterol 100 mcg/actuation mist for inhalation (Combivent Respimat) 1 puff inhalation Q4H PRN Shortness Of Breath 12/28/22 [History Last Taken 12/29/22] furosemide 40 mg tablet (Lasix) 40 mg PO BID water pill 12/29/22 [History Last Taken 12/29/22] insulin detemir U-100 100 unit/mL (3 mL) subcutaneous pen (Levemir FlexPen) 12 unit subcut QHS DM 12/29/22 [History Last Taken 12/28/22] potassium chloride 20 mEq tablet,extended release(part/cryst) (Klor-Con M) 20 meq PO DAILYCM supplement 12/29/22 [History Last Taken 12/28/22] prednisone 20 mg tablet 20 mg PO BID SOB 12/29/22 [History Last Taken 12/29/22] Allergy/AdvReac Type Severity Reaction Status Date / Time hydroxychloroquine Allergy Rash Verified 12/29/22 12:18 [From Plaquenil] Family History Mother Heart disease Cancer Father Hypertension Heart disease Surgical History h/o right total knee History of arthroplasty of left knee History of bilateral carpal tunnel release History of cholecystectomy History of repair of right rotator cuff History of tonsillectomy History of total left knee replacement Hx of cataract extraction S/P cervical spinal fusion S/P right knee arthroscopy Social History Smoking Status: Former smoker alcohol intake: never ROS Constitutional Constitutional: Reports fatigue, malaise and weakness; Denies anorexia, chills or fever(s) Eyes Eyes: Denies change in vision ENT HEENT: Denies ear pain, headache(s), nasal congestion or sore throat Cardiovascular Cardiovascular: Reports dyspnea on exertion and orthopnea; Denies chest pain, edema, lightheadedness, palpitations, paroxysmal nocturnal dyspnea, rapid heart rate or syncope Respiratory/Chest Respiratory/Chest: Reports cough, dyspnea, shortness of breath at rest and shortness of breath with exertion; Denies productive cough or wheezing Gastrointestinal Gastrointestinal: Denies abdominal pain, constipation, diarrhea, nausea or vomiting Genitourinary Genitourinary: Denies dysuria Neurologic Neurologic: Denies confusion, dizziness, focal weakness, seizures or syncope Psychiatric Psychiatric: Denies anxiety Vital Signs Vital Signs Vital Signs: 12/29/22 12:16 12/29/22 12:42 12/29/22 12:42 Temperature 97.3 F L Temperature Source Temporal Pulse Rate 100 97 Respiratory Rate 26 H 22 H Respiratory Effort Respiratory Pattern Blood Pressure 127/74 H 143/98 H Blood Pressure Mean 91 113 Pulse Ox 90 95 Oxygen Delivery Method Room Air Nasal Cannula Nasal Cannula Oxygen Flow Rate (L/min) 3 3 12/29/22 12:44 12/29/22 12:40 12/29/22 13:03 Temperature Temperature Source Pulse Rate 95 Respiratory Rate 20 H Respiratory Effort Short of Breath Labored Respiratory Pattern Tachypnea Normal Blood Pressure Blood Pressure Mean Pulse Ox 87 Oxygen Delivery Method Nasal Cannula Room Air Oxygen Flow Rate (L/min) 3 12/29/22 13:50 Temperature Temperature Source Pulse Rate 95 Respiratory Rate 18 Respiratory Effort Respiratory Pattern Blood Pressure 161/98 H Blood Pressure Mean 119 Pulse Ox 95 Oxygen Delivery Method Nasal Cannula Oxygen Flow Rate (L/min) 3 Weight Weight: 223 lb Body Mass Index (BMI) 43.5 Physical Exam Const alert, oriented x3 and no apparent distress HEENT normocephalic, head/scalp atraumatic, hearing grossly normal bilaterally and moist oral mucous membranes Mouth: oral and palatal mucosa normal Eyes PERRL, EOMs intact bilaterally and conjunctivae normal Neck no lymphadenopathy and supple Resp Resp Narrative: mildly diminished breath sounds bibasally, no wheezes, no crackles. On 3L of oxygen. Cardio regular rate, regular rhythm, S1 normal heart sound, S2 normal heart sound and no murmurs GI normal to inspection, nondistended, normoactive bowel sounds, soft to palpation, non-tender and non-distended Extremity normal to inspection, full ROM and no clubbing, cyanosis or edema Neuro oriented x3, CN's II-XII intact bilaterally, moves all extremities and no focal motor deficits Sensorium / Orientation: awake and alert Motor Exam: strength 5/5 throughout Psych affect normal Results Lab / Micro Data Result Diagrams: 12/30/22 04:02 12/30/22 04:02 Labs: Laboratory Results - last 24 hr 12/29/22 12:50: WBC 9.5, RBC 4.16 L, Hgb 12.4, Hct 39.6, MCV 95.2, MCH 29.8, MCHC 31.3 L, RDW Std Deviation 53.1 H, RDW Coeff of Lisa 15.2 H, Plt Count 299, MPV 9.6, Immature Gran % (Auto) 0.400, Neut % (Auto) 82.1 H, Lymph % (Auto) 10.5 L, [place] % (Auto) 6.6, Eos % (Auto) 0.1, Baso % (Auto) 0.3, Absolute Neuts (auto) 7.8 H, Absolute Lymphs (auto) 1.00, Nucleated RBC % 0 12/29/22 12:50: Sodium 134 L, Potassium 4.5, Chloride 98, Carbon Dioxide 28.0, Anion Gap 8, BUN 28 H, Creatinine 1.90 H, Estim Creat Clear Calc 20.92, Est GFR (MDRD) Af Amer 34 L, Est GFR (MDRD) Non-Af 28 L, BUN/Creatinine Ratio 14.7, Glucose 127 H, Calcium 8.8, Troponin I High Sens 4005 H* 12/29/22 12:50: B-Natriuretic Peptide 621.3 H Radiology Impression Chest X-Ray 12/29/22 12:55 IMPRESSION: No acute abnormality is seen. Electronically Signed: Sivakumar Johnson MD at 13:35 EST , Assessment & Plan Assessment/Plan (1) Non-ST elevation LA (NSTEMI): (2) CHF (congestive heart failure): PLAN: Plan #Nonstemi * admit to PCU * initial troponin is 4000. BNP is also elevated * EKG showed no acute ST changes * place on therapeutic lovenox, aspirin and hgh intensity statin * consult cardiology * had 2D echo 3 days ago which showed EF of 65%, with stage II diastolic dysfunction, and no regional wall motion abnormalities; moderate eccentric mitral valve insufficiency RVSP of 70mmhg. * CTA of the chest was done which was negative for PE * #Probable acute COPD exacerbation * Patient was short of breath and breathing through pursed lips. She has a chronic history of long-term smoking and had just quit about a week prior to admission. I strongly suspect patient does have underlying COPD * Will place on IV Solu-Medrol and breathing treatments bronchodilators. Will need follow-up with pulmonology on outpatient basis. * #Acute excerbation of HFpEF * BNP elevated at 621. Will diurese with IV lasix 40mg bid. * monitor intake and output. Fluid restriction to 1500 cc daily. * #Type 2 diabetes mellitus, hold glimepiride and metformin. Continue Lantus. Insulin sliding scale. Accu-Cheks ACHS. Hypothyroidism: On Synthroid GERD: On PPI #Hypertension: On ramipril DVT prophylaxis: on therapeutic lovenox Code status: full code * Patient counseled extensively about different types of CODE STATUS including full code, DNR CCA and DNR CCA. Patient elects to be full code Total [id number] time 18 minutes. Charges/Coding Visit Charges Inpatient E&M: 80579 Init Hosp L3 Procedures Hospitalists Procedures: 34687 Advncd Care Plan 30 Min
[2022-12-29 14:14] LABS: International Normalized Ratio 1.1; Prothrombin Time (Protime)PT. 13.8 SECONDS (11.7-14.9)
[2022-12-29 14:15] LABS: Partial Thromboplast Time 27.5 Seconds (24.1-36.2)
--- NOTE | 2022-12-29 14:28 | NURSING ---
PCU KORAM NSTEMI, SHORTNESS OF BREATH, CHF
--- NOTE | 2022-12-29 14:51 | CT_ITS ---
INDICATION: shortness of breath -- elevated D dimer EXAMINATION: CTA Chest WO/W Contrast Injection Helically acquired images were obtained of the chest following administration of IV contrast. A radiation dose optimization technique was used for this scan. 3D postprocessing images including MIPS were reviewed. IV Contrast dosage and agent: IV 100mL [id number] COMPARISON: None. FINDINGS: Lungs: Diffuse reticulonodular and groundglass opacities. Mediastinum: The heart is borderline enlarged. Bilateral hilar and mediastinal adenopathy. Mild aortic arch and coronary artery calcifications. No obvious filling defect seen within the visualized pulmonary arteries. Pleura: Unremarkable Bones/Soft tissues: There are diffuse degenerative changes of the spine. Upper abdomen: No visualized abnormalities in the upper abdomen. CT/CTA Chest W/WO Contrast IMPRESSION: No evidence of acute pulmonary emboli to the segmental level. Diffuse reticulonodular groundglass opacities concerning for atypical infection. Electronically Signed: Flo Looney MD at 17:03 RUST ,
--- NOTE | 2022-12-29 16:16 | CON.PCM.CA_ITS ---
Assessment & Plan Assessment/Plan (1) NSTEMI (non-ST elevated myocardial infarction): PLAN: Patient presents with shortness of breath and is noted to have an elevated troponin level. Previous echocardiogram had demonstrated preserved left ventricular systolic function. My recommendation at this time would be to proceed with a left heart catheterization. Depending on the results of the above further recommendations can be made. Risk benefits alternatives have been explained to the patient who understands and agrees to proceed. (2) Shortness of breath: PLAN: Patient does have evidence of shortness of breath with moderate to severe pulmonary hypertension. She did have a CT scan which did not demonstrate any evidence of PE is acute or chronic. Depending on the results of the heart catheterization further recommendations will be made. (3) Hypertension: PLAN: She does have a history of hypertension. The plan will be to treat her with appropriate antihypertensive therapy. Due to her renal dysfunction I would suggest we shy away from an [place] inhibitor or ARB. Perhaps in conjunction with a diuretic we could institute a calcium channel bria, such as amlodipine. Thank you for allowing me to participate in the care of your patient. Please don't hesitate to call if any issues arise. HPI Consult Data Date of Consult: 12/29/22 HPI Narrative HPI Narrative: HOPE ENCINAS, is a 67 F who presents to the emergency room 2 days after discharge from the hospital with persistent and worsening shortness of breath. According to her this morning she appeared to be worse and even after using her inhaler which was not helping he decided to bring her to the emergency room. She also noted pedal edema which she says has been going on for approximately a month. She was admitted to the hospital and treated for an upper respiratory tract infection due to human metapneumovirus. As part of her hospitalization though she underwent an echocardiographic evaluation which demonstrated preserved left ventricular systolic function and markedly elevated pulmonary pressures with right ventricular systolic pressure over 70 mmHg. No regional wall motion abnormalities were noted. Her troponins were noted to be mildly elevated. At this time when she presented her troponins were noted to be markedly elevated and over 4000. Her BNP however was noted to be normal. She also did have some renal dysfunction. She was noted to be hypertensive but denied any chest pain. On the basis of the above it was decided to do a CT scan to exclude pulmonary embolism. She was also being considered for further cardiac evaluation. She was started on heparin, after cardiology was consulted for assistance in management. [facility] Medical History Acute bronchitis, unspecified Anemia Arthritis Diabetes Right carpal tunnel syndrome Thyroid disease Home Medications levothyroxine 112 mcg tablet (Synthroid) 125 mcg PO DAILY THYROID 12/09/17 [History Last Taken 12/29/22] cyanocobalamin (vitamin B-12) 1,000 mcg/mL injection solution 1,000 mcg IM QMONTH SUPPLEMENT 02/28/19 [History Last Taken Unknown] ergocalciferol (vitamin D2) 1,250 mcg (50,000 unit) capsule 50,000 units PO QWEEK SUPPLEMENT 02/28/19 [History Last Taken Unknown] glimepiride 2 mg tablet 2 mg PO DAILY DIABETES 02/28/19 [History Last Taken 12/29/22] ramipril 10 mg capsule 10 mg PO DAILY HEART 07/03/20 [History Last Taken 12/29/22] metformin 500 mg tablet 1,000 mg PO BID diabetes 07/19/20 [History Last Taken 12/29/22] omeprazole 20 mg capsule,delayed release 20 mg PO DAILY GERD 04/30/22 [History Last Taken 12/29/22] ipratropium 20 mcg-albuterol 100 mcg/actuation mist for inhalation (Combivent Respimat) 1 puff inhalation Q4H SOB 12/26/22 [History Last Taken 12/29/22] meloxicam 15 mg tablet 15 mg PO DAILY pain 12/26/22 [History Last Taken 12/29/22] ipratropium 20 mcg-albuterol 100 mcg/actuation mist for inhalation (Combivent Respimat) 1 puff inhalation Q4H PRN Shortness Of Breath 12/28/22 [History Last Taken 12/29/22] furosemide 40 mg tablet (Lasix) 40 mg PO BID water pill 12/29/22 [History Last Taken 12/29/22] insulin detemir U-100 100 unit/mL (3 mL) subcutaneous pen (Levemir FlexPen) 12 unit subcut QHS DM 12/29/22 [History Last Taken 12/28/22] potassium chloride 20 mEq tablet,extended release(part/cryst) (Klor-Con M) 20 meq PO DAILYCM supplement 12/29/22 [History Last Taken 12/28/22] prednisone 20 mg tablet 20 mg PO BID SOB 12/29/22 [History Last Taken 12/29/22] Allergy/AdvReac Type Severity Reaction Status Date / Time hydroxychloroquine Allergy Rash Verified 12/29/22 12:18 [From Plaquenil] Family History Mother Heart disease Cancer Father Hypertension Heart disease Surgical History h/o right total knee History of arthroplasty of left knee History of bilateral carpal tunnel release History of cholecystectomy History of repair of right rotator cuff History of tonsillectomy History of total left knee replacement Hx of cataract extraction S/P cervical spinal fusion S/P right knee arthroscopy Social History Smoking Status: Current every day smoker tobacco type: cigarettes alcohol intake: never ROS Constitutional Constitutional: Reports fatigue, malaise and weakness; Denies anorexia, chills or fever(s) Eyes Eyes: Denies change in vision ENT HEENT: Denies ear pain, headache(s), nasal congestion or sore throat Cardiovascular Cardiovascular: Reports dyspnea on exertion, edema and orthopnea; Denies chest pain, lightheadedness, palpitations, paroxysmal nocturnal dyspnea, rapid heart rate or syncope Respiratory/Chest Respiratory/Chest: Reports cough, dyspnea, shortness of breath at rest and shortness of breath with exertion; Denies productive cough or wheezing Gastrointestinal Gastrointestinal: Denies abdominal pain, constipation, diarrhea, nausea or vomiting Genitourinary Genitourinary: Denies dysuria Neurologic Neurologic: Denies confusion, dizziness, focal weakness, seizures or syncope Psychiatric Psychiatric: Denies anxiety Physical Exam Const alert, oriented x3 and no apparent distress Constitutional Narrative: Pursed lip breathing General Appearance: cooperative HEENT hearing grossly normal bilaterally Head and Scalp: atraumatic Eyes EOMs intact bilaterally Neck General: normal visual inspection Chest inspection of chest normal and palpation of chest normal Resp normal respiratory effort Auscultation: clear to auscultation bilaterally Cardio regular rate, regular rhythm, S1 normal heart sound and S2 normal heart sound Jugular Venous Distention: JVD GI normal to inspection, nondistended, normoactive bowel sounds Extremity normal capillary refill General Extremity: edema bilateral Peripheral Pulses: Yes pulses 2+ throughout and femoral pulses present Skin no rashes or lesions noted Neuro oriented x3 and CN's II-XII intact bilaterally Psych Appearance: grossly normal and appropriate Risk Stratification Risk Stratification Applicable: No Objective Data Vital Signs: Vital Signs Temp Pulse Resp BP Pulse Ox O2 Del Method O2 Flow Rate 97.5 F L 94 20 H 143/91 H 96 Nasal Cannula 3 12/29/22 14:13 12/29/22 15:10 12/29/22 15:10 12/29/22 15:10 12/29/22 15:10 12/29/22 15:10 12/29/22 15:10 Oxygen Flow Rate (L/min) 3 Oxygen Delivery Method Nasal Cannula Weight: 223 lb Body Mass Index (BMI) 43.5 Intake & Output: Intake and Output for Last 24 Hours 12/27/22 12/28/22 12/29/22 23:59 23:59 23:59 Intake Total Balance Lab / Micro Data Result Diagrams: 12/29/22 12:50 12/29/22 12:50 Labs: Laboratory Results - last 24 hr 12/29/22 12:50: WBC 9.5, RBC 4.16 L, Hgb 12.4, Hct 39.6, MCV 95.2, MCH 29.8, MCHC 31.3 L, RDW Std Deviation 53.1 H, RDW Coeff of Lisa 15.2 H, Plt Count 299, MPV 9.6, Immature Gran % (Auto) 0.400, Neut % (Auto) 82.1 H, Lymph % (Auto) 10.5 L, [place] % (Auto) 6.6, Eos % (Auto) 0.1, Baso % (Auto) 0.3, Absolute Neuts (auto) 7.8 H, Absolute Lymphs (auto) 1.00, Nucleated RBC % 0 12/29/22 12:50: Sodium 134 L, Potassium 4.5, Chloride 98, Carbon Dioxide 28.0, Anion Gap 8, BUN 28 H, Creatinine 1.90 H, Estim Creat Clear Calc 20.92, Est GFR (MDRD) Af Amer 34 L, Est GFR (MDRD) Non-Af 28 L, BUN/Creatinine Ratio 14.7, Glucose 127 H, Calcium 8.8, Troponin I High Sens 4005 H* 12/29/22 12:50: B-Natriuretic Peptide 621.3 H 12/29/22 12:50: PT 13.8, INR 1.1, APTT 27.5 Cardiology Labs/Tests 12/29/22 12:50: WBC 9.5, RBC 4.16 L, Hgb 12.4, Hct 39.6, MCV 95.2, MCH 29.8, MCHC 31.3 L, Plt Count 299, MPV 9.6, Immature Gran % (Auto) 0.400, Neut % (Auto) 82.1 H, Lymph % (Auto) 10.5 L, [place] % (Auto) 6.6, Eos % (Auto) 0.1, Baso % (Auto) 0.3, Absolute Neuts (auto) 7.8 H, Nucleated RBC % 0 12/29/22 12:50: Sodium 134 L, Potassium 4.5, Chloride 98, Carbon Dioxide 28.0, Anion Gap 8, BUN 28 H, Creatinine 1.90 H, Est GFR (MDRD) Af Amer 34 L, Est GFR (MDRD) Non-Af 28 L, BUN/Creatinine Ratio 14.7, Glucose 127 H, Calcium 8.8 12/29/22 12:50: B-Natriuretic Peptide 621.3 H 12/29/22 12:50: PT 13.8, INR 1.1, APTT 27.5 Rhythm: EKG: ECHO: Stress Test: Cardiac Cath: PCI: CT Surgery: Holter monitor: EPS: PPM: CXR: Chest CT Scan: Radiography Diagnostic Testing: Radiology Impression Chest X-Ray 12/29/22 12:55 IMPRESSION: No acute abnormality is seen. Electronically Signed: Sivakumar Johnson MD at 13:35 EST ,
--- NOTE | 2022-12-29 17:44 | EKG12_ITS ---
Test Reason : cp admit Blood Pressure : / mmHG Vent. Rate : 087 BPM Atrial Rate : 087 BPM P-R Int : 144 ms QRS Dur : 072 ms QT Int : 376 ms P-R-T Axes : 069 011 045 degrees QTc Int : 452 ms Normal sinus rhythm Normal ECG Confirmed by MARK TAYLOR, MENDOZA ([id number]), newspaper photo editor OUSMANE HOFFMAN ([id number]) on 12/31/2022 10:29:05 AM Referred By: Leslie Confirmed By:MENDOZA FLORES MD
[2022-12-29 19:44] LABS: Troponin-I HS 3354 pg/mL (3.0-54.0)
[2022-12-29 21:03] LABS: Partial Thromboplast Time 80.8 Seconds (24.1-36.2)
[2022-12-29] MEDS: Insulin Glargine-YFGN 100 UNIT/ML Pen 12 UNIT SC (22:08)
[2022-12-29] MEDS: Atorvastatin Calcium 40 MG Tablet PO (22:08)
[2022-12-30] VITALS (17 sets, daily range): BP systolic 121–179; BP diastolic 66–100; PULSE 67–88; RESP 16–24; TEMP 36.3–37.1; O2SAT 92–100
[2022-12-30 00:15] LABS: Bedside Glucose 184 mg/dL (74-106)
[2022-12-30 04:08] LABS: Absolute Neutrophil Count 4.8 X10^3/uL (2.0-7.7); Basophil# 0.02 X10^3/uL; Basophil% 0.3 % (0-1); Hematocrit 36.4 % (37-47); Hemoglobin 11.3 g/dL (12.0-15.0); Lymphocyte % 28.7 % (19-41); Mean Corpuscular Hgb 29.7 pg (27.0-32.0); Mean Corpuscular Volume 95.8 fL (81-99); Mean Platelet Vol. 9.3 fl (6.2-12.0); Monocyte# 0.66 X10^3/uL; Monocyte% 8.6 % (0-10); NRBC Flagged by Analyzer 0 % (0-5); Neutrophil # 4.77 X10^3/uL (2.7-7.7); Neutrophil % 62.1 % (47-70); Platelet Count 246 K/mm3 (150-450); RBC Distribution Width CV 15.1 % (11.6-14.6); RBC Distribution Width SD 52.6 fl (35.1-43.9); White Blood Count 7.7 K/mm3 (4.4-11.0)
[2022-12-30] MEDS: 0.9% Normal Saline 1,000 ML 15 ML IV (04:20)
[2022-12-30] MEDS: Ramipril 10 MG Capsule PO (04:20)
[2022-12-30] MEDS: Levothyroxine 125 MCG Tablet PO (04:20)
[2022-12-30 04:22] LABS: Anion Gap 8 (5-15); BUN 29 mg/dL (7-18); Calcium,Total 8.4 mg/dL (8.5-10.1); Chloride 99 mmol/L (98-107); Creatinine, Serum 1.93 mg/dL (0.55-1.02); EST Glomerular Filtration Rate 28 mL/min (>60); Est Glom Filt Rate - Afr Amer 33 mL/min (>60); Glucose 92 mg/dL (74-106); Partial Thromboplast Time 73.8 Seconds (24.1-36.2); Potassium 4.5 mmol/L (3.5-5.1); Sodium Level 137 mmol/L (136-145)
--- NOTE | 2022-12-30 05:55 | EKG12_ITS ---
Test Reason : am ekg Blood Pressure : / mmHG Vent. Rate : 071 BPM Atrial Rate : 071 BPM P-R Int : 142 ms QRS Dur : 072 ms QT Int : 412 ms P-R-T Axes : 068 008 029 degrees QTc Int : 447 ms Normal sinus rhythm Low voltage QRS (Limb Leads) Borderline ECG Confirmed by MARK TAYLOR, MENDOZA ([id number]), news video editor OUSMANE HOFFMAN ([id number]) on 12/31/2022 10:28:39 AM Referred By: Leslie Confirmed By:MENDOZA FLORES MD
[2022-12-30] MEDS: Dextrose 50%-Water 25 GM/50 ML DISP.SYRIN IV (06:56)
[2022-12-30 07:20] LABS: Bedside Glucose 60 mg/dL (74-106)
[2022-12-30 07:20] LABS: Bedside Glucose 128 mg/dL (74-106)
--- NOTE | 2022-12-30 08:05 | PN.CARD_ITS ---
Subjective Subjective Patient in and evaluated. Underwent cardiac catheterization today. Objective Data Vital Signs: Vital Signs Temp Pulse Resp BP Pulse Ox O2 Del Method O2 Flow Rate 97.5 F L 67 18 128/78 H 98 Nasal Cannula 2 12/30/22 06:43 12/30/22 06:43 12/30/22 06:43 12/30/22 06:43 12/30/22 06:43 12/30/22 06:43 12/30/22 06:43 Oxygen Flow Rate (L/min) 2 Oxygen Delivery Method Nasal Cannula Weight: 207 lb 14.334 oz Body Mass Index (BMI) 40.6 Intake & Output: Intake and Output for Last 24 Hours 12/28/22 12/29/22 12/30/22 23:59 23:59 23:59 Intake Total 671.17 / 671.17 156.25 / 156.25 Output Total 525 / 525 Balance 146.17 / 146.17 156.25 / 156.25 Lab / Micro Data Result Diagrams: 12/30/22 04:02 12/30/22 04:02 Labs: Laboratory Results - last 24 hr 12/29/22 12:50: WBC 9.5, RBC 4.16 L, Hgb 12.4, Hct 39.6, MCV 95.2, MCH 29.8, MCHC 31.3 L, RDW Std Deviation 53.1 H, RDW Coeff of Lisa 15.2 H, Plt Count 299, MPV 9.6, Immature Gran % (Auto) 0.400, Neut % (Auto) 82.1 H, Lymph % (Auto) 10.5 L, [place] % (Auto) 6.6, Eos % (Auto) 0.1, Baso % (Auto) 0.3, Absolute Neuts (auto) 7.8 H, Absolute Lymphs (auto) 1.00, Nucleated RBC % 0 12/29/22 12:50: Sodium 134 L, Potassium 4.5, Chloride 98, Carbon Dioxide 28.0, Anion Gap 8, BUN 28 H, Creatinine 1.90 H, Estim Creat Clear Calc 20.92, Est GFR (MDRD) Af Amer 34 L, Est GFR (MDRD) Non-Af 28 L, BUN/Creatinine Ratio 14.7, Glucose 127 H, Calcium 8.8, Troponin I High Sens 4005 H* 12/29/22 12:50: B-Natriuretic Peptide 621.3 H 12/29/22 12:50: PT 13.8, INR 1.1, APTT 27.5 12/29/22 18:45: Troponin I High Sens 3354 H* 12/29/22 20:10: APTT 80.8 H 12/29/22 21:56: POC Glucose 184 H 12/30/22 04:02: WBC 7.7, RBC 3.80 L, Hgb 11.3 L, Hct 36.4 L, MCV 95.8, MCH 29.7, MCHC 31.0 L, RDW Std Deviation 52.6 H, RDW Coeff of Lisa 15.1 H, Plt Count 246, MPV 9.3, Immature Gran % (Auto) 0.300, Neut % (Auto) 62.1, Lymph % (Auto) 28.7, [place] % (Auto) 8.6, Eos % (Auto) 0.0, Baso % (Auto) 0.3, Absolute Neuts (auto) 4.8, Absolute Lymphs (auto) 2.20, Nucleated RBC % 0 12/30/22 04:02: Sodium 137, Potassium 4.5, Chloride 99, Carbon Dioxide 30.0, Anion Gap 8, BUN 29 H, Creatinine 1.93 H, Estim Creat Clear Calc 20.60, Est GFR (MDRD) Af Amer 33 L, Est GFR (MDRD) Non-Af 28 L, BUN/Creatinine Ratio 15.0, Glucose 92, Calcium 8.4 L 12/30/22 04:02: APTT 73.8 H 12/30/22 06:41: POC Glucose 60 L 12/30/22 06:59: POC Glucose 128 H Cardiology Labs/Tests 12/29/22 12:50: WBC 9.5, RBC 4.16 L, Hgb 12.4, Hct 39.6, MCV 95.2, MCH 29.8, MCHC 31.3 L, Plt Count 299, MPV 9.6, Immature Gran % (Auto) 0.400, Neut % (Auto) 82.1 H, Lymph % (Auto) 10.5 L, [place] % (Auto) 6.6, Eos % (Auto) 0.1, Baso % (Auto) 0.3, Absolute Neuts (auto) 7.8 H, Nucleated RBC % 0 12/29/22 12:50: Sodium 134 L, Potassium 4.5, Chloride 98, Carbon Dioxide 28.0, Anion Gap 8, BUN 28 H, Creatinine 1.90 H, Est GFR (MDRD) Af Amer 34 L, Est GFR (MDRD) Non-Af 28 L, BUN/Creatinine Ratio 14.7, Glucose 127 H, Calcium 8.8 12/29/22 12:50: B-Natriuretic Peptide 621.3 H 12/29/22 12:50: PT 13.8, INR 1.1, APTT 27.5 12/29/22 20:10: APTT 80.8 H 12/30/22 04:02: WBC 7.7, RBC 3.80 L, Hgb 11.3 L, Hct 36.4 L, MCV 95.8, MCH 29.7, MCHC 31.0 L, Plt Count 246, MPV 9.3, Immature Gran % (Auto) 0.300, Neut % (Auto) 62.1, Lymph % (Auto) 28.7, [place] % (Auto) 8.6, Eos % (Auto) 0.0, Baso % (Auto) 0.3, Absolute Neuts (auto) 4.8, Nucleated RBC % 0 12/30/22 04:02: Sodium 137, Potassium 4.5, Chloride 99, Carbon Dioxide 30.0, Anion Gap 8, BUN 29 H, Creatinine 1.93 H, Est GFR (MDRD) Af Amer 33 L, Est GFR (MDRD) Non-Af 28 L, BUN/Creatinine Ratio 15.0, Glucose 92, Calcium 8.4 L 12/30/22 04:02: APTT 73.8 H Rhythm: EKG: ECHO: Stress Test: Cardiac Cath: PCI: CT Surgery: Holter monitor: EPS: PPM: CXR: Chest CT Scan: Radiography Diagnostic Testing: Radiology Impression Chest X-Ray 12/29/22 12:55 IMPRESSION: No acute abnormality is seen. Electronically Signed: Sivakumar Johnson MD at 13:35 EST , Chest CTA 12/29/22 14:51 IMPRESSION: No evidence of acute pulmonary emboli to the segmental level. Diffuse reticulonodular groundglass opacities concerning for atypical infection. Electronically Signed: Flo Looney MD at 17:03 EST , Physical Exam Const alert, oriented x3 and no apparent distress Constitutional Narrative: Pursed lip breathing General Appearance: cooperative HEENT hearing grossly normal bilaterally Head and Scalp: atraumatic Eyes EOMs intact bilaterally Neck General: normal visual inspection Chest inspection of chest normal and palpation of chest normal Resp normal respiratory effort Auscultation: clear to auscultation bilaterally Cardio regular rate, regular rhythm, S1 normal heart sound and S2 normal heart sound Jugular Venous Distention: JVD GI normal to inspection, nondistended, normoactive bowel sounds Extremity normal capillary refill General Extremity: edema bilateral Peripheral Pulses: Yes pulses 2+ throughout and femoral pulses present Skin no rashes or lesions noted Neuro oriented x3 and CN's II-XII intact bilaterally Psych Appearance: grossly normal and appropriate Assessment & Plan Assessment/Plan (1) NSTEMI (non-ST elevated myocardial infarction): PLAN: Patient presents with shortness of breath and is noted to have an elevated troponin level. Previous echocardiogram had demonstrated preserved left ventricular systolic function. Left heart catheterization demonstrated the following: Distal left main coronary stenosis. Left anterior descending artery with proximal high-grade stenosis in first diagonal vessel with bifurcating severe stenosis. Left circumflex artery with obtuse marginal vessel with moderate disease. Right coronary artery which appears to be totally occluded and feeding from distally via left to right collaterals. The ejection fraction was noted to be normal per echocardiogram. Severe pulmonary hypertension however was known. Would recommend an opinion of cardiac bypass surgery team. Due to the high pulmonary pressures the echo would need to be repeated at some point. Left main stenting may be an option. * Will arrange for transfer to a tertiary care facility. (2) Shortness of breath: PLAN: Patient does have evidence of shortness of breath with moderate to severe pulmonary hypertension. She did have a CT scan which did not demonstrate any evidence of PE is acute or chronic. Depending on the results of the heart catheterization further recommendations will be made. (3) Hypertension: PLAN: She does have a history of hypertension. The plan will be to treat her with appropriate antihypertensive therapy. Due to her renal dysfunction I would suggest we shy away from an [place] inhibitor or ARB. Perhaps in conjunction with a diuretic we could institute a calcium channel b locker, such as amlodipine. Thank you for allowing me to participate in the care of your patient. Please don't hesitate to call if any issues arise.
--- NOTE | 2022-12-30 08:14 | CL.D_ITS ---
Patient Name: HOPE ENCINAS Study Date: 12/30/2022 Performing: Golden Corona MD Ht: 60 inches 152.4 cm : 1955 Wt: 207.9 lbs 94.3 kg Age: 67 Gender: female BSA: 1.9 PROCEDURE(S) PERFORMED [id number])[facility]/COR CLINICAL PROFILE AND INDICATIONS Indications: Suspected CAD Heart Failure: NYHA Class: 2 Stress/Imaging Stress/Image Study Performed: No CAD Presentations: Non-STEMI. Symptom onset Date/Time: 12/29/22 Time Not Available CONCLUSIONS Distal left main coronary artery stenosis, proximal left anterior descending artery stenosis, totally occluded right coronary artery with [id number] collaterals. RECOMMENDATIONS We will transfer to a tertiary care facility for surgical consideration. DESCRIPTION OF PROCEDURE The patient arrived to the procedure lab. The risks and benefits of the procedure as well as a full description of our services here and current unavailability of surgical backup were fully explained to the patient and/or their significant other prior to the catheterization. The Timeout was completed, verifying the correct patient and procedure. The patient's procedural site was prepped and draped in the usual fashion. Local anesthetic was given subcutaneously to right radial region with Lidocaine 2%. Using a modified Seldinger technique, arterial access was obtained via the right radial artery, a 6Fr sheath was inserted. Right Coronary Artery selective angiography was then performed in multiple views using a 5 Fr. 4.0 Lawrence catheter. Left Coronary Artery selective angiography was performed in multiple views using a 5 Fr. 4.0 Lawrence catheter.The arterial sheath was pulled and a TR Band was applied for hemostasis w/ 12ml CORONARY ANGIOGRAPHY DOMINANCE: Right Dominant LEFT HEART ASSESSMENT Left Ventricular Ejection Fraction: by LV Gram 65 % Normal LV wall motion Pulmonary Hypertension Moderate LEFT MAIN: There appears to be distal 50% left main coronary stenosis LEFT ANTERIOR DESCENDING ARTERY: Proximal high-grade 80% stenosis and first diagonal vessel with a bifurcating high-grade stenosis CIRCUMFLEX ARTERY: Second obtuse marginal branch with 80% stenosis RIGHT CORONARY ARTERY: OSTIAL RCA: is occluded COLLATERAL FLOW: Collateral flow from Left to Right COMPLICATIONS No Complications PROCEDURE MEDICATIONS Versed 1 mg IV Fentanyl 50 mcg IV Oxygen: 2 L/min via nasal cannula Heparin given IA 12/30/2022 07:48:36 Verapamil 2.5mg, Ntg 100mcgs, 3000 units of Heparin given IA 12/30/2022 07:48:36 SUMMARY OF HEMODYNAMIC DATA Time AIR REST ECG 07:36:22 AO 133/63 (92) SA 07:51:41 AIR REST 08:12:41 Signed By Golden Corona MD On 12/30/2022 08:16:08 Signed By Golden Corona MD On 12/30/2022 08:14:10 Golden Corona MD
[2022-12-30] MEDS: Furosemide 40 MG Tablet PO ×2 (09:57→16:55)
[2022-12-30] MEDS: Potassium Chloride Oral Tablet 20 MEQ PO (09:57)
[2022-12-30] MEDS: Pantoprazole Sodium 20 MG Tablet PO (09:57)
[2022-12-30] MEDS: LORazepam 1 MG Tablet PO ×2 (11:28→21:01)
[2022-12-30] MEDS: Cyanocobalamin (B12) 1,000 MCG/ML Vial 1000 MCG IM (11:28)
[2022-12-30 12:01] LABS: Bedside Glucose 134 mg/dL (74-106)
--- NOTE | 2022-12-30 13:35 | PN_ITS ---
Subjective Subjective Patient seen and examined. was by her bedside. She complained of anxiety. She denied any fever, chills, chest pain, palpitations, dizziness, nausea, vomiting or diarrhea. Review of systems is otherwise negative. Objective Data Objective Data Vital Signs: Vital Signs Temp Pulse Resp BP Pulse Ox O2 Del Method O2 Flow Rate 97.4 F L 78 16 143/66 H 98 Nasal Cannula 2 12/30/22 08:35 12/30/22 10:21 12/30/22 10:21 12/30/22 10:21 12/30/22 10:21 12/30/22 10:21 12/30/22 10:21 Oxygen Flow Rate (L/min) 2 Oxygen Delivery Method Nasal Cannula Weight: 207 lb 14.334 oz Body Mass Index (BMI) 40.6 Intake & Output: Intake and Output for Last 24 Hours 12/28/22 12/29/22 12/30/22 23:59 23:59 23:59 Intake Total 671.17 / 671.17 436.25 / 436.25 Output Total 525 / 525 Balance 146.17 / 146.17 436.25 / 436.25 Lab / Micro Data Result Diagrams: 12/30/22 04:02 12/30/22 04:02 Labs: Laboratory Results - last 24 hr 12/29/22 12:50: Sodium 134 L, Potassium 4.5, Chloride 98, Carbon Dioxide 28.0, Anion Gap 8, BUN 28 H, Creatinine 1.90 H, Estim Creat Clear Calc 20.92, Est GFR (MDRD) Af Amer 34 L, Est GFR (MDRD) Non-Af 28 L, BUN/Creatinine Ratio 14.7, Glucose 127 H, Calcium 8.8, Troponin I High Sens 4005 H* 12/29/22 12:50: B-Natriuretic Peptide 621.3 H 12/29/22 12:50: PT 13.8, INR 1.1, APTT 27.5 12/29/22 18:45: Troponin I High Sens 3354 H* 12/29/22 20:10: APTT 80.8 H 12/29/22 21:56: POC Glucose 184 H 12/30/22 04:02: WBC 7.7, RBC 3.80 L, Hgb 11.3 L, Hct 36.4 L, MCV 95.8, MCH 29.7, MCHC 31.0 L, RDW Std Deviation 52.6 H, RDW Coeff of Lisa 15.1 H, Plt Count 246, MPV 9.3, Immature Gran % (Auto) 0.300, Neut % (Auto) 62.1, Lymph % (Auto) 28.7, [place] % (Auto) 8.6, Eos % (Auto) 0.0, Baso % (Auto) 0.3, Absolute Neuts (auto) 4.8, Absolute Lymphs (auto) 2.20, Nucleated RBC % 0 12/30/22 04:02: Sodium 137, Potassium 4.5, Chloride 99, Carbon Dioxide 30.0, Anion Gap 8, BUN 29 H, Creatinine 1.93 H, Estim Creat Clear Calc 20.60, Est GFR (MDRD) Af Amer 33 L, Est GFR (MDRD) Non-Af 28 L, BUN/Creatinine Ratio 15.0, Glucose 92, Calcium 8.4 L 12/30/22 04:02: APTT 73.8 H 12/30/22 06:41: POC Glucose 60 L 12/30/22 06:59: POC Glucose 128 H 12/30/22 11:21: POC Glucose 134 H Radiography Diagnostic Testing: Radiology Impression Chest X-Ray 12/29/22 12:55 IMPRESSION: No acute abnormality is seen. Electronically Signed: Sivkaumar Johnson MD at 13:35 EST , Chest CTA 12/29/22 14:51 IMPRESSION: No evidence of acute pulmonary emboli to the segmental level. Diffuse reticulonodular groundglass opacities concerning for atypical infection. Electronically Signed: Flo Looney MD at 17:03 EST , Physical Exam Const alert, oriented x3 and no apparent distress General Appearance: cooperative HEENT normocephalic, head/scalp atraumatic, hearing grossly normal bilaterally and moist oral mucous membranes Eyes PERRL, EOMs intact bilaterally and conjunctivae normal Neck no lymphadenopathy and supple Resp Resp Narrative: mildly diminished breath sounds bibasally, no wheezes, no crackles. On 2L of oxygen. Cardio regular rate, regular rhythm, S1 normal heart sound, S2 normal heart sound and no murmurs GI normal to inspection, nondistended, normoactive bowel sounds, soft to palpation, non-tender and non-distended Extremity normal to inspection, full ROM and no clubbing, cyanosis or edema Neuro oriented x3, CN's II-XII intact bilaterally, moves all extremities and no focal motor deficits Sensorium / Orientation: awake and alert Motor Exam: strength 5/5 throughout Psych affect normal Assessment & Plan Assessment/Plan (1) Non-ST elevation NM (NSTEMI): (2) CHF (congestive heart failure): PLAN: Plan #Nonstemi * had cardiac cath today which showed severe triple vessel disease * CTA chest was negative for any evidence of PE * on aspirin and high intensity statin * cardiology on board * for transfer to [facility] for evaluation for CABG * had 2D echo 3 days ago which showed EF of 65%, with stage II diastolic dysfunction, and no regional wall motion abnormalities; moderate eccentric mitral valve insufficiency RVSP of 70mmhg. * #Probable COPD exacerbation * patient appeared short of breath,a dn was puffing through pursed lips. She has an extensive history of smoking, and quit only one week ago * started on IV solumedrol. Breathing treatment with bronchodilators * was also recently diagnosed with Human metapneumovirus infection and treated and discharged only one day prior to this admission. This likely played a role in her shortness of breath * Will need follow-up with pulmonology on outpatient basis. * #Acute heart failure with preserved EF * BNP elevated at 621. Will diurese with IV lasix 40mg bid. * no known history of heart failure. 2D echo as above. * monitor intake and output. Fluid restriction to 1500 cc daily. * #Type 2 diabetes mellitus, hold glimepiride and metformin. Continue Lantus. Insulin sliding scale. Accu-Cheks ACHS. Hypothyroidism: On Synthroid GERD: On PPI #Hypertension: On ramipril DVT prophylaxis: on therapeutic lovenox Code status: full code * * Disposition: CABG showed triple vessel disease, so she is awaiting transfer to [facility] Charges/Coding Visit Charges Inpatient E&M: 46667 Subs Hosp L3
[2022-12-30] MEDS: Ipratropium/Albuterol Sulfate 3 ML AMPUL.NEB INHALATION (13:55)
[2022-12-30] MEDS: 0.9% Saline Lock 10 ML Syringe IV (15:27)
[2022-12-30 17:31] LABS: Bedside Glucose 126 mg/dL (74-106)
[2022-12-30] MEDS: Atorvastatin Calcium 40 MG Tablet PO (21:01)
--- NOTE | 2022-12-30 21:07 | PCM.HOSP.N ---
Hospitalist Note U [address] [facility] accepted by Dr. Scherer. [facility] transfer line contacted myself noting that Dr. Nelson had contacted their facility for a bed earlier in the day but there was no availability. They called back to say there was a bed available and requested report be given to Dr. Scherer currently accepting patients for the Hospitalist service. Reviewed chart with him and they had also already had discussions between Dr. Corona and their CT surgery physician. Transfer form signed and placed on chart and discharge order also.
[2022-12-30] MEDS: Insulin Glargine-YFGN 100 UNIT/ML Pen 12 UNIT SC (23:29)
[2022-12-30 23:51] LABS: Bedside Glucose 414 mg/dL (74-106)
[2022-12-31 00:47] VITALS: BP 168/90; PULSE 80; RESP 18; TEMP 37.1; O2SAT 96
--- NOTE | 2022-12-31 17:40 | DS.PCM_ITS ---
Providers Date of Admission: 12/29/22 Date of Discharge: 12/30/22 Primary Care Physician: Dr. Marie Landers MD Consultations 12/29/22 18:10 Consult: Cardiology Routine Consulting Provider: Golden Corona Reason for Consult: Chest Pain EMERGENT Consult: No MD Notified: Yes Date Notified: 12/29/22 Time Notified: 18:10 Method of Notification: Verbal Reason For Visit: NONSTEMI Diagnosis Discharge Diagnosis (1) Non-ST elevation LA (NSTEMI): Status: Acute Code(s): I21.4 - Non-ST elevation (NSTEMI) myocardial infarction (2) CHF (congestive heart failure): Status: Acute Code(s): I50.9 - Heart failure, unspecified Plan #Nonstemi * admit to PCU * initial troponin is 4000. BNP is also elevated * EKG showed no acute ST changes * place on therapeutic lovenox, aspirin and hgh intensity statin * consult cardiology * had 2D echo 3 days ago which showed EF of 65%, with stage II diastolic dysfunction, and no regional wall motion abnormalities; moderate eccentric mitral valve insufficiency RVSP of 70mmhg. * CTA of the chest was done which was negative for PE * #Probable acute COPD exacerbation * Patient was short of breath and breathing through pursed lips. She has a chronic history of long-term smoking and had just quit about a week prior to admission. I strongly suspect patient does have underlying COPD * Will place on IV Solu-Medrol and breathing treatments bronchodilators. Will need follow-up with pulmonology on outpatient basis. * #Acute excerbation of HFpEF * BNP elevated at 621. Will diurese with IV lasix 40mg bid. * monitor intake and output. Fluid restriction to 1500 cc daily. * #Type 2 diabetes mellitus, hold glimepiride and metformin. Continue Lantus. In sulin sliding scale. Accu-Cheks ACHS. Hypothyroidism: On Synthroid GERD: On PPI #Hypertension: On ramipril DVT prophylaxis: on therapeutic lovenox Code status: full code * Patient counseled extensively about different types of CODE STATUS including full code, DNR CCA and DNR CCA. Patient elects to be full code Total cppc-qd-halk time 18 minutes. Medications at Discharge Home Medications levothyroxine 112 mcg tablet (Synthroid) 125 mcg PO DAILY THYROID 12/09/17 cyanocobalamin (vitamin B-12) 1,000 mcg/mL injection solution 1,000 mcg IM QMONTH SUPPLEMENT 02/28/19 ergocalciferol (vitamin D2) 1,250 mcg (50,000 unit) capsule 50,000 units PO QWEEK SUPPLEMENT 02/28/19 glimepiride 2 mg tablet 2 mg PO DAILY DIABETES 02/28/19 ramipril 10 mg capsule 10 mg PO DAILY HEART 07/03/20 metformin 500 mg tablet 1,000 mg PO BID diabetes 07/19/20 omeprazole 20 mg capsule,delayed release 20 mg PO DAILY GERD 04/30/22 ipratropium 20 mcg-albuterol 100 mcg/actuation mist for inhalation (Combivent Respimat) 1 puff inhalation Q4H SOB 12/26/22 meloxicam 15 mg tablet 15 mg PO DAILY pain 12/26/22 ipratropium 20 mcg-albuterol 100 mcg/actuation mist for inhalation (Combivent Respimat) 1 puff inhalation Q4H PRN Shortness Of Breath 12/28/22 furosemide 40 mg tablet (Lasix) 40 mg PO BID water pill 12/29/22 insulin detemir U-100 100 unit/mL (3 mL) subcutaneous pen (Levemir FlexPen) 12 unit subcut QHS DM 12/29/22 potassium chloride 20 mEq tablet,extended release(part/cryst) (Klor-Con M) 20 meq PO DAILYCM supplement 12/29/22 prednisone 20 mg tablet 20 mg PO BID SOB 12/29/22 Hospital Course Operations None Procedures Cardiac catheterization Summary of Care Provided Minutes Spent on Discharge: 50 Hospital Course: HOPE ENCINAS, is a 67 F with an extensive PMH as outlined? who presents via the ED on 12/29/2022 with a complaint of shortness of breath which had been going on for ~ 1 month. She was put on an inhaler by her PCP, but it wasnt helping. Her shortness of breath worsened so she came back to the ED. She was admitted and just discharged one day ago after being managed for URTI due to human metapneumovirus.? She went home but her shortness of breath persisted so she came back to the ED.? She denied any chest pain, palpitations, dizziness, nausea vomiting or any other symptoms.? Review of systems otherwise negative.? Vitals in the ED were blood pressure 161/98, pulse rate of 95, respiratory rate of 18 and oxygen saturation of 95% on 3 L of oxygen.? CBC was unremarkable.? Chemistry shows sodium of 134 with bicarb of 28 and potassium of 4.5.? Creatinine was 1.9.? Troponin was 4005 and BNP was 61.3.? Chest x-ray showed no acute cardiopulmonary process and EKG showed no acute ST changes.? Of note during her previous recent admission, her initial troponin was 67 and the delta troponin was 63.? 2D echo done then showed severe pulmonary hypertension with RVSP of 70 mmHg but showed normal left ventricular systolic function and no regional wall motion abnormalities and normal EF.? She was admitted to be managed for non- STEMI. She did have CTA of the chest which ruled out evidence of PE. She had cardiac cath on 12/30/2022 which showed severe triple-vessel disease so decision was made to transfer her to [facility] for evaluation for CABG. Of note patient also had an extensive smoking history and there was concern for COPD so she was started on IV Solu-Medrol. Patient was accepted by the hospitalist team at [facility] with consult to cardiothoracic surgery and was discharged on 12/30/2022. Patient was seen on the day of discharge. She did complain of some anxiety and shortness of breath with wheezing. Chest pain had not recurred. Review of systems otherwise negative. Labs and vitals reviewed. Home medication reviewed and reconciled. Physical Exam Const alert, oriented x3 and no apparent distress General Appearance: cooperative and comfortable Orientation / Consciousness: awake Exam Limitations: no limitations HEENT normocephalic, head/scalp atraumatic, hearing grossly normal bilaterally and moist oral mucous membranes Mouth: oral and palatal mucosa normal Eyes PERRL, EOMs intact bilaterally and conjunctivae normal Neck no lymphadenopathy and supple Resp Resp Narrative: mildly diminished breath sounds bibasally, no wheezes, no crackles. On 2L of oxygen. Cardio regular rate, regular rhythm, S1 normal heart sound, S2 normal heart sound and no murmurs GI normal to inspection, nondistended, normoactive bowel sounds, soft to palpation, non-tender and non-distended Extremity normal to inspection, full ROM and no clubbing, cyanosis or edema Neuro oriented x3, CN's II-XII intact bilaterally, moves all extremities and no focal motor deficits Sensorium / Orientation: awake and alert Motor Exam: strength 5/5 throughout Psych affect normal Weight / BMI Weight Weight: 207 lb 14.334 oz Body Mass Index (BMI) 40.6 ABG / Lab / Microbiology Data Result Diagrams: 12/30/22 04:02 12/30/22 04:02 Laboratory: Laboratory Results - last 24 hr 12/30/22 23:26: POC Glucose 414 H D/C Instructions Discharge Diet: Low fat / Low cholesterol Meaningful Use Info Meaningful Use Diagnoses (Choose all that apply): AMI AMI/Post PCI/Angioplasty Aspirin given w/in 24hrs of arrival?: Yes ASA at discharge?: No Reason ASA not ordered:: Allergy (Transferred for CABG) Antiplatelet Therapy at Discharge:: No Statins at discharge?: No Reason statins not ordered:: Drug Interaction (transferred for CABG) Louie/ARB at discharge?: No Reason Louie/ARB not ordered:: Not indicated Beta May at discharge?: No Reason Beta May not ordered:: Allergy (transferred to tertiary facility) Done w/ Acute LA measure.: Yes Documented LVEF (%): 65 Discharge Plan Admission Admit Date/Time: 12/29/22 14:18 Primary Reason for Your Visit: nonstemi Attending Provider: Melissa Nelson Primary Care Provider: Marie Landers Consulting Providers: Golden Corona Discharge Orders/Prescriptions Prescriptions: No Action levothyroxine [Synthroid] 112 mcg tablet 125 mcg PO DAILY omeprazole 20 mg capsule,delayed release(DR/EC) 20 mg PO DAILY glimepiride 2 MG tablet 2 mg PO DAILY cyanocobalamin (vitamin B-12) 1,000 MCG/ML solution 1,000 mcg IM QMONTH ergocalciferol (vitamin D2) 50,000 UNIT capsule 50,000 units PO QWEEK Label Comments: TAKE ONE CAPSULE BY MOUTH ONCE A WEEK ramipril 10 MG capsule 10 mg PO DAILY metformin 500 MG tablet 1,000 mg PO BID meloxicam 15 mg Tablet 15 mg PO DAILY Combivent Respimat 20-100 mcg/actuation Mist 1 puff INHALATION Q4H Combivent Respimat 20-100 mcg/actuation Mist 1 puff INHALATION Q4H PRN (Reason: Shortness Of Breath) Levemir FlexPen 100 unit/mL (3 mL) Insulin Pen 12 unit SUBCUT QHS furosemide [Lasix] 40 mg tablet 40 mg PO BID Rx Instructions: take second dose daily at 5 pm prednisone 20 mg tablet 20 mg PO BID Rx Instructions: one twice a day for 3 days, then one daily for 3 days, then stop potassium chloride [Klor-Con M20] 20 mEq tablet,ER particles/crystals 20 meq PO DAILYCM Referrals / Follow Up: Marie Landers MD [Primary Care Provider] - Disposition Disposition (needs filled in before D/C Order can be placed): Acute Care Hospital Charges/Coding Visit Charges Inpatient E&M: 01846 Disch Hosp >30min
== END 2022-12-31 01:01 | disposition short-term general hospital (02) | DRG 280 ==
LOC: ED 14:30 → PCU 16:34
PROVIDERS: Admitting Provider Student in an Organized Health Care Education/Training Program; Emergency Provider Emergency Medicine; PCP Family Medicine; Visit Provider Student in an Organized Health Care Education/Training Program
DX: I21.4 Non-ST elevation (NSTEMI) myocardial infarction (principal); I50.31 Acute diastolic (congestive) heart failure; J44.1 Chronic obstructive pulmonary disease with (acute) exacerbation; I27.20 Pulmonary hypertension, unspecified; E11.9 Type 2 diabetes mellitus without complications; I11.0 Hypertensive heart disease with heart failure; Z79.4 Long term (current) use of insulin; E03.9 Hypothyroidism, unspecified; K21.9 Gastro-esophageal reflux disease without esophagitis; E78.5 Hyperlipidemia, unspecified; F41.9 Anxiety disorder, unspecified; Z66 Do not resuscitate; N28.9 Disorder of kidney and ureter, unspecified; Z87.891 Personal history of nicotine dependence
CPT/HCPCS: 36415; 71045; 71275; 80048; 82962; 83880; 84484; 85025; 85610; 85730; 93005; 93454; 94640; 97162; 97166; 99152; 99153; 99284; J7030; Q9967; A4216; C1769; C1887; C1894; J3420